=== PATIENT | female | born 1950 | race Caucasian/White ===

== ENCOUNTER 2017-04-28 05:20 | Inpatient (IN) | payer OTHER ==
[2017-04-20 08:39] VITALS: BMI 38.0
--- NOTE | 2017-04-20 09:05 | PAT Medication Instructions ---
Service Date Apr 20, 2017. Current Home Medication List Atenolol (Tenormin), 50 MG PO QAM Cholecalciferol (Vitamin D3), 1 TAB PO QAM Multivitamin (Multivitamin), 1 TAB PO QAM Ranitidine (Zantac), 150 MG PO BID Triamterene/Hctz (Dyazide 37.5MG/25MG), 1 TAB PO QAM Medication Instructions For Your Scheduled Surgery - Hold the following medications the morning of surgery: Triamterene/Hctz (Dyazide 37.5MG/25MG), 1 TAB PO QAM Cholecalciferol (Vitamin D3), 1 TAB PO QAM Multivitamin (Multivitamin), 1 TAB PO QAM - Take the following medications the morning of surgery with a sip of water: Atenolol (Tenormin), 50 MG PO QAM Ranitidine (Zantac), 150 MG PO BID - Take the following medications as scheduled the night before surgery: Ranitidine (Zantac), 150 MG PO BID If you have any questions please call us at [phone] or [phone] or [phone]
--- NOTE | 2017-04-20 10:01 | DIAGNOSTIC IMAGING REPORT ---
TWO VIEW CHEST CLINICAL HISTORY: Preoperative examination. FINDINGS: PA and lateral chest radiographs are compared to study dated 09/24/2010. The cardiomediastinal silhouette is unremarkable. The lungs and pleural spaces are clear. There is no pneumothorax. The skeletal structures are osteopenic. Mild degenerative change and scoliosis are noted in the thoracic spine. Call cystectomy clips are noted. IMPRESSION: No active disease in the chest. Electronically signed by: Junior Perez M.D. 04/20/2017 10:00 AM Dictated Date/Time: 04/20/2017 9:58 AM
[2017-04-20 10:42] LABS: BASO % 1.1 %; BASO ABS # 0.08 K/uL (0-0.2); COMPLETE YES; EOS % 6.2 %; HEMATOCRIT 48.6 % (37-47); IG% 0.3 %; LYMPH % 27.3 %; LYMPH ABS # 1.93 K/uL (1.2-3.4); MEAN CELL VOLUME 85.7 fL (80-100); MEAN CORPUSCULAR HEMOGLOBIN 29.3 pg (25-34); MEAN CORPUSCULAR HGB CONC 34.2 g/dl (32-36); MEAN PLATELET VOLUME 9.9 fL (7.4-10.4); MONO % 9.2 %; NEUT % 55.9 %; PLATELET COUNT 271 K/uL (130-400); RED BLOOD COUNT 5.67 M/uL (4.2-5.4); WHITE BLOOD COUNT 7.07 K/uL (4.8-10.8)
[2017-04-20 10:45] LABS: MANUAL MICROSCOPIC REQUIRED? NO; REVIEW REQ? NO; URINE APPEARANCE CLEAR (CLEAR); URINE BILIRUBIN NEG (NEG); URINE COLOR YELLOW; URINE EPITHELIAL CELL AUTO >30 /lpf (0-5); URINE NITRITE NEG (NEG); URINE SPECIFIC GRAVITY 1.014 (1.000-1.030); UROBILINOGEN NEG (NEG); ZZUR CULT IF INDIC CLEAN CATCH NO
[2017-04-20 10:51] LABS: PROTHROMBIN TIME (PATIENT) 10.4 SECONDS (9.0-12.0)
[2017-04-20 11:53] LABS: CALCIUM 9.1 mg/dl (8.5-10.1); CREATININE 0.87 mg/dl (0.60-1.20); POTASSIUM 3.4 mmol/L (3.5-5.1)
--- NOTE | 2017-04-27 10:00 | HISTORY & PHYSICAL EXAMINATION ---
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 She had previously undergone left total knee arthroplasty. She presents today for right total knee arthroplasty. She has failed attempts at conservative management. She has a varus alignment of her knee with subchondral sclerosis shift of the femur on tibia, osteophyte formation, subchondral sclerosis, and DJD with a tricompartmental pattern. She has failed attempts at injections, anti-inflammatories, relative rest, activity modification and presents for total knee arthroplasty. PAST MEDICAL HISTORY: Significant for hypertension. She denies history of diabetes or lung problems. FAMILY HISTORY: Otherwise unremarkable and noncontributory. SOCIAL HISTORY: The patient denies history of alcohol use, smoking or recreational drug use. MEDICATIONS: Include atenolol 50 mg p.o. daily, ranitidine 150 mg p.o. daily, triamterene/hydrochlorothiazide 37.5 mg/25 mg p.o. daily. ALLERGIES: INCLUDE SULFA. PMH Otherwise unremarkable. See history of present illness for pertinent positives. PHYSICAL EXAMINATION: GENERAL: Reveals a very pleasant 67-year-old white female with severe DJD about her right knee. She has failed attempts at conservative management and presents for a right total knee arthroplasty. HEENT: Otherwise unremarkable, atraumatic, normocephalic. HEART: Regular at 70 beats per minute. LUNGS: Clear without rales, rhonchi, or wheezes noted. ABDOMEN: Soft, nontender, nondistended. Bowel sounds are present in all 4 quadrants. RECTAL: No rectal examination was performed. MUSCULOSKELETAL: Consistent with that of severe end-stage tricompartmental degenerative joint disease, right knee. PLAN: Right total knee arthroplasty, postoperative pain management, DVT prophylaxis, antibiotics as necessary. MTDD
[~2017-04-28] VITALS: Ht 160 cm; Wt 99.4 kg
[2017-04-28] VITALS (9 sets, daily range): BP systolic 94–158; BP diastolic 56–87; PULSE 51–65; TEMP 36.3–36.7; O2SAT 92–98; Ht 160 cm; Wt 99.4 kg
[~2017-04-28 05:20] MED LIST: ATEN50TA8 PO; MULT-506 PO; TRIA37.5 PO; VTMD1000 PO; ZNTT/150 PO
[2017-04-28] MEDS ORDERED: CEFAZOLIN 2000 MG/60 ML D5W IV SCH (06:00)
[2017-04-28] MEDS ORDERED: FAMOTIDINE 20 MG TAB PO SCH (06:00)
[2017-04-28] MEDS ORDERED: LACTATED RINGER'S 1000ML 1,000 ML IV SCH ×2 (06:00)
[2017-04-28] MEDS ORDERED: LACTATED RINGER'S 1000ML 500 ML IV ONE (06:00)
[2017-04-28] MEDS ORDERED: GABAPENTIN 300 MG CAP PO SCH (06:00)
[2017-04-28] MEDS ORDERED: METOCLOPRAMIDE HCL 10 MG TAB PO SCH (06:00)
[2017-04-28] MEDS ORDERED: ACETAMINOPHEN 500 MG TAB PO SCH (06:00)
[2017-04-28] MEDS ORDERED: ROPIVACAINE 5MG/ML 30 ML 150 MG, BUPIVACAINE/EPINEPHR 0.5% MPF 30 ML, KETOROLAC TROMETH... INFIL SCH ×7 (06:00)
[2017-04-28] MEDS ORDERED: CeleBREX 200 MG CAP PO SCH (06:00)
[2017-04-28] MEDS ORDERED: DEXAMETHASONE 4 MG TAB PO SCH (06:00)
[2017-04-28] MEDS ORDERED: BUPIVACAINE 0.25% 30 ML VIAL ONE (06:14)
[2017-04-28] MEDS ORDERED: BUPIVACAINE 0.5 % 5 MG/1 ML PF 10ML VIAL ONE (06:14)
[2017-04-28] MEDS: TRANEXAMIC ACID INJ 1,000 MG in SODIUM CHLORIDE 0.9% 100ML 100 ML IV SCH ×2 (06:30→06:58)
[2017-04-28] MEDS ORDERED: LIDOCAINE HCL 2% 2 ML VIAL (20MG/ML) ONE (06:46)
[2017-04-28] MEDS ORDERED: PROPOFOL IV EMULSION 10 MG/ML 20 ML VIAL IV ONE (06:46)
[2017-04-28] MEDS ORDERED: MIDAZOLAM HCL 1 MG/ML 2ML VIAL ONE (06:46)
[2017-04-28] MEDS ORDERED: FENTANYL CITRATE INJ 50 MCG/1 ML 2 ML VIAL ONE (06:46)
--- NOTE | 2017-04-28 06:57 | History & Physical Bridge Note ---
H&P Re-Evaluation Bridge Note: I have examined the patient, reviewed the History & Physical and in the interval since the performance of the History & Physical I have noted the following changes of clinical significance: No changes noted
[2017-04-28] MEDS ORDERED: ORTHO JOINT ANESTHETIC ONE (06:59)
[2017-04-28] MEDS ORDERED: POVIDONE-IODINE OP SOLN 30 ML BTL ONE (06:59)
[2017-04-28] MEDS ORDERED: BACITRACIN 50000 UNIT VIAL ONE (06:59)
[2017-04-28] MEDS ORDERED: ATROPINE SULFATE 0.1 MG/ML 5ML SYR IV PRN (07:00)
[2017-04-28] MEDS ORDERED: EpHEDrine SULFATE INJ 50 MG/ML AMP IV PRN (07:00)
[2017-04-28] MEDS ORDERED: KETOROLAC TROMETHAMINE 15 MG/ML VIAL IV. PRN ×2 (07:00→09:00)
[2017-04-28] MEDS ORDERED: PHENYLEPHRINE 100MCG/ML 5ML SYR IV PRN (07:00)
[2017-04-28] MEDS ORDERED: ONDANSETRON INJ 2 MG/ML 2 ML VIAL IV PRN ×2 (07:00→09:00)
[2017-04-28] MEDS ORDERED: HYDROmorphone INJ 2 MG/ML SYR/VIAL IV PRN (07:00)
[2017-04-28] MEDS ORDERED: RANITIDINE HCL 25 MG/ML INJ ONE (07:10)
[2017-04-28] MEDS ORDERED: DiphenhydrAMINE HCL 50 MG/ML VIAL ONE (07:10)
[2017-04-28] MEDS ORDERED: GLYCOPYRROLATE INJ 0.2 MG/ML VIAL ONE (07:35)
[2017-04-28] MEDS ORDERED: EpHEDrine SULFATE INJ 50 MG/ML AMP ONE (07:41)
[2017-04-28] MEDS ORDERED: ONDANSETRON INJ 2 MG/ML 2 ML VIAL ONE (08:16)
--- NOTE | 2017-04-28 08:19 | [facility] Operative Report ---
Operative Report Operative Date Apr 28, 2017. Pre-Operative Diagnosis End-Stage Tricompartmental Degenerative Joint Disease Post-Operative Diagnosis End-Stage Tricompartmental Degenerative Joint Disease Procedure(s) Performed Right Total Knee Arthroplasty utilizing Mcpherson & Nephew journey 2 nonlocked total knee arthroplasty size 4 femur 3 tibia 10 poly-29 oval patella Surgeon Henok Rag Washer Surgeon(s) Alphonso Perez PA-C Estimated Blood Loss 5CC Findings Severe end-stage tricompartmental degenerative joint disease varus alignment medial osteophyte subchondral sclerosis Specimens A: Right Knee Bone and Tissue Complication(s) None Disposition Recovery Room / PACU Indications Patient still times a conservative management including physical therapy anti- inflammatories relative rest activity modification injections as well as injections presents for total knee arthroplasty after failed conservative management Description of Procedure After proper prepping and draping of the Right lower extremity anterior midline incision was made over the region of the extensor extensor mechanism after meticulous hemostasis was obtained and maintained in subcutaneous tissues a medial parapatellar incision was made The patella was subluxed lateralward the medial lateral gutter were cleaned from any hypertrophic synovitis and scar tissue of the distal femoral block was placed and the distal femoral osteotomy cut was made subsequently the chamfers anterior and posterior osteotomy cuts were made utilizing the 4-in-1 block the tibia was subsequently subluxed anteriorward medial and ateral meniscal remnants were excised in their entirety remnants of the anterior and posterior cruciate ligaments were excised in their entirety excellent exposure of the proximal tibia was obtained the tibial osteotomy guide was placed on the proximal tibial osteotomy cut was made once again the knee was irrigated with copious amounts of sterile saline solution the patella was subsequently everted lateralward thickened scar tissue around the patella was removed the patella was subsequently cut utilizing a freehand technique and was drilled prepared for final preparation and placement of patella socially flexion-extension gaps were checked and the equal and symmetric trials were placed to the appropriate femoral and tibial trials with poly-spacer being placed for equal flexion and extension gaps and full range of motion including extension to 0 and flexion to 140 the trial components after having been taken to recovery range of motion was subsequently removed meticulous hemostasis was obtained and maintained subsequently a knee block injection of joint cocktail including ropivacaine 0.5% 150 mg. Bupivacaine 0.5 % epinephrine 1-200,030 mL's toradol 30 mg dexamethasone 4 mg ketamine 10 mg clonidine 100 micrograms normal saline solution 30 mg was infiltrated into the soft tissues of the posterior knee medial lateral gutters and periosteal synovium special attention was paid to protect neurovascular structures at all times subsequently trial components having been removed the knee was irrigated with sterile saline solution. debris was removed the proximal tibia was subsequently prepared and was made ready for the placement of the tibial component tibial component was also cemented and tamped into position the femoral component was subsequently placed and cemented in the position the patellar component was subsequently cemented in position because hemostasis once again obtained and maintained wound having been thoroughly irrigated with debridement and debridement lavage was performed as well as a medial parapatellar incision closed with #1 Vicryl in interrupted fashion subcutaneous was closed with #2 Vicryl skin was closed with skin clips. PA-C was necessary for prepping and drapping as well as wound closure of deep fascia Sub cutaneous tissue and skin and was necessary for the case. A sterile compressive dressing was placed patient was taken to recovery in stable condition of report dictated by Henok I attest to the content of the Intraoperative Record and any orders documented therein. Any exceptions are noted below. I attest to the content of the Intraoperative Record and any orders documented therein. Any exceptions are noted below.
[2017-04-28] MEDS ORDERED: ZOLPIDEM TARTRATE 5 MG TAB PO PRN (09:00)
[2017-04-28] MEDS ORDERED: SOD PHOSPHATE/SOD BIPHOSPHATE ENEMA 132 ML BTL PR PRN (09:00)
[2017-04-28] MEDS ORDERED: MAGNESIUM HYDROXIDE SUSP 30 ML UDC PO PRN (09:00)
[2017-04-28] MEDS ORDERED: MoRPHine SULFATE 2 MG/ML CARP IV PRN ×2 (09:00→11:30)
[2017-04-28] MEDS: DOCUSATE SODIUM 100 MG CAP PO SCH ×4 (09:00→20:14)
[2017-04-28] MEDS: MULTIVITAMIN TAB PO SCH ×2 (09:00→13:35)
[2017-04-28] MEDS ORDERED: BISACODYL 10 MG SUPP PR PRN (09:00)
[2017-04-28] MEDS ORDERED: ALUMINUM/MAGNESIUM/SIMETH (MAALOX MAX) 30 ML UDC PO PRN (09:00)
[2017-04-28] MEDS ORDERED: TRAMADOL HCL 50 MG TAB PO PRN (09:00)
--- NOTE | 2017-04-28 09:34 | Anesthesiology Progress Note ---
Anesthesia Post Op Note Date & Time Apr 28, 2017 at 09:33 Vital Signs Pain Intensity: 0 Vital Signs Past 12 Hours Date Time Temp Pulse Resp B/P (MAP) Pulse Ox O2 Delivery O2 Flow Rate FiO2 04/28/17 09:20 62 16 104/66 98 Nasal Cannula 2 04/28/17 09:10 63 16 103/61 98 Oxymask 10 04/28/17 09:00 57 16 105/64 99 Oxymask 10 04/28/17 08:53 36.6 60 16 108/65 99 Oxymask 10 04/28/17 05:50 36.6 56 20 158/87 94 Room Air Notes Mental Status: alert / awake / arousable, participated in evaluation Pt Amnestic to Procedure: Yes Nausea / Vomiting: adequately controlled Pain: adequately controlled Airway Patency, RR, SpO2: stable & adequate BP & HR: stable & adequate Hydration State: stable & adequate Anesthetic Complications: no major complications apparent
--- NOTE | 2017-04-28 09:37 | DIAGNOSTIC IMAGING REPORT ---
TWO VIEWS RIGHT KNEE CLINICAL HISTORY: Postoperative examination. FINDINGS: AP and crosstable lateral portable views of the right knee are obtained. A right knee arthroplasty is in near anatomic alignment. There has been undersurface remodeling of the patella. There is a linear lucency seen in the distal femoral metaphysis on the lateral projection adjacent to the arthroplasty. A tiny nondistracted fracture is not excluded. No additional findings are concerning for acute fracture. There are expected postoperative changes around the knee including a surgical drain, soft tissue edema, and subcutaneous gas. IMPRESSION: 1. Expected postoperative changes status post right knee arthroplasty. 2. Question a tiny nondistracted fracture of the distal femur adjacent to the arthroplasty only seen on the lateral view. Electronically signed by: Junior Perez M.D. 04/28/2017 9:35 AM Dictated Date/Time: 04/28/2017 9:34 AM
[2017-04-28] MEDS ORDERED: MoRPHine SULFATE 4 MG/ML 1 ML CARP\\VIAL IV PRN (11:30)
[2017-04-28] MEDS ORDERED: MoRPHine SULFATE 10 MG/ML CARP/VIAL IV PRN (11:30)
[2017-04-28] MEDS: D5W AND 1/2NSS + 20MEQ KCL 1,000 ML IV SCH ×2 (11:57→21:08)
[2017-04-28] MEDS: CHOLECALCIFEROL 1000 INTER.UNIT TAB PO SCH (13:35)
[2017-04-28] MEDS: PANTOprazole SOD 40 MG TAB PO SCH (13:35)
[2017-04-28] MEDS: ACETAMINOPHEN 500 MG TAB PO SCH ×2 (13:36→21:08)
[2017-04-28] MEDS: OXYCODONE HCL IR 5 MG TAB (IMMEDIATE RELEASE) PO PRN ×2 (16:06→20:14)
[2017-04-28] MEDS: CEFAZOLIN IV 2,000 MG in DEXTROSE 5% 50ML 50 ML IV SCH ×2 (16:06→23:40)
[2017-04-28] MEDS: SENNA 8.6 MG TAB PO SCH (20:15)
[2017-04-28] MEDS: ASPIRIN 81 MG ECTAB PO SCH (20:15)
[2017-04-29 04:01] VITALS: BP 112/68; PULSE 51; TEMP 36.5; O2SAT 94
[2017-04-29] MEDS: ACETAMINOPHEN 500 MG TAB PO SCH ×3 (05:23→21:40)
[2017-04-29 05:46] LABS: HEMATOCRIT 37.8 % (37-47); MEAN CELL VOLUME 85.9 fL (80-100); MEAN CORPUSCULAR HEMOGLOBIN 29.3 pg (25-34); MEAN CORPUSCULAR HGB CONC 34.1 g/dl (32-36); MEAN PLATELET VOLUME 9.7 fL (7.4-10.4); PLATELET COUNT 231 K/uL (130-400); WHITE BLOOD COUNT 21.07 K/uL (4.8-10.8)
[2017-04-29 05:52] LABS: PROTHROMBIN TIME (PATIENT) 10.9 SECONDS (9.0-12.0)
[2017-04-29 06:10] LABS: BUN/CREATININE RATIO 13.8 (10-20); CALCIUM 8.2 mg/dl (8.5-10.1); CREATININE 0.94 mg/dl (0.60-1.20)
--- NOTE | 2017-04-29 07:13 | Orthopedic Progress Note ---
Orthopedic Progress Note Date of Service Apr 29, 2017. Subjective Post OP Day: 1 Reports: feeling well, pain controlled w PO medications, Denies: complaints, chest pain, SOB, nausea / vomiting, light headedness, calf pain Objective calves soft nontender, N/V intact, capillary refill less than 2 sec., dressing C /D/I, A&O x3, toes mobile, hemovac drainage (150cc/8 hours) Date Time Temp Pulse Resp B/P (MAP) Pulse Ox O2 Delivery O2 Flow Rate FiO2 04/29/17 04:01 36.5 51 16 112/68 (83) 94 Room Air 04/28/17 23:24 36.4 51 16 106/66 (79) 93 Room Air 04/28/17 19:43 36.7 56 17 94/56 (69) 92 Room Air 04/28/17 19:30 Room Air 04/28/17 15:04 36.6 61 17 103/64 (77) 94 Room Air 04/28/17 12:47 62 16 101/64 (76) 93 Room Air 04/28/17 11:58 59 18 106/68 (81) 96 Nasal Cannula 2.0 04/28/17 10:50 60 16 123/79 (94) 94 Room Air 04/28/17 10:22 36.3 57 18 121/78 (92) 93 Nasal Cannula 2.0 04/28/17 09:50 98 Nasal Cannula 2.0 04/28/17 09:50 98 Nasal Cannula 2.0 04/28/17 09:50 36.5 65 16 107/67 (80) 98 Nasal Cannula 2.0 04/28/17 09:30 36.2 55 16 100/65 98 Nasal Cannula 2 04/28/17 09:20 62 16 104/66 98 Nasal Cannula 2 04/28/17 09:10 63 16 103/61 98 Oxymask 10 04/28/17 09:00 57 16 105/64 99 Oxymask 10 04/28/17 08:53 36.6 60 16 108/65 99 Oxymask 10 Laboratory Results 24 Hours: Test 04/29/17 05:20 Hematocrit 37.8 % Hemoglobin 12.9 g/dL Prothromb Time International Ratio 1.0 Prothrombin Time 10.9 SECONDS Assessment & Plan Assessment: POD #1 s/p Right Total Knee Arthroplasty utilizing Mcpherson & Nephew journey 2 total knee arthroplasty size 4 femur 3 tibia 10 poly-29 oval patella -pt/ot -dvt proph with jose/scd/asa -plan for dc home with HHPT x 2 weeks Hypertension Discharge Planning Discharge Planning: home with home health DVT Prophylaxis: TEDs, SCDs, ASA Therapy: Physical Therapy
--- NOTE | 2017-04-29 07:15 | Discharge Instructions ---
Discharge Instructions Date of Service Apr 29, 2017. Admission Reason for Admission: Unilateral Primary Osteoarthritis, Right Knee Discharge Discharge Diagnosis / Problem: right total knee replacement Discharge Goals Goal(s): Decrease discomfort, Improve function, Increase independence Activity Recommendations Activity Limitations: as noted below Weightbearing Status: Right weightbearing (as tolerated) . Instructions / Follow-Up Instructions / Follow-Up ACTIVITY RECOMMENDATIONS: SELF CARE INSTRUCTIONS AFTER TOTAL KNEE REPLACEMENT A. You may need to continue a physical therapy program after discharge from the hospital. There are several options available to you. Your doctor will assist you in selecting the best one for you. 1. An out-patient facility 2 to 3 times a week for therapy or home therapy. 2. Continue working on all exercises taught to you in the hospital. Your goals should be to increase bending of your knee to 90 degrees and beyond and to fully straighten your knee. B. You may progress at your own pace from walking with a walker or crutches to a cane; then to no assistive devices. C. Make walking a part of your daily routine. Be up as much as comfortable with rest periods throughout the day. Rest with leg elevation is very important. Use the ice wrap frequently for the first 3-4 weeks. D. There are no restrictions on activities. You may ride in a car, shop, participate in cross country truck driver and all social activities. E. Wear the long elastic stockings (CHRIS hose) 20 hours a day for 2 weeks after surgery. They can be removed several times a day for laundering and for a bath. F. You may shower, no tub baths until cleared by your doctor. SPECIAL CARE INSTRUCTIONS: VERY IMPORTANT TO READ AND REVIEW A. There are a few signs you need to watch for after you are home. Call [facility] if you notice any of the followin. Increased severe knee pain. Some pain is expected especially when you exercise. 2. Increased swelling in your leg or knee; pain or swelling of the calf muscle in either lower leg. 3. Any fluid drainage from the incision. 4. Shortness of breath or chest pain. B. Please call [facility] at if you have any concerns or questions about your operation or recovery. The doctor or his nurse will return your call promptly. C. You must take antibiotics before dental work, bladder, bowel or other surgery. Your doctor will provide you with a permanent care to carry describing this precaution. IMPORTANT: * REMEMBER TO TAKE ASPIRIN, 81 MG, TWICE DAILY FOR 4 WEEKS UNLESS OTHERWISE DIRECTED. THIS IS YOUR BLOOD THINNER. * HIGH RISK PATIENTS MAY BE PRESCRIBED A STRONGER BLOOD THINNER. THIS WILL BE PROVIDED AT DISCHARGE. * CALL IF INCREASED PAIN, REDNESS, DRAINAGE OR FEVER GREATER THAT 101. * WEAR CHRIS HOSE 20 HOURS PER DAY FOR 2 WEEKS. * DERMABOND Prineo- This is a mesh tape dressing that is covered with glue. It should remain in place until the incision is properly healed, usually 10-14 days. This dressing is designed to naturally slough off. You may trim the excess mesh tape as it peels off. Incision may be briefly wet in a shower. Dry immediately by blotting with a clean, dry towel. Do not bath or swim until instructed by your doctor. Do not scratch, rub, or pick at the dressing. Do not apply any topical ointments or lotions until dressing is completely removed and/or instructed by your doctor. There may be a small piece of suture material at one end of your incision. Do not pull or trim this. If it is bothersome or catching on clothing, you may cover it with a band-aid. FOLLOW UP VISIT: If appointment is not already scheduled: Please call [facility] to make a follow-up appointment for 2 weeks after your surgery at . Current Hospital Diet Patient's current hospital diet: Regular Diet Discharge Diet Recommended Diet: Regular Diet Procedures Procedures Performed: Right Total Knee Arthroplasty utilizing Mcpherson & Nephew journey 2 nonlocked total knee arthroplasty size 4 femur 3 tibia 10 poly-29 oval patella Pending Studies Studies pending at discharge: no Laboratory Results Hemoglobin A1c Test 04/20/17 09:35 Range/Units Estimated Average Glucose 128 mg/dl Hemoglobin A1c 6.1 H 4.5-5.6 % Medical Emergencies . Who to Call and When: Medical Emergencies: If at any time you feel your situation is an emergency, please call 911 immediately. . Non-Emergent Contact Non-Emergency issues call your: Primary Care Provider, Surgeon . "Provider Documentation" section prepared by Alphonso Perez. . VTE Core Measure Inpt VTE Proph given/why not?: Other Anticoagulation (ASA 81mg po bid x 1 month ), T.E.DSaqib Stockings, SCD's [place] Drug Monitoring Program Search Results: patient reviewed within database, no issues identified
[2017-04-29 07:21] VITALS: BP 109/66; PULSE 57; TEMP 36.5; O2SAT 94
[2017-04-29] MEDS: D5W AND 1/2NSS + 20MEQ KCL 1,000 ML IV SCH (07:31)
[2017-04-29] MEDS: CHOLECALCIFEROL 1000 INTER.UNIT TAB PO SCH (08:47)
[2017-04-29] MEDS: OXYCODONE HCL IR 5 MG TAB (IMMEDIATE RELEASE) PO PRN ×3 (08:47→20:00)
[2017-04-29] MEDS: MULTIVITAMIN TAB PO SCH (08:47)
[2017-04-29] MEDS: DOCUSATE SODIUM 100 MG CAP PO SCH ×2 (08:48→20:46)
[2017-04-29] MEDS: PANTOprazole SOD 40 MG TAB PO SCH (08:48)
[2017-04-29] MEDS: ASPIRIN 81 MG ECTAB PO SCH ×2 (08:48→20:46)
[2017-04-29 12:14] VITALS: BP 102/64; PULSE 48; TEMP 36.4; O2SAT 95
--- NOTE | 2017-04-29 13:11 | Anesthesiology Progress Note ---
Anesthesia Post Op Note Date & Time Apr 29, 2017 at 13:08 Vital Signs Vital Signs Past 12 Hours Date Time Temp Pulse Resp B/P (MAP) Pulse Ox O2 Delivery O2 Flow Rate FiO2 04/29/17 12:14 36.4 48 16 102/64 (77) 95 Room Air 04/29/17 07:42 Room Air 04/29/17 07:21 36.5 57 16 109/66 (80) 94 Room Air 04/29/17 04:01 36.5 51 16 112/68 (83) 94 Room Air Notes Mental Status: alert / awake / arousable, participated in evaluation Pt Amnestic to Procedure: Yes Nausea / Vomiting: adequately controlled Pain: adequately controlled Airway Patency, RR, SpO2: stable & adequate BP & HR: stable & adequate Hydration State: stable & adequate Anesthetic Complications: no major complications apparent
[2017-04-29 15:14] VITALS: BP 104/66; PULSE 56; TEMP 36.5; O2SAT 94
[2017-04-29] MEDS: SENNA 8.6 MG TAB PO SCH (20:46)
[2017-04-29 23:02] VITALS: BP 91/57; PULSE 65; TEMP 36.7; O2SAT 96
[2017-04-30 04:46] VITALS: BP 110/65
[2017-04-30] MEDS: ACETAMINOPHEN 500 MG TAB PO SCH (05:29)
[2017-04-30 05:58] VITALS: BP 110/70; PULSE 58; TEMP 36.7; O2SAT 94
--- NOTE | 2017-04-30 06:45 | Orthopedic Progress Note ---
Orthopedic Progress Note Date of Service Apr 30, 2017. Subjective Post OP Day: 2 Reports: feeling well, pain controlled w PO medications, Denies: complaints, chest pain, SOB, nausea / vomiting, light headedness, calf pain Objective calves soft nontender, capillary refill less than 2 sec., incision C/D/I, A&O x3 , toes mobile Date Time Temp Pulse Resp B/P (MAP) Pulse Ox O2 Delivery O2 Flow Rate FiO2 04/30/17 05:58 36.7 58 16 110/70 (83) 94 Room Air 04/30/17 04:46 110/65 (80) 04/30/17 00:15 Room Air 04/29/17 23:02 36.7 65 16 91/57 (68) 96 Room Air 04/29/17 19:45 Room Air 04/29/17 15:14 36.5 56 18 104/66 (79) 94 Room Air 04/29/17 12:14 36.4 48 16 102/64 (77) 95 Room Air 04/29/17 07:42 Room Air 04/29/17 07:21 36.5 57 16 109/66 (80) 94 Room Air Assessment & Plan Assessment: POD #2 s/p Right Total Knee Arthroplasty utilizing Mcpherson & Nephew journey 2 total knee arthroplasty size 4 femur 3 tibia 10 poly-29 oval patella -pt/ot -dvt proph with jose/scd/asa -plan for dc home with HHPT x 2 weeks Hypertension Discharge Planning Discharge Planning: home with home health DVT Prophylaxis: TEDs, SCDs, ASA Therapy: Physical Therapy
[2017-04-30] MEDS ORDERED: ASPEC81 PO (06:47)
[2017-04-30] MEDS ORDERED: ACET-24 PO (06:47)
[2017-04-30] MEDS ORDERED: ONDA8TAB6 PO (06:47)
[2017-04-30] MEDS ORDERED: RXC5 PO (06:47)
[2017-04-30] MEDS ORDERED: ULT50X PO (06:47)
[2017-04-30] MEDS ORDERED: CLC100 PO (06:47)
[2017-04-30] MEDS: MULTIVITAMIN TAB PO SCH (07:43)
[2017-04-30] MEDS: OXYCODONE HCL IR 5 MG TAB (IMMEDIATE RELEASE) PO PRN (07:43)
[2017-04-30] MEDS: CHOLECALCIFEROL 1000 INTER.UNIT TAB PO SCH (07:43)
[2017-04-30] MEDS: DOCUSATE SODIUM 100 MG CAP PO SCH (07:43)
[2017-04-30] MEDS: ASPIRIN 81 MG ECTAB PO SCH (07:43)
[2017-04-30] MEDS: PANTOprazole SOD 40 MG TAB PO SCH (07:43)
--- NOTE | 2017-04-30 07:58 | Discharge Summary ---
Orthopedic Discharge Summary Admission Date/Reason Apr 28, 2017 at 06:45 Unilateral Primary Osteoarthritis, Right Knee. Discharge Date/Disposition Apr 30, 2017 Home Diagnosis Principal Diagnosis: right knee osteoarthritis Procedure(s) Performed Right Total Knee Arthroplasty utilizing [employer] journey 2 nonlocked total knee arthroplasty size 4 femur 3 tibia 10 poly-29 oval patella Consultations NONE Medication Reconciliation New Medications: Ondansetron Hcl (Zofran) 8 Mg Tab 8 MG PO Q8 PRN for Nausea, #20 TAB Acetaminophen (Sb Non-Aspirin Extra Stre) 500 Mg Tab 1000 MG PO Q8H, #126 TAB Aspirin (Aspirin EC Low Dose) 81 Mg Ectab 81 MG PO BID for 30 Days, #60 TAB Docusate Sodium (Docusate Sodium) 100 Mg Cap 100 MG PO BID for 10 Days, #20 CAP Oxycodone HCl (Oxycodone HCl) 5 Mg Tab 5-10 MG PO Q4H PRN for Pain, #60 TAB Tramadol HCl (Tramadol HCl) 50 Mg Tab 50-100 MG PO Q4H PRN for Pain, #60 TAB Continued Medications: Atenolol (Tenormin) 50 Mg Tab 50 MG PO QAM Cholecalciferol (Vitamin D3) 1,000 Inter.unit Tab 1 TAB PO QAM Multivitamin (Multivitamin) Tab 1 TAB PO QAM, TAB Ranitidine (Zantac) 150 Mg Tab 150 MG PO BID for STOMACH, 0 Refills Triamterene/Hctz (Dyazide 37.5MG/25MG) Cap 1 TAB PO QAM, CAP Admission Physical Exam As per Admitting History & Physical. Hospital Course Patient was a same day admission after undergoing a successful right TKA. she tolerated the procedure well. Post-operatively, her activity was progressed and well tolerated. Please refer to daily progress notes and PT notes for complete details. After exam on 04/30/17, patient felt to be stable for discharge home with OPPT. Patient will f/u in the office in 2 weeks for further evaluation including x-rays and incision check, sooner if having any issues or concerns. Below are pertinent labs/studies during their hospital stay: Last Vital Signs Documentation Date Time Temp Pulse Resp B/P (MAP) Pulse Ox O2 Delivery O2 Flow Rate FiO2 04/30/17 07:08 Room Air 04/30/17 05:58 36.7 58 16 110/70 (83) 94 10/10/17 11:58 2.0 Last Resulted CBC 04/29/17 05:20 Last Resulted BMP 04/29/17 05:20 Discharge Instructions ACTIVITY RECOMMENDATIONS: SELF CARE INSTRUCTIONS AFTER TOTAL KNEE REPLACEMENT A. You may need to continue a physical therapy program after discharge from the hospital. There are several options available to you. Your doctor will assist you in selecting the best one for you. 1. An out-patient facility 2 to 3 times a week for therapy or home therapy. 2. Continue working on all exercises taught to you in the hospital. Your goals should be to increase bending of your knee to 90 degrees and beyond and to fully straighten your knee. B. You may progress at your own pace from walking with a walker or crutches to a cane; then to no assistive devices. C. Make walking a part of your daily routine. Be up as much as comfortable with rest periods throughout the day. Rest with leg elevation is very important. Use the ice wrap frequently for the first 3-4 weeks. D. There are no restrictions on activities. You may ride in a car, shop, participate in correction lieutenant and all social activities. E. Wear the long elastic stockings (CHRIS hose) 20 hours a day for 2 weeks after surgery. They can be removed several times a day for laundering and for a bath. F. You may shower, no tub baths until cleared by your doctor. SPECIAL CARE INSTRUCTIONS: VERY IMPORTANT TO READ AND REVIEW A. There are a few signs you need to watch for after you are home. Call [facility] if you notice any of the followin. Increased severe knee pain. Some pain is expected especially when you exercise. 2. Increased swelling in your leg or knee; pain or swelling of the calf muscle in either lower leg. 3. Any fluid drainage from the incision. 4. Shortness of breath or chest pain. B. Please call [facility] at if you have any concerns or questions about your operation or recovery. The doctor or his nurse will return your call promptly. C. You must take antibiotics before dental work, bladder, bowel or other surgery. Your doctor will provide you with a permanent care to carry describing this precaution. IMPORTANT: * REMEMBER TO TAKE ASPIRIN, 81 MG, TWICE DAILY FOR 4 WEEKS UNLESS OTHERWISE DIRECTED. THIS IS YOUR BLOOD THINNER. * HIGH RISK PATIENTS MAY BE PRESCRIBED A STRONGER BLOOD THINNER. THIS WILL BE PROVIDED AT DISCHARGE. * CALL IF INCREASED PAIN, REDNESS, DRAINAGE OR FEVER GREATER THAT 101. * WEAR CHRIS HOSE 20 HOURS PER DAY FOR 2 WEEKS. * DERMABOND Prineo- This is a mesh tape dressing that is covered with glue. It should remain in place until the incision is properly healed, usually 10-14 days. This dressing is designed to naturally slough off. You may trim the excess mesh tape as it peels off. Incision may be briefly wet in a shower. Dry immediately by blotting with a clean, dry towel. Do not bath or swim until instructed by your doctor. Do not scratch, rub, or pick at the dressing. Do not apply any topical ointments or lotions until dressing is completely removed and/or instructed by your doctor. There may be a small piece of suture material at one end of your incision. Do not pull or trim this. If it is bothersome or catching on clothing, you may cover it with a band-aid. FOLLOW UP VISIT: If appointment is not already scheduled: Please call [facility] to make a follow-up appointment for 2 weeks after your surgery at .
[2017-04-30 11:03] VITALS: BP 110/70; PULSE 58; TEMP 36.7; O2SAT 94
== END 2017-04-30 11:50 | disposition home health service (06) | DRG 470 ==
LOC: C.ACU 05:20 → C.3E 06:45 → ENRESERV 09:16
PROVIDERS: ADMIT Orthopaedic Surgery; ATTEND Orthopaedic Surgery
PROC: 0SRC0J9 Replacement of Right Knee Joint with Synthetic Substitute, Cemented, Open Approach (ICD-10-PCS; principal; 2017-04-28 07:15)
DX: M17.11 Unilateral primary osteoarthritis, right knee (principal); I10 Essential (primary) hypertension; Z96.652 Presence of left artificial knee joint; Z79.899 Other long term (current) drug therapy

== ENCOUNTER → 2017-07-22 | Outpatient (CLI) | payer OTHER ==
[~2017-07-22] MED LIST changes: +ACET-24 PO; +ASPI-320 PO; +CLC100 PO; +ONDA-170 PO; +RANI150T85 PO; +RXC5 PO; +ULT50X PO; -ZNTT/150 PO
== END | disposition home or self-care (01) ==
LOC: C.LABSPEC 14:19
PROVIDERS: ATTEND Internal Medicine
DX: R35.0 Frequency of micturition (principal)

== ENCOUNTER → 2017-07-28 | Outpatient (CLI) | payer OTHER ==
[~2017-07-28] MED LIST changes: +ASPEC81 PO; -ASPI-320 PO; -ONDA-170 PO; +ONDA8TAB6 PO; -RANI150T85 PO; +ZNTT/150 PO
== END | disposition home or self-care (01) ==
LOC: C.LABBFT 13:28
PROVIDERS: ATTEND Internal Medicine
DX: N39.0 Urinary tract infection, site not specified (principal)

== ENCOUNTER → 2018-02-15 | Outpatient (CLI) | payer OTHER ==
[~2018-02-15] MED LIST changes: -ASPEC81 PO; +ASPI-320 PO; -ONDA8TAB6 PO; +RANI150T85 PO; -ZNTT/150 PO
[2018-02-15 13:04] LABS: BLOOD UREA NITROGEN 16 mg/dl (7-18); CALCIUM 8.9 mg/dl (8.5-10.1); CARBON DIOXIDE 29 mmol/L (21-32); GLUCOSE 114 mg/dl (70-99); POTASSIUM 3.2 mmol/L (3.5-5.1); SODIUM 140 mmol/L (136-145)
== END | disposition home or self-care (01) ==
LOC: C.LABBFT 10:03
PROVIDERS: ATTEND Nurse Practitioner
DX: R39.9 Unspecified symptoms and signs involving the genitourinary system (principal); E87.6 Hypokalemia

== ENCOUNTER 2021-06-26 17:38 | Inpatient (IN) ==
[2021-06-26] MEDS ORDERED: SODIUM CHLORIDE 0.9% 500 ML IV STA (18:12)
[2021-06-26] MEDS ORDERED: dexAMETHasone**PF** 10 MG/ML VIAL IV ONE (18:12)
[2021-06-26] MEDS ORDERED: SODIUM CHLORIDE 0.9% 1000ML 1,000 ML IV ONE (18:13)
--- NOTE | 2021-06-26 18:17 | Emergency Department Note ---
Impression & Plan Acute hypoxemic respiratory failure due to COVID-19, Elevated troponin I level, Elevated lactic acid level, Dehydration ED Provider Note NAME: CINDY COCHRAN AGE: 71 SEX: F : 1950 ARRIVES VIA: Walk-In INFORMANT: Patient, ED PROVIDER(S): Sánchez Stacy MD Chief Complaint: Shortness of breath, Covid positive HPI: Patient was seen due to concern for shortness of breath. The patient reportedly tested positive for Covid last Thursday patient tested positive on June 20. The patient reportedly has had some confusion and shortness of breath which really just occurred today. The patient is at cough. Some of the history is obtained from the daughter at bedside as the patient does appear to be slow to respond. No reported recent falls or trauma. Patient does have a history of hypertension no recent falls or trauma. The patient does not wear oxygen at home. Non-smoker. No recent surgeries or procedures. No prior history of DVT or PE. No reported prior history of heart or lung disease. ROS: See HPI for pertinent positives and negatives. A total of 10 systems were reviewed and otherwise negative. Past medical history: See below Surgical history: See below Social history: See below Physical Exam: GENERAL: Significant distress, nasal cannula in place, wearing glasses. Tachypnea noted. EYE EXAM: Normal conjunctiva. PERRL, no anisocoria and EOM's grossly intact w/o pain. NECK: Supple, no nuchal rigidity, no adenopathy, non-tender. No signs of meningismus. LUNGS: Coarse throughout. Tachypnea noted. HEART: NSR, no MRG. ABDOMEN: Abdomen soft, non-tender, normo-active bowel sounds, no masses, no rebound or guarding. BACK: No CVA TTP. SKIN: No rashes and no bruising. UPPER EXTREMITIES: Upper extremities are grossly normal. LOWER EXTREMITIES: Grossly normal, no edema. Negative Homans' sign bilaterally. NEURO EXAM: Awake and alert, slow to respond, no obvious facial droop, no dysarthria, moves all 4 extremities. Differential diagnoses: Reactive airway disease, pneumonia, pneumothorax, COPD, CHF, infections, cardiac ischemia, pulmonary embolism, musculoskeletal, gastrointestinal, as well as other pathologies. Course: Patient was seen and evaluated the bedside. Full history physical exam was performed. EKG interpreted by me Normal sinus rhythm, rate of 69, normal intervals, left axis deviation, no obvious ST elevations. Imaging Studies: See Below Cardiac monitoring: An order was placed for continuous cardiac monitoring. The monitor shows a rate of 75 with sinus rhythm. MDM: Patient presented as a walk-in in significant respiratory distress and hypoxemia. Patient was immediately placed in a 1 placed on a nonrebreather 15 L respiratory was called and the patient did have immediate blood work completed. Patient did have significant improvement in her respiratory status with sats into the mid to high 90s. Vital signs show a normal heart rate and blood pressure. Patient is a normal white count with a lower hemoglobin. The patient's platelet count is unremarkable. The patient's kidney function does show a creatinine of 1.3. The patient does likely have some prerenal azotemia. Patient's BNP and troponin are positive believe this is secondary to the patient's significant hypoxemia as the patient likely was hypoxic for significant period of time as she was confused in the 60s. With improvement of her oxygenation the patient is no longer confused. I did consider the possibility of PE but believe this to be less likely. The patient is on atenolol but the patient's heart rate is in the 60s and the patient denies any chest pains. The patient has no signs or stigmata DVT on exam. Patient was admitted to the medicine service Dr. Miguel. Patient did have an elevated lactate but believe this is due to the patient's likely prolonged and profound hypoxemia. Patient also believe is dehydrated. Critical Care: I have personally spent 67 minutes of critical care time in direct management of this patient. This includes bedside care, interpretation of diagnostic studies, and testing, discussion with consultants, patient, and family members, and other require inpatient management activities. This 67 minutes is in excess of all separately billable procedures. Past Med/Surg History Medical History Acute diverticulitis Hypertension Surgical History S/P TKR (total knee replacement) Family History Daughter Cancer Mother Cancer Father Colorectal cancer Brother Colorectal cancer Social History Smoking Status: Never smoker Hx Alcohol Use: Yes Hx Substance Use: No Preferred Language: Irish Communication Ability: Effective Hearing Ability: Normal marital status: / Current Living Situation: Alone Feels Safe at Home: Yes caffeine: No Physical Activity Frequency: 3-4 Times per Week Immunizations: Not vaccinxated for Covid 19 Allergies Allergies Allergy/AdvReac Type Severity Reaction Status Date / Time Bactrim Allergy Intermediate RASH, AND Verified 04/28/17 05:55 THROAT CLOSES sulfamethoxazole Allergy Intermediate RASH, AND Verified 06/26/21 19:22 THROAT CLOSES trimethoprim Allergy Intermediate RASH, AND Verified 06/26/21 19:22 THROAT CLOSES Penicillins Allergy Hives Verified 06/26/21 19:23 Home Meds Home Medications Medication Instructions Recorded Confirmed atenolol 50 mg tablet 50 mg PO HS 06/26/21 06/26/21 cholecalciferol (vitamin D3) 25 25 mcg PO DAILY 06/26/21 06/26/21 mcg (1,000 unit) tablet (Vitamin D3) multivitamin 1 tab PO DAILY 06/26/21 06/26/21 omeprazole 40 mg capsule,delayed 40 mg PO DAILY 06/26/21 06/26/21 release triamterene 37.5 1 tab PO HS 06/26/21 06/26/21 mg-hydrochlorothiazide 25 mg tablet Results & Data (ED) Vital Signs Vital Signs - 24 hr 06/26/21 17:56 06/26/21 18:13 06/26/21 18:15 Temperature 36.6 C 36.8 C Temperature Source Temporal Artery Scan Oral Pulse Rate 68 Pulse Rate [Apical] 68 Pulse Rate from SpO2 Sensor 68 Pulse Rhythm Regular Pulse Strength Normal Respiratory Rate 30 H 20 28 H Respiratory Effort / Characteristics Non-Labored Spontaneous Non-Labored Spontaneous Respiratory Depth Normal Normal Respiratory Pattern Regular Regular Blood Pressure 92/54 L Blood Pressure [Right Arm] 104/61 Blood Pressure Mean 66 Blood Pressure Mean [Right Arm] 75 Blood Pressure Position Sitting Pulse Oximetry 63 L 95 96 Oxygen Delivery Method Room Air Non-rebreather Non-rebreather Oxygen Flow Rate 15 15 Sepsis Recent Fever Within 48 Hours No Sepsis New/Unexplained Change in Mental Status No Sepsis Action Taken by Nursing No Action Required 06/26/21 18:16 06/26/21 18:18 06/26/21 18:30 Temperature Temperature Source Pulse Rate 68 67 Pulse Rate [Apical] Pulse Rate from SpO2 Sensor 66 Pulse Rhythm Pulse Strength Respiratory Rate 28 H 26 H Respiratory Effort / Characteristics Spontaneous Respiratory Depth Respiratory Pattern Blood Pressure Blood Pressure [Right Arm] Blood Pressure Mean Blood Pressure Mean [Right Arm] Blood Pressure Position Pulse Oximetry 96 93 Oxygen Delivery Method Non-rebreather Non-rebreather Oxygen Flow Rate 15 15 Sepsis Recent Fever Within 48 Hours Sepsis New/Unexplained Change in Mental Status Sepsis Action Taken by Nursing 06/26/21 18:45 Temperature Temperature Source Pulse Rate 68 Pulse Rate [Apical] Pulse Rate from SpO2 Sensor 68 Pulse Rhythm Pulse Strength Respiratory Rate 26 H Respiratory Effort / Characteristics Respiratory Depth Respiratory Pattern Blood Pressure 116/67 Blood Pressure [Right Arm] Blood Pressure Mean 83 Blood Pressure Mean [Right Arm] Blood Pressure Position Pulse Oximetry 98 Oxygen Delivery Method Non-rebreather Oxygen Flow Rate 15 Sepsis Recent Fever Within 48 Hours Sepsis New/Unexplained Change in Mental Status Sepsis Action Taken by Retirement Medications Current Medication List: was personally reviewed by me Laboratory Data Attestation: I reviewed the patient's lab results. Result diagrams: 06/26/21 18:16 06/26/21 18:16 Lab Results 06/26/21 06/26/21 06/26/21 Range/Units 18:16 18:16 18:16 WBC 10.32 (4.8-10.8) K/uL RBC 5.82 H (4.2-5.4) M/uL Hgb 16.8 H (12.0-16.0) g/dL Hct 49.0 H (37-47) % MCV 84.2 (80-100) fL MCH 28.9 (25-34) pg MCHC 34.3 (32-36) g/dL RDW Std Deviation 45.3 (36.4-46.3) fL RDW Coeff of Dayanna 14.7 H (11.5-14.5) % Plt Count 232 (130-400) K/uL MPV 10.2 (7.4-10.4) fL Immature Gran % (Auto) 0.9 % Neut % (Auto) 84.8 % Lymph % (Auto) 9.6 % Warrick % (Auto) 4.3 % Eos % (Auto) 0.0 % Baso % (Auto) 0.4 % Neut # (Auto) 8.76 H (1.4-6.5) K/uL Lymph # (Auto) 0.99 L (1.2-3.4) K/uL Warrick # (Auto) 0.44 (0.11-0.59) K/uL Eos # (Auto) 0.00 (0-0.5) K/uL Baso # (Auto) 0.04 (0-0.2) K/uL Immature Gran # (Auto) 0.09 H (0.00-0.02) K/uL ABG pH ABG pCO2 ABG pO2 ABG HCO3 ABG O2 Saturation ABG Base Excess Hema Test Barometric Pressure Oxygen Given Sodium 140 (136-145) mmol/L Potassium 3.6 (3.5-5.1) mmol/L Chloride 107 (98-107) mmol/L Carbon Dioxide 22 (21-32) mmol/L Anion Gap 11.0 (3-11) BUN 36 H (7-18) mg/dl Creatinine 1.32 H (0.6-1.2) mg/dl Est Cr Clr Drug Dosing Not Reportable Est GFR ( Amer) 46.9 ml/min Est GFR (Non-Af Amer) 40.5 ml/min BUN/Creatinine Ratio 27.0 H (10-20) Glucose 143 H (70-99) mg/dl Lactate 5.4 H* (0.4-2.0) mmol/L Calcium 8.6 (8.5-10.1) mg/dl Total Bilirubin 0.5 (0.2-1) mg/dl AST 197 H (15-37) U/L ALT 82 H (12-78) Alkaline Phosphatase 178 H (45-117) U/L Troponin I 0.438 H* (0-0.045) ng/ml C-Reactive Protein 11.30 H (0-0.29) mg/dl NT-Pro-B Natriuret Pep 2730 H (0-900) pg/ml Total Protein 7.8 (6.4-8.2) gm/dl Albumin 2.9 L (3.4-5.0) gm/dl Globulin 4.9 H (2.5-4.0) gm/dl Albumin/Globulin Ratio 0.6 L (0.9-2) SARS-CoV-2 (PCR) (Negative) Influenza Type A (PCR) (Neg) Influenza Type B (PCR) (Neg) RSV (RT-PCR) (Neg) 06/26/21 06/26/21 Range/Units 18:23 18:31 WBC (4.8-10.8) K/uL RBC (4.2-5.4) M/uL Hgb (12.0-16.0) g/dL Hct (37-47) % MCV (80-100) fL MCH (25-34) pg MCHC (32-36) g/dL RDW Std Deviation (36.4-46.3) fL RDW Coeff of Dayanna (11.5-14.5) % Plt Count (130-400) K/uL MPV (7.4-10.4) fL Immature Gran % (Auto) % Neut % (Auto) % Lymph % (Auto) % Warrick % (Auto) % Eos % (Auto) % Baso % (Auto) % Neut # (Auto) (1.4-6.5) K/uL Lymph # (Auto) (1.2-3.4) K/uL Warrick # (Auto) (0.11-0.59) K/uL Eos # (Auto) (0-0.5) K/uL Baso # (Auto) (0-0.2) K/uL Immature Gran # (Auto) (0.00-0.02) K/uL ABG pH Cancelled ABG pCO2 Cancelled ABG pO2 Cancelled ABG HCO3 Cancelled ABG O2 Saturation Cancelled ABG Base Excess Cancelled Hema Test Cancelled Barometric Pressure Cancelled Oxygen Given Cancelled Sodium (136-145) mmol/L Potassium (3.5-5.1) mmol/L Chloride (98-107) mmol/L Carbon Dioxide (21-32) mmol/L Anion Gap (3-11) BUN (7-18) mg/dl Creatinine (0.6-1.2) mg/dl Est Cr Clr Drug Dosing Est GFR ( Amer) ml/min Est GFR (Non-Af Amer) ml/min BUN/Creatinine Ratio (10-20) Glucose (70-99) mg/dl Lactate (0.4-2.0) mmol/L Calcium (8.5-10.1) mg/dl Total Bilirubin (0.2-1) mg/dl AST (15-37) U/L ALT (12-78) Alkaline Phosphatase (45-117) U/L Troponin I (0-0.045) ng/ml C-Reactive Protein (0-0.29) mg/dl NT-Pro-B Natriuret Pep (0-900) pg/ml Total Protein (6.4-8.2) gm/dl Albumin (3.4-5.0) gm/dl Globulin (2.5-4.0) gm/dl Albumin/Globulin Ratio (0.9-2) SARS-CoV-2 (PCR) POSITIVE A* (Negative) Influenza Type A (PCR) Negative (Neg) Influenza Type B (PCR) Negative (Neg) RSV (RT-PCR) Negative (Neg) Administered Medications Discontinued Medications Dexamethasone Sodium Phosphate (DexamethasonePf 10 Mg/Ml Vial) 6 mg IV NOW ONE Stop: 06/26/21 18:13 Last Admin: 06/26/21 18:40 Dose: 6 mg Documented by: [id number] Sodium Chloride (Nss) 500 mls @ 999 mls/hr IV .Q31M STA Stop: 06/26/21 18:42 Last Admin: 06/26/21 18:37 Dose: 999 mls/hr Documented by: [id number] Sodium Chloride (Nss 1000ml) 1,000 mls @ 999 mls/hr IV .Q1H1M ONE Stop: 06/26/21 19:13 Last Admin: 06/26/21 18:37 Dose: 999 mls/hr Documented by: [id number] Imaging Data Radiologist's Impression: Chest X-Ray 06/26/21 18:12 XR chest 1V portable CLINICAL HISTORY: Dyspnea TECHNIQUE: Single frontal radiograph of the chest was obtained. Comparison: None available at the time of this dictation. FINDINGS: No lines and tubes are seen. The cardiomediastinal silhouette is normal. The lungs are clear. No evidence of pleural effusion or pneumothorax. IMPRESSION: No acute chest disease. ACT 112: Negative or not required by law. Electronically signed by: Godwin Cope M.D. 06/26/2021 7:09 PM Discharge Plan Visit Data Chief Complaint: Shortness of Breath/Dyspnea Stated Complaint: COV+(06/20), SOB, CONFUSION, CANT WALK WELL ED Provider: Sánchez Stacy Discharge Problem: Acute hypoxemic respiratory failure due to COVID-19, Elevated troponin I level, Elevated lactic acid level, Dehydration Forms Stand Alone Forms: My [facility] Prescriptions Prescriptions: No Action multivitamin Tablet 1 tab PO DAILY RF: 0 omeprazole 40 mg capsule,delayed release(DR/EC) 40 mg PO DAILY RF: 0 triamterene-hydrochlorothiazid 37.5-25 mg tablet 1 tab PO HS RF: 0 atenolol 50 mg tablet 50 mg PO HS RF: 0 cholecalciferol (vitamin D3) [Vitamin D3] 25 mcg (1,000 unit) Tablet 25 mcg PO DAILY RF: 0 Referrals Referrals: Gildardo Bond III, MD [Primary Care Provider] -
[2021-06-26 18:35] LABS: Hemoglobin 16.8 g/dL (12.0-16.0); Mean Corpuscular Hemoglobin 28.9 pg (25-34); Mean Corpuscular Hgb Conc 34.3 g/dL (32-36); Mean Corpuscular Volume 84.2 fL (80-100); Mean Platelet Volume 10.2 fL (7.4-10.4); Platelet Count 232 K/uL (130-400); RDW Coefficient of Variation 14.7 % (11.5-14.5); RDW Standard Deviation 45.3 fL (36.4-46.3); Red Blood Count 5.82 M/uL (4.2-5.4); White Blood Count 10.32 K/uL (4.8-10.8)
[2021-06-26 18:56] LABS: Basophils # (auto) 0.04 K/uL (0-0.2); Basophils % (auto) 0.4 %; Immature Granulocytes # (auto) 0.09 K/uL (0.00-0.02); Immature Granulocytes % (auto) 0.9 %; Lymphocytes # (auto) 0.99 K/uL (1.2-3.4); Lymphocytes % (auto) 9.6 %; Monocytes # (auto) 0.44 K/uL (0.11-0.59); Monocytes % (auto) 4.3 %; Neutrophils # (auto) 8.76 K/uL (1.4-6.5); Neutrophils % (auto) 84.8 %
[2021-06-26 18:57] LABS: Alanine Aminotransferase 82 (12-78); Albumin Level 2.9 gm/dl (3.4-5.0); Aspartate Aminotransferase 197 U/L (15-37); Blood Urea Nitrogen 36 mg/dl (7-18); Calcium 8.6 mg/dl (8.5-10.1); Carbon Dioxide 22 mmol/L (21-32); Chloride 107 mmol/L (98-107); Est GFR (African American) 46.9 ml/min; Est GFR (Non-African American) 40.5 ml/min; Glucose 143 mg/dl (70-99); Potassium 3.6 mmol/L (3.5-5.1); Sodium 140 mmol/L (136-145)
[2021-06-26 19:04] LABS: Albumin Globulin Ratio 0.6 (0.9-2); Alkaline Phosphatase 178 U/L (45-117); Bilirubin,Total 0.5 mg/dl (0.2-1); Globulin 4.9 gm/dl (2.5-4.0); NT Pro B Type Natriuretic Pept 2730 pg/ml (0-900); Total Protein 7.8 gm/dl (6.4-8.2); Troponin I 0.438 ng/ml (0-0.045)
--- NOTE | 2021-06-26 19:11 | XRay Report ---
XR chest 1V portable CLINICAL HISTORY: Dyspnea TECHNIQUE: Single frontal radiograph of the chest was obtained. Comparison: None available at the time of this dictation. FINDINGS: No lines and tubes are seen. The cardiomediastinal silhouette is normal. The lungs are clear. No evid ence of pleural effusion or pneumothorax. IMPRESSION: No acute chest disease. ACT 112: Negative or not required by law. Electronically signed by: Godwin Cope M.D. 06/26/2021 7:09 PM
[2021-06-26 19:15] LABS: Influenza A virus by PCR Negative (Neg); Influenza B virus by PCR Negative (Neg); RSV by PCR Negative (Neg)
[2021-06-26 19:23] LABS: SARS CoV2 RNA(COVID-19) InHosp POSITIVE (Negative)
[2021-06-26 19:51] LABS: Base Excess ABG -0.8 mEq/L (-9-1.8); HCO3 ABG 22 mmol/L (19-24); Oxygen Saturation ABG 84.7 % (90-95); PCO2 ABG 31 mmHg (35-46); PO2 ABG 49 mmHg (80-95); pH ABG 7.47 (7.35-7.45)
[2021-06-26] MEDS ORDERED: dexAMETHasone 4 MG in SYRINGE 0 ML IV ONE (20:00)
[2021-06-26] MEDS ORDERED: REMDESIVIR 200 MG in SODIUM CHLORIDE 0.9% 210 ML IV STA (20:02)
[2021-06-26] MEDS ORDERED: DEXAMETHASONE SOD INJ 4 MG/ML VIAL IV ONE (20:15)
[2021-06-26 20:19] LABS: Allen Test Pos (Pos)
[2021-06-26] MEDS ORDERED: SODIUM CHLORIDE 0.9% 10ML FLUSH IV SCH (20:33)
[2021-06-26] MEDS ORDERED: ONDANSETRON INJ 2 MG/ML 2 ML VIAL IV PRN (20:33)
[2021-06-26] MEDS ORDERED: ACETAMINOPHEN 325 MG TAB PO PRN (20:33)
[2021-06-26] MEDS ORDERED: ALBUT/IPRATROP 3MG/0.5MG NEB 3 ML VIAL ONE (20:37)
[2021-06-26] MEDS ORDERED: DEXAMETHASONE SOD INJ 4 MG/ML VIAL ONE (20:37)
[2021-06-26] MEDS: ALBUT/IPRATROP 3MG/0.5MG NEB 3 ML VIAL NEB SCH (20:43)
[2021-06-26] MEDS ORDERED: ENOXAPARIN INJ 40 MG/0.4 ML SYR SQ SCH (21:00)
[2021-06-26] MEDS: ATENOLOL 25 MG TABLET PO SCH (22:12)
[2021-06-26] MEDS: guaiFENesin 600 MG TABCR PO SCH (22:18)
--- NOTE | 2021-06-26 22:56 | History & Physical Report ---
Date of Service June 26, 2021 Assessment & Plan (1) Acute hypoxemic respiratory failure due to COVID-19: Plan: Given a total dexamethasone 10 mg IV in the ED Dexamethasone 6 mg IV every morning Remdesivir IV per protocol Azithromycin 500 mg IV daily Duonebs every 4 hours while awake and every 2 hours when necessary. Continue BiPAP, taper downward as symptoms improve. (2) Elevated troponin I level: Plan: Elevated troponin I level/hypertension- The patient will be admitted to telemetry for serial cardiac enzymes, serial EKG's, cardiac rhythm monitoring and a 2-D echocardiogram with Dopplers. Troponin 0.438 upon admission Differential ACS versus type II CO versus COVID-19 myopericarditis Continue atenolol, but change from 50 mg at bedtime to 25 mg p.o. twice daily with hold parameters Hold triamterene/HCTZ (3) Acid reflux disease: Plan: Discontinue omeprazole Famotidine 20 mg IV every 12 hours (4) Hypertension: Plan: See above (5) Abnormal LFTs: Plan: AST 197, ALT 82 Follow serially, differential including secondary to COVID-19, other liver disease which will be investigated if persistent Admission and Anticipated Discharge Date Admission Date: June 26, 2021 History of Present Illness Chief Complaint: The patient presents to the emergency department with worsening shortness of breath, confusion, dyspnea on exertion since initially being tested positive for COVID-19 on 06/20. Primary Care Provider: Gildardo Bond MD The patient is a 71-year-old female with a past medical history including hypertension, GERD and left lower extremity muscle mass, who presents to the emergency department symptoms as noted above. Her daughter, who is in the ED with her, reports that the patient has become more confused as the day progressed. Significant laboratories: WBC 10.32, hemoglobin 16.8, hematocrit 49.0, creatinine 1.32, glucose 143, AST 197, ALT 82, albumin 2.9, troponin 0.438, lactate 5.4. Patient is COVID-19 positive in the ED tonight. Oxygenation is 63% on room air, which initially improved on 15 L nonrebreather, was done required heated high flow, and finally to BiPAP 14/7 and 100%. Allergies Allergy/AdvReac Type Severity Reaction Status Date / Time Bactrim Allergy Intermediate RASH, AND Verified 04/28/17 05:55 THROAT CLOSES sulfamethoxazole Allergy Intermediate RASH, AND Verified 06/26/21 19:22 THROAT CLOSES trimethoprim Allergy Intermediate RASH, AND Verified 06/26/21 19:22 THROAT CLOSES Penicillins Allergy Hives Verified 06/26/21 19:23 Home Medications Medication Instructions Recorded Confirmed Type atenolol 50 mg tablet 50 mg PO HS 06/26/21 06/26/21 History cholecalciferol (vitamin D3) 25 25 mcg PO DAILY 06/26/21 06/26/21 History mcg (1,000 unit) tablet (Vitamin D3) multivitamin 1 tab PO DAILY 06/26/21 06/26/21 History omeprazole 40 mg capsule,delayed 40 mg PO DAILY 06/26/21 06/26/21 History release triamterene 37.5 1 tab PO HS 06/26/21 06/26/21 History mg-hydrochlorothiazide 25 mg tablet Past Med/Surg History Medical History (Updated 06/27/21 @ 02:52 by Elvin Shetty MD) Acute diverticulitis Hypertension Surgical History S/P TKR (total knee replacement) Family History Daughter Cancer Mother Cancer Father Colorectal cancer Brother Colorectal cancer Social History Smoking Status: Never smoker Hx Alcohol Use: Yes Hx Substance Use: No Preferred Language: Persian Communication Ability: Effective Hearing Ability: Normal marital status: / Current Living Situation: Alone Feels Safe at Home: Yes caffeine: No Physical Activity Frequency: 3-4 Times per Week Review of Systems Review of Systems: The patient denies chest pain, palpitations, lower extremity swelling, sore throat, fevers, chills, sweats, nausea, vomiting, diarrhea , constipation, abdominal pain, pelvic pain, blood in urine or stool, dysuria, urinary frequency or urgency, lightheadedness, dizziness, headache, loss of consciousness, rash, abnormal bruising or bleeding, focal weakness, numbness or tingling in arms or legs, generalized arthralgias or myalgias, back or neck pain, or night sweats. The review of systems is otherwise negative other than for that already noted above, and at least 10 systems have been reviewed. Physical Exam Physical Exam: The patient is awake, alert and oriented 3, well developed and well nourished, normocephalic and atraumatic, lying in bed and in moderate respiratory distress. HEENT--PERRL, EOMI, mucous membranes and oropharynx dry. Neck--supple. No JVD. No bruits. Thyroid normal, trachea midline, no adenopathy. Heart--normal S1 and S2. No murmurs, rubs or gallops. Lungs--coarse breath sounds bilaterally. Moderate respiratory distress, no accessory muscle use. Abdomen--normal bowel sounds and soft. Nontender. Nondistended, no hernias or masses, no organomegaly. Extremities--no cyanosis or clubbing. No edema. Dermatologic--normal skin turgor, normal color, no abnormal lymph nodes, no rash. Neurologic--cranial nerves II through XII grossly intact. Rheumatologic--normal range of motion. Psychiatric--normal affect. Results & Data Results & Data ([facility]) Vital Signs (Past 12 Hours) Vital Signs Temp Pulse Pulse Resp BP BP Pulse Ox 06/26/21 22:30 60 32 H 106/68 90 06/26/21 22:15 60 33 H 94 06/26/21 22:00 59 L 32 H 96 06/26/21 21:54 58 L 30 H 95 06/26/21 21:45 61 36 H 87 L 06/26/21 21:30 67 38 H 80 L 06/26/21 21:15 64 43 H 129/63 84 L 06/26/21 21:00 64 39 H 114/75 89 L 06/26/21 20:47 65 24 92 06/26/21 20:45 65 23 98 06/26/21 20:30 63 34 H 88 L 06/26/21 20:15 62 34 H 91 06/26/21 20:04 64 35 H 93 06/26/21 19:57 63 31 H 114/62 93 06/26/21 19:30 61 30 H 95 06/26/21 19:27 92 06/26/21 19:15 62 30 H 95 06/26/21 19:00 64 29 H 97 06/26/21 18:45 68 26 H 116/67 98 06/26/21 18:30 67 26 H 93 06/26/21 18:16 68 28 H 96 06/26/21 18:15 68 28 H 96 06/26/21 18:13 36.8 C 68 20 104/61 95 06/26/21 17:56 36.6 C 30 H 92/54 L 63 L Laboratory Results Laboratory Results WBC 10.32 K/uL (4.8-10.8) 06/26/21 18:16 RBC 5.82 M/uL (4.2-5.4) H 06/26/21 18:16 Hgb 16.8 g/dL (12.0-16.0) H 06/26/21 18:16 POC Hgb 14.3 g/dl (12.0-16.0) 06/26/21 23:42 Hct 49.0 % (37-47) H 06/26/21 18:16 POC Hct 42 % (37-47) 06/26/21 23:42 MCV 84.2 fL (80-100) 06/26/21 18:16 MCH 28.9 pg (25-34) 06/26/21 18:16 MCHC 34.3 g/dL (32-36) 06/26/21 18:16 RDW Std Deviation 45.3 fL (36.4-46.3) 06/26/21 18:16 RDW Coeff of Dayanna 14.7 % (11.5-14.5) H 06/26/21 18:16 Plt Count 232 K/uL (130-400) 06/26/21 18:16 MPV 10.2 fL (7.4-10.4) 06/26/21 18:16 Immature Gran % (Auto) 0.9 % 06/26/21 18:16 Neut % (Auto) 84.8 % 06/26/21 18:16 Lymph % (Auto) 9.6 % 06/26/21 18:16 [place] % (Auto) 4.3 % 06/26/21 18:16 Eos % (Auto) 0.0 % 06/26/21 18:16 Baso % (Auto) 0.4 % 06/26/21 18:16 Neut # (Auto) 8.76 K/uL (1.4-6.5) H 06/26/21 18:16 Lymph # (Auto) 0.99 K/uL (1.2-3.4) L 06/26/21 18:16 [place] # (Auto) 0.44 K/uL (0.11-0.59) 06/26/21 18:16 Eos # (Auto) 0.00 K/uL (0-0.5) 06/26/21 18:16 Baso # (Auto) 0.04 K/uL (0-0.2) 06/26/21 18:16 Immature Gran # (Auto) 0.09 K/uL (0.00-0.02) H 06/26/21 18:16 POC pH 7.44 (7.35-7.45) 06/26/21 23:42 POC pCO2 30 mmHg (35-46) L 06/26/21 23:42 POC pO2 58 mmHg (80-95) L 06/26/21 23:42 POC HCO3 20 christiano/L (19-24) 06/26/21 23:42 POC Total CO2 21 mmol/L (24-31) L 06/26/21 23:42 POC Base Excess -4.0 christiano/L (-9-1.8) 06/26/21 23:42 ABG pH 7.47 (7.35-7.45) H 06/26/21 19:12 ABG pCO2 31 mmHg (35-46) L 06/26/21 19:12 ABG pO2 49 mmHg (80-95) L 06/26/21 19:12 ABG HCO3 22 mmol/L (19-24) 06/26/21 19:12 POC ABG O2 Sat 91.0 % (90-95) 06/26/21 23:42 ABG O2 Saturation 84.7 % (90-95) L 06/26/21 19:12 ABG Base Excess -0.8 mEq/L (-9-1.8) 06/26/21 19:12 Hema Test Pos (Pos) 06/26/21 19:12 Barometric Pressure 731.0 mm/Hg 06/26/21 19:12 Oxygen Given 15 06/26/21 19:12 POC Sodium 145 mmol/L (135-144) H 06/26/21 23:42 Sodium 140 mmol/L (136-145) 06/26/21 18:16 POC Potassium 3.5 mmol/L (3.3-5.0) 06/26/21 23:42 Potassium 3.6 mmol/L (3.5-5.1) 06/26/21 18:16 Chloride 107 mmol/L (98-107) 06/26/21 18:16 Carbon Dioxide 22 mmol/L (21-32) 06/26/21 18:16 Anion Gap 11.0 (3-11) 06/26/21 18:16 BUN 36 mg/dl (7-18) H 06/26/21 18:16 Creatinine 1.32 mg/dl (0.6-1.2) H 06/26/21 18:16 Est Cr Clr Drug Dosing Not Reportable 06/26/21 18:16 Est GFR ( Amer) 46.9 ml/min 06/26/21 18:16 Est GFR (Non-Af Amer) 40.5 ml/min 06/26/21 18:16 BUN/Creatinine Ratio 27.0 (10-20) H 06/26/21 18:16 Glucose 143 mg/dl (70-99) H 06/26/21 18:16 Lactate 2.2 mmol/L (0.4-2.0) H* 06/26/21 20:14 Calcium 8.6 mg/dl (8.5-10.1) 06/26/21 18:16 Total Bilirubin 0.5 mg/dl (0.2-1) 06/26/21 18:16 AST 197 U/L (15-37) H 06/26/21 18:16 ALT 82 (12-78) H 06/26/21 18:16 Alkaline Phosphatase 178 U/L (45-117) H 06/26/21 18:16 Troponin I 0.438 ng/ml (0-0.045) H* 06/26/21 18:16 C-Reactive Protein 11.30 mg/dl (0-0.29) H 06/26/21 18:16 NT-Pro-B Natriuret Pep 2730 pg/ml (0-900) H 06/26/21 18:16 Total Protein 7.8 gm/dl (6.4-8.2) 06/26/21 18:16 Albumin 2.9 gm/dl (3.4-5.0) L 06/26/21 18:16 Globulin 4.9 gm/dl (2.5-4.0) H 06/26/21 18:16 Albumin/Globulin Ratio 0.6 (0.9-2) L 06/26/21 18:16 SARS-CoV-2 (PCR) POSITIVE (Negative) A* 06/26/21 18:23 Influenza Type A (PCR) Negative (Neg) 06/26/21 18:23 Influenza Type B (PCR) Negative (Neg) 06/26/21 18:23 RSV (RT-PCR) Negative (Neg) 06/26/21 18:23 Impressions Chest X-Ray 06/26/21 18:12 XR chest 1V portable CLINICAL HISTORY: Dyspnea TECHNIQUE: Single frontal radiograph of the chest was obtained. Comparison: None available at the time of this dictation. FINDINGS: No lines and tubes are seen. The cardiomediastinal silhouette is normal. The lungs are clear. No evidence of pleural effusion or pneumothorax. IMPRESSION: No acute chest disease. ACT 112: Negative or not required by law. Electronically signed by: Godwin Cope M.D. 06/26/2021 7:09 PM Code Status & VTE Plan Code Status Full code VTE Prophylaxis Plan VTE Prophylaxis will be ordered: Yes PG Care Time/CCT Total # of Minutes Spent Total Time Spent with Patient: Total time spent is greater than 50% in coordination of care (as documented) at patient's floor/unit and/or counseling patient: Coding Level of Care Code 19172 Initial Inpt Care Lvl 3 Diagnoses Acute hypoxemic respiratory failure due to COVID-19 U07.1; J96.01 Elevated troponin I level R77.8 Acid reflux disease K21.9 Hypertension I10 Abnormal LFTs R79.89
[2021-06-26] MEDS: FAMOTIDINE 20 MG in SYRINGE 3 ML IV SCH (23:30)
[2021-06-26] MEDS: AZITHROMYCIN 500 MG in DEXTROSE 5% 250 ML IV SCH (23:30)
[2021-06-26 23:58] LABS: iSTAT Arterial Blood Gas HCO3 20 meg/L (19-24); iSTAT Arterial Blood Gas pCO2 30 mmHg (35-46); iSTAT Arterial Blood Gas pH 7.44 (7.35-7.45); iSTAT Arterial Blood Gas pO2 58 mmHg (80-95); iSTAT Carbon Dioxide 21 mmol/L (24-31); iSTAT Hematocrit 42 % (37-47); iSTAT Hemoglobin 14.3 g/dl (12.0-16.0); iSTAT Potassium 3.5 mmol/L (3.3-5.0); iSTAT Sodium 145 mmol/L (135-144)
[2021-06-27 05:45] LABS: Albumin Globulin Ratio 0.6 (0.9-2); Albumin Level 2.3 gm/dl (3.4-5.0); BUN Creatinine Ratio 29.8 (10-20); Bilirubin,Total 0.4 mg/dl (0.2-1); Calcium 7.9 mg/dl (8.5-10.1); Est GFR (African American) 77.7 ml/min; Globulin 4.1 gm/dl (2.5-4.0); Potassium 3.5 mmol/L (3.5-5.1); Total Protein 6.4 gm/dl (6.4-8.2); Troponin I 0.555 ng/ml (0-0.045)
[2021-06-27 06:18] LABS: Hematocrit (blood only) 44.4 % (37-47); Hemoglobin 14.7 g/dL (12.0-16.0); Mean Corpuscular Hemoglobin 28.4 pg (25-34); Mean Corpuscular Hgb Conc 33.1 g/dL (32-36); Mean Corpuscular Volume 85.9 fL (80-100); Platelet Count 170 K/uL (130-400); Red Blood Count 5.17 M/uL (4.2-5.4); White Blood Count 9.48 K/uL (4.8-10.8)
[2021-06-27 06:19] LABS: Basophils # (auto) 0.03 K/uL (0-0.2); Basophils % (auto) 0.3 %; Immature Granulocytes # (auto) 0.14 K/uL (0.00-0.02); Immature Granulocytes % (auto) 1.5 %; Lymphocytes # (auto) 0.95 K/uL (1.2-3.4); Monocytes # (auto) 0.38 K/uL (0.11-0.59); Neutrophils # (auto) 7.98 K/uL (1.4-6.5); Neutrophils % (auto) 84.2 %; RBC Morphology Unremarkable
[2021-06-27] MEDS: ATENOLOL 25 MG TABLET PO SCH ×2 (08:20→21:11)
[2021-06-27] MEDS ORDERED: FAMOTIDINE 20MG/5ML IV PUSH IV ONE (08:24)
[2021-06-27] MEDS ORDERED: DEXAMETHASONE SOD INJ 4 MG/ML VIAL ONE (08:24)
[2021-06-27] MEDS: FAMOTIDINE 20 MG in SYRINGE 3 ML IV SCH ×2 (08:25→21:12)
[2021-06-27] MEDS: dexAMETHasone 6 MG in SYRINGE 0 ML IV SCH (08:26)
[2021-06-27] MEDS: guaiFENesin 600 MG TABCR PO SCH ×2 (08:34→21:12)
[2021-06-27] MEDS ORDERED: BARICITINIB COMMUNICATION ONE (08:56)
[2021-06-27] MEDS ORDERED: POTASSIUM CHLORIDE / WTR 10 MEQ/100 ML PLCT IV STA (08:57)
[2021-06-27] MEDS ORDERED: FUROSEMIDE INJ 20 MG/2 ML VIAL IV ONE ×2 (08:57→14:25)
[2021-06-27] MEDS ORDERED: ZINC SULFATE 220 MG CAPSULE PO SCH (09:00)
[2021-06-27] MEDS ORDERED: CHOLECALCIFEROL 1,000 UNITS 25 MCG TAB PO SCH (09:00)
[2021-06-27] MEDS ORDERED: POTASSIUM CHLORIDE 10 MEQ / 100ML WTR IV ONE (09:11)
[2021-06-27] MEDS ORDERED: FUROSEMIDE 40 MG/4 ML VIAL IV ONE ×2 (09:11→18:30)
--- NOTE | 2021-06-27 09:22 | Hospitalist Progress Note ---
Date of Service June 27, 2021 Assessment & Plan (1) Acute hypoxemic respiratory failure due to COVID-19: Plan: placed on BIPAP in the ED due to saturations in the 80's on high flow and work of breathing currently 14/7 80% FiO2, tachypneic and belly breathing can try to get FiO2 down to 60% and see if she can tolerate high flow discussed with patient and her daughter that BIPAP is a bridge to either getting down to high flow or progressing to intubation/ventilation will consult ICU to see patient early in coarse so they are aware dexamethasone 6mg IV daily ordered baricitinib as she qualifies continue Zithromax for [address] ke[place]ney, Lasix 20mg IV now as BNP elevated stop Remdesivir as she is 10 days into illness (2) Pneumonia due to COVID-19 virus: Plan: see above treat with dexamethasone, baricitinib, Zithromax (3) ARDS (adult respiratory distress syndrome): Plan: bilateral infiltrates, AF ratio is 58 as PaO2 was 58 on 100% FiO2 anticipate she will need intubated and proned (4) Elevated troponin I level: Plan: Elevated troponin I level no current chest pain EKG had TW flattening, no ST depressions Troponin 0.438 upon admission, up to 0.55 on repeat echo being done do not feel that this is NSTEMI, hold on heparin drip continue Atenolol and repeat EKG if she has chest pain giving Lasix for BNP of 2700 Hold triamterene/HCTZ (5) Acid reflux disease: Plan: Famotidine 20 mg IV every 12 hours (6) Hypertension: Plan: See above (7) Abnormal LFTs: Plan: AST 197, ALT 82 follow daily Admission and Anticipated Discharge Date Admission Date: June 26, 2021 Subjective patient remains on BIPAP 14/7 80% FiO2, she was requiring BIPAP since her arrival in the ED as her saturations could not be maintained on high flow she is tachypneic and belly breathing on the BIPAP saturations were 100% on the 80% FiO2, turned her down to 60% and she did well so turned her down to 50%, after a few minutes her saturations dropped to 85% so I had ED RN turn her back up will placed kearney and give Lasix 20mg IV she qualifies for baricitinib, orders placed I reviewed her chart including labs and imaging, her CRP is elevated she has been sick for over 10 days I discussed the case with ICU staff, asked them to evaluate her as she is at risk of needing intubated I gave the patient's daughter a long update over the phone and discussed using baricitinib, she agreed Review of Systems Review of Systems: All systems reviewed & are unremarkable except as noted in Subjective Constitutional: + fatigue and + weakness; no fever Respiratory: + cough, + dyspnea and + dyspnea on exertion; no sputum production Cardiovascular: no chest pain Gastrointestinal: + diarrhea/loose stools (at home prior to admission); no abdominal pain, no nausea, no vomiting and no constipation Physical Exam Physical Exam: General: well developed, obese female, on BIPAP, in mild distress Neck: supple, trachea midline, normal thyroid Lungs: diminished sounds bilaterally, coarse, + tachypnea, + accessory muscle use, mild distress Heart: bradycardic, S1 and S2, no murmur, peripheral pulses normal, capillary refill normal, no edema Abdomen: soft, NT, ND, + BS, no hepatomegaly, normal to percussion Extremities: normal in appearance, no cyanosis, no petechiae, strength is 5/5 bilaterally Neuro: awake, cooperative, moves all extremities, no focal motor deficits, CN II-XII intact Skin: warm, dry, no rash, normal turgor Psych: Awake, alert oriented x 3, anxious affect, she is scared Results & Data Results & Data ([facility]) Vital Signs (Past 12 Hours) Vital Signs Pulse Pulse Resp BP BP Pulse Ox 06/27/21 08:35 58 L 30 H 123/71 100 06/27/21 07:00 61 27 H 119/92 100 06/27/21 06:16 58 L 36 H 95 06/27/21 06:03 58 L 20 102/65 93 06/27/21 03:30 60 37 H 92 06/27/21 03:00 57 L 22 111/67 91 06/27/21 02:30 63 29 H 124/76 98 06/27/21 02:15 63 26 H 97 06/27/21 02:00 62 31 H 95 06/27/21 01:45 63 30 H 94 06/27/21 01:30 64 31 H 93 06/27/21 01:15 60 35 H 110/74 93 06/27/21 01:00 64 31 H 113/69 96 06/27/21 00:45 59 L 31 H 113/65 93 06/27/21 00:30 62 29 H 116/67 96 06/27/21 00:15 63 31 H 112/72 96 06/27/21 00:00 61 31 H 120/68 94 06/26/21 23:45 60 31 H 120/71 92 06/26/21 23:42 62 32 H 95 06/26/21 23:30 58 L 33 H 116/68 92 06/26/21 23:15 64 30 H 121/86 93 06/26/21 23:00 65 29 H 93 06/26/21 22:45 62 34 H 112/75 92 06/26/21 22:30 60 32 H 106/68 90 06/26/21 22:15 60 33 H 94 06/26/21 22:00 59 L 32 H 96 06/26/21 21:54 58 L 30 H 95 06/26/21 21:45 61 36 H 87 L 06/26/21 21:30 67 38 H 80 L 06/26/21 21:15 64 43 H 129/63 84 L Laboratory Results Laboratory Results - last 24 hr 06/26/21 06/26/21 06/26/21 18:16 18:16 18:16 WBC 10.32 RBC 5.82 H Hgb 16.8 H POC Hgb Hct 49.0 H POC Hct MCV 84.2 MCH 28.9 MCHC 34.3 RDW Std Deviation 45.3 RDW Coeff of Dayanna 14.7 H Plt Count 232 MPV 10.2 Immature Gran % (Auto) 0.9 Neut % (Auto) 84.8 Lymph % (Auto) 9.6 [place] % (Auto) 4.3 Eos % (Auto) 0.0 Baso % (Auto) 0.4 Neut # (Auto) 8.76 H Lymph # (Auto) 0.99 L [place] # (Auto) 0.44 Eos # (Auto) 0.00 Baso # (Auto) 0.04 Immature Gran # (Auto) 0.09 H RBC Morphology POC pH POC pCO2 POC pO2 POC HCO3 POC Total CO2 POC Base Excess ABG pH ABG pCO2 ABG pO2 ABG HCO3 POC ABG O2 Sat ABG O2 Saturation ABG Base Excess Hema Test Barometric Pressure Oxygen Given POC Sodium Sodium 140 POC Potassium Potassium 3.6 Chloride 107 Carbon Dioxide 22 Anion Gap 11.0 BUN 36 H Creatinine 1.32 H Est Cr Clr Drug Dosing Not Reportable Est GFR ( Amer) 46.9 Est GFR (Non-Af Amer) 40.5 BUN/Creatinine Ratio 27.0 H Glucose 143 H Lactate 5.4 H* Calcium 8.6 Total Bilirubin 0.5 AST 197 H ALT 82 H Alkaline Phosphatase 178 H Troponin I 0.438 H* C-Reactive Protein 11.30 H NT-Pro-B Natriuret Pep 2730 H Total Protein 7.8 Albumin 2.9 L Globulin 4.9 H Albumin/Globulin Ratio 0.6 L SARS-CoV-2 (PCR) Influenza Type A (PCR) Influenza Type B (PCR) RSV (RT-PCR) 06/26/21 06/26/21 06/26/21 18:23 18:31 19:12 WBC RBC Hgb POC Hgb Hct POC Hct MCV MCH MCHC RDW Std Deviation RDW Coeff of Dayanna Plt Count MPV Immature Gran % (Auto) Neut % (Auto) Lymph % (Auto) [place] % (Auto) Eos % (Auto) Baso % (Auto) Neut # (Auto) Lymph # (Auto) [place] # (Auto) Eos # (Auto) Baso # (Auto) Immature Gran # (Auto) RBC Morphology POC pH POC pCO2 POC pO2 POC HCO3 POC Total CO2 POC Base Excess ABG pH Cancelled 7.47 H ABG pCO2 Cancelled 31 L ABG pO2 Cancelled 49 L ABG HCO3 Cancelled 22 POC ABG O2 Sat ABG O2 Saturation Cancelled 84.7 L ABG Base Excess Cancelled -0.8 Hema Test Cancelled Pos Barometric Pressure Cancelled 731.0 Oxygen Given Cancelled 15 POC Sodium Sodium POC Potassium Potassium Chloride Carbon Dioxide Anion Gap BUN Creatinine Est Cr Clr Drug Dosing Est GFR ( Amer) Est GFR (Non-Af Amer) BUN/Creatinine Ratio Glucose Lactate Calcium Total Bilirubin AST ALT Alkaline Phosphatase Troponin I C-Reactive Protein NT-Pro-B Natriuret Pep Total Protein Albumin Globulin Albumin/Globulin Ratio SARS-CoV-2 (PCR) POSITIVE A* Influenza Type A (PCR) Negative Influenza Type B (PCR) Negative RSV (RT-PCR) Negative 06/26/21 06/26/21 06/27/21 20:14 23:42 04:52 WBC 9.48 RBC 5.17 Hgb 14.7 POC Hgb 14.3 Hct 44.4 POC Hct 42 MCV 85.9 MCH 28.4 MCHC 33.1 RDW Std Deviation RDW Coeff of Dayanna Plt Count 170 MPV Immature Gran % (Auto) 1.5 Neut % (Auto) 84.2 Lymph % (Auto) 10.0 [place] % (Auto) 4.0 Eos % (Auto) 0.0 Baso % (Auto) 0.3 Neut # (Auto) 7.98 H Lymph # (Auto) 0.95 L [place] # (Auto) 0.38 Eos # (Auto) 0.00 Baso # (Auto) 0.03 Immature Gran # (Auto) 0.14 H RBC Morphology Unremarkable POC pH 7.44 POC pCO2 30 L POC pO2 58 L POC HCO3 20 POC Total CO2 21 L POC Base Excess -4.0 ABG pH ABG pCO2 ABG pO2 ABG HCO3 POC ABG O2 Sat 91.0 ABG O2 Saturation ABG Base Excess Hema Test Barometric Pressure Oxygen Given POC Sodium 145 H Sodium POC Potassium 3.5 Potassium Chloride Carbon Dioxide Anion Gap BUN Creatinine Est Cr Clr Drug Dosing Est GFR ( Amer) Est GFR (Non-Af Amer) BUN/Creatinine Ratio Glucose Lactate 2.2 H* Calcium Total Bilirubin AST ALT Alkaline Phosphatase Troponin I C-Reactive Protein NT-Pro-B Natriuret Pep Total Protein Albumin Globulin Albumin/Globulin Ratio SARS-CoV-2 (PCR) Influenza Type A (PCR) Influenza Type B (PCR) RSV (RT-PCR) 06/27/21 04:52 WBC RBC Hgb POC Hgb Hct POC Hct MCV MCH MCHC RDW Std Deviation RDW Coeff of Dayanna Plt Count MPV Immature Gran % (Auto) Neut % (Auto) Lymph % (Auto) [place] % (Auto) Eos % (Auto) Baso % (Auto) Neut # (Auto) Lymph # (Auto) [place] # (Auto) Eos # (Auto) Baso # (Auto) Immature Gran # (Auto) RBC Morphology POC pH POC pCO2 POC pO2 POC HCO3 POC Total CO2 POC Base Excess ABG pH ABG pCO2 ABG pO2 ABG HCO3 POC ABG O2 Sat ABG O2 Saturation ABG Base Excess Hema Test Barometric Pressure Oxygen Given POC Sodium Sodium 144 POC Potassium Potassium 3.5 Chloride 114 H Carbon Dioxide 25 Anion Gap 5.0 BUN 26 H Creatinine 0.87 D Est Cr Clr Drug Dosing 63.0 Est GFR ( Amer) 77.7 Est GFR (Non-Af Amer) 67.0 BUN/Creatinine Ratio 29.8 H Glucose 143 H Lactate Calcium 7.9 L Total Bilirubin 0.4 AST 155 H ALT 68 Alkaline Phosphatase 152 H Troponin I 0.555 H* C-Reactive Protein NT-Pro-B Natriuret Pep Total Protein 6.4 Albumin 2.3 L Globulin 4.1 H Albumin/Globulin Ratio 0.6 L SARS-CoV-2 (PCR) Influenza Type A (PCR) Influenza Type B (PCR) RSV (RT-PCR) Medications Administered Current Inpatient Medications Acetaminophen (Acetaminophen 325 Mg Tab) 650 mg PO Q4H PRN PRN Reason: Pain or Fever Stop: 07/26/21 20:32 Albuterol (Albut/Ipratrop 3mg/0.5mg Neb 3 Ml Vial) 3 ml NEB QIDR [place] Stop: 07/27/21 06:59 Last Admin: 06/26/21 20:43 Dose: 3 ml Documented by: Atenolol (Atenolol 25 Mg Tablet) 25 mg PO BID [place] Stop: 07/26/21 20:59 Last Admin: 06/27/21 08:20 Dose: 25 mg Documented by: Baricitinib (Baricitinib Communication) 1 ea N/A ONE ONE Stop: 06/27/21 08:57 Enoxaparin Sodium (Enoxaparin Inj 40 Mg/0.4 Ml Syr) 40 mg SQ Q24H [place] Stop: 07/26/21 20:59 Last Admin: 06/26/21 23:31 Dose: 40 mg Documented by: Furosemide (Furosemide Inj 20 Mg/2 Ml Vial) 20 mg IV ONE ONE Stop: 06/27/21 08:58 Last Admin: 06/27/21 09:14 Dose: 20 mg Documented by: Guaifenesin (Guaifenesin 600 Mg Tabcr) 1,200 mg PO Q12 [place] Stop: 07/26/21 20:59 Last Admin: 06/27/21 08:34 Dose: Not Given Documented by: Dexamethasone 6 mg/ Syringe 1.5 mls @ 1 mls/min IV Q24H [place] Stop: 07/27/21 08:59 Last Admin: 06/27/21 08:26 Dose: 1 mls/min Documented by: Remdesivir 100 mg/ Sodium (Chloride) 250 mls @ 250 mls/hr IV Q24H [facility]; Protocol Stop: 06/30/21 20:59 Azithromycin 500 mg/ Dextrose 255 mls @ 125 mls/hr IV Q24H [facility] Stop: 07/03/21 20:59 Last Infusion: 06/27/21 01:48 Dose: Infused Documented by: Famotidine 20 mg/ Syringe 5 mls @ 2.5 mls/min IV Q12H [place] Stop: 07/26/21 20:59 Last Admin: 06/27/21 08:25 Dose: 2.5 mls/min Documented by: Potassium Chloride (K [place] / Wtr) 10 meq in 100 mls @ 100 mls/hr IV Q1H [facility] Stop: 06/27/21 09:56 Last Admin: 06/27/21 09:15 Dose: 100 mls/hr Documented by: Ondansetron HCl (Ondansetron Inj 2 Mg/Ml 2 Ml Vial) 4 mg IV Q6H PRN PRN Reason: Nausea Stop: 07/26/21 20:32 Sodium Chloride (Sodium Chloride 0.9% 10ml Flush) 30 ml IV Q24H [facility] Stop: 06/30/21 20:34 Last Admin: 06/26/21 23:30 Dose: 30 ml Documented by: Vitamin D (Cholecalciferol 1,000 Units 25 Mcg Tab) 1,000 units PO DAILY [facility] Stop: 07/27/21 08:59 Last Admin: 06/27/21 08:21 Dose: 1,000 units Documented by: Zinc Sulfate (Zinc Sulfate 220 Mg Capsule) 220 mg PO QAM [facility] Stop: 07/27/21 08:59 Last Admin: 06/27/21 08:22 Dose: 220 mg Documented by: PG Care Time/CCT Total # of Minutes Spent Total Time Spent: 38 Total Time Spent with Patient: Total time spent is greater than 50% in coordination of care (as documented) at patient's floor/unit and/or counseling patient: Critical Care Time: Yes Total Critical Care Time: 38 This case had a high probability of a clinically significant, sudden, or life threatening deterioration of this patient's condition which required my full and direct attention, intervention and personal management. Coding Level of Care Code 92694 Subseq Hosp Care Lvl 3 (25 - SIGNIFICANT, SEPARATELY IDENTIFIABLE ) Diagnoses Acute hypoxemic respiratory failure due to COVID-19 U07.1; J96.01 Elevated troponin I level R77.8 Acid reflux disease K21.9 Hypertension I10 Abnormal LFTs R79.89 Pneumonia due to COVID-19 virus U07.1; J12.82 ARDS (adult respiratory distress syndrome) J80 Additional Codes Critical Care Time - Critical Care Time: Yes ([id number])
[2021-06-27] MEDS ORDERED: POTASSIUM CHLORIDE / WTR 10 MEQ/100 ML PLCT IV ONE (10:30)
[2021-06-27] MEDS: ALBUT/IPRATROP 3MG/0.5MG NEB 3 ML VIAL NEB SCH ×2 (11:08→14:26)
[2021-06-27] MEDS: ENOXAPARIN INJ 40 MG/0.4 ML SYR SQ SCH ×2 (11:30→22:07)
[2021-06-27] MEDS: 4mg Daily x 14 days (eGFR >60 mL/min/1.73m2) PO SCH (11:30)
[2021-06-27 14:37] LABS: Appearance Urine Clear (Clear); Bacteria Urine Automated Negative (Negative); Bilirubin Urine Negative (Negative); Blood Urine Negative (Negative); Color Urine Dark Yellow; Epithelial Cell Urine Auto >30 /lpf (0-5); Glucose Urine UA Negative (Negative); Ketones Urine Trace (Negative); Leukocyte Esterase Urine Negative (Negative); Nitrite Urine Negative (Negative); Protein Urine 1+ (Negative); RBC Urine Automated 0-4 /hpf (0-4); Specific Gravity Urine 1.023 (1.000-1.030); Urobilinogen Urine Negative (Negative)
--- NOTE | 2021-06-27 17:50 | XCELERA ---
[id number]
--- NOTE | 2021-06-27 18:43 | Critical Care Consultation ---
Date of Consultation June 27, 2021 Assessment & Plan (1) ARDS (adult respiratory distress syndrome): (2) Pneumonia due to COVID-19 virus: (3) Elevated troponin I level: (4) Elevated lactic acid level: Impression: 71-year-old nonvaccinated female admitted with Covid pneumonitis and hypoxemic respiratory failure/ARDS requiring noninvasive positive pressure ventilation. Recommendations: 1. ARDS/acute hypoxemic respiratory failure: This appears to be probably multifactorial. With her significant elevation of BNP, there is potential contribution pulmonary venous hypertension and pulmonary vascular congestion. Infection appears less likely. She appears to have improved significantly with decrease in her oxygen requirement over her ER stay with application of positive airway pressure. Would continue dexamethasone. Check procalcitonin. If negative, antibiotics can be discontinued. Patient is significantly improved with diuresis and likely can transition off of noninvasive positive pressure ventilation to heated high flow oxygen. She demonstrated no evidence of hyperca rbia therefore CPAP is likely equally efficacious as BiPAP. The only indication for using BiPAP over CPAP would be if the patient had difficulty tolerating the expiratory pressure. 2. Covid pneumonitis no role for zinc or vitamin D. She is outside the window for remdesivir. Her CRP was elevated and she meets criteria for baricitinib which has been initiated by the hospitalist. Continue dexamethasone 6 mg daily 3. Secondary pulmonary hypertension: Agree with diuresis and correction of hypoxemia. 4. DVT prophylaxis per [employer] guidelines. 5. Patient appears comfortable currently. She did appears to have significantly improved. Should her condition deteriorate and the patient require intubation. Please feel free to contact us otherwise critical care services will sign off at this point time. 45 min CC time evaluating and managing patient. History of Present Illness Attending Physician: Godwin Lopez DO History of Present Illness Asked by hospitalist to assist in evaluation management this patient with hypoxemic respiratory failure secondary to Covid pneumonitis. History is obtained from reviewed electronic medical record as well as discussion with the patient and the hospitalist. Patient is a 71-year-old obese female with a history of hypertension. She is not been vaccinated for Covid. She presented to the emergency room yesterday due to shortness of breath confusion. She was noted to test positive for Covid June 20. She was found to be hypoxemic but required nonrebreather and then transition to heated high flow and BiPAP. Chest x-ray demonstrated diffuse parenchymal infiltrates. Procalcitonin was not checked however BNP was markedly elevated. A Rios catheter was placed. She was initiated on dexamethasone as well as a azithromycin. She was admitted to the hospitalist service. ICU was consulted due to the potential for clinical deterioration and patient on BiPAP. I assessed the patient in the emergency room and she is still waiting for a bed in the hospital. She states she is breathing better. Her respiratory rate is currently down into the teens on noninvasive positive pressure ventilation. She is not coughing or expectorating phlegm. She appears to be breathing comfor tably. Allergies Allergy/AdvReac Type Severity Reaction Status Date / Time Bactrim Allergy Intermediate RASH, AND Verified 04/28/17 05:55 THROAT CLOSES sulfamethoxazole Allergy Intermediate RASH, AND Verified 06/26/21 19:22 THROAT CLOSES trimethoprim Allergy Intermediate RASH, AND Verified 06/26/21 19:22 THROAT CLOSES Penicillins Allergy Hives Verified 06/26/21 19:23 Home Medications Medication Instructions Recorded Confirmed Type atenolol 50 mg tablet 50 mg PO HS 06/26/21 06/26/21 History cholecalciferol (vitamin D3) 25 25 mcg PO DAILY 06/26/21 06/26/21 History mcg (1,000 unit) tablet (Vitamin D3) multivitamin 1 tab PO DAILY 06/26/21 06/26/21 History omeprazole 40 mg capsule,delayed 40 mg PO DAILY 06/26/21 06/26/21 History release triamterene 37.5 1 tab PO HS 06/26/21 06/26/21 History mg-hydrochlorothiazide 25 mg tablet Patient History Medical History (Updated 06/27/21 @ 09:26 by Godwin Lopez DO) Acute diverticulitis Hypertension Surgical History S/P TKR (total knee replacement) Family History Daughter Cancer Mother Cancer Father Colorectal cancer Brother Colorectal cancer Social History Smoking Status: Never smoker Second Hand Exposure: No; Hx Alcohol Use: Yes Hx Substance Use: No Preferred Language: Yoruba Communication Ability: Impaired Hearing Ability: Normal 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 No tachypnea or increased respiratory muscle use. Heart: bradycardic, S1 and S2, no murmur, peripheral pulses normal, capillary refill normal, no edema Abdomen: soft, NT, ND, + BS, no hepatomegaly, normal to percussion Extremities: normal in appearance, no cyanosis, no petechiae, strength is 5/5 bilaterally Neuro: awake, cooperative, moves all extremities, no focal motor deficits, CN II-XII intact Skin: warm, dry, no rash, normal turgor Psych: Awake, alert oriented x 3, Results & Data Results & Data ([facility]) Vital Signs (Past 12 Hours) Vital Signs Pulse Pulse Resp BP Pulse Ox 06/27/21 18:10 76 18 91 06/27/21 16:36 47 L 16 112/68 85 L 06/27/21 14:27 54 L 32 H 94 06/27/21 09:50 63 34 H 94 06/27/21 08:35 58 L 30 H 123/71 100 06/27/21 07:00 61 27 H 119/92 100 Diagnostic Findings Echocardiogram from today was reviewed. EF of 55 to 60% without wall motion abnormalities. No LVH. No significant valvular abnormalities identified. RVSP estimated at 36-40 technically difficult study. IVC was not well visualized. The right ventricle was not visualized well. Critical Care Results & Data Vital Signs (Past 12 Hours) Vital Signs Pulse Pulse Resp BP Pulse Ox 06/27/21 18:10 76 18 91 06/27/21 16:36 47 L 16 112/68 85 L 06/27/21 14:27 54 L 32 H 94 06/27/21 09:50 63 34 H 94 06/27/21 08:35 58 L 30 H 123/71 100 06/27/21 07:00 61 27 H 119/92 100 Lab & Micro Results (Past 24 Hours) RBC 5.17 M/uL (4.2-5.4) 06/27/21 WBC 9.48 K/uL (4.8-10.8) 06/27/21 Hgb 14.7 g/dL (12.0-16.0) 06/27/21 Hct 44.4 % (37-47) 06/27/21 MCV 85.9 fL (80-100) 06/27/21 MCH 28.4 pg (25-34) 06/27/21 MCHC 33.1 g/dL (32-36) 06/27/21 Plt Count 170 K/uL (130-400) 06/27/21 Neutrophils (%) (Auto) 84.2 % 06/27/21 Lymphocytes (%) (Auto) 10.0 % 06/27/21 Monocytes # (Auto) 0.38 K/uL (0.11-0.59) 06/27/21 Eosinophils # (Auto) 0.00 K/uL (0-0.5) 06/27/21 Immature Granulocyte % (Auto) 1.5 % 06/27/21 Neutrophils # (Auto) 7.98 K/uL (1.4-6.5) H 06/27/21 Lymphocytes # (Auto) 0.95 K/uL (1.2-3.4) L 06/27/21 Monocytes # (Auto) 0.38 K/uL (0.11-0.59) 06/27/21 Eosinophils # (Auto) 0.00 K/uL (0-0.5) 06/27/21 Basophils # (Auto) 0.03 K/uL (0-0.2) 06/27/21 Immature Granulocyte # (Auto) 0.14 K/uL (0.00-0.02) H 06/27/21 Red Blood Cell Morphology Unremarkable 06/27/21 Na 144 mmol/L (136-145) 06/27/21 K 3.5 mmol/L (3.5-5.1) 06/27/21 Cl 114 mmol/L (98-107) H 06/27/21 CO2 25 mmol/L (21-32) 06/27/21 Anion Gap 5.0 (3-11) 06/27/21 BUN 26 mg/dl (7-18) H 06/27/21 Creatinine 0.87 mg/dl (0.6-1.2) 06/27/21 Estimated GFR ( Amer) 77.7 ml/min 06/27/21 Estimated GFR (Non-Af Amer) 67.0 ml/min 06/27/21 BUN/Creatinine Ratio 29.8 (10-20) H 06/27/21 Glu 143 mg/dl (70-99) H 06/27/21 Ca 7.9 mg/dl (8.5-10.1) L 06/27/21 Total Bilirubin 0.4 mg/dl (0.2-1) 06/27/21 AST 155 U/L (15-37) H 06/27/21 ALT 68 (12-78) 06/27/21 Alkaline Phosphatase 152 U/L (45-117) H 06/27/21 TP 6.4 gm/dl (6.4-8.2) 06/27/21 Albumin 2.3 gm/dl (3.4-5.0) L 06/27/21 Globulin 4.1 gm/dl (2.5-4.0) H 06/27/21 Albumin/Globulin Ratio 0.6 (0.9-2) L 06/27/21 Calcium Level 7.9 mg/dl (8.5-10.1) L 06/27/21 04:52 06/27/21 Blood Gas Barometric Pressure 731.0 mm/Hg 06/26/21 19:12 06/26/21 Arterial Blood pH 7.47 (7.35-7.45) H 06/26/21 19:12 06/26/21 Arterial Blood Partial Pressure CO2 31 mmHg (35-46) L 06/26/21 19:12 06/26/21 Arterial Blood Partial Pressure O2 49 mmHg (80-95) L 06/26/21 19:12 06/26/21 Arterial Blood HCO3 22 mmol/L (19-24) 06/26/21 19:12 06/26/21 Arterial Blood Base Excess -0.8 mEq/L (-9-1.8) 06/26/21 19:12 06/26/21 Arterial Blood Oxygen Saturation 84.7 % (90-95) L 06/26/21 19:12 06/26/21 Blood Gas Oxygen Given 15 06/26/21 19:12 06/26/21 Hema Test Pos (Pos) 06/26/21 19:12 06/26/21 Blood Gas Barometric Pressure 731.0 mm/Hg 06/26/21 19:12 06/26/21 Diagnostic Findings (Past 24 Hours) Chest X-Ray 06/26/21 18:12 XR chest 1V portable CLINICAL HISTORY: Dyspnea TECHNIQUE: Single frontal radiograph of the chest was obtained. Comparison: None available at the time of this dictation. FINDINGS: No lines and tubes are seen. The cardiomediastinal silhouette is normal. The lungs are clear. No evidence of pleural effusion or pneumothorax. IMPRESSION: No acute chest disease. ACT 112: Negative or not required by law. Electronically signed by: Godwin Cope M.D. 06/26/2021 7:09 PM I & O Totals 24 Hours 06/26/21 06/27/21 06/28/21 06:59 06:59 06:59 Intake Total 2034 / 2034 200 / 200 Output Total 0 / 0 1700 / 1700 Balance 2034 / 2034 -1500 / -1500 Cumulative 06/26/21 17:38 thru 06/27/21 16:36 Intake Total 2235 Output Total 1700 Balance 535 RT Ventilator Mngmt (Last Documented) Ventilator Ordered Settings Respiratory Rate 18 06/27/21 18:10 Fraction of Inspired Oxygen 60 06/27/21 18:10 Ventilator - PT Measurements Respiratory Rate 18 Coding Level of Care Code Critical Care 1st 30-74 mins Diagnoses ARDS (adult respiratory distress syndrome) J80 Pneumonia due to COVID-19 virus U07.1; J12.82 Elevated troponin I level R77.8 Elevated lactic acid level R79.89
[2021-06-27] MEDS ORDERED: REMDESIVIR 100 MG in SODIUM CHLORIDE 0.9% 230 ML IV SCH (20:00)
[2021-06-27] MEDS: AZITHROMYCIN 500 MG in DEXTROSE 5% 250 ML IV SCH (21:12)
--- NOTE | 2021-06-27 21:45 | Electrocardiogram Report ---
Test Reason : Blood Pressure : / mmHG Vent. Rate : 069 BPM Atrial Rate : 069 BPM P-R Int : 152 ms QRS Dur : 082 ms QT Int : 378 ms P-R-T Axes : 029 -32 -83 degrees QTc Int : 405 ms Normal sinus rhythm Left axis deviation Low voltage QRS Nonspecific ST and T wave abnormality Abnormal ECG When compared with ECG of 20-APR-2017 09:37, Non-specific change in ST segment in Lateral leads Nonspecific T wave abnormality now evident in Anterolateral leads Confirmed by Rajan Michael ([id number]) on 06/27/2021 9:45:15 PM Referred By: REFERRED SELF Confirmed By:Rajan Michael
[2021-06-28 07:46] LABS: Hemoglobin 15.3 g/dL (12.0-16.0); Mean Corpuscular Hemoglobin 28.3 pg (25-34); Mean Corpuscular Hgb Conc 32.6 g/dL (32-36); Mean Corpuscular Volume 86.9 fL (80-100); Mean Platelet Volume 10.2 fL (7.4-10.4); Nucleated RBC # (auto) 0.05 K/uL (0-0); Nucleated RBC % (auto) 0.4 %; Platelet Count 150 K/uL (130-400); Red Blood Count 5.41 M/uL (4.2-5.4); White Blood Count 11.76 K/uL (4.8-10.8)
[2021-06-28 08:12] LABS: Albumin Level 2.7 gm/dl (3.4-5.0); BUN Creatinine Ratio 39.2 (10-20); C Reactive Protein 3.75 mg/dl (0-0.29); Calcium 7.8 mg/dl (8.5-10.1); Creatinine Clr Calc Pharmacy 68.8 ml/min; Est GFR (African American) 84.7 ml/min; Est GFR (Non-African American) 73.1 ml/min; Potassium 3.5 mmol/L (3.5-5.1)
[2021-06-28 08:13] LABS: Basophils # (auto) 0.07 K/uL (0-0.2); Basophils % (auto) 0.6 %; Immature Granulocytes # (auto) 0.25 K/uL (0.00-0.02); Immature Granulocytes % (auto) 2.1 %; Lymphocytes # (auto) 1.45 K/uL (1.2-3.4); Lymphocytes % (auto) 12.3 %; Monocytes # (auto) 0.88 K/uL (0.11-0.59); Monocytes % (auto) 7.5 %; Neutrophils # (auto) 9.11 K/uL (1.4-6.5); Neutrophils % (auto) 77.5 %
[2021-06-28 08:15] LABS: Albumin Globulin Ratio 0.7 (0.9-2); Bilirubin,Total 0.8 mg/dl (0.2-1); Globulin 3.9 gm/dl (2.5-4.0); Total Protein 6.6 gm/dl (6.4-8.2)
[2021-06-28] MEDS ORDERED: FUROSEMIDE 40 MG/4 ML VIAL IV ONE (08:31)
--- NOTE | 2021-06-28 08:45 | Hospitalist Progress Note ---
Date of Service June 28, 2021 Assessment & Plan (1) Acute hypoxemic respiratory failure due to COVID-19: Plan: placed on BIPAP in the ED due to saturations in the 80's on high flow and work of breathing remains on 30/01 but down to 60% FiO2, still tachypneic and belly breathing try high flow today, d/w RN and RT if she cannot tolerate high flow and needs to go back on BIPAP, I would give her another 12-24 hours on BIPAP if she cannot come off at that point we would need to consider intubation repeat CXR this morning CRP down to 5 from 11 Cr and K stable appreciate ICU consult from yesterday: continue BIPAP, contact ICU if she deteriorates dexamethasone 6mg IV daily, day 3 baricitinib 4mg daily, day 2 continue Zithromax for 5 days, day 3 Lasix 40mg IV daily, great response yesterday with 3500mL removed BNP was 2700 Echo showed preserved EF of 55-60% with mild elevation in pulmonary pressures (2) Pneumonia due to COVID-19 virus: Plan: see above treat with dexamethasone, baricitinib, Zithromax CRP down to 5 from 11 (3) ARDS (adult respiratory distress syndrome): Plan: bilateral infiltrates, AF ratio is < 100 at time of admission currently BIPAP dependent, try to wean to high flow (4) Elevated troponin I level: Plan: Elevated troponin I level no current chest pain EKG had TW flattening, no ST depressions Troponin 0.438 upon admission, up to 0.55 on repeat echo shows EF 55-60%, no wall motion changes do not feel that this is NSTEMI, hold on heparin drip hold Atenolol due to bradycardia, rates in 40-50's Lasix 40mg IV daily Hold triamterene/HCTZ (5) Acid reflux disease: Plan: Famotidine 20 mg IV every 12 hours (6) Hypertension: Plan: See above (7) Abnormal LFTs: Plan: follow periodically Admission and Anticipated Discharge Date Admission Date: June 26, 2021 Subjective patient still on BIPAP this morning, 30/01 and 60% she had a dramatic response to lasix yesterday, got a total of 80mg IV and she is negative 3500mL Cr is stable as is K will give 40mg IV again this morning with K riders discussed trying to get on High flow today, at least during the day so she can eat and drink discussed that she should still wear the BIPAP HS no cough, no chest pain, no nausea, no fever + dyspnea at rest CRP down to 5 from 11, will get a portable CXR this morning Review of Systems Review of Systems: All systems reviewed & are unremarkable except as noted in Subjective Respiratory: + dyspnea Cardiovascular: no chest pain Gastrointestinal: no abdominal pain, no nausea, no vomiting, no constipation and no diarrhea/loose stools Physical Exam Physical Exam: General: well developed, obese female, on BIPAP, no distress Neck: supple, trachea midline, normal thyroid Lungs: diminished sounds bilaterally, + tachypnea, + accessory muscle use (belly breathing), not in distress Heart: bradycardic, S1 and S2, no murmur, peripheral pulses normal, capillary refill normal, no edema Abdomen: soft, NT, ND, + BS, no hepatomegaly, normal to percussion Extremities: normal in appearance, no cyanosis, no petechiae, strength is 5/5 bilaterally Neuro: awake, cooperative, moves all extremities, no focal motor deficits, CN II-XII intact Skin: warm, dry, no rash, normal turgor Psych: Awake, alert oriented x 3, anxious affect, she is scared Results & Data Results & Data ([facility]) Vital Signs (Past 12 Hours) Vital Signs Temp Pulse Pulse Resp BP BP Pulse Ox 06/28/21 07:52 22 93 06/28/21 07:40 45 L 06/28/21 07:37 36.5 C 64 23 118/67 90 06/28/21 03:24 49 L 06/28/21 03:11 36.9 C 52 L 18 94/56 L 97 06/28/21 02:59 50 L 33 H 91 06/27/21 22:48 53 L 30 H 92 06/27/21 21:00 54 L 20 110/67 97 Laboratory Results Laboratory Results - last 24 hr 06/26/21 06/27/21 06/28/21 14:16 19:07 07:13 WBC 11.76 H RBC 5.41 H Hgb 15.3 Hct 47.0 MCV 86.9 MCH 28.3 MCHC 32.6 RDW Std Deviation 48.0 H RDW Coeff of Dayanna 15.0 H Plt Count 150 MPV 10.2 Immature Gran % (Auto) 2.1 Neut % (Auto) 77.5 Lymph % (Auto) 12.3 [place] % (Auto) 7.5 Eos % (Auto) 0.0 Baso % (Auto) 0.6 Neut # (Auto) 9.11 H Lymph # (Auto) 1.45 [place] # (Auto) 0.88 H Eos # (Auto) 0.00 Baso # (Auto) 0.07 Immature Gran # (Auto) 0.25 H Absolute Nucleated RBC 0.05 H Nucleated RBC % (auto) 0.4 Sodium Potassium Chloride Carbon Dioxide Anion Gap BUN Creatinine Est Cr Clr Drug Dosing Est GFR ( Amer) Est GFR (Non-Af Amer) BUN/Creatinine Ratio Glucose Calcium Total Bilirubin AST ALT Alkaline Phosphatase C-Reactive Protein Total Protein Albumin Globulin Albumin/Globulin Ratio Procalcitonin 0.14 Urine Color Dark Yellow Urine Appearance Clear Urine pH 6.0 Ur Specific [place] 1.023 Urine Protein 1+ H Urine Glucose (UA) Negative Urine Ketones Trace H Urine Blood Negative Urine Nitrite Negative Urine Bilirubin Negative Urine Urobilinogen Negative Ur Leukocyte Esterase Negative Urine WBC (Auto) 5-10 H Urine RBC (Auto) 0-4 U Hyaline Cast (Auto) 10-30 H U Epithel Cells (Auto) >30 H Urine Bacteria (Auto) Negative Ur Renal Epithelial Cell Not Reportable WBC Casts 5-10 H 06/28/21 07:36 WBC RBC Hgb Hct MCV MCH MCHC RDW Std Deviation RDW Coeff of Dayanna Plt Count MPV Immature Gran % (Auto) Neut % (Auto) Lymph % (Auto) [place] % (Auto) Eos % (Auto) Baso % (Auto) Neut # (Auto) Lymph # (Auto) [place] # (Auto) Eos # (Auto) Baso # (Auto) Immature Gran # (Auto) Absolute Nucleated RBC Nucleated RBC % (auto) Sodium 148 H Potassium 3.5 Chloride 114 H Carbon Dioxide 27 Anion Gap 8.0 BUN 32 H Creatinine 0.81 Est Cr Clr Drug Dosing 68.8 Est GFR ( Amer) 84.7 Est GFR (Non-Af Amer) 73.1 BUN/Creatinine Ratio 39.2 H Glucose 140 H Calcium 7.8 L Total Bilirubin 0.8 AST 144 H ALT 70 Alkaline Phosphatase 157 H C-Reactive Protein 3.75 H Total Protein 6.6 Albumin 2.7 L Globulin 3.9 Albumin/Globulin Ratio 0.7 L Procalcitonin Urine Color Urine Appearance Urine pH Ur Specific [place] Urine Protein Urine Glucose (UA) Urine Ketones Urine Blood Urine Nitrite Urine Bilirubin Urine Urobilinogen Ur Leukocyte Esterase Urine WBC (Auto) Urine RBC (Auto) U Hyaline Cast (Auto) U Epithel Cells (Auto) Urine Bacteria (Auto) Ur Renal Epithelial Cell WBC Casts Medications Administered Current Inpatient Medications Acetaminophen (Acetaminophen 325 Mg Tab) 650 mg PO Q4H PRN PRN Reason: Pain or Fever Stop: 07/26/21 20:32 Baricitinib (4mg Daily X 14 Days (Egfr >60 Ml/Min/1.73m2)) 4 mg PO DAILY [facility]; Protocol Stop: 07/11/21 10:59 Last Admin: 06/27/21 11:30 Dose: 4 mg Documented by: Enoxaparin Sodium (Enoxaparin Inj 40 Mg/0.4 Ml Syr) 40 mg SQ Q12H [facility] Stop: 07/27/21 09:59 Last Admin: 06/27/21 22:07 Dose: 40 mg Documented by: Furosemide (Furosemide 40 Mg/4 Ml Vial) 40 mg IV ONE ONE Stop: 06/28/21 08:32 Guaifenesin (Guaifenesin 600 Mg Tabcr) 1,200 mg PO Q12 [facility] Stop: 07/26/21 20:59 Last Admin: 06/27/21 21:12 Dose: 1,200 mg Documented by: Dexamethasone 6 mg/ Syringe 1.5 mls @ 1 mls/min IV Q24H [facility] Stop: 07/27/21 08:59 Last Admin: 06/27/21 08:26 Dose: 1 mls/min Documented by: Azithromycin 500 mg/ Dextrose 255 mls @ 125 mls/hr IV Q24H [facility] Stop: 07/03/21 20:59 Last Infusion: 06/27/21 23:20 Dose: Infused Documented by: Famotidine 20 mg/ Syringe 5 mls @ 2.5 mls/min IV Q12H [facility] Stop: 07/26/21 20:59 Last Admin: 06/27/21 21:12 Dose: 2.5 mls/min Documented by: Potassium Chloride (K [place] / Wtr) 10 meq in 100 mls @ 100 mls/hr IV Q1H [facility] Stop: 06/28/21 09:30 Ondansetron HCl (Ondansetron Inj 2 Mg/Ml 2 Ml Vial) 4 mg IV Q6H PRN PRN Reason: Nausea Stop: 07/26/21 20:32 PG Care Time/CCT Total # of Minutes Spent Total Time Spent: 34 Total Time Spent with Patient: Total time spent is greater than 50% in coordination of care (as documented) at patient's floor/unit and/or counseling patient: Coding Level of Care Code 42777 Subseq Hosp Care Lvl 3 (25 - SIGNIFICANT, SEPARATELY IDENTIFIABLE ) Diagnoses Acute hypoxemic respiratory failure due to COVID-19 U07.1; J96.01 Pneumonia due to COVID-19 virus U07.1; J12.82 ARDS (adult respiratory distress syndrome) J80 Elevated troponin I level R77.8 Acid reflux disease K21.9 Hypertension I10 Abnormal LFTs R79.89
--- NOTE | 2021-06-28 09:26 | XRay Report ---
XR chest 1V portable CLINICAL HISTORY: hypoxia, COVID, CHF. COMPARISON STUDY: 06/26/2021 TECHNIQUE: 1 view of the chest FINDINGS: Single frontal view of the chest demonstrates the cardiomediastinal silhouette to be within normal li mits. Compared to previous examination, no acute interstitial or alveolar opacities are identified. T here is no evidence for pleural effusion. There is no evidence for vascular congestion. There is no a cute osseous pathology. IMPRESSION: No acute cardiopulmonary disease. ACT 112: Negative or not required by law. Electronically signed by: Marlon Rae M.D. 06/28/2021 9:25 AM
[2021-06-28] MEDS: POTASSIUM CHLORIDE / WTR 10 MEQ/100 ML PLCT IV SCH ×3 (09:39→12:06)
[2021-06-28] MEDS: dexAMETHasone 6 MG in SYRINGE 0 ML IV SCH (09:41)
[2021-06-28] MEDS: guaiFENesin 600 MG TABCR PO SCH ×2 (09:41→20:15)
[2021-06-28] MEDS: ENOXAPARIN INJ 40 MG/0.4 ML SYR SQ SCH ×2 (09:42→21:49)
[2021-06-28] MEDS: FAMOTIDINE 20 MG in SYRINGE 3 ML IV SCH ×2 (09:49→20:26)
[2021-06-28] MEDS: 4mg Daily x 14 days (eGFR >60 mL/min/1.73m2) PO SCH (11:16)
[2021-06-28] MEDS: AZITHROMYCIN 500 MG in DEXTROSE 5% 250 ML IV SCH (20:26)
[2021-06-29 06:57] LABS: Hematocrit (blood only) 45.9 % (37-47); Hemoglobin 15.1 g/dL (12.0-16.0); Mean Corpuscular Hemoglobin 28.1 pg (25-34); Mean Corpuscular Hgb Conc 32.9 g/dL (32-36); Mean Corpuscular Volume 85.3 fL (80-100); Mean Platelet Volume 10.2 fL (7.4-10.4); Nucleated RBC # (auto) 0.03 K/uL (0-0); Nucleated RBC % (auto) 0.3 %; Platelet Count 133 K/uL (130-400); RDW Coefficient of Variation 14.6 % (11.5-14.5); RDW Standard Deviation 45.4 fL (36.4-46.3); Red Blood Count 5.38 M/uL (4.2-5.4); White Blood Count 13.06 K/uL (4.8-10.8)
[2021-06-29 07:31] LABS: Albumin Level 2.6 gm/dl (3.4-5.0); Calcium 8.4 mg/dl (8.5-10.1); Creatinine Clr Calc Pharmacy 73.3 ml/min; Est GFR (African American) 91.5 ml/min; Est GFR (Non-African American) 78.9 ml/min; Potassium 3.5 mmol/L (3.5-5.1)
[2021-06-29 07:34] LABS: Albumin Globulin Ratio 0.7 (0.9-2); Bilirubin,Total 1.1 mg/dl (0.2-1); Total Protein 6.6 gm/dl (6.4-8.2)
[2021-06-29 07:37] LABS: Basophils # (auto) 0.03 K/uL (0-0.2); Basophils % (auto) 0.2 %; Eosinophils # (auto) 0.01 K/uL (0-0.5); Eosinophils % (auto) 0.1 %; Immature Granulocytes % (auto) 2.3 %; Lymphocytes # (auto) 1.61 K/uL (1.2-3.4); Lymphocytes % (auto) 12.3 %; Monocytes # (auto) 1.06 K/uL (0.11-0.59); Monocytes % (auto) 8.1 %; Neutrophils # (auto) 10.05 K/uL (1.4-6.5)
[2021-06-29] MEDS: dexAMETHasone 6 MG in SYRINGE 0 ML IV SCH (09:56)
[2021-06-29] MEDS: 4mg Daily x 14 days (eGFR >60 mL/min/1.73m2) PO SCH (09:56)
[2021-06-29] MEDS: FUROSEMIDE INJ 20 MG/2 ML VIAL IV SCH (09:57)
[2021-06-29] MEDS: guaiFENesin 600 MG TABCR PO SCH ×2 (09:59→20:31)
[2021-06-29] MEDS: ENOXAPARIN INJ 40 MG/0.4 ML SYR SQ SCH ×2 (09:59→21:25)
[2021-06-29] MEDS: FAMOTIDINE 20 MG in SYRINGE 3 ML IV SCH ×2 (11:09→20:41)
[2021-06-29 18:12] LABS: Base Excess VBG 2.2 mEq/L; Oxygen Saturation VBG 82.1 %; pH VBG 7.49 (7.36-7.41)
--- NOTE | 2021-06-29 18:22 | XRay Report ---
XR chest 1V portable CLINICAL HISTORY: Covid positive. Difficulty breathing. Evaluate for interval change.. COMPARISON STUDY: 06/28/2021 TECHNIQUE: 1 view of the chest FINDINGS: Single frontal view of the chest demonstrates the cardiomediastinal silhouette to be within normal li mits. There is a decreased inspiratory effort with elevation of the hemidiaphragms and crowding of th e bronchovascular markings at the lung bases and centrally. The lungs are otherwise clear of alveolar opacities. There is no evidence for pleural effusion. There is no evidence for vascular congestion. There is no acute osseous pathology. IMPRESSION: Compared to the previous examination, there is a decreased inspiratory effort with again no definite interstitial or alveolar opacities identified. If indicated clinically, CT chest would be more sensitive for subtle groundglass opacities. ACT 112: Negative or not required by law. Electronically signed by: Marlon Rae M.D. 06/29/2021 6:21 PM
[2021-06-29 18:28] LABS: C Reactive Protein 0.96 mg/dl (0-0.29)
[2021-06-29 18:37] LABS: D Dimer 17400 ug/L FEU (0-500)
--- NOTE | 2021-06-29 19:29 | Hospitalist Progress Note ---
Date of Service June 29, 2021 Assessment & Plan (1) Acute hypoxemic respiratory failure due to COVID-19: Plan: Upon admission she required BIPAP from the onset due to severe hypoxia & increased work of breathing. Remained on BIPAP / until this am. Has tolerated HFNC but at near-max settings. I repeated her cxr today and oddly her lung parenchyma looks fairly good - certainly out of proportion to her hypoxia. I repeated a procal, crp, BNP, and VBG. All wnl or acceptable. D-dimer markedly elevated to 17,000. VTE may explain her severe hypoxia out of proportion to her cxr findings. Plan - * dopplers of LEs urgently to r/o DVT; start heparin drip if + for DVT; would assume she has PEs if DVTs are present; I do not believe she could tolerate a CTA chest today given her respiratory status * dexamethasone 6mg IV daily, day 4 * baricitinib 4mg daily, day 3 * continue Zithromax for 5 days, day 4; convert IV --> PO for last dose tomorrow * HOLD further lasix - she appears euvolemic or slightly volume contracted, and BNP is now <300 -- down from 2700 * place back on BIPAP at HS; then HFNC again tomorrow AM * cont pulmonary toilet - flutter, incentive, side positioning (she cannot prone), etc. Her status is quite tenuous. Plan of care signed out to night-providers given the severity of her illness & severe hypoxia. (2) Pneumonia due to COVID-19 virus: Plan: see above in #1 severe treat with dexamethasone, baricitinib, Zithromax BIPAP HS HFNC during the day (3) ARDS (adult respiratory distress syndrome): Plan: 2nd to COVID-19 pneumonia ongoing see above (4) Elevated troponin I level: Plan: Likely myocardial demand ischemia in setting of severe acute hypoxic resp failure / COVID-19 pneumonia Troponin 0.438 upon admission, up to 0.55 echo showed EF 55-60% with no wall motion abnormalities hold Atenolol due to bradycardia hold further diuretics repeat a troponin in am (5) Acid reflux disease: Plan: Famotidine 20 mg IV every 12 hours (6) Hypertension: Plan: See above in #4 (7) Abnormal LFTs: Plan: transaminitis likely 2nd to COVID illness repeat in am (8) DVT prophylaxis: Plan: currently lovenox BID however, if dopplers of legs + for DVT - change to heparin drip Plan: daughter extensively updated by phone this evening Admission and Anticipated Discharge Date Admission Date: June 26, 2021 Subjective patient was on BIPAP for most of the last 2-3 days wore such last pm, then transitioned to HFNC this am has been on HFNC all day to day but despite max settings (45 L, 100% FiO2) she was still hypoxic an oxymask was placed over the HFNC device during my assessment she was satting in the low 90s on the above patient looked very tired during the visit despite looking fatigued & weak she said she "felt better than when I came in" very little appetite still coughing - but no significant sputum no cp no abd pain tele overnight - NSR Review of Systems Review of Systems: gen - no fevers or chills; severe fatigue CV - no orthopnea pulm - MASSEY with minimal activity; staff report her HFNC prongs came out accidentally today; promptly desatted into the high 60s GI - no N/V/D Physical Exam Physical Exam: gen - looks very tired, weak and unwell skin - turgor poor mouth - MM dry neck - no JVD heart - RRR, s1 s2, no murmur lungs - fine rales b/l bases, no wheeze, mild tachypnea abd - soft NT ND BS+ ext - no edema, pulses 2+ b/l psych - a/o x 3 Results & Data Results & Data ([facility]) Vital Signs (Past 12 Hours) Vital Signs Temp Pulse Pulse Pulse Resp BP Pulse Ox 06/29/21 19:11 63 30 H 94 06/29/21 16:00 36.9 C 65 20 135/82 92 06/29/21 15:00 55 L 06/29/21 11:02 90 26 H 90 06/29/21 11:00 37.0 C 56 L 24 104/62 91 06/29/21 07:46 90 24 86 L Laboratory Results Laboratory Results - last 24 hr 06/29/21 06/29/21 06/29/21 06:14 06:14 17:56 WBC 13.06 H RBC 5.38 Hgb 15.1 Hct 45.9 MCV 85.3 MCH 28.1 MCHC 32.9 RDW Std Deviation 45.4 RDW Coeff of Dayanna 14.6 H Plt Count 133 MPV 10.2 Immature Gran % (Auto) 2.3 Neut % (Auto) 77.0 Lymph % (Auto) 12.3 [place] % (Auto) 8.1 Eos % (Auto) 0.1 Baso % (Auto) 0.2 Neut # (Auto) 10.05 H Lymph # (Auto) 1.61 [place] # (Auto) 1.06 H Eos # (Auto) 0.01 Baso # (Auto) 0.03 Immature Gran # (Auto) 0.30 H Absolute Nucleated RBC 0.03 H Nucleated RBC % (auto) 0.3 D-Dimer 49001 H* VBG pH VBG pCO2 VBG pO2 VBG HCO3 VBG O2 Saturation VBG Base Excess Barometric Pressure Sodium 146 H Potassium 3.5 Chloride 112 H Carbon Dioxide 26 Anion Gap 8.0 BUN 30 H Creatinine 0.76 Est Cr Clr Drug Dosing 73.3 Est GFR ( Amer) 91.5 Est GFR (Non-Af Amer) 78.9 BUN/Creatinine Ratio 39.0 H Glucose 127 H Calcium 8.4 L Total Bilirubin 1.1 H AST 252 H ALT 136 H Alkaline Phosphatase 146 H C-Reactive Protein NT-Pro-B Natriuret Pep Total Protein 6.6 Albumin 2.6 L Globulin 4.0 Albumin/Globulin Ratio 0.7 L Procalcitonin 06/29/21 06/29/21 06/29/21 17:56 17:56 17:56 WBC RBC Hgb Hct MCV MCH MCHC RDW Std Deviation RDW Coeff of Dayanna Plt Count MPV Immature Gran % (Auto) Neut % (Auto) Lymph % (Auto) [place] % (Auto) Eos % (Auto) Baso % (Auto) Neut # (Auto) Lymph # (Auto) [place] # (Auto) Eos # (Auto) Baso # (Auto) Immature Gran # (Auto) Absolute Nucleated RBC Nucleated RBC % (auto) D-Dimer VBG pH 7.49 H VBG pCO2 33 L VBG pO2 45 VBG HCO3 25 VBG O2 Saturation 82.1 VBG Base Excess 2.2 Barometric Pressure 721.3 Sodium Potassium Chloride Carbon Dioxide Anion Gap BUN Creatinine Est Cr Clr Drug Dosing Est GFR ( Amer) Est GFR (Non-Af Amer) BUN/Creatinine Ratio Glucose Calcium Total Bilirubin AST ALT Alkaline Phosphatase C-Reactive Protein 0.96 H NT-Pro-B Natriuret Pep 274 Total Protein Albumin Globulin Albumin/Globulin Ratio Procalcitonin 0.08 PG Care Time/CCT Total # of Minutes Spent Total Time Spent with Patient: Total time spent is greater than 50% in coordination of care (as documented) at patient's floor/unit and/or counseling patient: Coding Level of Care Code 13330 Subseq Hosp Care Lvl 3 Diagnoses Acute hypoxemic respiratory failure due to COVID-19 U07.1; J96.01 Pneumonia due to COVID-19 virus U07.1; J12.82 ARDS (adult respiratory distress syndrome) J80 Elevated troponin I level R77.8 Acid reflux disease K21.9 Hypertension I10 Abnormal LFTs R79.89 DVT prophylaxis Z29.9
--- NOTE | 2021-06-29 20:15 | Ultrasound Report ---
US venous doppler LE BI CLINICAL HISTORY: Bilateral leg swelling. marked elevation Ddimer; COVID; eval DVT COMPARISON: None available at the time of this dictation. TECHNIQUE: Bilateral lower extremity real-time compression venous ultrasound with Color Doppler imagi ng. Utilizing real-time ultrasonic imaging multiple real time high-resolution ultrasonic images with comp ression and noncompression maneuvers of the deep venous system in addition to color doppler imaging w ere performed from the common femoral vein through the proximal calf veins. FINDINGS: On the left side, there is nonocclusive thrombus present within the mid superficial femoral vein and popliteal vein with occlusive thrombus present within the peroneal, posterior tibial and anterior tib ial veins. The common femoral vein is patent. On the right side, the common femoral, superficial femoral and popliteal veins are patent. There is o cclusive thrombus in one of the posterior tibial veins and within the peroneal vein. Impression: Positive for deep venous thrombosis, left greater than right. ACT 112: Negative or not required by law. Electronically signed by: Marlon Rae M.D. 06/29/2021 8:13 PM
[2021-06-29] MEDS: AZITHROMYCIN 500 MG in DEXTROSE 5% 250 ML IV SCH (20:41)
[2021-06-29] MEDS ORDERED: Heparin IV Adult Wt-Based Standard WITH Bolus Protocol IV SCH (22:02)
[2021-06-29] MEDS ORDERED: HEPARIN SOD (PORCINE) 1000 UNIT/ML IV ONE (22:07)
[2021-06-29] MEDS ORDERED: HEPARIN IV BOLUS 5,000 UNITS in SYRINGE 0 ML IV ONE (22:45)
[2021-06-30] MEDS: HEPARIN SODIUM/DEXTROSE 25,000 UNITS/500 ML BAG IV SCH ×3 (00:10→21:14)
[2021-06-30] MEDS ORDERED: Heparin IV Adult Wt-Based Standard WITH Bolus Protocol IV STA (05:57)
[2021-06-30] MEDS ORDERED: HEPARIN SOD (PORCINE) 1000 UNIT/ML IV ONE (06:12)
[2021-06-30] MEDS ORDERED: HEPARIN SODIUM/DEXTROSE 25,000 UNITS/500 ML BAG IV SCH (06:15)
[2021-06-30 06:21] LABS: Basophils # (auto) 0.02 K/uL (0-0.2); Basophils % (auto) 0.1 %; Eosinophils # (auto) 0.01 K/uL (0-0.5); Eosinophils % (auto) 0.1 %; Hematocrit (blood only) 49.1 % (37-47); Hemoglobin 15.8 g/dL (12.0-16.0); Immature Granulocytes # (auto) 0.33 K/uL (0.00-0.02); Immature Granulocytes % (auto) 2.1 %; Lymphocytes # (auto) 1.47 K/uL (1.2-3.4); Lymphocytes % (auto) 9.1 %; Mean Corpuscular Hemoglobin 28.2 pg (25-34); Mean Corpuscular Hgb Conc 32.2 g/dL (32-36); Mean Corpuscular Volume 87.5 fL (80-100); Mean Platelet Volume 10.2 fL (7.4-10.4); Monocytes # (auto) 1.04 K/uL (0.11-0.59); Monocytes % (auto) 6.5 %; Neutrophils % (auto) 82.1 %; Platelet Count 120 K/uL (130-400); RDW Coefficient of Variation 14.5 % (11.5-14.5); RDW Standard Deviation 46.5 fL (36.4-46.3); Red Blood Count 5.61 M/uL (4.2-5.4); White Blood Count 16.07 K/uL (4.8-10.8)
[2021-06-30 06:49] LABS: Albumin Level 2.8 gm/dl (3.4-5.0); BUN Creatinine Ratio 33.2 (10-20); Calcium 8.3 mg/dl (8.5-10.1); Creatinine Clr Calc Pharmacy 72.4 ml/min; Est GFR (Non-African American) 77.7 ml/min; Potassium 3.3 mmol/L (3.5-5.1)
[2021-06-30 07:03] LABS: Albumin Globulin Ratio 0.7 (0.9-2); Bilirubin,Total 1.1 mg/dl (0.2-1); Globulin 4.1 gm/dl (2.5-4.0); Total Protein 6.9 gm/dl (6.4-8.2); Troponin I 0.055 ng/ml (0-0.045)
[2021-06-30 07:39] LABS: Partial Thromboplastin Ratio 3.1
[2021-06-30] MEDS: POTASSIUM CHLORIDE / WTR 10 MEQ/100 ML PLCT IV SCH ×2 (07:44→08:54)
[2021-06-30] MEDS: 4mg Daily x 14 days (eGFR >60 mL/min/1.73m2) PO SCH (07:47)
[2021-06-30] MEDS: dexAMETHasone 6 MG in SYRINGE 0 ML IV SCH (07:47)
[2021-06-30] MEDS: guaiFENesin 600 MG TABCR PO SCH ×2 (07:50→21:27)
[2021-06-30] MEDS: FAMOTIDINE 20 MG in SYRINGE 3 ML IV SCH ×2 (07:55→21:26)
[2021-06-30 08:01] LABS: Partial Thromboplastin Time 80.4 Seconds (21.0-31.0)
[2021-06-30] MEDS ORDERED: AZITHROMYCIN 250 MG TAB PO SCH (09:00)
[2021-06-30 17:54] LABS: Partial Thromboplastin Ratio 2.2
[2021-06-30 17:59] LABS: Partial Thromboplastin Time 58.8 Seconds (21.0-31.0)
--- NOTE | 2021-06-30 21:54 | Hospitalist Progress Note ---
Date of Service June 30, 2021 Assessment & Plan (1) Acute hypoxemic respiratory failure due to COVID-19: Plan: Upon admission she required BIPAP from the onset due to severe hypoxia & increased work of breathing. Remained on BIPAP 14/7 continuously until yesterday am. Has tolerated HFNC but at near-max settings. Dopplers of legs + for DVTs. I presume she has PEs. Thus, combination of COVID pneumonia/ARDS and presumed PEs contributing to her hypoxic resp failure. Plan - * cont heparin drip for DVTs/presumed PEs; consider CTA chest when able * dexamethasone 6mg IV daily, day 5 * baricitinib 4mg daily, day 4 * finish Zithromax 5-day course today * HOLD further lasix * cont BIPAP at HS; then HFNC during the day * cont pulmonary toilet - flutter, incentive, side positioning (she cannot prone), etc. Remains tenuous from pulmonary standpoint. of note -was not a Remdesivir candidate due to where she was in her illness course at time of admission (2) Pneumonia due to COVID-19 virus: Plan: see above in #1 severe treat with dexamethasone, baricitinib, Zithromax BIPAP HS HFNC during the day (3) ARDS (adult respiratory distress syndrome): Plan: 2nd to COVID-19 pneumonia ongoing see above (4) Elevated troponin I level: Plan: Likely myocardial demand ischemia in setting of severe acute hypoxic resp failure / COVID-19 pneumonia If she has PEs this, too, can lead to rise in troponin EF 55-60% with no wall motion abnormalities hold Atenolol due to bradycardia hold further diuretics (5) Acid reflux disease: Plan: Famotidine 20 mg IV every 12 hours (6) Hypertension: Plan: See above in #4 (7) Abnormal LFTs: Plan: transaminitis likely 2nd to COVID illness repeat ast/alt still high continue to trend (8) DVT prophylaxis: Plan: heparin drip for DVTs as below (9) Deep vein thrombosis of bilateral lower extremities: Plan: b/l dopplers + for DVTs I presume she has PEs Heparin drip consider xarelto or eliquis in 1-2 days Plan: daughter extensively updated by phone this evening and yesterday evening Admission and Anticipated Discharge Date Admission Date: June 26, 2021 Subjective tele overnight wnl pt did have improved appetite today - ate 100% of her meals no change in respiratory status - used BIPAP faithfully overnight, then transitioned back to HFNC this am continues to be fragile respiratory curry - during meals her O2 sats drop with such she endorses no new complaints again she states she is "feeling better" Review of Systems Review of Systems: gen - weak, fatigued cv - no orthopnea pulm - cough, dyspnea on exertion gi - no abd pain, nausea, emesis Physical Exam Physical Exam: gen - still looks very tired, weak and unwell but no distress mouth - MMM, dried blood on upper lip neck - no JVD heart - RRR, s1 s2, no murmur lungs - fine rales b/l bases, no wheeze, mild tachypnea abd - soft NT ND BS+ ext - no edema, pulses 2+ b/l psych - a/o x 3 Results & Data Results & Data ([facility]) Vital Signs (Past 12 Hours) Vital Signs Temp Pulse Pulse Pulse Resp BP Pulse Ox 06/30/21 19:41 36.5 C 65 20 120/69 95 06/30/21 19:01 90 26 H 89 L 06/30/21 16:47 36.7 C 62 19 121/72 94 06/30/21 15:29 87 22 91 06/30/21 15:00 67 06/30/21 11:35 36.8 C 75 20 133/79 90 Laboratory Results Laboratory Results - last 24 hr 06/29/21 06/30/21 06/30/21 23:37 05:57 05:57 WBC 16.07 H RBC 5.61 H Hgb 15.8 Hct 49.1 H MCV 87.5 MCH 28.2 MCHC 32.2 RDW Std Deviation 46.5 H RDW Coeff of Dayanna 14.5 Plt Count 120 L MPV 10.2 Immature Gran % (Auto) 2.1 Neut % (Auto) 82.1 Lymph % (Auto) 9.1 [place] % (Auto) 6.5 Eos % (Auto) 0.1 Baso % (Auto) 0.1 Neut # (Auto) 13.20 H Lymph # (Auto) 1.47 [place] # (Auto) 1.04 H Eos # (Auto) 0.01 Baso # (Auto) 0.02 Immature Gran # (Auto) 0.33 H APTT 26.0 PTT Ratio 1.0 Sodium 144 Potassium 3.3 L Chloride 109 H Carbon Dioxide 27 Anion Gap 7.0 BUN 26 H Creatinine 0.77 Est Cr Clr Drug Dosing 72.4 Est GFR ( Amer) 90.0 Est GFR (Non-Af Amer) 77.7 BUN/Creatinine Ratio 33.2 H Glucose 118 H Calcium 8.3 L Total Bilirubin 1.1 H AST 289 H ALT 269 H Alkaline Phosphatase 141 H Troponin I 0.055 H* Total Protein 6.9 Albumin 2.8 L Globulin 4.1 H Albumin/Globulin Ratio 0.7 L 06/30/21 06/30/21 06:01 17:28 WBC RBC Hgb Hct MCV MCH MCHC RDW Std Deviation RDW Coeff of Dayanna Plt Count MPV Immature Gran % (Auto) Neut % (Auto) Lymph % (Auto) [place] % (Auto) Eos % (Auto) Baso % (Auto) Neut # (Auto) Lymph # (Auto) [place] # (Auto) Eos # (Auto) Baso # (Auto) Immature Gran # (Auto) APTT 80.4 H* 58.8 H* PTT Ratio 3.1 2.2 Sodium Potassium Chloride Carbon Dioxide Anion Gap BUN Creatinine Est Cr Clr Drug Dosing Est GFR ( Amer) Est GFR (Non-Af Amer) BUN/Creatinine Ratio Glucose Calcium Total Bilirubin AST ALT Alkaline Phosphatase Troponin I Total Protein Albumin Globulin Albumin/Globulin Ratio PG Care Time/CCT Total # of Minutes Spent Total Time Spent with Patient: Total time spent is greater than 50% in coordination of care (as documented) at patient's floor/unit and/or counseling patient: Coding Level of Care Code 35730 Subseq Hosp Care Lvl 3 Diagnoses Acute hypoxemic respiratory failure due to COVID-19 U07.1; J96.01 Pneumonia due to COVID-19 virus U07.1; J12.82 ARDS (adult respiratory distress syndrome) J80 Elevated troponin I level R77.8 Acid reflux disease K21.9 Hypertension I10 Abnormal LFTs R79.89 DVT prophylaxis Z29.9 Deep vein thrombosis of bilateral lower extremities I82.403
[2021-07-01 06:08] LABS: Hematocrit (blood only) 45.8 % (37-47); Mean Corpuscular Hemoglobin 28.6 pg (25-34); Mean Corpuscular Hgb Conc 32.8 g/dL (32-36); Mean Corpuscular Volume 87.2 fL (80-100); Mean Platelet Volume 10.2 fL (7.4-10.4); Platelet Count 125 K/uL (130-400); RDW Coefficient of Variation 14.4 % (11.5-14.5); RDW Standard Deviation 45.6 fL (36.4-46.3); Red Blood Count 5.25 M/uL (4.2-5.4); White Blood Count 20.39 K/uL (4.8-10.8)
[2021-07-01 06:34] LABS: BUN Creatinine Ratio 26.9 (10-20); Calcium 8.5 mg/dl (8.5-10.1); Creatinine Clr Calc Pharmacy 77.4 ml/min; Est GFR (African American) 97.7 ml/min; Est GFR (Non-African American) 84.3 ml/min; Potassium 3.3 mmol/L (3.5-5.1)
[2021-07-01 06:39] LABS: Magnesium 2.4 mg/dl (1.8-2.4)
[2021-07-01 07:00] LABS: Partial Thromboplastin Time 52.4 Seconds (21.0-31.0)
[2021-07-01] MEDS: 4mg Daily x 14 days (eGFR >60 mL/min/1.73m2) PO SCH (08:07)
[2021-07-01] MEDS: guaiFENesin 600 MG TABCR PO SCH ×2 (08:07→20:16)
[2021-07-01] MEDS: FAMOTIDINE 20 MG in SYRINGE 3 ML IV SCH ×2 (08:07→20:22)
[2021-07-01] MEDS: dexAMETHasone 6 MG in SYRINGE 0 ML IV SCH (08:07)
[2021-07-01] MEDS: POTASSIUM CHLORIDE CRTAB 20 MEQ TABCR PO SCH ×3 (09:17→20:16)
--- NOTE | 2021-07-01 10:17 | XRay Report ---
SINGLE VIEW CHEST CLINICAL HISTORY: Covid pneumonia. Hypoxia. FINDINGS: An AP, portable, upright chest radiograph is compared to study dated 06/29/2021. The examin ation is degraded by portable technique and patient rotation. The heart is top normal for projectio n. There are bilateral interstitial opacities. No large pleural effusion or pneumothorax is seen. The skeletal structures are osteopenic. The bony thorax is grossly intact. IMPRESSION: There are bilateral interstitial opacities. This could represent a viral pneumonia and/or fluid overload. Clinical correlation will be required and radiographic follow-up to resolution is re commended. ACT 112: Negative or not required by law. Electronically signed by: Junior Perez M.D. 07/01/2021 10:15 AM
[2021-07-01] MEDS ORDERED: FUROSEMIDE INJ 20 MG/2 ML VIAL IV ONE (12:54)
[2021-07-01] MEDS: HEPARIN SODIUM/DEXTROSE 25,000 UNITS/500 ML BAG IV SCH (18:15)
--- NOTE | 2021-07-01 19:20 | Hospitalist Progress Note ---
Date of Service July 01, 2021 Assessment & Plan (1) Acute hypoxemic respiratory failure due to COVID-19: Plan: Upon admission she required BIPAP from the onset due to severe hypoxia & increased work of breathing. Remained on BIPAP 14/7 continuously until 2 days ago. Has tolerated HFNC but at near-max settings. Dopplers of legs + for DVTs. I presume she has PEs. Thus, combination of COVID pneumonia/ARDS and presumed PEs contributing to her hypoxic resp failure. Plan - * cont heparin drip for DVTs/presumed PEs; consider CTA chest when able * dexamethasone 6mg IV daily, day 6 * baricitinib 4mg daily, day 5 * finish Zithromax 5-day course today * CXR today - mild interstitial infiltrates -- will redose IV lasix today * cont BIPAP at HS; then HFNC during the day * cont pulmonary toilet - flutter, incentive, side positioning (she cannot prone), etc. Remains tenuous from pulmonary standpoint but seems to be trying to stabilizing. of note -was not a Remdesivir candidate due to where she was in her illness course at time of admission (2) Pneumonia due to COVID-19 virus: Plan: see above in #1 severe treat with dexamethasone, baricitinib BIPAP HS HFNC during the day wean as tolerated (3) ARDS (adult respiratory distress syndrome): Plan: 2nd to COVID-19 pneumonia ongoing see above (4) Elevated troponin I level: Plan: Likely myocardial demand ischemia in setting of severe acute hypoxic resp failure / COVID-19 pneumonia If she has PEs this, too, can lead to rise in troponin EF 55-60% with no wall motion abnormalities hold Atenolol due to bradycardia (5) Acid reflux disease: Plan: Famotidine 20 mg IV every 12 hours change to PO PPI tomorrow (6) Hypertension: Plan: See above in #4 (7) Abnormal LFTs: Plan: transaminitis likely 2nd to COVID illness repeat ast/alt still high continue to trend (8) DVT prophylaxis: Plan: heparin drip for DVTs as below (9) Deep vein thrombosis of bilateral lower extremities: Plan: b/l dopplers + for DVTs I presume she has PEs Heparin drip consider xarelto or eliquis in 1-2 days Plan: daughter extensively updated by phone once again this evening and yesterday evening we discussed getting PT/OT later this week as tolerated Admission and Anticipated Discharge Date Admission Date: June 26, 2021 Subjective pt again states "I'm doing better" no change in shortness of breath or cough again another good day of eating has NOT needed superimposed oxymask on top of her HFNC was compliant with BIPAP overnight tele normal overnight no new complaints Review of Systems Review of Systems: gen - weakness, fatigue; appetite much improved; no fevers cv - no orthopnea pulm - no sputum GI - no N/V Physical Exam Physical Exam: gen - spirits are brighter today, NAD, but still weak appearing mouth - MMM, dried blood on upper lip unchanged neck - no JVD heart - RRR, s1 s2, no murmur lungs - fine rales b/l bases, no wheeze, mild tachypnea abd - soft NT ND BS+ ext - no edema, pulses 2+ b/l psych - a/o x 3 Results & Data Results & Data ([facility]) Vital Signs (Past 12 Hours) Vital Signs Temp Pulse Pulse Resp BP Pulse Ox 07/01/21 18:49 36.7 C 78 22 95/63 L 84 L 07/01/21 15:52 36.9 C 66 19 100/62 93 07/01/21 15:34 75 26 H 90 07/01/21 15:00 77 07/01/21 12:00 36.6 C 66 20 119/66 92 07/01/21 10:49 88 22 91 07/01/21 08:46 81 22 91 07/01/21 07:22 71 Laboratory Results Laboratory Results - last 24 hr 07/01/21 07/01/21 07/01/21 05:38 05:38 05:38 WBC 20.39 H RBC 5.25 Hgb 15.0 Hct 45.8 MCV 87.2 MCH 28.6 MCHC 32.8 RDW Std Deviation 45.6 RDW Coeff of Dayanna 14.4 Plt Count 125 L MPV 10.2 APTT 52.4 H* PTT Ratio 2.0 Sodium 140 Potassium 3.3 L Chloride 106 Carbon Dioxide 26 Anion Gap 8.0 BUN 19 H Creatinine 0.72 Est Cr Clr Drug Dosing 77.4 Est GFR ( Amer) 97.7 Est GFR (Non-Af Amer) 84.3 BUN/Creatinine Ratio 26.9 H Glucose 107 H Calcium 8.5 Magnesium 2.4 AST 166 H ALT 217 H PG Care Time/CCT Total # of Minutes Spent Total Time Spent with Patient: Total time spent is greater than 50% in coordination of care (as documented) at patient's floor/unit and/or counseling patient: Coding Level of Care Code 27996 Subseq Hosp Care Lvl 2 Diagnoses Acute hypoxemic respiratory failure due to COVID-19 U07.1; J96.01 Pneumonia due to COVID-19 virus U07.1; J12.82 ARDS (adult respiratory distress syndrome) J80 Elevated troponin I level R77.8 Acid reflux disease K21.9 Hypertension I10 Abnormal LFTs R79.89 DVT prophylaxis Z29.9 Deep vein thrombosis of bilateral lower extremities I82.403
[2021-07-02 06:30] LABS: Hematocrit (blood only) 44.2 % (37-47); Hemoglobin 14.6 g/dL (12.0-16.0); Mean Corpuscular Hemoglobin 28.3 pg (25-34); Mean Corpuscular Volume 85.7 fL (80-100); Mean Platelet Volume 11.2 fL (7.4-10.4); Platelet Count 139 K/uL (130-400); RDW Coefficient of Variation 14.2 % (11.5-14.5); RDW Standard Deviation 43.9 fL (36.4-46.3); Red Blood Count 5.16 M/uL (4.2-5.4); White Blood Count 17.72 K/uL (4.8-10.8)
[2021-07-02 07:10] LABS: BUN Creatinine Ratio 23.1 (10-20); Calcium 8.7 mg/dl (8.5-10.1); Creatinine Clr Calc Pharmacy 88.4 ml/min; Est GFR (African American) 104.6 ml/min; Est GFR (Non-African American) 90.2 ml/min
[2021-07-02 07:20] LABS: Partial Thromboplastin Time 51.3 Seconds (21.0-31.0)
[2021-07-02] MEDS: dexAMETHasone 6 MG in SYRINGE 0 ML IV SCH (07:41)
[2021-07-02] MEDS: guaiFENesin 600 MG TABCR PO SCH ×2 (07:41→20:13)
[2021-07-02] MEDS: 4mg Daily x 14 days (eGFR >60 mL/min/1.73m2) PO SCH (07:42)
[2021-07-02] MEDS: FAMOTIDINE 20 MG in SYRINGE 3 ML IV SCH (07:49)
[2021-07-02] MEDS: PANTOprazole 40 MG TAB PO SCH (09:18)
[2021-07-02] MEDS: FUROSEMIDE INJ 20 MG/2 ML VIAL IV SCH (10:01)
--- NOTE | 2021-07-02 11:49 | Hospitalist Progress Note ---
Date of Service July 02, 2021 Assessment & Plan (1) Acute hypoxemic respiratory failure due to COVID-19: Plan: Upon admission she required BIPAP due to severe hypoxia & increased work of breathing. Remained on BIPAP / continuously until 3 days ago. Transitioned to HFNC at that time but remains on near-max settings. Dopplers of legs + for DVTs. PEs are presumed. Thus, combination of COVID pneumonia/ARDS and presumed PEs contributing to her hypoxic resp failure. Plan - * cont heparin drip for DVTs/presumed PEs; consider CTA chest when able * dexamethasone 6mg IV daily, day 7 * baricitinib 4mg daily, day 6 * s/p Zithromax 5-day course * cont lasix daily to keep I/O balance negative * cont BIPAP at HS; then HFNC during the day * cont pulmonary toilet - flutter, incentive, side positioning She is very sick but modestly better than a few days ago. of note -was not a Remdesivir candidate due to where she was in her illness course at time of admission (2) Pneumonia due to COVID-19 virus: Plan: see above in #1 severe treat with dexamethasone, baricitinib BIPAP HS HFNC during the day wean as tolerated (3) ARDS (adult respiratory distress syndrome): Plan: 2nd to COVID-19 pneumonia ongoing see above (4) Elevated troponin I level: Plan: Likely myocardial demand ischemia in setting of severe acute hypoxic resp failure / COVID-19 pneumonia If she has PEs this, too, can lead to rise in troponin EF 55-60% with no wall motion abnormalities hold Atenolol due to bradycardia (5) Acid reflux disease: Plan: cont PPI (6) Hypertension: Plan: See above in #4 (7) Abnormal LFTs: Plan: transaminitis likely 2nd to COVID illness repeat ast/alt still high continue to trend (8) DVT prophylaxis: Plan: heparin drip for DVTs as below (9) Deep vein thrombosis of bilateral lower extremities: Plan: b/l dopplers + for DVTs PEs presumed Heparin drip consider xarelto or eliquis in [place] consider CTA chest to confirm PEs Plan: daughter extensively updated by phone once again yesterday evening still too weak to obtain PT/OT will likely order PT/OT tomorrow Admission and Anticipated Discharge Date Admission Date: June 26, 2021 Subjective pt overall had decent night again tolerated BIPAP back to HFNC this am eating well at each meal good spirits still coughing but no dyspnea at rest ongoing MASSEY Review of Systems Review of Systems: gen - fatigue, weak; no fever CV - no chest pain pulm - no hemoptysis or sputum GI - no pain Physical Exam Physical Exam: gen - NAD mouth - MMM, dried blood on upper lip unchanged; no thrush neck - no JVD heart - RRR, s1 s2, no murmur lungs - fine rales b/l bases, no wheeze, mild tachypnea abd - soft NT ND BS+ ext - no edema, pulses 2+ b/l psych - a/o x 3 Results & Data Results & Data ([facility]) Vital Signs (Past 12 Hours) Vital Signs Temp Pulse Pulse Resp BP Pulse Ox 07/02/21 11:06 76 22 92 07/02/21 10:47 36.8 C 83 22 111/72 90 07/02/21 10:16 20 91 07/02/21 07:40 37.2 C 72 28 H 104/71 91 07/02/21 07:35 71 28 H 92 07/02/21 07:32 81 L 07/02/21 03:07 36.6 C 72 18 106/68 91 07/02/21 02:51 56 L 24 91 07/02/21 00:15 30 H 92 Laboratory Results Laboratory Results - last 24 hr 07/02/21 07/02/21 07/02/21 05:37 05:37 05:37 WBC 17.72 H RBC 5.16 Hgb 14.6 Hct 44.2 MCV 85.7 MCH 28.3 MCHC 33.0 RDW Std Deviation 43.9 RDW Coeff of Dayanna 14.2 Plt Count 139 MPV 11.2 H APTT 51.3 H* PTT Ratio 2.0 Sodium 138 Potassium 4.0 D Chloride 107 Carbon Dioxide 25 Anion Gap 6.0 BUN 15 Creatinine 0.63 Est Cr Clr Drug Dosing 88.4 Est GFR ( Amer) 104.6 Est GFR (Non-Af Amer) 90.2 BUN/Creatinine Ratio 23.1 H Glucose 98 Calcium 8.7 AST 92 H ALT 164 H PG Care Time/CCT Total # of Minutes Spent Total Time Spent with Patient: Total time spent is greater than 50% in coordination of care (as documented) at patient's floor/unit and/or counseling patient: Coding Level of Care Code 93580 Subseq Hosp Care Lvl 2 Diagnoses Acute hypoxemic respiratory failure due to COVID-19 U07.1; J96.01 Pneumonia due to COVID-19 virus U07.1; J12.82 ARDS (adult respiratory distress syndrome) J80 Elevated troponin I level R77.8 Acid reflux disease K21.9 Hypertension I10 Abnormal LFTs R79.89 DVT prophylaxis Z29.9 Deep vein thrombosis of bilateral lower extremities I82.403
[2021-07-02] MEDS: HEPARIN SODIUM/DEXTROSE 25,000 UNITS/500 ML BAG IV SCH (15:00)
[2021-07-03 07:28] LABS: Platelet Count 185 K/uL (130-400)
[2021-07-03] MEDS: FUROSEMIDE INJ 20 MG/2 ML VIAL IV SCH (07:43)
[2021-07-03] MEDS: dexAMETHasone 6 MG in SYRINGE 0 ML IV SCH (07:43)
[2021-07-03 07:47] LABS: Partial Thromboplastin Ratio 1.5; Partial Thromboplastin Time 39.2 Seconds (21.0-31.0)
[2021-07-03 08:00] LABS: BUN Creatinine Ratio 20.8 (10-20); Calcium 8.9 mg/dl (8.5-10.1); Creatinine Clr Calc Pharmacy 77.4 ml/min; Est GFR (African American) 97.7 ml/min; Est GFR (Non-African American) 84.3 ml/min; Potassium 3.4 mmol/L (3.5-5.1)
[2021-07-03] MEDS: POTASSIUM CHLORIDE CRTAB 20 MEQ TABCR PO SCH ×3 (12:01→19:56)
[2021-07-03] MEDS: 4mg Daily x 14 days (eGFR >60 mL/min/1.73m2) PO SCH (12:02)
[2021-07-03] MEDS: PANTOprazole 40 MG TAB PO SCH (12:02)
[2021-07-03] MEDS: guaiFENesin 600 MG TABCR PO SCH ×2 (12:02→19:56)
[2021-07-03] MEDS: CEROVITE ADV FORMULA TAB PO SCH (12:03)
[2021-07-03] MEDS: HEPARIN SODIUM/DEXTROSE 25,000 UNITS/500 ML BAG IV SCH ×4 (12:29→14:56)
--- NOTE | 2021-07-03 12:57 | Hospitalist Progress Note ---
Date of Service July 03, 2021 Assessment & Plan (1) Acute hypoxemic respiratory failure due to COVID-19: Plan: SEVERE. Upon admission she required BIPAP due to severe hypoxia & increased work of breathing. Remained on BIPAP 14/7 continuously until 3-4 days ago. Transitioned to HFNC at that time but remains on max settings. Dopplers of legs + for DVTs. Thus - PEs are presumed. Combination of COVID pneumonia/ARDS and presumed PEs contributing to her hypoxic resp failure. Plan - * cont heparin drip for DVTs/presumed PEs; consider CTA chest when medically able * dexamethasone 6mg IV daily, day 8 * baricitinib 4mg daily, day 7 * s/p Zithromax 5-day course * cont lasix daily to keep I/O balance negative; increase to BID dosing today * cont BIPAP at HS; then HFNC during the day * cont pulmonary toilet - flutter, incentive, side positioning/proning * cxr today obtained and "pulm edema" seen - this could be edema or simply ARDS/pneumonitis of note -was not a Remdesivir candidate due to where she was in her illness course at time of admission (2) Pneumonia due to COVID-19 virus: Plan: see above in #1 severe treat with dexamethasone, baricitinib BIPAP HS HFNC during the day wean as tolerated (3) ARDS (adult respiratory distress syndrome): Plan: 2nd to COVID-19 pneumonia ongoing see above (4) Elevated troponin I level: Plan: Likely myocardial demand ischemia in setting of severe acute hypoxic resp failure / COVID-19 pneumonia If she has PEs this, too, can lead to rise in troponin EF 55-60% with no wall motion abnormalities hold Atenolol due to bradycardia (5) Acid reflux disease: Plan: cont PPI (6) Hypertension: Plan: See above in #4 (7) Abnormal LFTs: Plan: transaminitis likely 2nd to COVID illness repeat ast/alt still high continue to trend (8) DVT prophylaxis: Plan: heparin drip for DVTs as below (9) Deep vein thrombosis of bilateral lower extremities: Plan: b/l dopplers + for DVTs PEs presumed Heparin drip consider xarelto or eliquis in phil consider CTA chest to confirm PEs Plan: daughter extensively updated by phone once again this evening still too weak and too sick from pulmonary standpoint to do any meaningful PT/OT lengthy discussion held with patient at bedside about code status, goals of care , etc she reports she has never really thought about code status and has never discussed her wishes with her family at one point she said "well, whatever my kids would want" (referring to code status) I explained that her code status, wishes for care, etc would be her choosing - her family can discuss these things with her, but ultimately it is her decision about what to do in the event of clinical worsening, cardiac arrest, etc at time of leaving her room nothing had been changed with respect to her code status I encouraged her to discuss these things more w/ her family when I spoke with her daughter I told her I had reviewed the above things w/ her mother and also encouraged her to discuss code status with her mother daughter voiced understanding I am concerned by her lack of any meaningful progress and high respiratory support requirements consider formal palliative care consultation Admission and Anticipated Discharge Date Admission Date: June 26, 2021 Subjective tele overnight wnl received a call from respiratory this am that after removing BIPAP and transition to HFNC her O2 sats were refractory in the 80s respiratory asked patient to prone following such her O2 sats came up to the low 90s on maxed out HFNC during rounds patient was continuing to prone she was comfortable doing this patient admits to feeling tired but states "I think I'm doing ok" continues with cough appetite remains good no pain in any location Review of Systems Review of Systems: gen - no fevers CV - no chest pain, no orthopnea pulm - no sputum, no hemoptysis, no wheeze GI - no N/V or pain Physical Exam Physical Exam: gen - NAD, proning, looks very tired today mouth - MMM, dried blood on upper lip unchanged; no thrush neck - unable to assess for JVD as patient is proned heart - RRR, s1 s2, no murmur lungs - fine rales b/l bases, no wheeze, mild tachypnea - no change in exam abd - soft NT ND BS+ ext - no edema, pulses 2+ b/l Results & Data Results & Data ([facility]) Vital Signs (Past 12 Hours) Vital Signs Temp Pulse Pulse Resp BP BP Pulse Ox 07/03/21 12:25 36.7 C 68 22 104/68 90 12/15/21 11:50 68 24 91 07/03/21 11:21 79 34 H 95 07/03/21 08:00 76 07/03/21 07:48 37.3 C 76 22 106/70 92 07/03/21 07:39 71 38 H 94 07/03/21 07:29 74 24 92 07/03/21 03:20 37.0 C 78 19 101/64 92 07/03/21 02:56 76 24 89 L Laboratory Results Laboratory Results - last 24 hr 07/03/21 07/03/21 07/03/21 06:50 06:50 06:50 Plt Count 185 APTT 39.2 H PTT Ratio 1.5 Sodium 141 Potassium 3.4 L Chloride 105 Carbon Dioxide 28 Anion Gap 8.0 BUN 15 Creatinine 0.72 Est Cr Clr Drug Dosing 77.4 Est GFR ( Amer) 97.7 Est GFR (Non-Af Amer) 84.3 BUN/Creatinine Ratio 20.8 H Glucose 101 H Calcium 8.9 AST 76 H ALT 130 H PG Care Time/CCT Total # of Minutes Spent Total Time Spent with Patient: Total time spent is greater than 50% in coordination of care (as documented) at patient's floor/unit and/or counseling patient: Coding Level of Care Code 50821 Subseq Hosp Care Lvl 3 Diagnoses Acute hypoxemic respiratory failure due to COVID-19 U07.1; J96.01 Pneumonia due to COVID-19 virus U07.1; J12.82 ARDS (adult respiratory distress syndrome) J80 Elevated troponin I level R77.8 Acid reflux disease K21.9 Hypertension I10 Abnormal LFTs R79.89 DVT prophylaxis Z29.9 Deep vein thrombosis of bilateral lower extremities I82.403
[2021-07-03 14:32] LABS: Partial Thromboplastin Ratio 1.5; Partial Thromboplastin Time 39.1 Seconds (21.0-31.0)
[2021-07-03] MEDS: NYSTATIN SUSP 500,000 U/5 ML UDC PO SCH ×3 (14:56→19:56)
[2021-07-03] MEDS ORDERED: FUROSEMIDE INJ 20 MG/2 ML VIAL IV ONE (17:00)
--- NOTE | 2021-07-03 19:36 | XRay Report ---
XR chest 1V portable CLINICAL HISTORY: COVID, refractory hypoxia TECHNIQUE: Single frontal radiograph of the chest was obtained. Comparison: Comparison is made to chest one view 07/01/2021 FINDINGS: No lines and tubes are seen. The cardiomediastinal silhouette is normal. Prominence and cephalization of the vasculature is seen. No evidence of pleural effusion or pneumothorax. IMPRESSION: Mild pulmonary edema. ACT 112: Negative or not required by law. Electronically signed by: Godwin Cope M.D. 07/03/2021 7:35 PM
[2021-07-03 21:29] LABS: Partial Thromboplastin Ratio 1.9
[2021-07-03 21:30] LABS: Partial Thromboplastin Time 50.2 Seconds (21.0-31.0)
[2021-07-04] MEDS: HEPARIN SODIUM/DEXTROSE 25,000 UNITS/500 ML BAG IV SCH ×2 (04:38→06:09)
[2021-07-04 06:50] LABS: Partial Thromboplastin Ratio 1.7
[2021-07-04 06:58] LABS: BUN Creatinine Ratio 23.2 (10-20); Calcium 9.3 mg/dl (8.5-10.1); Creatinine Clr Calc Pharmacy 76.3 ml/min; Est GFR (Non-African American) 82.9 ml/min; Magnesium 2.4 mg/dl (1.8-2.4); Potassium 4.1 mmol/L (3.5-5.1)
[2021-07-04] MEDS: dexAMETHasone 6 MG in SYRINGE 0 ML IV SCH (07:44)
[2021-07-04] MEDS: FUROSEMIDE INJ 20 MG/2 ML VIAL IV SCH ×2 (07:44→10:10)
[2021-07-04] MEDS: NYSTATIN SUSP 500,000 U/5 ML UDC PO SCH ×4 (07:45→21:24)
[2021-07-04] MEDS: POTASSIUM CHLORIDE CRTAB 20 MEQ TABCR PO SCH (10:13)
[2021-07-04] MEDS: PANTOprazole 40 MG TAB PO SCH (10:13)
[2021-07-04] MEDS: guaiFENesin 600 MG TABCR PO SCH (10:13)
[2021-07-04] MEDS: CEROVITE ADV FORMULA TAB PO SCH (10:13)
--- NOTE | 2021-07-04 11:05 | Hospitalist Progress Note ---
Date of Service July 04, 2021 Assessment & Plan (1) Acute hypoxemic respiratory failure due to COVID-19: Plan: SEVERE. Upon admission she required BIPAP due to severe hypoxia & increased work of breathing. Remained on BIPAP 14/7 continuously until several days ago. Transitioned to HFNC at that time but has remained on max settings including 100% FiO2. She has intermittently used BIPAP at HS the last few nights. Dopplers of legs + for DVTs. Thus - PEs are presumed. Combination of COVID pneumonia/ARDS and presumed PEs contributing to her hypoxic resp failure. Despite supportive care she is beginning to have significant respiratory fatigue from 8+ days of BIPAP + HFNC. Plan - * ICU reconsulted - Dr Ruvalcaba confirmed with the patient that she indeed remains full code * patient moved from [facility] to [facility] and was intubated; patient now on ICU status * cont heparin drip for DVTs/presumed PEs; consider CTA chest when medically able * dexamethasone 6mg IV daily, day 9 * baricitinib 4mg daily, day 8 today - but will stop now that she is intubated * s/p Zithromax 5-day course * has been diuresed over the last 5 days; BPs low this am - thus hold lasix of note -was not a Remdesivir candidate due to where she was in her illness course at time of admission (2) Pneumonia due to COVID-19 virus: Plan: see above in #1 severe pneumonia treated with dexamethasone, baricitinib, BIPAP/HFNC despite maximal medical efforts she has made little progress in her respiratory status patient requested intubation due to severe respiratory fatigue in the setting of prolonged BIPAP/HFNC (3) ARDS (adult respiratory distress syndrome): Plan: 2nd to COVID-19 pneumonia ongoing see above (4) Elevated troponin I level: Plan: Likely myocardial demand ischemia in setting of severe acute hypoxic resp failure / COVID-19 pneumonia If she has PEs this, too, can lead to rise in troponin EF 55-60% with no wall motion abnormalities hold Atenolol due to bradycardia (5) Acid reflux disease: Plan: change PPI to IV H2 jonny (6) Hypertension: (7) Abnormal LFTs: Plan: transaminitis likely 2nd to COVID illness trend (8) DVT prophylaxis: Plan: heparin drip for DVTs b/l legs (9) Deep vein thrombosis of bilateral lower extremities: Plan: b/l dopplers + for DVTs PEs presumed Heparin drip consider CTA chest to confirm PEs at some point in the future Plan: appreciate ICU/pulmonary assistance appreciate anesthesia assistance daughter extensively updated by phone this am I briefly met the pt's daughter in the hallway on [facility] just prior to the window visit with her mother total time today - highly complex care coordination -- 80 minutes Admission and Anticipated Discharge Date Admission Date: June 26, 2021 Subjective early this am I received a message from the pt's nurse that the patient had voiced that she was exhausted/tired, very weak, and requested to be placed on the vent she did not wear the BIPAP overnight; instead, she proned most of last night and used HFNC she also proned much of yesterday when she tried to sit up in bed this am she desatted into the 70s she was unable to eat any breakfast I came to the bedside she was maxed on the high-flow NC she was very tired appearing she confirmed she had thought about her situation much of the night and this am she stated "I can't do this anymore" (using BIPAP alternating with high-flow), proning, etc she reported severe exhaustion we discussed her wishes - DOES wish to be intubated, receive CPR, undergo trach placement if deemed necessary, etc she said "i want to live so I can see my grandkids" after leaving her room I called the patient's daughter to tell her the events of this am daughter to come to the hospital to have a window visit with her mother and also to discuss her mother's wishes daughter indeed arrived a short time later patient and her daughter talked by phone - it was confirmed that patient would want intubation/mech ventilation, CPR, trach placement if needed, etc following the daughter's visit the patient was moved to the COVID unit on 2[facility] and was intubated by anesthesia Review of Systems Review of Systems: gen - weak, fatigue, exhausted, unable to eat this am; no fever CV - no cp, no orthopnea pulm - minimal cough, ongoing dyspnea GI - no N/V/D Physical Exam Physical Exam: gen - looks exhausted but awake, alert, oriented mouth - MMM, dried blood spot on upper lip unchanged; thrush plaques present on tongue neck - no JVD heart - RRR, s1 s2, no murmur lungs - fine rales b/l bases, no wheeze, mild tachypnea abd - soft NT ND BS+ ext - no edema, pulses 2+ b/l psych - a/o x 3 Results & Data Results & Data ([facility]) Vital Signs (Past 12 Hours) Vital Signs Temp Pulse Pulse Resp BP BP Pulse Ox 07/04/21 11:00 74 24 95 07/04/21 10:11 89/52 L 07/04/21 09:01 18 95 07/04/21 08:00 58 L 07/04/21 07:48 98/62 L 07/04/21 07:34 37.0 C 67 24 95/58 L 89 L 07/04/21 07:15 86 20 90 07/04/21 03:21 36.8 C 81 19 96/59 L 93 07/04/21 02:06 63 16 99 Laboratory Results Laboratory Results - last 24 hr 07/03/21 07/03/21 07/04/21 14:03 20:57 05:36 APTT 39.1 H 50.2 H* 46.0 H* PTT Ratio 1.5 1.9 1.7 Sodium Potassium Chloride Carbon Dioxide Anion Gap BUN Creatinine Est Cr Clr Drug Dosing Est GFR ( Amer) Est GFR (Non-Af Amer) BUN/Creatinine Ratio Glucose Calcium Magnesium AST ALT 07/04/21 05:36 APTT PTT Ratio Sodium 137 Potassium 4.1 D Chloride 105 Carbon Dioxide 25 Anion Gap 8.0 BUN 17 Creatinine 0.73 Est Cr Clr Drug Dosing 76.3 Est GFR ( Amer) 96.0 Est GFR (Non-Af Amer) 82.9 BUN/Creatinine Ratio 23.2 H Glucose 105 H Calcium 9.3 Magnesium 2.4 AST 65 H ALT 123 H PG Care Time/CCT Total # of Minutes Spent Total Time Spent with Patient: Total time spent is greater than 50% in coordination of care (as documented) at patient's floor/unit and/or counseling patient: Prolonged Care Time Prolonged Care Time: Yes 80 Coding Level of Care Code 41544 Subseq Hosp Care Lvl 3 (25 - SIGNIFICANT, SEPARATELY IDENTIFIABLE ) Diagnoses Acute hypoxemic respiratory failure due to COVID-19 U07.1; J96.01 Pneumonia due to COVID-19 virus U07.1; J12.82 ARDS (adult respiratory distress syndrome) J80 Elevated troponin I level R77.8 Acid reflux disease K21.9 Hypertension I10 Abnormal LFTs R79.89 DVT prophylaxis Z29.9 Deep vein thrombosis of bilateral lower extremities I82.403 Additional Codes Prolonged Care Time - Prolonged Care Time: Yes ([id number]) Time Spent (min) 80
[2021-07-04] MEDS ORDERED: SUCCINYLCHOLINE 100MG/5ML SYR IV ONE (11:06)
[2021-07-04] MEDS ORDERED: ROCURONIUM BROMIDE 10 MG/ML 5 ML VIAL IV ONE (11:07)
[2021-07-04] MEDS ORDERED: PROPOFOL IV EMULSION 10 MG/ML 20 ML VIAL IV ONE (11:07)
[2021-07-04] MEDS ORDERED: LIDOCAINE 2% 2 ML VIAL/AMP(20MG/ML) INFIL ONE (11:09)
[2021-07-04] MEDS: 4mg Daily x 14 days (eGFR >60 mL/min/1.73m2) PO SCH (11:20)
[2021-07-04] MEDS ORDERED: RAPID SEQUENCE INDUCTION BAG ONE (12:53)
[2021-07-04] MEDS ORDERED: oxyCODONE HCL IR 5 MG TAB (IMMEDIATE RELEASE) PO PRN ×2 (13:32→15:05)
[2021-07-04] MEDS ORDERED: MIDAZOLAM HCL 1 MG/ML 2ML VIAL IV PRN (13:32)
[2021-07-04] MEDS ORDERED: STAT IV Infusion **Titration per Protocol STA ×2 (13:32→13:47)
[2021-07-04] MEDS ORDERED: PROPOFOL BOLUS FROM BAG IV PRN (13:32)
[2021-07-04] MEDS ORDERED: PROPOFOL IV EMULSION 10 MG/ML 100 ML VIAL IV ONE (13:36)
[2021-07-04] MEDS ORDERED: NOREPINEPHRINE/D5W 8 MG/508 ML IV ONE (13:47)
[2021-07-04] MEDS: propofoL 1,000 MG/100 ML VIAL IV SCH ×3 (14:00→22:42)
[2021-07-04] MEDS: fentaNYL citrate 2,500 MCG/250 ML BAG IV SCH (14:00)
--- NOTE | 2021-07-04 14:07 | Critical Care Progress Note ---
Date of Service July 04, 2021 Assessment & Plan (1) ARDS (adult respiratory distress syndrome): (2) Pneumonia due to COVID-19 virus: (3) Elevated troponin I level: (4) Elevated lactic acid level: Plan: Impression: 71-year-old nonvaccinated female admitted with Covid pneumonitis and hypoxemic respiratory failure/ARDS requiring noninvasive positive pressure ventilation. She was admitted 06/26/2021 and failed high flow, CPAP, BiPAP, and prone positioning. She is intubated 07/04/2021 Recommendations: 1. Neuro: Sedation with fentanyl Versed and propofol. May need neuromuscular blockade. Keep sedated pending improvement in ventilatory requirements. 2. Cardiovascular: We will see how she responds to sedation. May require norepinephrine. Check BNP 3. Pulmonary: Fairly severe ARDS. She has DVTs and is being treated empirically for PEs with heparin drip. Continue for now. May consider CT angiogram at some point. ARDS net ventilatory strategy with high FiO2 low PEEP. If unable to keep oxygenation at or above 60% may consider proning. Inhaled Flolan may also be an option. 4. ID: We will obtain respiratory cultures to evaluate for possible infection. Hold antibiotics for now. Covid pneumonitis: Continue dexamethasone 6 mg daily. Will discontinue baricitinib but she is now intubated. No role for Tocilizumab. 5. GI: Orogastric tube. Verify placement. Dietary consultation for tube feeding if she does not go prone. 6. Renal: Electrolyte replacement protocol. Recheck labs today. 7. Heme-onc: Await labs. Continue heparin infusion for DVT. 8. Endocrine: Glycemic control per protocol. Patient is critically ill at this point time with significant possibility of . I met with the patient prior to intubation. I advised her that her mortality with mechanical ventilation would not be insignificant. We briefly t ried to talk about other potential interventions such as tracheostomy or dialysis. She has not considered any of these and wishes to defer all of those discussions to her family. She understands that she will be intubated and unable to participate in the discussions. Unfortunately the patient is under the impression that if she goes on a ventilator, her lungs will heal. I did advise her that mechanical ventilation does not really improve her lung disease. It merely offers her the ability to be supported in the hopes that her lungs will heal over time. Total critical care time to this point: 85 minutes Admission and Anticipated Discharge Date Admission Date: June 26, 2021 Subjective Asked by hospitalist to evaluate this patient who is requesting intubation mechanical ventilation. I seen her previously during the course of her hospitalization. Unfortunately despite CPAP and high flow oxygen she is developing tachypnea and respiratory muscle fatigue. She states she does not want to and thinks that she would want to be intubated and put on a venti lator. Review of Systems Review of Systems: Please refer to hospitalist note. No additions Physical Exam Constitutional: + ill appearing and + in distress Neck: trachea midline, no thyromegaly Respiratory: + respiratory distress, + labored breathing and + tachypneic; + abnormal respiratory effort Auscultation: + crackles; no wheezes Cardiovascular: RRR, no murmur, no edema Gastrointestinal (Abdomen): normal bowel sounds, soft, nontender, no hepatosplenomegaly Musculoskeletal: Extremities: extremities normal to inspection Skin: no rashes, warm and dry Neurologic: Nonfocal exam Lymphatic: no cervical lymphadenopathy Results & Data Results & Data ([facility]) Vital Signs (Past 12 Hours) Vital Signs Temp Pulse Pulse Resp BP BP Pulse Ox 07/04/21 13:30 37 C 79 30 H 120/74 97 07/04/21 11:17 36.8 C 72 32 H 138/69 91 07/04/21 11:00 74 24 95 07/04/21 10:11 89/52 L 07/04/21 09:01 18 95 07/04/21 08:00 58 L 07/04/21 07:48 98/62 L 07/04/21 07:34 37.0 C 67 24 95/58 L 89 L 07/04/21 07:15 86 20 90 07/04/21 03:21 36.8 C 81 19 96/59 L 93 07/04/21 02:06 63 16 99 Critical Care Results & Data Vital Signs (Past 12 Hours) Vital Signs Temp Pulse Pulse Resp BP BP Pulse Ox 07/04/21 13:30 37 C 79 30 H 120/74 97 07/04/21 11:17 36.8 C 72 32 H 138/69 91 07/04/21 11:00 74 24 95 07/04/21 10:11 89/52 L 07/04/21 09:01 18 95 07/04/21 08:00 58 L 07/04/21 07:48 98/62 L 07/04/21 07:34 37.0 C 67 24 95/58 L 89 L 07/04/21 07:15 86 20 90 07/04/21 03:21 36.8 C 81 19 96/59 L 93 07/04/21 02:06 63 16 99 Lab & Micro Results (Past 24 Hours) No Data to Display Na 137 mmol/L (136-145) 07/04/21 K 4.1 mmol/L (3.5-5.1) 07/04/21 Cl 105 mmol/L (98-107) 07/04/21 CO2 25 mmol/L (21-32) 07/04/21 Anion Gap 8.0 (3-11) 07/04/21 BUN 17 mg/dl (7-18) 07/04/21 Creatinine 0.73 mg/dl (0.6-1.2) 07/04/21 Estimated GFR ( Amer) 96.0 ml/min 07/04/21 Estimated GFR (Non-Af Amer) 82.9 ml/min 07/04/21 BUN/Creatinine Ratio 23.2 (10-20) H 07/04/21 Glu 105 mg/dl (70-99) H 07/04/21 Ca 9.3 mg/dl (8.5-10.1) 07/04/21 AST 65 U/L (15-37) H 07/04/21 ALT 123 (12-78) H 07/04/21 Mg 2.4 mg/dl (1.8-2.4) 07/04/21 05:36 07/04/21 Calcium Level 9.3 mg/dl (8.5-10.1) 07/04/21 05:36 07/04/21 Diagnostic Findings (Past 24 Hours) Chest X-Ray 07/03/21 11:48 XR chest 1V portable CLINICAL HISTORY: COVID, refractory hypoxia TECHNIQUE: Single frontal radiograph of the chest was obtained. Comparison: Comparison is made to chest one view 07/01/2021 FINDINGS: No lines and tubes are seen. The cardiomediastinal silhouette is normal. Prominence and cephalization of the vasculature is seen. No evidence of pleural effusion or pneumothorax. IMPRESSION: Mild pulmonary edema. ACT 112: Negative or not required by law. Electronically signed by: Godwin Cope M.D. 07/03/2021 7:35 PM I & O Totals 24 Hours 07/03/21 07/04/21 07/05/21 06:59 06:59 06:59 Intake Total 1665.2 / 1665.2 1876.900 / 1876.900 130.4 / 130.4 Output Total 1950 / 1950 2401 / 2401 300 / 300 Balance -284.8 / -284.8 -524.100 / -524.100 -169.6 / -169.6 Cumulative 06/26/21 17:38 thru 07/04/21 10:31 Intake Total 23599.700 Output Total 89491 Balance -2652.300 RT Ventilator Mngmt (Last Documented) Ventilator Ordered Settings Respiratory Rate 30 07/04/21 13:30 Fraction of Inspired Oxygen 100 07/04/21 13:30 Ventilator - PT Measurements Respiratory Rate 30 Coding Level of Care Code Critical Care ea addt'l 30 min Diagnoses ARDS (adult respiratory distress syndrome) J80 Pneumonia due to COVID-19 virus U07.1; J12.82 Elevated troponin I level R77.8 Elevated lactic acid level R79.89 Time Spent (min) 85 Comment [id number] and [id number]
--- NOTE | 2021-07-04 14:32 | Communication Note ---
Date of Service: July 04, 2021 Intubation Note Date and time of procedure: 07/04/21 1330 Indication for Intubation: Respiratory distress Consent: Informed consent obtained from the patient. The inherent risks, expected benefits, treatment alternatives, as well as the technical aspects of the procedure were discussed with the patient and a full explanation was given. Patient was given the opportunity to ask questions, which were answered to their satisfaction. Time Out: A time-out was performed verifying correct patient with two identifiers, procedure, site, positioning, and special equipment. Monitors Attached: EKG BP Pulse Oximetry Induction Medications: 100 mg Propofol Paralytic Medication: 80 mg Succinylcholine Intubation Technique: Adequate preoxygenation, RSI Equipment: Glidescope 3 View: Grade 1 Endotracheal Tube: 8.0 Procedure Details: ET tube was placed atraumatically in the trachea on 1 attempt. Balloon was inflated and the tube was secured at 22 cm. Placement was confirmed by auscultation and positive CO2 detection. Post-procedure: Pt hemodynamically stable throughout. Patient tolerated the procedure well without apparent complications. Post placement CXR ordered. Arterial Line Note Date and time of procedure: 07/04/21 1345 Consent: Informed consent obtained from the patient. The inherent risks, expected benefits, treatment alternatives, as well as the technical aspects of the procedure were discussed with the patient and a full explanation was given. Patient was given the opportunity to ask questions, which were answered to their satisfaction. Time Out: A time-out was performed verifying correct patient with two identifiers, procedure, site, positioning, and special equipment. Monitors Attached: EKG BP Pulse Oximetry Pre-Medication: Propofol infusion Side: Left Location: Radial Prep: Chloraprep, sterile technique used Placement: U/S Attempts: 2 Procedure Summary: 20 gauge angiocath advanced until return of bright red blood. Catheter threaded over a guide wire using seldinger technique with return of pulsatile, bright red blood. Catheter secured with tape and covered with occlusive dressing. Waveform consistent with correct arterial placement. After placement, normal perfusion was observed distal to the site of catheter placement. Post-procedure: Patient tolerated the procedure well without apparent complications Central Line Note Date and time of procedure: 07/04/21 1400 Indication: Hemodynamic monitoring Intravenous Access Central Access Consent: Informed consent obtained from the patient. The inherent risks, expected benefits, treatment alternatives, as well as the technical aspects of the procedure were discussed with the patient and a full explanation was given. Patient was given the opportunity to ask questions, which were answered to their satisfaction. Time Out: A time-out was performed verifying correct patient with two identifiers, procedure, site, positioning, and special equipment. Monitors Attached: EKG BP Pulse Oximetry Pre Medication: Propofol infusion Side: Right Location: Internal Jugular Prep: Chloraprep, sterile drape, sterile technique used Central Line Lumen: Triple Procedural Details: Patient was positioned with cannulated vein in dependent position. Vein identified using ultrasound guidance. Vein identified using anatomical landmarks. Good return of dark, nonpulsatile blood after needle placement. Guidewire threaded easily and was verified in the vein by ultrasound. Accessed vessel was transduced prior to dilation. After dilation, the catheter advanced easily over the guide wire. Guide wire was removed and the catheter was sutured in place. Antibiotic disc placed and site covered with occlusive dressing. All ports aspirated and flushed. Post-procedure: Pt hemodynamically stable throughout. Patient tolerated the procedure well without apparent complications. Post placement CXR ordered.
--- NOTE | 2021-07-04 14:53 | XRay Report ---
XR chest 1V portable CLINICAL HISTORY: s/p intubation CVC placement TECHNIQUE: Single frontal radiograph of the chest was obtained. Comparison: Comparison is made to chest one view 07/03/2021 FINDINGS: Endotracheal tube is approximately 8 mm arie. Enteric tube side-port and tip are below the diaphrag m. Right IJ catheter terminates in the right atrium. The cardiomediastinal silhouette is stable. Ther e is prominence and cephalization of the vasculature with Mel B lines seen. No evidence of pleural effusion or pneumothorax. IMPRESSION: 1. Endotracheal tube is near the arie and can be withdrawn approximately 3 cm for improved positio denis. Right IJ catheter can be withdrawn approximately 3 cm for improved positioning. 2. Moderate pulmonary edema. ACT 112: Negative or not required by law. Electronically signed by: Godwin Cope M.D. 07/04/2021 2:52 PM
--- NOTE | 2021-07-04 14:58 | XRay Report ---
KUB HISTORY: s/p orogastric tube placement COMPARISON: None. FINDINGS: The bowel gas pattern is unremarkable. There are no dilated loops of small bowel to suggest an obstruction. No renal calculi. No ureteral calculi. No pneumoperitoneum or pneumatosis. The uppe r abdomen is not included on this examination. Therefore, the nasogastric tube is not visualized on t his study. Prior cholecystectomy. A rectal thermometer is noted. IMPRESSION: The upper abdomen is not included on this examination. Therefore, the nasogastric tube is not visuali zed on this study. ACT 112: Negative or not required by law. Electronically signed by: Francisco Baires M.D. 07/04/2021 2:57 PM
[2021-07-04] MEDS: NOREPINEPHRINE/D5W 8 MG/508 ML BAG IV SCH ×2 (15:03→16:00)
[2021-07-04] MEDS: FAMOTIDINE 20 MG in SYRINGE 3 ML IV SCH ×2 (15:03→21:24)
[2021-07-04 15:44] LABS: Hematocrit (blood only) 44.2 % (37-47); Hemoglobin 14.7 g/dL (12.0-16.0); Mean Corpuscular Hemoglobin 28.8 pg (25-34); Mean Corpuscular Hgb Conc 33.3 g/dL (32-36); Mean Corpuscular Volume 86.5 fL (80-100); Mean Platelet Volume 11.5 fL (7.4-10.4); Platelet Count 299 K/uL (130-400); RDW Coefficient of Variation 14.3 % (11.5-14.5); RDW Standard Deviation 44.4 fL (36.4-46.3); Red Blood Count 5.11 M/uL (4.2-5.4); White Blood Count 26.39 K/uL (4.8-10.8)
[2021-07-04 15:50] LABS: iSTAT Arterial Blood Gas HCO3 26 meg/L (19-24); iSTAT Arterial Blood Gas pCO2 52 mmHg (35-46); iSTAT Arterial Blood Gas pO2 278 mmHg (80-95); iSTAT Carbon Dioxide 27 mmol/L (24-31); iSTAT FiO2 100 %; iSTAT Site Art Line
[2021-07-04] MEDS: MIDAZOLAM HCL 1 MG/ML 2ML VIAL IV PRN (15:54)
[2021-07-04 16:10] LABS: Albumin Level 2.7 gm/dl (3.4-5.0); BUN Creatinine Ratio 20.2 (10-20); Calcium 8.9 mg/dl (8.5-10.1); Creatinine Clr Calc Pharmacy 73.3 ml/min; Est GFR (African American) 91.5 ml/min; Est GFR (Non-African American) 78.9 ml/min; Potassium 4.6 mmol/L (3.5-5.1)
[2021-07-04 16:15] LABS: Albumin Globulin Ratio 0.6 (0.9-2); Bilirubin,Total 0.9 mg/dl (0.2-1); Globulin 4.5 gm/dl (2.5-4.0); Total Protein 7.2 gm/dl (6.4-8.2)
--- NOTE | 2021-07-04 16:15 | Communication Note ---
Date of Service: July 04, 2021 Central line pulled back 5 cm and secured with sutures. BIOpatch and sterile dressing applied.
[2021-07-04 17:05] LABS: Basophils # (auto) 0.01 K/uL (0-0.2); Eosinophils # (auto) 0.06 K/uL (0-0.5); Eosinophils % (auto) 0.2 %; Immature Granulocytes # (auto) 0.13 K/uL (0.00-0.02); Immature Granulocytes % (auto) 0.5 %; Lymphocytes # (auto) 0.67 K/uL (1.2-3.4); Lymphocytes % (auto) 2.5 %; Monocytes % (auto) 1.1 %; Neutrophils # (auto) 25.22 K/uL (1.4-6.5); Neutrophils % (auto) 95.7 %
[2021-07-04] MEDS: VECURONIUM BROMIDE 10 MG VIAL IV PRN (23:38)
[2021-07-05 00:05] LABS: iSTAT Arterial Blood Gas HCO3 25 meg/L (19-24); iSTAT Arterial Blood Gas pCO2 47 mmHg (35-46); iSTAT Arterial Blood Gas pH 7.33 (7.35-7.45); iSTAT Arterial Blood Gas pO2 72 mmHg (80-95); iSTAT Carbon Dioxide 26 mmol/L (24-31); iSTAT FiO2 75 %; iSTAT Site Art Line
[2021-07-05] MEDS: HEPARIN SODIUM/DEXTROSE 25,000 UNITS/500 ML BAG IV SCH ×3 (01:53→16:18)
[2021-07-05] MEDS: propofoL 1,000 MG/100 ML VIAL IV SCH ×7 (02:43→23:10)
[2021-07-05] MEDS ORDERED: STAT IV Infusion **Titration per Protocol STA (02:50)
[2021-07-05] MEDS: VECURONIUM BROMIDE 10 MG VIAL IV PRN (02:57)
[2021-07-05] MEDS: CISATRACURIUM BESYLATE 40 MG in 0.9 % SODIUM CHLORIDE 80 ML IV SCH ×4 (03:14→23:10)
--- NOTE | 2021-07-05 03:37 | Communication Note ---
Date of Service: July 05, 2021 Patient experience worsening hypoxia throughout the night requiring increased FiO2 and PEEP requirements. She received a dose of vecuronium earlier with marginal improvement in oxygenation. Decision was made to proceed with proning and paralytics. I presented to the patient's bedside and assisted with proning which was without complications, at 0300. Following proning, patient's oxygenation began to improve. We will proceed with 16 to 20 hours of proning and continue with paralytics for now. Coding Level of Care Code None
[2021-07-05] MEDS: ARTIFICIAL TEARS OP OINT 3.5 GM TUBE OP SCH ×6 (04:42→23:57)
[2021-07-05 05:09] LABS: iSTAT Arterial Blood Gas HCO3 26 meg/L (19-24); iSTAT Arterial Blood Gas pCO2 56 mmHg (35-46); iSTAT Arterial Blood Gas pH 7.27 (7.35-7.45); iSTAT Arterial Blood Gas pO2 68 mmHg (80-95); iSTAT Carbon Dioxide 27 mmol/L (24-31); iSTAT FiO2 60 %; iSTAT Site Art Line
[2021-07-05] MEDS: MIDAZOLAM HCL 1 MG/ML 2ML VIAL IV PRN (06:32)
[2021-07-05 07:55] LABS: Basophils # (auto) 0.01 K/uL (0-0.2); Basophils % (auto) 0.1 %; Eosinophils # (auto) 0.35 K/uL (0-0.5); Eosinophils % (auto) 1.8 %; Hematocrit (blood only) 42.9 % (37-47); Hemoglobin 13.9 g/dL (12.0-16.0); Immature Granulocytes # (auto) 0.14 K/uL (0.00-0.02); Immature Granulocytes % (auto) 0.7 %; Lymphocytes # (auto) 0.26 K/uL (1.2-3.4); Lymphocytes % (auto) 1.3 %; Mean Corpuscular Hemoglobin 28.2 pg (25-34); Mean Corpuscular Hgb Conc 32.4 g/dL (32-36); Mean Platelet Volume 10.9 fL (7.4-10.4); Monocytes # (auto) 0.39 K/uL (0.11-0.59); Neutrophils # (auto) 18.66 K/uL (1.4-6.5); Neutrophils % (auto) 94.1 %; Platelet Count 267 K/uL (130-400); RDW Coefficient of Variation 14.3 % (11.5-14.5); RDW Standard Deviation 45.3 fL (36.4-46.3); Red Blood Count 4.93 M/uL (4.2-5.4); White Blood Count 19.81 K/uL (4.8-10.8)
[2021-07-05 08:09] LABS: Partial Thromboplastin Ratio 1.6; Partial Thromboplastin Time 41.8 Seconds (21.0-31.0)
[2021-07-05 08:29] LABS: Albumin Globulin Ratio 0.6 (0.9-2); Albumin Level 2.4 gm/dl (3.4-5.0); BUN Creatinine Ratio 21.2 (10-20); Bilirubin,Total 0.7 mg/dl (0.2-1); Calcium 8.7 mg/dl (8.5-10.1); Creatinine Clr Calc Pharmacy 92.9 ml/min; Est GFR (African American) 106.3 ml/min; Est GFR (Non-African American) 91.7 ml/min; Globulin 4.1 gm/dl (2.5-4.0); Magnesium 2.2 mg/dl (1.8-2.4); Phosphorus 3.6 mg/dl (2.5-4.9); Potassium 3.8 mmol/L (3.5-5.1); Total Protein 6.5 gm/dl (6.4-8.2)
--- NOTE | 2021-07-05 09:08 | Critical Care Progress Note ---
Date of Service July 05, 2021 Assessment & Plan (1) ARDS (adult respiratory distress syndrome): (2) Pneumonia due to COVID-19 virus: (3) Elevated troponin I level: (4) Elevated lactic acid level: Plan: Impression: 71-year-old nonvaccinated female admitted with Covid pneumonitis and hypoxemic respiratory failure/ARDS requiring noninvasive positive pressure ventilation. She was admitted 06/26/2021 and failed high flow, CPAP, BiPAP, and prone positioning. She is intubated 07/04/2021. 24 hour events: Increase in oxygen requirements and worsening of her PF ratio. Patient was prone positioned at 0300 and initiated on NMB. Broad spectrum Cefepime initiated today. Will obtain blood, sputum cultures, and PCT. Patient will continue with ARDSnet mechanical ventilation protocol. If no improvement following prone positioning could initiate DEXARDS steroid dosing for late stage ARDS. Recommendations: 1. Neuro: Sedation with fentanyl Versed and propofol, neuromuscular blockade. Keep sedated pending improvement in ventilatory requirements. 2. Cardiovascular: Low dose levophed intiiated overnight. 3. Pulmonary: Fairly severe ARDS. She has DVTs and is being treated empirically for PEs with heparin drip, she is subtherapuetic today- will discontinue and initiate weight based Lovenox therapy BID. Could consider CTA of the chest, but this is not going to change managment at this time. ARDS net ventilatory strategy with high FiO2 low PEEP. Prone for 20 hours today. Not a candidate for advanced therapies such as ECMO secondary to age. If remains with refractory hypoxemia can consider trial of nebulized epoprostenol. 4. ID: We will obtain respiratory cultures and blood clutres to evaluate for possible infection. Initiate Cefepime today. Covid pneumonitis: Continue dexamethasone 6 mg daily. Baricitinib discontinued as she is now intubated. 5. GI: Orogastric tube. Dietary consultation for tube feeding can intiate this evening following supination and CXR verification of tubes following movments. 6. Renal: Electrolyte replacement protocol. No acute issues 7. Heme-onc: Await labs. Continue heparin infusion for DVT. 8. Endocrine: Glycemic control per protocol. TLD: June, CVL, OG, ETT, Rios, PIV- continue use of these lines Patient is critically ill at this point time with significant possibility of . She is stable at this time with poor prognosis if she remains refractory hypoxemic. Total critical care time to this point: 45 minutes Admission and Anticipated Discharge Date Admission Date: June 26, 2021 Supervising Physician Co-Signing Physician Notes Patient seen and examined. EMR reviewed. Discussed on multidisciplinary rounds and with bedside critical care nurse as well as critical care [facility]. Agree with assessment plan as noted. Patient is clinically worse today. Her PF ratio worsened and she was placed in the prone position. Unfortunately we have not seen significant improvement in her oxygenation. We will see how she does with a target 20 hours of proning. Plan to return her back to supine position around 10 or 11 PM this evening. We will continue to reassess as to whether or not this is offered her any clinical benefit. If she fails, may consider a trial of inhaled epoprostenol although I do not suspect that will likely be beneficial. Given the patient's late-phase intubation, prognosis is very guarded. Will follow up on respiratory cultures. Empiric antibiotics including antipseudomonal coverage given her fevers and elevated white blood cell count. No indication for bronchoscopy currently. Patient's overall prognosis is very guarded at this point time. Readdressing CODE STATUS would be appropriate if the patient fails to make any significant progress Subjective Patient seen on multidsciplinary rounds and rounded on in the COVID ICU. Patient is HD #9, ICU day #2 with Ventilator day #2 for hypoxic respiratory failure in the setting of COVID 19 pneumonia. Patient required proning last night secondary to a decrease in her SPO2/PaO2 and increase in her PEEP and FIO2. Remains with a PF ratio this morning <100 and no clinically significant change in her oxygenation or delivery. She has required some increase sedation over night and and was initiated on NMB for desynchrony with the ventilator and hypoxia and prone positioning. She is on day #9 of Decadron 6mg dosing and received baricitinib which was discontinued upon intubation. She also completed 5 days of Azithromycin. She has DVTs and presumed PE and reamins on Heparin infusion and not therapeutic this morning. Her ABG is 7.27/56/68/26 with AC 28 /350/10/70 and Pplt 23. Patient will be prone for 20 hours- will need supinated tonight at 2330. Initiate broad spectrum antibiotics today with Cefepime secondary to low grade fever, blood and sputum cultures sent as well as PCT prior to starting antibiotics. Review of Systems Review of Systems: Please refer to hospitalist note. No additions Physical Exam Physical Exam: General: Intubated sedated and pharmacologically paralyzed Neck: supple, trachea midline, normal thyroid Lungs: diminished sounds bilaterally, coarse, Heart: bradycardic, S1 and S2, no murmur, peripheral pulses normal, capillary refill normal, no edema Abdomen: unable to assess secondary to prone positioning Extremities: normal in appearance, no cyanosis, no petechiae, strength is 5/5 bilaterally Neuro: Sedated with NMB, pupils reactive Skin: warm, dry, no rash, normal turgor, bony prominences padded Psych: Awake, alert oriented x 3, Results & Data Results & Data ([facility]) Vital Signs (Past 12 Hours) Vital Signs Pulse Resp BP Pulse Ox 07/05/21 07:51 64 28 H 90 07/05/21 06:30 66 28 H 91 07/05/21 06:15 67 28 H 89 L 07/05/21 06:00 73 28 H 110/58 L 90 07/05/21 05:45 68 28 H 90 07/05/21 05:30 67 28 H 91 07/05/21 05:15 68 28 H 91 07/05/21 05:00 67 28 H 91 07/05/21 04:45 68 28 H 92 07/05/21 04:30 73 24 91 07/05/21 04:15 66 24 91 07/05/21 04:00 67 24 91 07/05/21 03:45 65 24 91 07/05/21 03:31 74 24 91 07/05/21 03:30 75 26 H 91 07/05/21 03:15 71 24 98 07/05/21 03:00 85 24 90 07/05/21 02:45 89 25 H 89 L 07/05/21 02:30 71 24 89 L 07/05/21 02:15 70 22 90 07/05/21 02:00 66 24 89 L 07/05/21 01:45 70 22 91 07/05/21 01:30 63 22 92 07/05/21 01:15 62 22 93 07/05/21 01:00 61 21 93 07/05/21 00:45 60 22 93 07/05/21 00:30 58 L 24 92 07/05/21 00:22 109 H 07/05/21 00:15 61 24 92 07/05/21 00:00 68 24 92 07/04/21 23:45 100 H 22 93 07/04/21 23:30 83 20 91 07/04/21 23:15 87 21 91 07/04/21 23:00 103 H 21 93 07/04/21 22:45 85 23 94 07/04/21 22:30 102 H 23 94 07/04/21 22:15 99 H 23 94 07/04/21 22:00 106 H 19 95 07/04/21 21:45 108 H 20 95 07/04/21 21:30 117 H 19 94 07/04/21 21:15 107 H 21 95 Laboratory Results Abnormal lab results 07/04/21 07/04/21 07/04/21 Range/Units 14:57 14:57 15:18 WBC 26.39 H (4.8-10.8) K/uL MPV 11.5 H (7.4-10.4) fL Neut # (Auto) 25.22 H (1.4-6.5) K/uL Lymph # (Auto) 0.67 L (1.2-3.4) K/uL Immature Gran # (Auto) 0.13 H (0.00-0.02) K/uL APTT (21.0-31.0) Seconds POC pH 7.30 L (7.35-7.45) POC pCO2 52 H (35-46) mmHg POC pO2 278 H (80-95) mmHg POC HCO3 26 H (19-24) christiano/L POC ABG O2 Sat 100.0 H (90-95) % BUN/Creatinine Ratio 20.2 H (10-20) Glucose 171 H (70-99) mg/dl AST 74 H (15-37) U/L ALT 126 H (12-78) Albumin 2.7 L (3.4-5.0) gm/dl Globulin 4.5 H (2.5-4.0) gm/dl Albumin/Globulin Ratio 0.6 L (0.9-2) 07/04/21 07/05/21 07/05/21 Range/Units 23:52 04:28 07:36 WBC (4.8-10.8) K/uL MPV (7.4-10.4) fL Neut # (Auto) (1.4-6.5) K/uL Lymph # (Auto) (1.2-3.4) K/uL Immature Gran # (Auto) (0.00-0.02) K/uL APTT 41.8 H (21.0-31.0) Seconds POC pH 7.33 L 7.27 L (7.35-7.45) POC pCO2 47 H 56 H (35-46) mmHg POC pO2 72 L 68 L (80-95) mmHg POC HCO3 25 H 26 H (19-24) christiano/L POC ABG O2 Sat (90-95) % BUN/Creatinine Ratio (10-20) Glucose (70-99) mg/dl AST (15-37) U/L ALT (12-78) Albumin (3.4-5.0) gm/dl Globulin (2.5-4.0) gm/dl Albumin/Globulin Ratio (0.9-2) 07/05/21 07/05/21 Range/Units 07:36 07:36 WBC 19.81 H (4.8-10.8) K/uL MPV 10.9 H (7.4-10.4) fL Neut # (Auto) 18.66 H (1.4-6.5) K/uL Lymph # (Auto) 0.26 L (1.2-3.4) K/uL Immature Gran # (Auto) 0.14 H (0.00-0.02) K/uL APTT (21.0-31.0) Seconds POC pH (7.35-7.45) POC pCO2 (35-46) mmHg POC pO2 (80-95) mmHg POC HCO3 (19-24) christiano/L POC ABG O2 Sat (90-95) % BUN/Creatinine Ratio 21.2 H (10-20) Glucose 119 H (70-99) mg/dl AST 47 H (15-37) U/L ALT 97 H (12-78) Albumin 2.4 L (3.4-5.0) gm/dl Globulin 4.1 H (2.5-4.0) gm/dl Albumin/Globulin Ratio 0.6 L (0.9-2) Diagnostic Findings CXR will be obtained today once she is supinated Coding Level of Care Code Critical Care 1st 30-74 mins Diagnoses ARDS (adult respiratory distress syndrome) J80 Pneumonia due to COVID-19 virus U07.1; J12.82 Elevated troponin I level R77.8 Elevated lactic acid level R79.89
[2021-07-05] MEDS: dexAMETHasone 6 MG in SYRINGE 0 ML IV SCH (09:27)
[2021-07-05] MEDS: FAMOTIDINE 20 MG in SYRINGE 3 ML IV SCH ×2 (09:32→20:43)
[2021-07-05] MEDS: NYSTATIN SUSP 500,000 U/5 ML UDC PO SCH ×4 (09:32→20:37)
[2021-07-05] MEDS: ENOXAPARIN 100 MG/1ML SYR SQ SCH ×2 (12:08→20:36)
[2021-07-05] MEDS: CEFEPIME 2,000 MG in SYRINGE 0 ML IV SCH ×2 (12:11→20:43)
[2021-07-05 16:44] LABS: Partial Thromboplastin Time 27.6 Seconds (21.0-31.0)
--- NOTE | 2021-07-05 21:18 | Hospitalist Progress Note ---
Date of Service July 05, 2021 Assessment & Plan (1) Acute hypoxemic respiratory failure due to COVID-19: Plan: SEVERE. Upon admission she required BIPAP due to severe hypoxia & increased work of breathing. Remained on BIPAP 14/7 continuously for several days following admission, then transitioned to HFNC. Remained on max settings including 100% FiO2 thereafter. She had intermittently used BIPAP at HS as well. Dx with DVTs earlier this week; has presumed PEs; was too ill this week to safely obtain CTA chest. Heparin drip employed this week. Despite supportive care she developed significant respiratory fatigue from 8+ days of BIPAP + HFNC. Intubated AM of 07/04/21. Vent settings per ARDSnet protocol. S/p proning overnight due to worsening hypoxia & escalating FiO2 requirements. S/p initiation of broad-spectrum IV abx (cefepime) to cover for bacterial superinfection. Blood/sputum cx's sent. CRP noted to be rising; procal negative. Cont dexamethasone 6mg IV daily, day 10 today. Defer to ICU whether to continue and/or increase steroids due to late-stage ARDS. Had received baricitinib 4mg daily for 8 days -- discontinued upon intubation. s/p Zithromax 5-day course Had been diuresed for about 5 days prior to intubation. Was never a Remdesivir candidate. Appreciate critical care assistance. (2) Pneumonia due to COVID-19 virus: Plan: see above in #1 severe COVID pneumonia with resulting ARDS treated with dexamethasone, baricitinib, BIPAP/HFNC - and now intubation/mech ventilation (ventilator day #2 today) (3) ARDS (adult respiratory distress syndrome): Plan: 2nd to COVID-19 pneumonia ongoing see above (4) Elevated troponin I level: Plan: Likely myocardial demand ischemia in setting of severe acute hypoxic resp failure / COVID-19 pneumonia If she has PEs this, too, can lead to rise in troponin EF 55-60% with no wall motion abnormalities hold Atenolol due to bradycardia (5) Acid reflux disease: Plan: cont IV H2 jonny (6) Hypertension: Plan: now with hypotension 2nd to sedation and critical illness. levophed. (7) Abnormal LFTs: Plan: transaminitis likely 2nd to COVID illness ast/alt remain elevated albeit mild trend (8) DVT prophylaxis: Plan: heparin drip changed to therapeutic lovenox BID (9) Deep vein thrombosis of bilateral lower extremities: Plan: b/l dopplers + for DVTs PEs presumed Heparin drip initially -- now on therapeutic lovenox (10) Candidiasis of mouth and esophagus: Plan: had been on nystatin prior to intubation could consider diflucan defer to ICU team Plan: appreciate ICU/pulmonary assistance daughter extensively updated by phone and in person yesterday, 07/04 left message for daughter today on her voicemail prognosis poor/guarded Admission and Anticipated Discharge Date Admission Date: June 26, 2021 Subjective events of last 24 hours noted overnight she had increasing O2 requirements and worsening hypoxia proning initiated paralytics started this am around shift change she had fever initiated on cefepime due to worsening status Review of Systems Review of Systems: Unobtainable due to endotracheal tube Physical Exam Physical Exam: gen - patient proned, sedated, paralyzed HENT - ETT present heart - RRR, s1 s2 lungs - b/l basilar rales ext - cool feet, pulses 1+ b/l Results & Data Results & Data ([facility]) Vital Signs (Past 12 Hours) Vital Signs Temp Pulse Resp BP Pulse Ox 07/05/21 17:30 54 L 28 H 90 07/05/21 17:00 54 L 28 H 91 07/05/21 16:30 55 L 28 H 90 07/05/21 16:00 37.5 C 54 L 28 H 91 07/05/21 15:30 58 L 28 H 90 07/05/21 15:26 58 L 28 H 90 07/05/21 15:00 58 L 28 H 93 07/05/21 14:45 58 L 28 H 94 07/05/21 14:30 58 L 28 H 93 07/05/21 14:15 59 L 28 H 93 07/05/21 14:00 60 28 H 91 07/05/21 13:45 58 L 28 H 93 07/05/21 13:30 61 28 H 93 07/05/21 13:15 62 28 H 92 07/05/21 13:00 38.5 C H 62 28 H 90 07/05/21 12:45 64 28 H 89 L 07/05/21 12:30 64 28 H 90 07/05/21 12:15 61 28 H 90 07/05/21 12:00 63 28 H 102/59 L 89 L 07/05/21 11:53 64 28 H 89 L 07/05/21 11:30 38.5 C H 66 28 H 88 L 07/05/21 11:00 69 28 H 102/54 L 88 L 07/05/21 10:30 68 28 H 89 L 07/05/21 10:00 64 28 H 89 L 07/05/21 09:30 67 28 H 89 L Laboratory Results Laboratory Results - last 24 hr 07/04/21 07/05/21 07/05/21 23:52 04:28 07:36 WBC RBC Hgb Hct MCV MCH MCHC RDW Std Deviation RDW Coeff of Dayanna Plt Count MPV Immature Gran % (Auto) Neut % (Auto) Lymph % (Auto) [place] % (Auto) Eos % (Auto) Baso % (Auto) Neut # (Auto) Lymph # (Auto) [place] # (Auto) Eos # (Auto) Baso # (Auto) Immature Gran # (Auto) APTT 41.8 H PTT Ratio 1.6 Sample Site Art Line Art Line POC pH 7.33 L 7.27 L POC pCO2 47 H 56 H POC pO2 72 L 68 L POC HCO3 25 H 26 H POC Total CO2 26 27 POC Base Excess -1.0 -1.0 POC ABG O2 Sat 93.0 90.0 Hema Test NA NA O2 Delivery Device Ventilator Ventilator POC O2 Rate 24 24 POC FiO2 75 60 Tidal Volume 350 350 PEEP 12 10 Sodium Potassium Chloride Carbon Dioxide Anion Gap BUN Creatinine Est Cr Clr Drug Dosing Est GFR ( Amer) Est GFR (Non-Af Amer) BUN/Creatinine Ratio Glucose Calcium Phosphorus Magnesium Total Bilirubin AST ALT Alkaline Phosphatase C-Reactive Protein Total Protein Albumin Globulin Albumin/Globulin Ratio Procalcitonin Nasal Screen MRSA (PCR) 07/05/21 07/05/21 07/05/21 07:36 07:36 10:24 WBC 19.81 H RBC 4.93 Hgb 13.9 Hct 42.9 MCV 87.0 MCH 28.2 MCHC 32.4 RDW Std Deviation 45.3 RDW Coeff of Dayanna 14.3 Plt Count 267 MPV 10.9 H Immature Gran % (Auto) 0.7 Neut % (Auto) 94.1 Lymph % (Auto) 1.3 [place] % (Auto) 2.0 Eos % (Auto) 1.8 Baso % (Auto) 0.1 Neut # (Auto) 18.66 H Lymph # (Auto) 0.26 L [place] # (Auto) 0.39 Eos # (Auto) 0.35 Baso # (Auto) 0.01 Immature Gran # (Auto) 0.14 H APTT PTT Ratio Sample Site POC pH POC pCO2 POC pO2 POC HCO3 POC Total CO2 POC Base Excess POC ABG O2 Sat Hema Test O2 Delivery Device POC O2 Rate POC FiO2 Tidal Volume PEEP Sodium 137 Potassium 3.8 D Chloride 105 Carbon Dioxide 25 Anion Gap 7.0 BUN 13 Creatinine 0.60 Est Cr Clr Drug Dosing 92.9 Est GFR ( Amer) 106.3 Est GFR (Non-Af Amer) 91.7 BUN/Creatinine Ratio 21.2 H Glucose 119 H Calcium 8.7 Phosphorus 3.6 Magnesium 2.2 Total Bilirubin 0.7 AST 47 H ALT 97 H Alkaline Phosphatase 99 C-Reactive Protein 9.97 H Total Protein 6.5 Albumin 2.4 L Globulin 4.1 H Albumin/Globulin Ratio 0.6 L Procalcitonin Nasal Screen MRSA (PCR) 07/05/21 07/05/21 07/05/21 10:24 12:17 16:14 WBC RBC Hgb Hct MCV MCH MCHC RDW Std Deviation RDW Coeff of Dayanna Plt Count MPV Immature Gran % (Auto) Neut % (Auto) Lymph % (Auto) [place] % (Auto) Eos % (Auto) Baso % (Auto) Neut # (Auto) Lymph # (Auto) [place] # (Auto) Eos # (Auto) Baso # (Auto) Immature Gran # (Auto) APTT 27.6 PTT Ratio 1.0 Sample Site POC pH POC pCO2 POC pO2 POC HCO3 POC Total CO2 POC Base Excess POC ABG O2 Sat Hema Test O2 Delivery Device POC O2 Rate POC FiO2 Tidal Volume PEEP Sodium Potassium Chloride Carbon Dioxide Anion Gap BUN Creatinine Est Cr Clr Drug Dosing Est GFR ( Amer) Est GFR (Non-Af Amer) BUN/Creatinine Ratio Glucose Calcium Phosphorus Magnesium Total Bilirubin AST ALT Alkaline Phosphatase C-Reactive Protein Total Protein Albumin Globulin Albumin/Globulin Ratio Procalcitonin 0.17 Nasal Screen MRSA (PCR) Negative PG Care Time/CCT Total # of Minutes Spent Total Time Spent with Patient: Total time spent is greater than 50% in coordination of care (as documented) at patient's floor/unit and/or counseling patient: Coding Level of Care Code 18751 Subseq Hosp Care Lvl 2 Diagnoses Acute hypoxemic respiratory failure due to COVID-19 U07.1; J96.01 Pneumonia due to COVID-19 virus U07.1; J12.82 ARDS (adult respiratory distress syndrome) J80 Elevated troponin I level R77.8 Acid reflux disease K21.9 Hypertension I10 Abnormal LFTs R79.89 DVT prophylaxis Z29.9 Deep vein thrombosis of bilateral lower extremities I82.403 Candidiasis of mouth and esophagus B37.81; B37.0
[2021-07-06] MEDS: fentaNYL citrate 2,500 MCG/250 ML BAG IV SCH ×2 (03:02→20:19)
[2021-07-06] MEDS: propofoL 1,000 MG/100 ML VIAL IV SCH ×9 (03:02→20:19)
[2021-07-06] MEDS: CISATRACURIUM BESYLATE 40 MG in 0.9 % SODIUM CHLORIDE 80 ML IV SCH ×2 (03:40→08:20)
[2021-07-06 03:47] LABS: iSTAT Arterial Blood Gas HCO3 24 meg/L (19-24); iSTAT Arterial Blood Gas pCO2 44 mmHg (35-46); iSTAT Arterial Blood Gas pH 7.34 (7.35-7.45); iSTAT Arterial Blood Gas pO2 58 mmHg (80-95); iSTAT Carbon Dioxide 25 mmol/L (24-31); iSTAT FiO2 50 %; iSTAT Site Art Line
[2021-07-06] MEDS: ARTIFICIAL TEARS OP OINT 3.5 GM TUBE OP SCH ×6 (04:09→23:43)
[2021-07-06] MEDS: CEFEPIME 2,000 MG in SYRINGE 0 ML IV SCH ×3 (04:09→20:19)
[2021-07-06 06:38] LABS: Basophils # (auto) 0.01 K/uL (0-0.2); Basophils % (auto) 0.1 %; Eosinophils # (auto) 0.23 K/uL (0-0.5); Eosinophils % (auto) 1.9 %; Hematocrit (blood only) 41.9 % (37-47); Hemoglobin 13.3 g/dL (12.0-16.0); Immature Granulocytes # (auto) 0.05 K/uL (0.00-0.02); Immature Granulocytes % (auto) 0.4 %; Lymphocytes # (auto) 0.38 K/uL (1.2-3.4); Lymphocytes % (auto) 3.2 %; Mean Corpuscular Hemoglobin 27.9 pg (25-34); Mean Corpuscular Hgb Conc 31.7 g/dL (32-36); Mean Platelet Volume 11.2 fL (7.4-10.4); Monocytes # (auto) 0.29 K/uL (0.11-0.59); Monocytes % (auto) 2.4 %; Neutrophils # (auto) 11.01 K/uL (1.4-6.5); Platelet Count 271 K/uL (130-400); RDW Coefficient of Variation 14.5 % (11.5-14.5); RDW Standard Deviation 46.6 fL (36.4-46.3); Red Blood Count 4.76 M/uL (4.2-5.4); White Blood Count 11.97 K/uL (4.8-10.8)
[2021-07-06 07:06] LABS: Albumin Level 2.2 gm/dl (3.4-5.0); BUN Creatinine Ratio 19.3 (10-20); Creatinine Clr Calc Pharmacy 89.9 ml/min; Est GFR (African American) 105.1 ml/min; Est GFR (Non-African American) 90.7 ml/min; Magnesium 2.2 mg/dl (1.8-2.4); Potassium 3.8 mmol/L (3.5-5.1)
[2021-07-06 07:09] LABS: Albumin Globulin Ratio 0.5 (0.9-2); Bilirubin,Total 0.6 mg/dl (0.2-1); Globulin 4.2 gm/dl (2.5-4.0); Phosphorus 3.2 mg/dl (2.5-4.9); Total Protein 6.4 gm/dl (6.4-8.2)
--- NOTE | 2021-07-06 07:40 | XRay Report ---
SINGLE VIEW CHEST CLINICAL HISTORY: Covid pneumonia. Respiratory failure. FINDINGS: An AP, portable, upright chest radiograph is compared to study dated 07/04/2021. The examin ation is degraded by portable technique and patient rotation. An endotracheal tube, an enteric tube, and a right internal jugular central venous catheter are unchanged in position. The heart is top norm al for projection. Multifocal airspace consolidation is unchanged to modestly worsened as compared to 07/04/2021. No large pleural effusion or pneumothorax is seen. The skeletal structures are osteopeni c. The bony thorax is grossly intact. IMPRESSION: 1. Stable lines and tubes. 2. Multifocal airspace consolidation is unchanged to modestly worsened as compared to 07/04/2021. ACT 112: Negative or not required by law. Electronically signed by: Junior Perez M.D. 07/06/2021 7:39 AM
[2021-07-06] MEDS: ENOXAPARIN 100 MG/1ML SYR SQ SCH ×2 (08:18→20:20)
[2021-07-06] MEDS: FAMOTIDINE 20 MG in SYRINGE 3 ML IV SCH ×2 (08:20→20:19)
[2021-07-06] MEDS: dexAMETHasone 6 MG in SYRINGE 0 ML IV SCH (08:20)
[2021-07-06] MEDS: NYSTATIN SUSP 500,000 U/5 ML UDC PO SCH ×4 (08:20→20:20)
[2021-07-06] MEDS ORDERED: DEXAMETHASONE IV SCH (09:00)
[2021-07-06] MEDS ORDERED: DEXTROSE 5% IV SCH (09:00)
[2021-07-06] MEDS ORDERED: dexAMETHasone 14 MG in SYRINGE 0 ML IV ONE (10:03)
[2021-07-06] MEDS ORDERED: dexAMETHasone 14 MG in DEXTROSE 5% 25 ML IV ONE (10:30)
--- NOTE | 2021-07-06 11:02 | Hospitalist Progress Note ---
Date of Service July 06, 2021 Assessment & Plan (1) Acute hypoxemic respiratory failure due to COVID-19: Plan: SEVERE. Upon admission she required BIPAP due to severe hypoxia & increased work of breathing. Remained on BIPAP 14/7 continuously for several days following admission, then transitioned to HFNC. Remained on max settings including 100% FiO2 thereafter. She had intermittently used BIPAP at HS as well. Dx with DVTs earlier this week; has presumed PEs; was too ill this week to safely obtain CTA chest. Heparin drip employed this week. Despite supportive care she developed significant respiratory fatigue from 8+ days of BIPAP + HFNC. Intubated AM of 07/04/21. proned on 07/05, not much improvement in oxygenation today she is on PEEP 14, FiO2 60% on Nimbex, Propofol, Fentanyl ICU managing her S/p initiation of broad-spectrum IV abx (cefepime) to cover for bacterial superinfection. Blood/sputum cx's sent. CRP noted to be rising; procal negative. Cont dexamethasone 6mg IV daily, day 11 today. Defer to ICU whether to continue and/or increase steroids due to late-stage ARDS. Had received baricitinib 4mg daily for 8 days -- discontinued upon intubation. s/p Zithromax 5-day course Had been diuresed for about 5 days prior to intubation. Was never a Remdesivir candidate. Appreciate critical care assistance. (2) Pneumonia due to COVID-19 virus: Plan: see above in #1 severe COVID pneumonia with resulting ARDS treated with dexamethasone, baricitinib, BIPAP/HFNC - and now intubation/mech ventilation (ventilator day #3 today) (3) ARDS (adult respiratory distress syndrome): Plan: 2nd to COVID-19 pneumonia ongoing see above (4) Elevated troponin I level: Plan: Likely myocardial demand ischemia in setting of severe acute hypoxic resp failure / COVID-19 pneumonia If she has PEs this, too, can lead to rise in troponin EF 55-60% with no wall motion abnormalities hold Atenolol due to bradycardia (5) Acid reflux disease: Plan: cont IV H2 jonny (6) Hypertension: Plan: now with hypotension 2nd to sedation and critical illness. levophed PRN (7) Abnormal LFTs: Plan: transaminitis likely 2nd to COVID illness ast/alt remain elevated albeit mild trend (8) DVT prophylaxis: Plan: heparin drip changed to therapeutic lovenox BID (9) Deep vein thrombosis of bilateral lower extremities: Plan: b/l dopplers + for DVTs PEs presumed Heparin drip initially -- now on therapeutic lovenox (10) Candidiasis of mouth and esophagus: Plan: had been on nystatin prior to intubation could consider diflucan defer to ICU team Plan: appreciate ICU/pulmonary assistance daughter extensively updated by phone and in person yesterday, 07/04 left message for daughter today on her voicemail prognosis poor/guarded Admission and Anticipated Discharge Date Admission Date: June 26, 2021 Subjective patient is now intubated, reviewed chart since I had her last on 06/28 discovered to have DVTs, on heparin drip reviewed labs ICU managing ventilator she is on Nimbex, Propofol, Fentanyl PEEP 14 and FiO2 60% proned yesterday but did not improve oxygenation, so no plans to prone today UO is not great, 150cc this morning Review of Systems Review of Systems: Unobtainable due to endotracheal tube Physical Exam Physical Exam: General: well developed, obese female, intubated and mechanically ventilated Neck: supple, trachea midline, normal thyroid Lungs: diminished sounds bilaterally, mechanically ventilated Heart: bradycardic, S1 and S2, no murmur, peripheral pulses normal, capillary refill normal, no edema Abdomen: soft, NT, ND, + BS, no hepatomegaly, normal to percussion Extremities: normal in appearance, no cyanosis, no petechiae Neuro: sedated, no focal motor deficits, CN II-XII intact Skin: warm, dry, no rash, normal turgor Psych: sedated Results & Data Results & Data ([facility]) Vital Signs (Past 12 Hours) Vital Signs Pulse Resp Pulse Ox 07/06/21 10:53 53 L 28 H 91 07/06/21 07:57 55 L 28 H 89 L 07/06/21 03:00 49 L 07/06/21 02:55 48 L 28 H 91 Laboratory Results Laboratory Results - last 24 hr 07/05/21 07/05/21 07/05/21 10:24 10:24 12:17 WBC RBC Hgb Hct MCV MCH MCHC RDW Std Deviation RDW Coeff of Dayanna Plt Count MPV Immature Gran % (Auto) Neut % (Auto) Lymph % (Auto) Ellis % (Auto) Eos % (Auto) Baso % (Auto) Neut # (Auto) Lymph # (Auto) Ellis # (Auto) Eos # (Auto) Baso # (Auto) Immature Gran # (Auto) APTT PTT Ratio Sample Site POC pH POC pCO2 POC pO2 POC HCO3 POC Total CO2 POC Base Excess POC ABG O2 Sat Hema Test O2 Delivery Device POC O2 Rate POC FiO2 Tidal Volume PEEP Sodium Potassium Chloride Carbon Dioxide Anion Gap BUN Creatinine Est Cr Clr Drug Dosing Est GFR ( Amer) Est GFR (Non-Af Amer) BUN/Creatinine Ratio Glucose Calcium Phosphorus Magnesium Total Bilirubin AST ALT Alkaline Phosphatase C-Reactive Protein 9.97 H Total Protein Albumin Globulin Albumin/Globulin Ratio Procalcitonin 0.17 Nasal Screen MRSA (PCR) Negative 07/05/21 07/06/21 07/06/21 16:14 03:26 06:24 WBC RBC Hgb Hct MCV MCH MCHC RDW Std Deviation RDW Coeff of Dayanna Plt Count MPV Immature Gran % (Auto) Neut % (Auto) Lymph % (Auto) Ellis % (Auto) Eos % (Auto) Baso % (Auto) Neut # (Auto) Lymph # (Auto) Ellis # (Auto) Eos # (Auto) Baso # (Auto) Immature Gran # (Auto) APTT 27.6 PTT Ratio 1.0 Sample Site Art Line POC pH 7.34 L POC pCO2 44 POC pO2 58 L POC HCO3 24 POC Total CO2 25 POC Base Excess -2.0 POC ABG O2 Sat 88.0 L Hema Test NA O2 Delivery Device Ventilator POC O2 Rate 28 POC FiO2 50 Tidal Volume 350 PEEP 10 Sodium 141 Potassium 3.8 Chloride 110 H Carbon Dioxide 25 Anion Gap 7.0 BUN 12 Creatinine 0.62 Est Cr Clr Drug Dosing 89.9 Est GFR ( Amer) 105.1 Est GFR (Non-Af Amer) 90.7 BUN/Creatinine Ratio 19.3 Glucose 122 H Calcium 9.0 Phosphorus 3.2 Magnesium 2.2 Total Bilirubin 0.6 AST 49 H ALT 88 H Alkaline Phosphatase 85 C-Reactive Protein Total Protein 6.4 Albumin 2.2 L Globulin 4.2 H Albumin/Globulin Ratio 0.5 L Procalcitonin Nasal Screen MRSA (PCR) 07/06/21 06:24 WBC 11.97 H RBC 4.76 Hgb 13.3 Hct 41.9 MCV 88.0 MCH 27.9 MCHC 31.7 L RDW Std Deviation 46.6 H RDW Coeff of Dayanna 14.5 Plt Count 271 MPV 11.2 H Immature Gran % (Auto) 0.4 Neut % (Auto) 92.0 Lymph % (Auto) 3.2 Ellis % (Auto) 2.4 Eos % (Auto) 1.9 Baso % (Auto) 0.1 Neut # (Auto) 11.01 H Lymph # (Auto) 0.38 L Ellis # (Auto) 0.29 Eos # (Auto) 0.23 Baso # (Auto) 0.01 Immature Gran # (Auto) 0.05 H APTT PTT Ratio Sample Site POC pH POC pCO2 POC pO2 POC HCO3 POC Total CO2 POC Base Excess POC ABG O2 Sat Hema Test O2 Delivery Device POC O2 Rate POC FiO2 Tidal Volume PEEP Sodium Potassium Chloride Carbon Dioxide Anion Gap BUN Creatinine Est Cr Clr Drug Dosing Est GFR ( Amer) Est GFR (Non-Af Amer) BUN/Creatinine Ratio Glucose Calcium Phosphorus Magnesium Total Bilirubin AST ALT Alkaline Phosphatase C-Reactive Protein Total Protein Albumin Globulin Albumin/Globulin Ratio Procalcitonin Nasal Screen MRSA (PCR) Medications Administered Current Inpatient Medications Enoxaparin Sodium (Enoxaparin 100 Mg/1ml Syr) 90 mg SQ Q12 [facility] Stop: 08/04/21 10:59 Last Admin: 07/06/21 08:18 Dose: 90 mg Documented by: Fentanyl Citrate (Fentanyl Bolus From Bag) 50 mcg IV Q60M PRN PRN Reason: Pain or Agitation Stop: 07/18/21 13:31 Last Admin: 07/05/21 06:11 Dose: 50 mcg Documented by: Famotidine 20 mg/ Syringe 5 mls @ 2.5 mls/min IV BID [facility] Stop: 08/03/21 13:59 Last Admin: 07/06/21 08:20 Dose: 2.5 mls/min Documented by: Propofol (Diprivan) 1,000 mg in 100 mls @ 27.72 mls/hr IV .Q3H37M [facility]; Protocol Stop: 07/07/21 13:44 Last Admin: 07/06/21 10:12 Dose: 50 mcg/kg/min, 27.7 mls/hr Documented by: Fentanyl Citrate (Fentanyl Citrate) 2,500 mcg in 250 mls @ 2.5 mls/hr IV .Q96H [facility]; Protocol Stop: 07/18/21 13:44 Last Titration: 07/06/21 07:12 Dose: 150 mcg/hr, 15 mls/hr Documented by: Norepinephrine Bitartrate (Levophed/D5w) 8 mg in 508 mls @ 3.52 mls/hr IV .Q24H [facility]; Protocol Stop: 08/03/21 13:59 Last Titration: 07/06/21 07:12 Dose: 0.01 mcg/kg/min, 3.5 mls/hr Documented by: Cefepime HCl 2,000 mg/ Syringe 20 mls @ 5 mls/min IV Q8H [facility] Stop: 07/12/21 11:59 Last Admin: 07/06/21 04:09 Dose: 5 mls/min Documented by: Dexamethasone 10 mg/ Syringe 2.5 mls @ 1 mls/min IV Q24H [facility] Stop: 07/16/21 09:44 Dexamethasone 14 mg/ Dextrose 28.5 mls @ 0.833 mls/min IV ONE ONE Stop: 07/06/21 11:04 Midazolam HCl (Midazolam Hcl 1 Mg/Ml 2ml Vial) 2 mg IV Q2H PRN PRN Reason: RASS goal -3 Stop: 08/03/21 13:31 Last Admin: 07/05/21 06:32 Dose: 2 mg Documented by: Multi-Ingredient Cream (Artificial Tears Op Oint 3.5 Gm Tube) 1 appln OP Q4H [facility] Stop: 08/04/21 03:59 Last Admin: 07/06/21 08:00 Dose: 1 appln Documented by: Nystatin (Nystatin Susp 500,000 U/5 Ml Udc) 5 ml PO QID [facility] Stop: 07/13/21 13:29 Last Admin: 07/06/21 08:20 Dose: 5 ml Documented by: Ondansetron HCl (Ondansetron Inj 2 Mg/Ml 2 Ml Vial) 4 mg IV Q6H PRN PRN Reason: Nausea Stop: 07/26/21 20:32 Oxycodone HCl (Oxycodone Hcl Ir 5 Mg Tab (Immediate Release)) 5 mg PO Q6H PRN PRN Reason: Pain or Agitation Stop: 07/18/21 13:31 Propofol (Propofol Bolus From Bag) 20 mg IV Q5M PRN PRN Reason: Sedation Stop: 07/07/21 13:31 Vecuronium [place] (Vecuronium [place] 10 Mg Vial) 6 mg IV Q4 PRN PRN Reason: dysynchrony, hypoxia, Stop: 08/03/21 13:36 Last Admin: 07/05/21 02:57 Dose: 6 mg Documented by: PG Care Time/CCT Total # of Minutes Spent Total Time Spent with Patient: Total time spent is greater than 50% in coordination of care (as documented) at patient's floor/unit and/or counseling patient: Coding Level of Care Code 71509 Subseq Hosp Care Lvl 2 Diagnoses Acute hypoxemic respiratory failure due to COVID-19 U07.1; J96.01 Pneumonia due to COVID-19 virus U07.1; J12.82 ARDS (adult respiratory distress syndrome) J80 Elevated troponin I level R77.8 Acid reflux disease K21.9 Hypertension I10 Abnormal LFTs R79.89 DVT prophylaxis Z29.9 Deep vein thrombosis of bilateral lower extremities I82.403 Candidiasis of mouth and esophagus B37.81; B37.0
--- NOTE | 2021-07-06 12:12 | Critical Care Progress Note ---
Date of Service July 06, 2021 Assessment & Plan (1) ARDS (adult respiratory distress syndrome): (2) Pneumonia due to COVID-19 virus: (3) Elevated troponin I level: (4) Elevated lactic acid level: Plan: Impression: 71-year-old nonvaccinated female admitted with Covid pneumonitis and hypoxemic respiratory failure/ARDS requiring noninvasive positive pressure ventilation. She was admitted 06/26/2021 and failed high flow, CPAP, BiPAP, and prone positioning. She is intubated 07/04/2021. 24 hour events: Increase in oxygen requirements and worsening of her PF ratio. Patient was prone positioned at 0300 and initiated on NMB. Broad spectrum Cefepime initiated today. Will obtain blood, sputum cultures, and PCT. Patient will continue with ARDSnet mechanical ventilation protocol will try high PEEP low FIo2 protocol. No improvement following prone positioning could initiate DEXARDS steroid dosing for late stage ARDS. Recommendations: 1. Neuro: Sedation with fentanyl Versed and propofol, neuromuscular blockade. Keep sedated pending improvement in ventilatory requirements. 2. Cardiovascular: Low dose Levophed initiated overnight. 3. Pulmonary: Fairly severe ARDS. She has DVTs and is being treated empi rically for PEs treated with Lovenox weight based BID. Could consider CTA of the chest, but this is not going to exchange consultant at this time. ARDS net ventilatory strategy with changed to High PEEP, Low FIo2. Prone for 20 hours with no increase in her PaO2 or SPO2. Not a candidate for advanced therapies such as ECMO secondary to age. DEXARDS started on 07/06/21. Continue Cefepime. Will follow, poor prognosis remains as unable to wean down her ventilator support. 4. ID: We will obtain respiratory cultures and blood cultures to evaluate for possible infection. Cefepime day #2 empiric coverage. Covid pneumonitis: Continue dexamethasone 6 mg daily. Baricitinib discontinued as she is now intubated. Her WBC count is markedly down today from 19 to 11.9 with improvement in her NLR as well. Sputum and blood from [id number] with NGTD. 5. GI: Orogastric tube. Dietary consultation for tube feeding NMB discontinued can increase to goal 6. Renal: Electrolyte replacement protocol. No acute issues 7. Heme-onc: Await labs. Enoxaparin weight based for DVT 8. Endocrine: Glycemic control per protocol. TLD: [place], CVL, OG, ETT, [place], PIV- continue use of these lines Attempted to call family x2 with no response. Patient is critically ill at this point time with significant possibility of . She is stable at this time with poor prognosis if she remains refractory hypoxemic. Total critical care time to this point: 45 minutes. Admission and Anticipated Discharge Date Admission Date: June 26, 2021 Subjective Patient seen on multidisciplinary rounds and rounded on in the COVID ICU. Patient is HD #10, ICU day #3 with Ventilator day #3 for hypoxic respiratory failure in the setting of COVID 19 pneumonia. Patient completed 20 hours of prone therapy with no improvement in her systemic oxygenation. Remains with a PF ratio this morning <100 and no clinically significant change in her oxygenation or delivery. Will discontinue her NMB today. She is on day #9 of Decadron 6mg dosing and received baricitinib which was discontinued upon intubation. She also completed 5 days of Azithromycin. As she is refractory hypoxic from late stage ARDS and increase of her CRP back to [address] on DEXARDS steroid dosing of Decadron 20mg IV for 5 days then followed by Decadron 10mg IV daily x 5 days. We will increase her PEEP today to high PEEP low Fio2 strategy to attempt to get some alveolar recruitment. Her imaging appears slightly more opacified this morning. She has DVTs and presumed PEs she was transitioned to weight based Lovenox yesterday for therapeutic treatment of these. Her ABG is 7.34/44/58/24 with AC 28/350/14/60 and Pplt 30. Continue broad spectrum antibiotics today with Cefepime secondary to low grade fever. Blood and sputum samples with NGTD. Review of Systems Review of Systems: Please refer to hospitalist note. No additions Physical Exam Physical Exam: General: Intubated sedated and pharmacologically paralyzed Neck: supple, trachea midline, normal thyroid Lungs: diminished sounds bilaterally, coarse, Heart: bradycardic, S1 and S2, no murmur, peripheral pulses normal, capillary refill normal, no edema Abdomen: unable to assess secondary to prone positioning Extremities: normal in appearance, no cyanosis, no petechiae, strength is 5/5 bilaterally Neuro: Sedated with NMB, pupils reactive Skin: warm, dry, no rash, normal turgor, bony prominences padded Psych: Awake, alert oriented x 3, Results & Data Results & Data ([facility]) Vital Signs (Past 12 Hours) Vital Signs Pulse Resp BP Pulse Ox 07/06/21 11:45 52 L 28 H 99/54 L 93 07/06/21 11:30 52 L 28 H 93 07/06/21 11:15 53 L 28 H 97/54 L 93 07/06/21 11:00 53 L 28 H 91 07/06/21 10:53 53 L 28 H 91 07/06/21 10:45 56 L 28 H 90 07/06/21 10:30 58 L 28 H 93/53 L 87 L 07/06/21 10:15 57 L 28 H 87 L 07/06/21 10:00 59 L 28 H 86 L 07/06/21 09:45 57 L 28 H 87 L 07/06/21 09:30 57 L 28 H 87 L 07/06/21 09:15 59 L 28 H 87 L 07/06/21 09:00 58 L 28 H 92/59 L 87 L 07/06/21 08:45 58 L 28 H 87 L 07/06/21 08:30 55 L 28 H 88 L 07/06/21 08:15 58 L 28 H 88 L 07/06/21 08:00 55 L 28 H 88 L 07/06/21 07:57 55 L 28 H 89 L 07/06/21 07:45 56 L 28 H 88 L 07/06/21 07:30 56 L 28 H 88 L 07/06/21 07:15 54 L 28 H 88 L 07/06/21 07:00 55 L 28 H 88 L 07/06/21 03:00 49 L 07/06/21 02:55 48 L 28 H 91 Coding Level of Care Code Critical Care 1st 30-74 mins Diagnoses ARDS (adult respiratory distress syndrome) J80 Pneumonia due to COVID-19 virus U07.1; J12.82 Elevated troponin I level R77.8 Elevated lactic acid level R79.89
[2021-07-06] MEDS: NOREPINEPHRINE/D5W 8 MG/508 ML BAG IV SCH ×2 (19:24→19:25)
[2021-07-07] MEDS: propofoL 1,000 MG/100 ML VIAL IV SCH ×8 (00:02→23:08)
[2021-07-07] MEDS: ARTIFICIAL TEARS OP OINT 3.5 GM TUBE OP SCH ×5 (04:15→20:13)
[2021-07-07] MEDS: CEFEPIME 2,000 MG in SYRINGE 0 ML IV SCH ×3 (04:15→20:13)
[2021-07-07 05:02] LABS: iSTAT Arterial Blood Gas HCO3 23 meg/L (19-24); iSTAT Arterial Blood Gas pCO2 40 mmHg (35-46); iSTAT Arterial Blood Gas pH 7.37 (7.35-7.45); iSTAT Arterial Blood Gas pO2 61 mmHg (80-95); iSTAT Carbon Dioxide 24 mmol/L (24-31); iSTAT FiO2 50 %; iSTAT Site Art Line
[2021-07-07 07:01] LABS: Basophils # (auto) 0.01 K/uL (0-0.2); Basophils % (auto) 0.1 %; Eosinophils # (auto) 0.01 K/uL (0-0.5); Eosinophils % (auto) 0.1 %; Hemoglobin 12.6 g/dL (12.0-16.0); Immature Granulocytes # (auto) 0.11 K/uL (0.00-0.02); Immature Granulocytes % (auto) 1.3 %; Lymphocytes # (auto) 0.32 K/uL (1.2-3.4); Lymphocytes % (auto) 3.9 %; Mean Corpuscular Hemoglobin 28.2 pg (25-34); Mean Corpuscular Hgb Conc 32.3 g/dL (32-36); Mean Corpuscular Volume 87.2 fL (80-100); Mean Platelet Volume 11.5 fL (7.4-10.4); Monocytes # (auto) 0.51 K/uL (0.11-0.59); Monocytes % (auto) 6.2 %; Neutrophils % (auto) 88.4 %; Platelet Count 292 K/uL (130-400); RDW Coefficient of Variation 14.7 % (11.5-14.5); RDW Standard Deviation 46.5 fL (36.4-46.3); Red Blood Count 4.47 M/uL (4.2-5.4); White Blood Count 8.26 K/uL (4.8-10.8)
[2021-07-07 07:35] LABS: Albumin Level 2.1 gm/dl (3.4-5.0); Calcium 9.2 mg/dl (8.5-10.1); Creatinine Clr Calc Pharmacy 97.8 ml/min; Est GFR (African American) 108.1 ml/min; Est GFR (Non-African American) 93.3 ml/min; Magnesium 2.5 mg/dl (1.8-2.4); Potassium 4.1 mmol/L (3.5-5.1)
[2021-07-07 07:37] LABS: Albumin Globulin Ratio 0.5 (0.9-2); Bilirubin,Total 0.5 mg/dl (0.2-1); Globulin 4.1 gm/dl (2.5-4.0); Phosphorus 3.3 mg/dl (2.5-4.9); Total Protein 6.2 gm/dl (6.4-8.2)
[2021-07-07] MEDS ORDERED: dexAMETHasone 20 MG in SYRINGE 0 ML IV SCH (09:00)
--- NOTE | 2021-07-07 09:08 | XRay Report ---
XR chest 1V portable HISTORY: 71 years-old Female resp failure acute respiratory failure COMPARISON: Chest radiograph 07/06/2021 TECHNIQUE: Portable AP view of the chest FINDINGS: The cardiomediastinal and hilar silhouettes are within normal limits. Endotracheal tube overlies the midline, 4.2 cm superior to the arie. Right IJ central venous catheter distal tip overlies the righ t atrium. Enteric tube distal tip is projected superiorly within the gastric fundus. No pneumothorax. Trace pleural effusions suggested. [Vascular congestion with ill-defined bilateral airspace opacitie s redemonstrated, mildly improved from prior. Degenerative changes of the shoulders and spine. IMPRESSION: 1. Lines and tubes as above. 2. Multifocal bilateral airspace opacities are redemonstrated, mildly improved from prior. 3. No pneumothorax. ACT 112: Negative or not required by law. The above report was generated using voice recognition software. It may contain grammatical, syntax o r spelling errors. Electronically signed by: Renard Bull M.D. 07/07/2021 9:06 AM
[2021-07-07] MEDS: dexAMETHasone 20 MG in DEXTROSE 5% 25 ML IV SCH (09:09)
--- NOTE | 2021-07-07 10:45 | Hospitalist Progress Note ---
Date of Service July 07, 2021 Assessment & Plan (1) Acute hypoxemic respiratory failure due to COVID-19: Plan: SEVERE. Upon admission she required BIPAP due to severe hypoxia & increased work of breathing. Remained on BIPAP 14/7 continuously for several days following admission, then transitioned to HFNC. Remained on max settings including 100% FiO2 thereafter. She had intermittently used BIPAP at HS as well. Dx with DVTs earlier this week; has presumed PEs; was too ill this week to safely obtain CTA chest. Heparin drip employed this week. Despite supportive care she developed significant respiratory fatigue from 8+ days of BIPAP + HFNC. Intubated AM of 07/04/21. proned on 07/05, not much improvement in oxygenation today she is on PEEP 10, FiO2 50% on Propofol, Fentanyl off of neuromuscular blockade ICU managing her S/p initiation of broad-spectrum IV abx (cefepime) to cover for bacterial superinfection. Blood/sputum cx's sent. CRP noted to be rising; procal negative. Cont dexamethasone, increase to 20mg daily on 07/07, plan for 5 days of 20mg and 5 days of 10mg Had received baricitinib 4mg daily for 8 days -- discontinued upon intubation. s/p Zithromax 5-day course Had been diuresed for about 5 days prior to intubation. Was never a Remdesivir candidate. Appreciate critical care assistance. (2) Pneumonia due to COVID-19 virus: Plan: see above in #1 severe COVID pneumonia with resulting ARDS increase dexamethasone to 20mg based on late ARDS ventilator day 4 today (3) ARDS (adult respiratory distress syndrome): Plan: 2nd to COVID-19 pneumonia ongoing see above (4) Elevated troponin I level: Plan: Likely myocardial demand ischemia in setting of severe acute hypoxic resp failure / COVID-19 pneumonia If she has PEs this, too, can lead to rise in troponin EF 55-60% with no wall motion abnormalities hold Atenolol due to bradycardia (5) Acid reflux disease: Plan: cont IV H2 jonny (6) Hypertension: Plan: now with hypotension 2nd to sedation and critical illness. levophed PRN, not needing this today (7) Abnormal LFTs: Plan: transaminitis likely 2nd to COVID illness ast/alt remain elevated albeit mild trend (8) DVT prophylaxis: Plan: heparin drip changed to therapeutic lovenox BID (9) Deep vein thrombosis of bilateral lower extremities: Plan: b/l dopplers + for DVTs PEs presumed Heparin drip initially -- now on therapeutic lovenox (10) Candidiasis of mouth and esophagus: Plan: had been on nystatin prior to intubation could consider diflucan defer to ICU team Plan: appreciate ICU/pulmonary assistance prognosis poor/guarded Admission and Anticipated Discharge Date Admission Date: June 26, 2021 Subjective patient sedated on propofol and fentanyl on PEEP of 10 and FiO2 50%, was on PEEP of 12 and FiO2 40% but saturations dropped quickly with the drop in fiO2 CBC, BMP normal, ABG with normal pH and PaO2 of 60 I called her daughter Jordyn and gave her an updated discussed that we increased dexamethasone to 20mg and we are trying to lower PEEP and FiO2 discussed time frame of 7-10 days to extubate, consider tracheostomy if unable to extubate she understands, all questions answered Review of Systems Review of Systems: All systems reviewed & are unremarkable except as noted in Subjective Physical Exam Physical Exam: General: well developed, obese female, intubated and mechanically ventilated Neck: supple, trachea midline, normal thyroid Lungs: diminished sounds bilaterally, mechanically ventilated Heart: bradycardic, S1 and S2, no murmur, peripheral pulses normal, capillary refill normal, no edema Abdomen: soft, NT, ND, + BS, no hepatomegaly, normal to percussion Extremities: normal in appearance, no cyanosis, no petechiae Neuro: sedated, no focal motor deficits, CN II-XII intact Skin: warm, dry, no rash, normal turgor Psych: sedated Results & Data Results & Data ([facility]) Vital Signs (Past 12 Hours) Vital Signs Pulse Resp BP Pulse Ox 07/07/21 08:48 48 L 28 H 89 L 07/07/21 04:10 43 L 07/07/21 04:00 43 L 28 H 93 07/07/21 03:45 46 L 28 H 93 07/07/21 03:30 46 L 28 H 93 07/07/21 03:15 47 L 28 H 99/60 L 92 07/07/21 03:00 45 L 28 H 92 07/07/21 02:50 45 L 29 H 91 07/07/21 02:45 45 L 28 H 91 07/07/21 02:30 45 L 28 H 126/66 90 07/07/21 02:15 59 L 28 H 84 L 07/07/21 02:00 43 L 28 H 91 07/07/21 01:45 45 L 28 H 102/60 91 07/07/21 01:30 43 L 28 H 92 07/07/21 01:15 45 L 28 H 92 07/07/21 01:00 46 L 28 H 99/56 L 92 07/07/21 00:45 45 L 28 H 92 07/07/21 00:30 44 L 28 H 92 07/07/21 00:15 43 L 28 H 97/55 L 91 07/07/21 00:00 44 L 28 H 91 07/06/21 23:55 44 L 28 H 91 07/06/21 23:45 43 L 28 H 91 07/06/21 23:30 45 L 28 H 91 07/06/21 23:15 44 L 28 H 91 07/06/21 23:00 44 L 28 H 97/57 L 91 07/06/21 22:45 44 L 28 H 93 Laboratory Results Laboratory Results - last 24 hr 07/07/21 07/07/21 07/07/21 04:49 06:19 06:19 WBC 8.26 RBC 4.47 Hgb 12.6 Hct 39.0 MCV 87.2 MCH 28.2 MCHC 32.3 RDW Std Deviation 46.5 H RDW Coeff of [place] 14.7 H Plt Count 292 MPV 11.5 H Immature Gran % (Auto) 1.3 Neut % (Auto) 88.4 Lymph % (Auto) 3.9 [place] % (Auto) 6.2 Eos % (Auto) 0.1 Baso % (Auto) 0.1 Neut # (Auto) 7.30 H Lymph # (Auto) 0.32 L [place] # (Auto) 0.51 Eos # (Auto) 0.01 Baso # (Auto) 0.01 Immature Gran # (Auto) 0.11 H Sample Site Art Line POC pH 7.37 POC pCO2 40 POC pO2 61 L POC HCO3 23 POC Total CO2 24 POC Base Excess -2.0 POC ABG O2 Sat 90.0 Hema Test NA O2 Delivery Device Ventilator POC O2 Rate 28 POC FiO2 50 Tidal Volume 350 PEEP 12 Sodium 141 Potassium 4.1 Chloride 109 H Carbon Dioxide 25 Anion Gap 7.0 BUN 15 Creatinine 0.57 L Est Cr Clr Drug Dosing 97.8 Est GFR ( Amer) 108.1 Est GFR (Non-Af Amer) 93.3 BUN/Creatinine Ratio 27.0 H Glucose 119 H Calcium 9.2 Phosphorus 3.3 Magnesium 2.5 H Total Bilirubin 0.5 AST 34 ALT 80 H Alkaline Phosphatase 74 Total Protein 6.2 L Albumin 2.1 L Globulin 4.1 H Albumin/Globulin Ratio 0.5 L Medications Administered Current Inpatient Medications Enoxaparin Sodium (Enoxaparin 100 Mg/1ml Syr) 90 mg SQ Q12 [facility] Stop: 08/04/21 10:59 Last Admin: 07/06/21 20:20 Dose: 90 mg Documented by: Fentanyl Citrate (Fentanyl Bolus From Bag) 50 mcg IV Q60M PRN PRN Reason: Pain or Agitation Stop: 07/18/21 13:31 Last Admin: 07/05/21 06:11 Dose: 50 mcg Documented by: Famotidine 20 mg/ Syringe 5 mls @ 2.5 mls/min IV BID [facility] Stop: 08/03/21 13:59 Last Admin: 07/06/21 20:19 Dose: 2.5 mls/min Documented by: Propofol (Diprivan) 1,000 mg in 100 mls @ 22.176 mls/hr IV .Q4H31M [facility]; Protocol Stop: 07/07/21 13:44 Last Admin: 07/07/21 09:09 Dose: 45 mcg/kg/min, 24.9 mls/hr Documented by: Fentanyl Citrate (Fentanyl Citrate) 2,500 mcg in 250 mls @ 2.5 mls/hr IV .Q96H [facility]; Protocol Stop: 07/18/21 13:44 Last Titration: 07/07/21 06:41 Dose: 150 mcg/hr, 15 mls/hr Documented by: Norepinephrine Bitartrate (Levophed/D5w) 8 mg in 508 mls @ 0 mls/hr IV .Q0M [facility]; Protocol Stop: 08/03/21 13:59 Last Admin: 07/06/21 19:25 Dose: Not Given Documented by: Cefepime HCl 2,000 mg/ Syringe 20 mls @ 5 mls/min IV Q8H [facility] Stop: 07/12/21 11:59 Last Admin: 07/07/21 04:15 Dose: 5 mls/min Documented by: Dexamethasone 10 mg/ Syringe 2.5 mls @ 1 mls/min IV Q24H [facility] Stop: 07/16/21 09:44 Dexamethasone 20 mg/ Dextrose 30 mls @ 0.833 mls/min IV DAILY [facility] Stop: 07/10/21 09:35 Last Infusion: 07/07/21 10:02 Dose: Infused Documented by: Midazolam HCl (Midazolam Hcl 1 Mg/Ml 2ml Vial) 2 mg IV Q2H PRN PRN Reason: RASS goal -3 Stop: 08/03/21 13:31 Last Admin: 07/05/21 06:32 Dose: 2 mg Documented by: Multi-Ingredient Cream (Artificial Tears Op Oint 3.5 Gm Tube) 1 appln OP Q4H [facility] Stop: 08/04/21 03:59 Last Admin: 07/07/21 10:02 Dose: Not Given Documented by: Nystatin (Nystatin Susp 500,000 U/5 Ml Udc) 5 ml PO QID [facility] Stop: 07/13/21 13:29 Last Admin: 07/06/21 20:20 Dose: 5 ml Documented by: Ondansetron HCl (Ondansetron Inj 2 Mg/Ml 2 Ml Vial) 4 mg IV Q6H PRN PRN Reason: Nausea Stop: 07/26/21 20:32 Oxycodone HCl (Oxycodone Hcl Ir 5 Mg Tab (Immediate Release)) 5 mg PO Q6H PRN PRN Reason: Pain or Agitation Stop: 07/18/21 13:31 Propofol (Propofol Bolus From Bag) 20 mg IV Q5M PRN PRN Reason: Sedation Stop: 07/07/21 13:31 Vecuronium [place] (Vecuronium [place] 10 Mg Vial) 6 mg IV Q4 PRN PRN Reason: dysynchrony, hypoxia, Stop: 08/03/21 13:36 Last Admin: 07/05/21 02:57 Dose: 6 mg Documented by: PG Care Time/CCT Total # of Minutes Spent Total Time Spent: 32 Total Time Spent with Patient: Total time spent is greater than 50% in coordination of care (as documented) at patient's floor/unit and/or counseling patient: Coding Level of Care Code 70947 Subseq Hosp Care Lvl 3 Diagnoses Acute hypoxemic respiratory failure due to COVID-19 U07.1; J96.01 Pneumonia due to COVID-19 virus U07.1; J12.82 ARDS (adult respiratory distress syndrome) J80 Elevated troponin I level R77.8 Acid reflux disease K21.9 Hypertension I10 Abnormal LFTs R79.89 DVT prophylaxis Z29.9 Deep vein thrombosis of bilateral lower extremities I82.403 Candidiasis of mouth and esophagus B37.81; B37.0
[2021-07-07] MEDS: ENOXAPARIN 100 MG/1ML SYR SQ SCH ×2 (11:50→20:13)
[2021-07-07] MEDS: NYSTATIN SUSP 500,000 U/5 ML UDC PO SCH ×4 (11:50→20:14)
[2021-07-07] MEDS: FAMOTIDINE 20 MG in SYRINGE 3 ML IV SCH ×2 (11:51→20:13)
--- NOTE | 2021-07-07 12:11 | Critical Care Progress Note ---
Date of Service July 07, 2021 Assessment & Plan (1) ARDS (adult respiratory distress syndrome): (2) Pneumonia due to COVID-19 virus: (3) Elevated troponin I level: (4) Elevated lactic acid level: Plan: Impression: 71-year-old nonvaccinated female admitted with Covid pneumonitis and hypoxemic respiratory failure/ARDS requiring noninvasive positive pressure ventilation. She was admitted 06/26/2021 and failed high flow, CPAP, BiPAP, and prone positioning. She is intubated 07/04/2021. 24 hour events: Slight decrease in her oxygen requirements with increase of her PF ratio to 120 this morning. Patient was transitioned to high PEEP and low FIo2 strategy yesterday. Broad spectrum Cefepime initiated. Blood and sputum culture remain with NGTD. Day #3 of Cefepime. Patient will continue with ARDSnet mechanical ventilation. DEXARDS dosing initiated 07/06/21 for late stage ARDS. Recommendations: 1. Neuro: Sedation with fentanyl Versed and propofol, neuromuscular blockade remains off. Keep sedated pending improvement in ventilatory requirements. 2. Cardiovascular: Low dose Levophed initiated overnight- she remains bradycardic in the 40-50s without hemodynamic compromise- this is likely sedation related with her propofol and fentanyl. No acute intervention needed. 3. Pulmonary: Fairly severe ARDS. She has DVTs and is being treated empirically for PEs treated with Lovenox weight based BID. Could consider CTA of the chest, but this is not going to exchange mechanic at this time. ARDS net ventilatory strategy with changed to High PEEP, Low FIo2. Prone for 20 hours with no increase in her PaO2 or SPO2. Not a candidate for advanced therapies such as ECMO secondary to age. DEXARDS started on 07/06/21. Continue Cefepime. Will follow, poor prognosis remains as unable to wean down her v entilator support, hopeful that she will be able to continue to tolerate decrease in her settings today 4. ID: respiratory cultures and blood cultures with NGTD. Cefepime day #3 empiric coverage. Covid pneumonitis: Continue dexamethasone 6 mg daily. Baricitinib discontinued as she is now intubated. Her WBC count is markedly down today from 19 to 11.9 with improvement in her NLR as well. Sputum and blood from [id number] with NGTD. 5. GI: Orogastric tube. Dietary consultation for tube feeding NMB discontinued can increase to goal 6. Renal: Electrolyte replacement protocol. No acute issues 7. Heme-onc: Await labs. Enoxaparin weight based for DVT 8. Endocrine: Glycemic control per protocol. TLD: June, CVL, OG, ETT, Rios, PIV- continue use of these lines Family was able to be contacted today by hospitalist service: Appreciate thier assistance. Continue with supportive care. Tracheostomy discussion was started. Patient is critically ill at this point time with significant possibility of . She is stable at this time with poor prognosis if she remains refractory hypoxemic. Total critical care time to this point: 40 minutes. Admission and Anticipated Discharge Date Admission Date: June 26, 2021 Supervising Physician Co-Signing Physician Notes Patient seen and examined. EMR reviewed. Discussed with critical care [facility] and agree with assessment plan as noted. We will continue efforts to wean mech anical ventilation. Initiate tube feeding. Continue high Dex post ARDS protocol. Continue cefepime for now. Overall prognosis is guarded. Subjective Patient seen on multidisciplinary rounds and rounded on in the COVID ICU. Patient is HD #11, ICU day #4 with Ventilator day #4 for hypoxic respiratory failure in the setting of COVID 19 pneumonia. Patient completed 20 hours of prone therapy with no improvement in her systemic oxygenation. Remains with a PF ratio this morning <100 and no clinically significant change in her oxygenation or delivery. Will discontinue her NMB today. She is on day #9 of Decadron 6mg dosing and received baricitinib which was discontinued upon intubation. She also completed 5 days of Azithromycin. As she is refractory hypoxic from late stage ARDS and increase of her CRP back to [address] on DEXARDS steroid dosing of Decadron 20mg IV for 5 days then followed by Decadron 10mg IV daily x 5 days. We will increase her PEEP today to high PEEP low Fio2 strategy to attempt to get some alveolar recruitment- Her Pa02 is up to 60 with a slight decrease in her Fio2 resulting in PF ratio of 120 today. Her imaging appears unchanged from yesterday. She has DVTs and presumed PEs she was transitioned to weight based Lovenox yesterday for therapeutic treatment of these. Her ABG is 7.37/40/61/23 with AC 28/350/10/50 and Pplt 30. Continue broad spectrum antibiotics today with Cefepime secondary to low grade fever. Blood and sputum samples with NGTD. Review of Systems Review of Systems: Unable to perform secondary to mechanical ventilation and sedation. Physical Exam Physical Exam: General: Intubated sedated and pharmacologically paralyzed Neck: supple, trachea midline, normal thyroid Lungs: diminished sounds bilaterally, coarse, Heart: bradycardic, S1 and S2, no murmur, peripheral pulses normal, capillary refill normal, no edema Abdomen: unable to assess secondary to prone positioning Extremities: normal in appearance, no cyanosis, no petechiae, strength is 5/5 bilaterally Neuro: Sedated with NMB, pupils reactive Skin: warm, dry, no rash, normal turgor, bony prominences padded Psych: Awake, alert oriented x 3, Results & Data Results & Data ([facility]) Vital Signs (Past 12 Hours) Vital Signs Pulse Resp BP Pulse Ox 07/07/21 10:46 46 L 28 H 92 07/07/21 08:48 48 L 28 H 89 L 07/07/21 04:10 43 L 07/07/21 04:00 43 L 28 H 93 07/07/21 03:45 46 L 28 H 93 07/07/21 03:30 46 L 28 H 93 07/07/21 03:15 47 L 28 H 99/60 L 92 07/07/21 03:00 45 L 28 H 92 07/07/21 02:50 45 L 29 H 91 07/07/21 02:45 45 L 28 H 91 07/07/21 02:30 45 L 28 H 126/66 90 07/07/21 02:15 59 L 28 H 84 L 07/07/21 02:00 43 L 28 H 91 07/07/21 01:45 45 L 28 H 102/60 91 07/07/21 01:30 43 L 28 H 92 07/07/21 01:15 45 L 28 H 92 07/07/21 01:00 46 L 28 H 99/56 L 92 07/07/21 00:45 45 L 28 H 92 07/07/21 00:30 44 L 28 H 92 07/07/21 00:15 43 L 28 H 97/55 L 91 07/07/21 00:00 44 L 28 H 91 Laboratory Results Abnormal Labs 06/26/21 06/26/21 06/26/21 14:16 18:16 18:16 WBC RBC 5.82 H Hgb 16.8 H Hct 49.0 H MCHC RDW Std Deviation RDW Coeff of Dayanna 14.7 H Plt Count MPV Neut # (Auto) 8.76 H Lymph # (Auto) 0.99 L [place] # (Auto) Immature Gran # (Auto) 0.09 H Absolute Nucleated RBC APTT D-Dimer POC pH POC pCO2 POC pO2 POC HCO3 POC Total CO2 ABG pH ABG pCO2 ABG pO2 POC ABG O2 Sat ABG O2 Saturation VBG pH VBG pCO2 POC Sodium Sodium Potassium Chloride BUN 36 H Creatinine 1.32 H BUN/Creatinine Ratio 27.0 H Glucose 143 H Lactate Calcium Magnesium Total Bilirubin AST 197 H ALT 82 H Alkaline Phosphatase 178 H Troponin I 0.438 H* C-Reactive Protein 11.30 H NT-Pro-B Natriuret Pep 2730 H Total Protein Albumin 2.9 L Globulin 4.9 H Albumin/Globulin Ratio 0.6 L Urine Protein 1+ H Urine Ketones Trace H Urine WBC (Auto) 5-10 H U Hyaline Cast (Auto) 10-30 H U Epithel Cells (Auto) >30 H WBC Casts 5-10 H SARS-CoV-2 (PCR) 06/26/21 06/26/21 06/26/21 18:16 18:23 19:12 WBC RBC Hgb Hct MCHC RDW Std Deviation RDW Coeff of Dayanna Plt Count MPV Neut # (Auto) Lymph # (Auto) [place] # (Auto) Immature Gran # (Auto) Absolute Nucleated RBC APTT D-Dimer POC pH POC pCO2 POC pO2 POC HCO3 POC Total CO2 ABG pH 7.47 H ABG pCO2 31 L ABG pO2 49 L POC ABG O2 Sat ABG O2 Saturation 84.7 L VBG pH VBG pCO2 POC Sodium Sodium Potassium Chloride BUN Creatinine BUN/Creatinine Ratio Glucose Lactate 5.4 H* Calcium Magnesium Total Bilirubin AST ALT Alkaline Phosphatase Troponin I C-Reactive Protein NT-Pro-B Natriuret Pep Total Protein Albumin Globulin Albumin/Globulin Ratio Urine Protein Urine Ketones Urine WBC (Auto) U Hyaline Cast (Auto) U Epithel Cells (Auto) WBC Casts SARS-CoV-2 (PCR) POSITIVE A* 06/26/21 06/26/21 06/27/21 20:14 23:42 04:52 WBC RBC Hgb Hct MCHC RDW Std Deviation RDW Coeff of Dayanna Plt Count MPV Neut # (Auto) 7.98 H Lymph # (Auto) 0.95 L [place] # (Auto) Immature Gran # (Auto) 0.14 H Absolute Nucleated RBC APTT D-Dimer POC pH POC pCO2 30 L POC pO2 58 L POC HCO3 POC Total CO2 21 L ABG pH ABG pCO2 ABG pO2 POC ABG O2 Sat ABG O2 Saturation VBG pH VBG pCO2 POC Sodium 145 H Sodium Potassium Chloride BUN Creatinine BUN/Creatinine Ratio Glucose Lactate 2.2 H* Calcium Magnesium Total Bilirubin AST ALT Alkaline Phosphatase Troponin I C-Reactive Protein NT-Pro-B Natriuret Pep Total Protein Albumin Globulin Albumin/Globulin Ratio Urine Protein Urine Ketones Urine WBC (Auto) U Hyaline Cast (Auto) U Epithel Cells (Auto) WBC Casts SARS-CoV-2 (PCR) 06/27/21 06/28/21 06/28/21 04:52 07:13 07:36 WBC 11.76 H RBC 5.41 H Hgb Hct MCHC RDW Std Deviation 48.0 H RDW Coeff of Dayanna 15.0 H Plt Count MPV Neut # (Auto) 9.11 H Lymph # (Auto) [place] # (Auto) 0.88 H Immature Gran # (Auto) 0.25 H Absolute Nucleated RBC 0.05 H APTT D-Dimer POC pH POC pCO2 POC pO2 POC HCO3 POC Total CO2 ABG pH ABG pCO2 ABG pO2 POC ABG O2 Sat ABG O2 Saturation VBG pH VBG pCO2 POC Sodium Sodium 148 H Potassium Chloride 114 H 114 H BUN 26 H 32 H Creatinine BUN/Creatinine Ratio 29.8 H 39.2 H Glucose 143 H 140 H Lactate Calcium 7.9 L 7.8 L Magnesium Total Bilirubin AST 155 H 144 H ALT Alkaline Phosphatase 152 H 157 H Troponin I 0.555 H* C-Reactive Protein 3.75 H NT-Pro-B Natriuret Pep Total Protein Albumin 2.3 L 2.7 L Globulin 4.1 H Albumin/Globulin Ratio 0.6 L 0.7 L Urine Protein Urine Ketones Urine WBC (Auto) U Hyaline Cast (Auto) U Epithel Cells (Auto) WBC Casts SARS-CoV-2 (PCR) 06/29/21 06/29/21 06/29/21 06:14 06:14 17:56 WBC 13.06 H RBC Hgb Hct MCHC RDW Std Deviation RDW Coeff of Dayanna 14.6 H Plt Count MPV Neut # (Auto) 10.05 H Lymph # (Auto) [place] # (Auto) 1.06 H Immature Gran # (Auto) 0.30 H Absolute Nucleated RBC 0.03 H APTT D-Dimer 41410 H* POC pH POC pCO2 POC pO2 POC HCO3 POC Total CO2 ABG pH ABG pCO2 ABG pO2 POC ABG O2 Sat ABG O2 Saturation VBG pH VBG pCO2 POC Sodium Sodium 146 H Potassium Chloride 112 H BUN 30 H Creatinine BUN/Creatinine Ratio 39.0 H Glucose 127 H Lactate Calcium 8.4 L Magnesium Total Bilirubin 1.1 H AST 252 H ALT 136 H Alkaline Phosphatase 146 H Troponin I C-Reactive Protein NT-Pro-B Natriuret Pep Total Protein Albumin 2.6 L Globulin Albumin/Globulin Ratio 0.7 L Urine Protein Urine Ketones Urine WBC (Auto) U Hyaline Cast (Auto) U Epithel Cells (Auto) WBC Casts SARS-CoV-2 (PCR) 06/29/21 06/29/21 06/30/21 17:56 17:56 05:57 WBC 16.07 H RBC 5.61 H Hgb Hct 49.1 H MCHC RDW Std Deviation 46.5 H RDW Coeff of Dayanna Plt Count 120 L MPV Neut # (Auto) 13.20 H Lymph # (Auto) [place] # (Auto) 1.04 H Immature Gran # (Auto) 0.33 H Absolute Nucleated RBC APTT D-Dimer POC pH POC pCO2 POC pO2 POC HCO3 POC Total CO2 ABG pH ABG pCO2 ABG pO2 POC ABG O2 Sat ABG O2 Saturation VBG pH 7.49 H VBG pCO2 33 L POC Sodium Sodium Potassium Chloride BUN Creatinine BUN/Creatinine Ratio Glucose Lactate Calcium Magnesium Total Bilirubin AST ALT Alkaline Phosphatase Troponin I C-Reactive Protein 0.96 H NT-Pro-B Natriuret Pep Total Protein Albumin Globulin Albumin/Globulin Ratio Urine Protein Urine Ketones Urine WBC (Auto) U Hyaline Cast (Auto) U Epithel Cells (Auto) WBC Casts SARS-CoV-2 (PCR) 06/30/21 06/30/21 06/30/21 05:57 06:01 17:28 WBC RBC Hgb Hct MCHC RDW Std Deviation RDW Coeff of Dayanna Plt Count MPV Neut # (Auto) Lymph # (Auto) [place] # (Auto) Immature Gran # (Auto) Absolute Nucleated RBC APTT 80.4 H* 58.8 H* D-Dimer POC pH POC pCO2 POC pO2 POC HCO3 POC Total CO2 ABG pH ABG pCO2 ABG pO2 POC ABG O2 Sat ABG O2 Saturation VBG pH VBG pCO2 POC Sodium Sodium Potassium 3.3 L Chloride 109 H BUN 26 H Creatinine BUN/Creatinine Ratio 33.2 H Glucose 118 H Lactate Calcium 8.3 L Magnesium Total Bilirubin 1.1 H AST 289 H ALT 269 H Alkaline Phosphatase 141 H Troponin I 0.055 H* C-Reactive Protein NT-Pro-B Natriuret Pep Total Protein Albumin 2.8 L Globulin 4.1 H Albumin/Globulin Ratio 0.7 L Urine Protein Urine Ketones Urine WBC (Auto) U Hyaline Cast (Auto) U Epithel Cells (Auto) WBC Casts SARS-CoV-2 (PCR) 07/01/21 07/01/21 07/01/21 05:38 05:38 05:38 WBC 20.39 H RBC Hgb Hct MCHC RDW Std Deviation RDW Coeff of Dayanna Plt Count 125 L MPV Neut # (Auto) Lymph # (Auto) [place] # (Auto) Immature Gran # (Auto) Absolute Nucleated RBC APTT 52.4 H* D-Dimer POC pH POC pCO2 POC pO2 POC HCO3 POC Total CO2 ABG pH ABG pCO2 ABG pO2 POC ABG O2 Sat ABG O2 Saturation VBG pH VBG pCO2 POC Sodium Sodium Potassium 3.3 L Chloride BUN 19 H Creatinine BUN/Creatinine Ratio 26.9 H Glucose 107 H Lactate Calcium Magnesium Total Bilirubin AST 166 H ALT 217 H Alkaline Phosphatase Troponin I C-Reactive Protein NT-Pro-B Natriuret Pep Total Protein Albumin Globulin Albumin/Globulin Ratio Urine Protein Urine Ketones Urine WBC (Auto) U Hyaline Cast (Auto) U Epithel Cells (Auto) WBC Casts SARS-CoV-2 (PCR) 07/02/21 07/02/21 07/02/21 05:37 05:37 05:37 WBC 17.72 H RBC Hgb Hct MCHC RDW Std Deviation RDW Coeff of Dayanna Plt Count MPV 11.2 H Neut # (Auto) Lymph # (Auto) [place] # (Auto) Immature Gran # (Auto) Absolute Nucleated RBC APTT 51.3 H* D-Dimer POC pH POC pCO2 POC pO2 POC HCO3 POC Total CO2 ABG pH ABG pCO2 ABG pO2 POC ABG O2 Sat ABG O2 Saturation VBG pH VBG pCO2 POC Sodium Sodium Potassium Chloride BUN Creatinine BUN/Creatinine Ratio 23.1 H Glucose Lactate Calcium Magnesium Total Bilirubin AST 92 H ALT 164 H Alkaline Phosphatase Troponin I C-Reactive Protein NT-Pro-B Natriuret Pep Total Protein Albumin Globulin Albumin/Globulin Ratio Urine Protein Urine Ketones Urine WBC (Auto) U Hyaline Cast (Auto) U Epithel Cells (Auto) WBC Casts SARS-CoV-2 (PCR) 07/03/21 07/03/21 07/03/21 06:50 06:50 14:03 WBC RBC Hgb Hct MCHC RDW Std Deviation RDW Coeff of Dayanna Plt Count MPV Neut # (Auto) Lymph # (Auto) [place] # (Auto) Immature Gran # (Auto) Absolute Nucleated RBC APTT 39.2 H 39.1 H D-Dimer POC pH POC pCO2 POC pO2 POC HCO3 POC Total CO2 ABG pH ABG pCO2 ABG pO2 POC ABG O2 Sat ABG O2 Saturation VBG pH VBG pCO2 POC Sodium Sodium Potassium 3.4 L Chloride BUN Creatinine BUN/Creatinine Ratio 20.8 H Glucose 101 H Lactate Calcium Magnesium Total Bilirubin AST 76 H ALT 130 H Alkaline Phosphatase Troponin I C-Reactive Protein NT-Pro-B Natriuret Pep Total Protein Albumin Globulin Albumin/Globulin Ratio Urine Protein Urine Ketones Urine WBC (Auto) U Hyaline Cast (Auto) U Epithel Cells (Auto) WBC Casts SARS-CoV-2 (PCR) 07/03/21 07/04/21 07/04/21 20:57 05:36 05:36 WBC RBC Hgb Hct MCHC RDW Std Deviation RDW Coeff of Dayanna Plt Count MPV Neut # (Auto) Lymph # (Auto) [place] # (Auto) Immature Gran # (Auto) Absolute Nucleated RBC APTT 50.2 H* 46.0 H* D-Dimer POC pH POC pCO2 POC pO2 POC HCO3 POC Total CO2 ABG pH ABG pCO2 ABG pO2 POC ABG O2 Sat ABG O2 Saturation VBG pH VBG pCO2 POC Sodium Sodium Potassium Chloride BUN Creatinine BUN/Creatinine Ratio 23.2 H Glucose 105 H Lactate Calcium Magnesium Total Bilirubin AST 65 H ALT 123 H Alkaline Phosphatase Troponin I C-Reactive Protein NT-Pro-B Natriuret Pep Total Protein Albumin Globulin Albumin/Globulin Ratio Urine Protein Urine Ketones Urine WBC (Auto) U Hyaline Cast (Auto) U Epithel Cells (Auto) WBC Casts SARS-CoV-2 (PCR) 07/04/21 07/04/21 07/04/21 14:57 14:57 15:18 WBC 26.39 H RBC Hgb Hct MCHC RDW Std Deviation RDW Coeff of Dayanna Plt Count MPV 11.5 H Neut # (Auto) 25.22 H Lymph # (Auto) 0.67 L [place] # (Auto) Immature Gran # (Auto) 0.13 H Absolute Nucleated RBC APTT D-Dimer POC pH 7.30 L POC pCO2 52 H POC pO2 278 H POC HCO3 26 H POC Total CO2 ABG pH ABG pCO2 ABG pO2 POC ABG O2 Sat 100.0 H ABG O2 Saturation VBG pH VBG pCO2 POC Sodium Sodium Potassium Chloride BUN Creatinine BUN/Creatinine Ratio 20.2 H Glucose 171 H Lactate Calcium Magnesium Total Bilirubin AST 74 H ALT 126 H Alkaline Phosphatase Troponin I C-Reactive Protein NT-Pro-B Natriuret Pep Total Protein Albumin 2.7 L Globulin 4.5 H Albumin/Globulin Ratio 0.6 L Urine Protein Urine Ketones Urine WBC (Auto) U Hyaline Cast (Auto) U Epithel Cells (Auto) WBC Casts SARS-CoV-2 (PCR) 07/04/21 07/05/21 07/05/21 23:52 04:28 07:36 WBC RBC Hgb Hct MCHC RDW Std Deviation RDW Coeff of Dayanna Plt Count MPV Neut # (Auto) Lymph # (Auto) [place] # (Auto) Immature Gran # (Auto) Absolute Nucleated RBC APTT 41.8 H D-Dimer POC pH 7.33 L 7.27 L POC pCO2 47 H 56 H POC pO2 72 L 68 L POC HCO3 25 H 26 H POC Total CO2 ABG pH ABG pCO2 ABG pO2 POC ABG O2 Sat ABG O2 Saturation VBG pH VBG pCO2 POC Sodium Sodium Potassium Chloride BUN Creatinine BUN/Creatinine Ratio Glucose Lactate Calcium Magnesium Total Bilirubin AST ALT Alkaline Phosphatase Troponin I C-Reactive Protein NT-Pro-B Natriuret Pep Total Protein Albumin Globulin Albumin/Globulin Ratio Urine Protein Urine Ketones Urine WBC (Auto) U Hyaline Cast (Auto) U Epithel Cells (Auto) WBC Casts SARS-CoV-2 (PCR) 07/05/21 07/05/21 07/05/21 07:36 07:36 10:24 WBC 19.81 H RBC Hgb Hct MCHC RDW Std Deviation RDW Coeff of Dayanna Plt Count MPV 10.9 H Neut # (Auto) 18.66 H Lymph # (Auto) 0.26 L [place] # (Auto) Immature Gran # (Auto) 0.14 H Absolute Nucleated RBC APTT D-Dimer POC pH POC pCO2 POC pO2 POC HCO3 POC Total CO2 ABG pH ABG pCO2 ABG pO2 POC ABG O2 Sat ABG O2 Saturation VBG pH VBG pCO2 POC Sodium Sodium Potassium Chloride BUN Creatinine BUN/Creatinine Ratio 21.2 H Glucose 119 H Lactate Calcium Magnesium Total Bilirubin AST 47 H ALT 97 H Alkaline Phosphatase Troponin I C-Reactive Protein 9.97 H NT-Pro-B Natriuret Pep Total Protein Albumin 2.4 L Globulin 4.1 H Albumin/Globulin Ratio 0.6 L Urine Protein Urine Ketones Urine WBC (Auto) U Hyaline Cast (Auto) U Epithel Cells (Auto) WBC Casts SARS-CoV-2 (PCR) 07/06/21 07/06/21 07/06/21 03:26 06:24 06:24 WBC 11.97 H RBC Hgb Hct MCHC 31.7 L RDW Std Deviation 46.6 H RDW Coeff of Dayanna Plt Count MPV 11.2 H Neut # (Auto) 11.01 H Lymph # (Auto) 0.38 L [place] # (Auto) Immature Gran # (Auto) 0.05 H Absolute Nucleated RBC APTT D-Dimer POC pH 7.34 L POC pCO2 POC pO2 58 L POC HCO3 POC Total CO2 ABG pH ABG pCO2 ABG pO2 POC ABG O2 Sat 88.0 L ABG O2 Saturation VBG pH VBG pCO2 POC Sodium Sodium Potassium Chloride 110 H BUN Creatinine BUN/Creatinine Ratio Glucose 122 H Lactate Calcium Magnesium Total Bilirubin AST 49 H ALT 88 H Alkaline Phosphatase Troponin I C-Reactive Protein NT-Pro-B Natriuret Pep Total Protein Albumin 2.2 L Globulin 4.2 H Albumin/Globulin Ratio 0.5 L Urine Protein Urine Ketones Urine WBC (Auto) U Hyaline Cast (Auto) U Epithel Cells (Auto) WBC Casts SARS-CoV-2 (PCR) 07/07/21 07/07/21 07/07/21 04:49 06:19 06:19 WBC RBC Hgb Hct MCHC RDW Std Deviation 46.5 H RDW Coeff of Dayanna 14.7 H Plt Count MPV 11.5 H Neut # (Auto) 7.30 H Lymph # (Auto) 0.32 L [place] # (Auto) Immature Gran # (Auto) 0.11 H Absolute Nucleated RBC APTT D-Dimer POC pH POC pCO2 POC pO2 61 L POC HCO3 POC Total CO2 ABG pH ABG pCO2 ABG pO2 POC ABG O2 Sat ABG O2 Saturation VBG pH VBG pCO2 POC Sodium Sodium Potassium Chloride 109 H BUN Creatinine 0.57 L BUN/Creatinine Ratio 27.0 H Glucose 119 H Lactate Calcium Magnesium 2.5 H Total Bilirubin AST ALT 80 H Alkaline Phosphatase Troponin I C-Reactive Protein NT-Pro-B Natriuret Pep Total Protein 6.2 L Albumin 2.1 L Globulin 4.1 H Albumin/Globulin Ratio 0.5 L Urine Protein Urine Ketones Urine WBC (Auto) U Hyaline Cast (Auto) U Epithel Cells (Auto) WBC Casts SARS-CoV-2 (PCR) Diagnostic Findings XR chest 1V portable HISTORY: 71 years-old Female resp failure acute respiratory failure COMPARISON: Chest radiograph 07/06/2021 TECHNIQUE: Portable AP view of the chest FINDINGS: The cardiomediastinal and hilar silhouettes are within normal limits. Endotracheal tube overlies the midline, 4.2 cm superior to the arie. Right IJ central venous catheter distal tip overlies the right atrium. Enteric tube distal tip is projected superiorly within the gastric fundus. No pneumothorax. Trace pleural effusions suggested. [Vascular congestion with ill-defined bilateral airspace opacities redemonstrated, mildly improved from prior. Degenerative changes of the shoulders and spine. IMPRESSION: 1. Lines and tubes as above. 2. Multifocal bilateral airspace opacities are redemonstrated, mildly improved from prior. 3. No pneumothorax. ACT 112: Negative or not required by law. The above report was generated using voice recognition software. It may contain grammatical, syntax or spelling errors. Coding Level of Care Code Critical Care 1st 30-74 mins Diagnoses ARDS (adult respiratory distress syndrome) J80 Pneumonia due to COVID-19 virus U07.1; J12.82 Elevated troponin I level R77.8 Elevated lactic acid level R79.89
[2021-07-07] MEDS: fentaNYL citrate 2,500 MCG/250 ML BAG IV SCH (12:39)
[2021-07-07] MEDS ORDERED: STAT IV Infusion **Titration per Protocol STA (14:57)
[2021-07-07] MEDS: TUBE FEEDING WATER FLUSH GT SCH ×3 (16:26→23:08)
[2021-07-07] MEDS: PEPTAMEN INTENSE VHP 1.0 CAL 1,000 ML BAG OG SCH (16:26)
[2021-07-07] MEDS: PROPOFOL BOLUS FROM BAG IV PRN (20:31)
[2021-07-08] MEDS: ARTIFICIAL TEARS OP OINT 3.5 GM TUBE OP SCH ×7 (00:12→23:44)
[2021-07-08] MEDS: propofoL 1,000 MG/100 ML VIAL IV SCH ×8 (02:00→15:33)
[2021-07-08] MEDS: TUBE FEEDING WATER FLUSH GT SCH ×6 (03:49→22:36)
[2021-07-08] MEDS: CEFEPIME 2,000 MG in SYRINGE 0 ML IV SCH ×3 (03:49→20:57)
[2021-07-08] MEDS: PROPOFOL BOLUS FROM BAG IV PRN ×2 (03:50→11:44)
[2021-07-08 04:56] LABS: iSTAT Arterial Blood Gas HCO3 24 meg/L (19-24); iSTAT Arterial Blood Gas pCO2 41 mmHg (35-46); iSTAT Arterial Blood Gas pH 7.38 (7.35-7.45); iSTAT Arterial Blood Gas pO2 56 mmHg (80-95); iSTAT Carbon Dioxide 25 mmol/L (24-31); iSTAT FiO2 50 %; iSTAT Site Art Line
[2021-07-08] MEDS: fentaNYL citrate 2,500 MCG/250 ML BAG IV SCH ×2 (05:09→18:07)
[2021-07-08 06:36] LABS: Basophils # (auto) 0.01 K/uL (0-0.2); Basophils % (auto) 0.1 %; Eosinophils # (auto) 0.03 K/uL (0-0.5); Eosinophils % (auto) 0.4 %; Hematocrit (blood only) 38.8 % (37-47); Hemoglobin 12.5 g/dL (12.0-16.0); Immature Granulocytes # (auto) 0.12 K/uL (0.00-0.02); Immature Granulocytes % (auto) 1.5 %; Lymphocytes # (auto) 0.62 K/uL (1.2-3.4); Lymphocytes % (auto) 7.8 %; Mean Corpuscular Hemoglobin 28.2 pg (25-34); Mean Corpuscular Hgb Conc 32.2 g/dL (32-36); Mean Corpuscular Volume 87.6 fL (80-100); Mean Platelet Volume 11.3 fL (7.4-10.4); Monocytes # (auto) 0.65 K/uL (0.11-0.59); Monocytes % (auto) 8.2 %; Neutrophils # (auto) 6.48 K/uL (1.4-6.5); Platelet Count 304 K/uL (130-400); RDW Standard Deviation 48.1 fL (36.4-46.3); Red Blood Count 4.43 M/uL (4.2-5.4); White Blood Count 7.91 K/uL (4.8-10.8)
[2021-07-08 07:04] LABS: BUN Creatinine Ratio 38.4 (10-20); Calcium 8.8 mg/dl (8.5-10.1); Creatinine Clr Calc Pharmacy 105.1 ml/min; Est GFR (African American) 110.7 ml/min; Est GFR (Non-African American) 95.5 ml/min; Magnesium 2.1 mg/dl (1.8-2.4); Potassium 3.8 mmol/L (3.5-5.1)
[2021-07-08 07:07] LABS: Albumin Globulin Ratio 0.5 (0.9-2); Bilirubin,Total 0.4 mg/dl (0.2-1); Globulin 4.2 gm/dl (2.5-4.0); Phosphorus 2.9 mg/dl (2.5-4.9); Total Protein 6.2 gm/dl (6.4-8.2)
--- NOTE | 2021-07-08 08:01 | XRay Report ---
XR chest 1V portable HISTORY: 71 years-old Female resp failure acute respiratory failure COMPARISON: Chest radiograph 07/07/2021 TECHNIQUE: Portable AP view of the chest FINDINGS: Endotracheal tube overlies the midline, 4.8 cm superior to the arie. Enteric tube distal tip projec ts superiorly within the region of the gastric fundus. Right IJ central venous catheter distal tip ov erlies the right atrium. No pneumothorax or large pleural effusion. Interstitial coarsening with bila teral airspace opacities redemonstrated, slightly progressed within the right lung base. No acute fra cture. IMPRESSION: 1. Lines and tubes as above. 2. Extensive bilateral airspace opacities redemonstrated which appears stable to slightly progressed. ACT 112: Negative or not required by law. The above report was generated using voice recognition software. It may contain grammatical, syntax o r spelling errors. Electronically signed by: Renard Bull M.D. 07/08/2021 8:00 AM
[2021-07-08] MEDS: dexAMETHasone 20 MG in DEXTROSE 5% 25 ML IV SCH (08:29)
[2021-07-08] MEDS: NYSTATIN SUSP 500,000 U/5 ML UDC PO SCH ×4 (08:29→20:59)
[2021-07-08] MEDS: ENOXAPARIN 100 MG/1ML SYR SQ SCH ×2 (08:29→20:57)
[2021-07-08] MEDS: PANTOprazole 40 MG in SYRINGE 0 ML IV SCH ×2 (09:10→20:57)
[2021-07-08] MEDS ORDERED: FUROSEMIDE INJ 20 MG/2 ML VIAL IV STA (10:19)
[2021-07-08] MEDS: PEPTAMEN INTENSE VHP 1.0 CAL 1,000 ML BAG OG SCH ×2 (11:45→18:07)
[2021-07-08] MEDS ORDERED: MIDAZOLAM HCL 1 MG/ML 2ML VIAL IV PRN (13:27)
[2021-07-08] MEDS ORDERED: STAT IV Infusion **Titration per Protocol STA (13:27)
--- NOTE | 2021-07-08 13:36 | Critical Care Progress Note ---
Date of Service July 08, 2021 Assessment & Plan (1) ARDS (adult respiratory distress syndrome): (2) Pneumonia due to COVID-19 virus: (3) Elevated troponin I level: (4) Elevated lactic acid level: Plan: Impression: 71-year-old nonvaccinated female admitted with Covid pneumonitis and hypoxemic respiratory failure/ARDS requiring noninvasive positive pressure ventilation. She was admitted 06/26/2021 and failed high flow, CPAP, BiPAP, and prone positioning. She is intubated 07/04/2021. 24 hour events: No significant change from yesterday Recommendations: -Neuro: On propofol and 5 Midazolam will be added given the patient is on high propofol and triglycerides are trending up -Cardiovascular: --Bradycardia Likely from sedation Continue to monitor -Pulmonary: -- VDRF with acute hypoxic respiratory failure Likely secondary to multilobar COVID-19 pneumonia Continue with lung protective ventilation High PEEP, low tidal volume to keep Plateau < 30 with permissive hypercapnea if need be. Monitor ABGs Continue with ventilatory support Keep RASS -1 COVID-19 PCR positive Procalcitonin 0.17 CRP 18--> 12.9 Continue with DEXA ARDS protocol which is started on 07/06/2021 - ID: -- Covid pneumonitis Continue dexamethasone 6 mg daily. Baricitinib discontinued as she is now intubated. Her WBC count is markedly down today from 19 to 11.9 with improvement in her NLR as well. Sputum and blood from 07/05/2021 negative to date Continue with empiric antibiotic for total of 5 days --GI: Continue tube feeds -Renal: Electrolyte replacement protocol. No acute issues - Heme-onc: --Acute DVT bilateral lower extremity On therapeutic Lovenox monitor H&H - Endocrine: Continue with ICU hypoglycemia protocol --Prophylaxis VTE: Therapeutic Lovenox GI: Protonix Lines: A-line, right IJ, positive Rios Diet: Tube feeds Plan: In/out: +640, urine output 850 ABG 7.38/41/56 on 50%, PEEP of 10 Chest x-ray from today shows bilateral vascular markings which are increased 20 mg of Lasix given to the patient Consider getting another 20 mg of Lasix depending on in/out I have personally spent 40 minutes of critical care time in the direct management of this patient. This is a life/limb threatening event. This includes time spent evaluating patient, direct bedside care, chart review, placing orders, interpretation of diagnostic studies, discussion with consultants, patient, and family members, as well as other required patient management activities. This time is exclusive of all separately billable procedures, and teaching time and separate from and in addition to any other critical care service time. Please note the above document was generated using voice recognition software. It may contain grammatical, syntax or spelling errors. Admission and Anticipated Discharge Date Admission Date: June 26, 2021 Subjective Patient seen and examined at bedside. No acute distress Patient was on 60% FiO2 saturating 89% with PEEP of 10 at the time of examination Has been spiking low-grade fever Review of Systems Review of Systems: Unobtainable due to endotracheal tube Physical Exam Physical Exam: Constitutional: No acute distress HEENT: PERRLA Respiratory system: Decreased antibiotic, no wheeze, no cough, positive crackles bilaterally CVS: S1-S2 positive, no murmurs or gallops Abdomen: Soft, nontender, nondistended, positive bowel sounds x4 Extremities: +2 pulses bilaterally radialis/ dorsalis pedis, no cyanosis, no edema Neuro: Sedated, breathing over the vent Psych: Unable to assess G/U: Positive Rios Skin: no rashes, warm and dry Lymphatic: no cervical or axillary lymphadenopathy Results & Data Results & Data ([facility]) Vital Signs (Past 12 Hours) Vital Signs Temp Pulse Resp BP Pulse Ox 07/08/21 12:00 37.6 C H 56 L 24 103/67 88 L 07/08/21 11:35 26 H 07/08/21 11:00 37.3 C 83 25 H 83 L 07/08/21 10:00 37.3 C 51 L 22 89 L 07/08/21 09:00 37.3 C 58 L 28 H 91/53 L 85 L 07/08/21 08:00 37.2 C 51 L 28 H 101/58 L 90 07/08/21 07:44 28 H 07/08/21 07:00 37.1 C 51 L 28 H 93/56 L 91 07/08/21 06:30 37.0 C 49 L 28 H 95/55 L 91 07/08/21 06:15 37.0 C 49 L 28 H 100/57 L 91 07/08/21 06:00 36.9 C 49 L 28 H 100/62 90 07/08/21 05:45 36.9 C 48 L 28 H 98/55 L 91 07/08/21 05:30 36.8 C 48 L 28 H 104/59 L 90 07/08/21 05:15 36.7 C 48 L 28 H 103/55 L 90 07/08/21 05:00 36.7 C 48 L 28 H 95/55 L 90 07/08/21 04:45 36.6 C 47 L 28 H 117/61 93 07/08/21 04:30 36.6 C 50 L 28 H 102/56 L 92 07/08/21 04:15 36.6 C 58 L 28 H 92 07/08/21 04:12 54 L 07/08/21 04:00 36.6 C 54 L 28 H 127/70 89 L 07/08/21 03:45 36.6 C 55 L 28 H 98/60 L 91 07/08/21 03:30 36.6 C 54 L 28 H 102/62 91 07/08/21 03:15 36.7 C 51 L 28 H 116/67 91 07/08/21 03:00 36.6 C 56 L 28 H 97/60 L 90 07/08/21 02:45 36.6 C 55 L 28 H 101/59 L 90 07/08/21 02:30 36.6 C 51 L 28 H 116/66 90 07/08/21 02:15 36.6 C 54 L 28 H 106/61 91 07/08/21 02:00 36.6 C 54 L 28 H 100/60 91 07/08/21 01:45 36.7 C 53 L 28 H 108/64 91 07/08/21 01:30 36.7 C 55 L 28 H 100/62 91 07/08/21 06:01 07/08/21 06:01 Coding Level of Care Code Critical Care 1st 30-74 mins Diagnoses ARDS (adult respiratory distress syndrome) J80 Pneumonia due to COVID-19 virus U07.1; J12.82 Elevated troponin I level R77.8 Elevated lactic acid level R79.89 Time Spent (min) 40
[2021-07-08] MEDS: MIDAZOLAM HCL 125 MG/250 ML BAG IV SCH (15:04)
--- NOTE | 2021-07-08 16:37 | Hospitalist Progress Note ---
Date of Service July 08, 2021 Assessment & Plan (1) Acute hypoxemic respiratory failure due to COVID-19: Plan: SEVERE. Upon admission she required BIPAP due to severe hypoxia & increased work of breathing. Remained on BIPAP 14/7 continuously for several days following admission, then transitioned to HFNC. Remained on max settings including 100% FiO2 thereafter. She had intermittently used BIPAP at HS as well. Dx with DVTs earlier this week; has presumed PEs; was too ill this week to safely obtain CTA chest. Heparin drip employed this week. Despite supportive care she developed significant respiratory fatigue from 8+ days of BIPAP + HFNC. Intubated AM of 07/04/21. proned on 07/05, not much improvement in oxygenation today she is on PEEP 10, FiO2 70% on Versed, Fentanyl off of neuromuscular blockade ICU managing her S/p initiation of broad-spectrum IV abx (cefepime) to cover for bacterial superinfection. Blood/sputum cx's sent. CRP noted to be rising; procal negative. Cont dexamethasone, increase to 20mg daily on 07/07, plan for 5 days of 20mg and 5 days of 10mg Had received baricitinib 4mg daily for 8 days -- discontinued upon intubation. s/p Zithromax 5-day course Had been diuresed for about 5 days prior to intubation. Was never a Remdesivir candidate. Appreciate critical care assistance. (2) Pneumonia due to COVID-19 virus: Plan: see above in #1 severe COVID pneumonia with resulting ARDS increase dexamethasone to 20mg based on late ARDS ventilator day 5 today (3) ARDS (adult respiratory distress syndrome): Plan: 2nd to COVID-19 pneumonia ongoing see above (4) Elevated troponin I level: Plan: Likely myocardial demand ischemia in setting of severe acute hypoxic resp failure / COVID-19 pneumonia If she has PEs this, too, can lead to rise in troponin EF 55-60% with no wall motion abnormalities hold Atenolol due to bradycardia (5) Acid reflux disease: Plan: cont IV H2 jonny (6) Hypertension: Plan: now with hypotension 2nd to sedation and critical illness. levophed PRN, not needing this today (7) Abnormal LFTs: Plan: transaminitis likely 2nd to COVID illness ast/alt remain elevated albeit mild trend (8) DVT prophylaxis: Plan: heparin drip changed to therapeutic lovenox BID (9) Deep vein thrombosis of bilateral lower extremities: Plan: b/l dopplers + for DVTs PEs presumed Heparin drip initially -- now on therapeutic lovenox (10) Candidiasis of mouth and esophagus: Plan: had been on nystatin prior to intubation could consider diflucan defer to ICU team Plan: appreciate ICU/pulmonary assistance prognosis poor/guarded Admission and Anticipated Discharge Date Admission Date: June 26, 2021 Subjective changed Propofol to Versed had to increase FiO2 to 70%, remains on PEEP of 10 reviewed labs d/w ICU staff Review of Systems Review of Systems: Unobtainable due to cognitive status and Unobtainable due to endotracheal tube Physical Exam Physical Exam: General: well developed, obese female, intubated and mechanically ventilated Neck: supple, trachea midline, normal thyroid Lungs: diminished sounds bilaterally, mechanically ventilated Heart: bradycardic, S1 and S2, no murmur, peripheral pulses normal, capillary refill normal, no edema Abdomen: soft, NT, ND, + BS, no hepatomegaly, normal to percussion Extremities: normal in appearance, no cyanosis, no petechiae Neuro: sedated, no focal motor deficits, CN II-XII intact Skin: warm, dry, no rash, normal turgor Psych: sedated Results & Data Results & Data ([facility]) Vital Signs (Past 12 Hours) Vital Signs Temp Pulse Resp BP Pulse Ox 07/08/21 16:00 37.7 C H 61 24 98/59 L 93 07/08/21 15:39 56 L 07/08/21 15:00 37.7 C H 56 L 24 100/59 L 91 07/08/21 14:00 37.7 C H 57 L 24 92/56 L 91 07/08/21 13:00 37.6 C H 56 L 24 91/56 L 94 07/08/21 12:00 37.6 C H 56 L 24 103/67 88 L 07/08/21 11:35 26 H 07/08/21 11:00 37.3 C 83 25 H 83 L 07/08/21 10:00 37.3 C 51 L 22 89 L 07/08/21 09:00 37.3 C 58 L 28 H 91/53 L 85 L 07/08/21 08:00 37.2 C 51 L 28 H 101/58 L 90 07/08/21 07:44 28 H 07/08/21 07:00 37.1 C 51 L 28 H 93/56 L 91 07/08/21 06:30 37.0 C 49 L 28 H 95/55 L 91 07/08/21 06:15 37.0 C 49 L 28 H 100/57 L 91 07/08/21 06:00 36.9 C 49 L 28 H 100/62 90 07/08/21 05:45 36.9 C 48 L 28 H 98/55 L 91 07/08/21 05:30 36.8 C 48 L 28 H 104/59 L 90 07/08/21 05:15 36.7 C 48 L 28 H 103/55 L 90 07/08/21 05:00 36.7 C 48 L 28 H 95/55 L 90 07/08/21 04:45 36.6 C 47 L 28 H 117/61 93 Laboratory Results Laboratory Results - last 24 hr 07/07/21 07/07/21 07/08/21 19:53 23:56 04:10 WBC RBC Hgb Hct MCV MCH MCHC RDW Std Deviation RDW Coeff of Dayanna Plt Count MPV Immature Gran % (Auto) Neut % (Auto) Lymph % (Auto) Woodward % (Auto) Eos % (Auto) Baso % (Auto) Neut # (Auto) Lymph # (Auto) Woodward # (Auto) Eos # (Auto) Baso # (Auto) Immature Gran # (Auto) Sample Site POC pH POC pCO2 POC pO2 POC HCO3 POC Total CO2 POC Base Excess POC ABG O2 Sat Hema Test O2 Delivery Device POC O2 Rate POC FiO2 Tidal Volume PEEP Sodium Potassium Chloride Carbon Dioxide Anion Gap BUN Creatinine Est Cr Clr Drug Dosing Est GFR ( Amer) Est GFR (Non-Af Amer) BUN/Creatinine Ratio Glucose POC Glucose 134 H 110 H 109 H Calcium Phosphorus Magnesium Total Bilirubin AST ALT Alkaline Phosphatase Total Protein Albumin Globulin Albumin/Globulin Ratio Triglycerides 07/08/21 07/08/21 07/08/21 04:42 06:01 06:01 WBC 7.91 RBC 4.43 Hgb 12.5 Hct 38.8 MCV 87.6 MCH 28.2 MCHC 32.2 RDW Std Deviation 48.1 H RDW Coeff of Dayanna 15.0 H Plt Count 304 MPV 11.3 H Immature Gran % (Auto) 1.5 Neut % (Auto) 82.0 Lymph % (Auto) 7.8 Woodward % (Auto) 8.2 Eos % (Auto) 0.4 Baso % (Auto) 0.1 Neut # (Auto) 6.48 Lymph # (Auto) 0.62 L Woodward # (Auto) 0.65 H Eos # (Auto) 0.03 Baso # (Auto) 0.01 Immature Gran # (Auto) 0.12 H Sample Site Art Line POC pH 7.38 POC pCO2 41 POC pO2 56 L POC HCO3 24 POC Total CO2 25 POC Base Excess -1.0 POC ABG O2 Sat 88.0 L Hema Test NA O2 Delivery Device Ventilator POC O2 Rate 28 POC FiO2 50 Tidal Volume 350 PEEP 10 Sodium 141 Potassium 3.8 Chloride 110 H Carbon Dioxide 25 Anion Gap 6.0 BUN 21 H Creatinine 0.53 L Est Cr Clr Drug Dosing 105.1 Est GFR ( Amer) 110.7 Est GFR (Non-Af Amer) 95.5 BUN/Creatinine Ratio 38.4 H Glucose 122 H POC Glucose Calcium 8.8 Phosphorus 2.9 Magnesium 2.1 Total Bilirubin 0.4 AST 38 H ALT 70 Alkaline Phosphatase 69 Total Protein 6.2 L Albumin 2.0 L Globulin 4.2 H Albumin/Globulin Ratio 0.5 L Triglycerides 07/08/21 07/08/21 07/08/21 06:01 11:27 15:21 WBC RBC Hgb Hct MCV MCH MCHC RDW Std Deviation RDW Coeff of Dayanna Plt Count MPV Immature Gran % (Auto) Neut % (Auto) Lymph % (Auto) Woodward % (Auto) Eos % (Auto) Baso % (Auto) Neut # (Auto) Lymph # (Auto) Woodward # (Auto) Eos # (Auto) Baso # (Auto) Immature Gran # (Auto) Sample Site POC pH POC pCO2 POC pO2 POC HCO3 POC Total CO2 POC Base Excess POC ABG O2 Sat Hema Test O2 Delivery Device POC O2 Rate POC FiO2 Tidal Volume PEEP Sodium Potassium Chloride Carbon Dioxide Anion Gap BUN Creatinine Est Cr Clr Drug Dosing Est GFR ( Amer) Est GFR (Non-Af Amer) BUN/Creatinine Ratio Glucose POC Glucose 118 H 193 H Calcium Phosphorus Magnesium Total Bilirubin AST ALT Alkaline Phosphatase Total Protein Albumin Globulin Albumin/Globulin Ratio Triglycerides 257 H Medications Administered Current Inpatient Medications Enoxaparin Sodium (Enoxaparin 100 Mg/1ml Syr) 90 mg SQ Q12 [facility] Stop: 08/04/21 10:59 Last Admin: 07/08/21 08:29 Dose: 90 mg Documented by: Fentanyl Citrate (Fentanyl Bolus From Bag) 50 mcg IV Q60M PRN PRN Reason: Pain or Agitation Stop: 07/18/21 13:31 Last Admin: 07/08/21 04:02 Dose: 50 mcg Documented by: Norepinephrine Bitartrate (Levophed/D5w) 8 mg in 508 mls @ 0 mls/hr IV .Q0M [facility]; Protocol Stop: 08/03/21 13:59 Last Titration: 07/07/21 18:44 Dose: Infused Documented by: Cefepime HCl 2,000 mg/ Syringe 20 mls @ 5 mls/min IV Q8H [facility] Stop: 07/12/21 11:59 Last Admin: 07/08/21 11:42 Dose: 5 mls/min Documented by: Dexamethasone 10 mg/ Syringe 2.5 mls @ 1 mls/min IV Q24H [facility] Stop: 07/16/21 09:44 Dexamethasone 20 mg/ Dextrose 30 mls @ 0.833 mls/min IV DAILY [facility] Stop: 07/10/21 09:35 Last Infusion: 07/08/21 09:12 Dose: Infused Documented by: Propofol (Diprivan) 1,000 mg in 100 mls @ 11.088 mls/hr IV .Q9H2M [facility]; Protocol Stop: 07/10/21 14:59 Last Admin: 07/08/21 15:33 Dose: Not Given Documented by: Fentanyl Citrate (Fentanyl Citrate) 2,500 mcg in 250 mls @ 20 mls/hr IV .[id number] [facility]; Protocol Stop: 07/22/21 04:59 Last Titration: 07/08/21 15:14 Dose: 200 mcg/hr, 20 mls/hr Documented by: Pantoprazole Sodium 40 mg/ (Syringe) 10 mls @ 5 mls/min IV BID [facility] Stop: 08/07/21 08:59 Last Admin: 07/08/21 09:10 Dose: 5 mls/min Documented by: Midazolam HCl (Versed) 125 mg in 250 mls @ 10 mls/hr IV .Q25H [facility]; Protocol Stop: 08/07/21 13:29 Last Titration: 07/08/21 16:20 Dose: 5 mg/hr, 10 mls/hr Documented by: Midazolam HCl (Midazolam Hcl 1 Mg/Ml 2ml Vial) 2 mg IV Q2H PRN PRN Reason: RASS goal -1 Stop: 08/07/21 13:26 Midazolam HCl (Midazolam Bolus From Bag) 2 mg IV Q60M PRN PRN Reason: Sedation Stop: 08/07/21 13:26 Multi-Ingredient Cream (Artificial Tears Op Oint 3.5 Gm Tube) 1 appln OP Q4H [facility] Stop: 08/04/21 03:59 Last Admin: 07/08/21 15:13 Dose: 1 appln Documented by: Nutritional Formula (Peptamen Intense Vhp 1.0 Jhonny 1,000 Ml Bag) 1,000 ml OG CONT [facility]; Protocol Stop: 08/06/21 14:44 Last Admin: 07/08/21 11:45 Dose: Not Given Documented by: Nystatin (Nystatin Susp 500,000 U/5 Ml Udc) 5 ml PO QID [facility] Stop: 07/13/21 13:29 Last Admin: 07/08/21 15:13 Dose: 5 ml Documented by: Ondansetron HCl (Ondansetron Inj 2 Mg/Ml 2 Ml Vial) 4 mg IV Q6H PRN PRN Reason: Nausea Stop: 07/26/21 20:32 Oxycodone HCl (Oxycodone Hcl Ir 5 Mg Tab (Immediate Release)) 5 mg PO Q6H PRN PRN Reason: Pain or Agitation Stop: 07/18/21 13:31 Propofol (Propofol Bolus From Bag) 20 mg IV Q5M PRN PRN Reason: Sedation Stop: 07/10/21 14:56 Last Admin: 07/08/21 11:44 Dose: 20 mg Documented by: Sterile Water (Tube Feeding Water Flush) 30 ml GT Q4H [place] Stop: 08/06/21 14:44 Last Admin: 07/08/21 15:13 Dose: 30 ml Documented by: PG Care Time/CCT Total # of Minutes Spent Total Time Spent with Patient: Total time spent is greater than 50% in coordination of care (as documented) at patient's floor/unit and/or counseling patient: Coding Level of Care Code 52029 Subseq Hosp Care Lvl 2 Diagnoses Acute hypoxemic respiratory failure due to COVID-19 U07.1; J96.01 Pneumonia due to COVID-19 virus U07.1; J12.82 ARDS (adult respiratory distress syndrome) J80 Elevated troponin I level R77.8 Acid reflux disease K21.9 Hypertension I10 Abnormal LFTs R79.89 DVT prophylaxis Z29.9 Deep vein thrombosis of bilateral lower extremities I82.403 Candidiasis of mouth and esophagus B37.81; B37.0
[2021-07-08] MEDS ORDERED: DEXTROSE 50% 50 ML SYRINGE IV PRN (21:39)
[2021-07-08] MEDS ORDERED: GLUCOSE 10 TABS/TUBE PO PRN (21:39)
[2021-07-08] MEDS ORDERED: GLUCOSE 40% GEL 15 GM TUBE PO PRN (21:39)
[2021-07-08] MEDS ORDERED: CARBOHYDRATES FOR HYPOGLYCEMIA PO PRN (21:39)
[2021-07-08] MEDS ORDERED: GLUCAGON FOR INJ 1 MG VIAL SQ PRN (21:39)
[2021-07-09] MEDS: propofoL 1,000 MG/100 ML VIAL IV SCH (01:19)
[2021-07-09] MEDS: TUBE FEEDING WATER FLUSH GT SCH ×6 (03:07→22:42)
[2021-07-09] MEDS: CEFEPIME 2,000 MG in SYRINGE 0 ML IV SCH ×3 (04:18→20:05)
[2021-07-09] MEDS: ARTIFICIAL TEARS OP OINT 3.5 GM TUBE OP SCH ×5 (04:19→20:05)
[2021-07-09] MEDS: MIDAZOLAM BOLUS FROM BAG IV PRN (04:21)
[2021-07-09 05:02] LABS: iSTAT Arterial Blood Gas HCO3 29 meg/L (19-24); iSTAT Arterial Blood Gas pCO2 51 mmHg (35-46); iSTAT Arterial Blood Gas pH 7.36 (7.35-7.45); iSTAT Arterial Blood Gas pO2 63 mmHg (80-95); iSTAT Carbon Dioxide 31 mmol/L (24-31); iSTAT FiO2 60 %; iSTAT Site Art Line
[2021-07-09] MEDS: fentaNYL citrate 2,500 MCG/250 ML BAG IV SCH ×2 (05:55→16:14)
[2021-07-09 07:14] LABS: Basophils # (auto) 0.01 K/uL (0-0.2); Basophils % (auto) 0.1 %; Eosinophils # (auto) 0.01 K/uL (0-0.5); Eosinophils % (auto) 0.1 %; Hematocrit (blood only) 38.6 % (37-47); Hemoglobin 12.3 g/dL (12.0-16.0); Immature Granulocytes # (auto) 0.18 K/uL (0.00-0.02); Lymphocytes # (auto) 0.64 K/uL (1.2-3.4); Lymphocytes % (auto) 7.2 %; Mean Corpuscular Hemoglobin 28.4 pg (25-34); Mean Corpuscular Hgb Conc 31.9 g/dL (32-36); Mean Corpuscular Volume 89.1 fL (80-100); Mean Platelet Volume 11.2 fL (7.4-10.4); Monocytes # (auto) 1.08 K/uL (0.11-0.59); Monocytes % (auto) 12.2 %; Neutrophils # (auto) 6.95 K/uL (1.4-6.5); Neutrophils % (auto) 78.4 %; Platelet Count 316 K/uL (130-400); Red Blood Count 4.33 M/uL (4.2-5.4); White Blood Count 8.87 K/uL (4.8-10.8)
[2021-07-09] MEDS ORDERED: INSULIN ASPART PER UNIT SC SCH (07:30)
[2021-07-09 08:00] LABS: BUN Creatinine Ratio 48.3 (10-20); Calcium 8.7 mg/dl (8.5-10.1); Creatinine Clr Calc Pharmacy 111.4 ml/min; Est GFR (African American) 112.9 ml/min; Est GFR (Non-African American) 97.4 ml/min; Potassium 3.8 mmol/L (3.5-5.1)
[2021-07-09 08:03] LABS: Albumin Globulin Ratio 0.5 (0.9-2); Bilirubin,Total 0.5 mg/dl (0.2-1); Globulin 4.2 gm/dl (2.5-4.0); Phosphorus 2.6 mg/dl (2.5-4.9); Total Protein 6.2 gm/dl (6.4-8.2)
[2021-07-09] MEDS: INSULIN ASPART PER UNIT SC SCH ×4 (08:05→20:02)
--- NOTE | 2021-07-09 08:19 | XRay Report ---
XR chest 1V portable CLINICAL HISTORY: resp failure. Follow-up bilateral airspace opacities COMPARISON STUDY: 07/08/2021 TECHNIQUE: 1 view of the chest FINDINGS: Single frontal view of the chest demonstrates the cardiomediastinal silhouette to be within normal li mits. Tubes and catheters are unchanged. Compared to the previous examination, diffuse interstitial a nd alveolar opacities are again seen bilaterally and essentially unchanged. There is no evidence for pleural effusion. There is no evidence for vascular congestion. There is no acute osseous pathology. IMPRESSION: No significant interval change in bilateral interstitial and alveolar opacities. ACT 112: Negative or not required by law. Electronically signed by: Marlon Rae M.D. 07/09/2021 8:17 AM
[2021-07-09] MEDS: dexAMETHasone 20 MG in DEXTROSE 5% 25 ML IV SCH (08:22)
[2021-07-09] MEDS: NYSTATIN SUSP 500,000 U/5 ML UDC PO SCH (08:23)
[2021-07-09] MEDS: ENOXAPARIN 100 MG/1ML SYR SQ SCH ×2 (08:23→20:05)
[2021-07-09] MEDS: PANTOprazole 40 MG in SYRINGE 0 ML IV SCH ×2 (08:24→20:05)
[2021-07-09] MEDS ORDERED: FUROSEMIDE 40 MG/4 ML VIAL IV ONE (08:39)
[2021-07-09 09:30] LABS: Magnesium 2.6 mg/dl (1.8-2.4)
[2021-07-09] MEDS: DOCUSATE SODIUM/SENNA 50/8.6MG TAB PO SCH (11:04)
--- NOTE | 2021-07-09 12:17 | XRay Report ---
XR chest 1V portable at 11:43 AM CLINICAL HISTORY: Decreased oxygen saturation levels.. COMPARISON STUDY: 07/09/2021 at 7:52 AM TECHNIQUE: 1 view of the chest FINDINGS: Single frontal view of the chest demonstrates the cardiomediastinal silhouette to be within normal li mits. Tubes and catheters are again unchanged. Compared to the previous study, there is again no sign ificant interval change in diffuse interstitial and alveolar opacities bilaterally. There is no evide nce for pleural effusion. There is no evidence for vascular congestion. There is no acute osseous pat hology. IMPRESSION: No significant interval change from the earlier chest radiograph with diffuse interstitia l and alveolar opacities again seen bilaterally. ACT 112: Negative or not required by law. Electronically signed by: Marlon Rae M.D. 07/09/2021 12:15 PM
--- NOTE | 2021-07-09 12:36 | Critical Care Progress Note ---
Date of Service July 09, 2021 Assessment & Plan (1) ARDS (adult respiratory distress syndrome): (2) Pneumonia due to COVID-19 virus: (3) Elevated troponin I level: (4) Elevated lactic acid level: Plan: Impression: 71-year-old nonvaccinated female admitted with Covid pneumonitis and hypoxemic respiratory failure/ARDS requiring noninvasive positive pressure ventilation. She was admitted 06/26/2021 and failed high flow, CPAP, BiPAP, and prone positioning. She is intubated 07/04/2021. Recommendations: -Neuro: On midazolam and fentanyl. Propofol discontinued because of elevated triglycerides on 07/08/2021 -Cardiovascular: --Episodes of bradycardia Likely from sedation Continue to monitor -Pulmonary: -- VDRF with acute hypoxic respiratory failure Likely secondary to multilobar COVID-19 pneumonia Continue with lung protective ventilation High PEEP, low tidal volume to keep Plateau < 30 with permissive hypercapnea if need be. Monitor ABGs Continue with ventilatory support Keep RASS -1 COVID-19 PCR positive Procalcitonin 0.17 CRP 18--> 12.9 Continue with DEXA ARDS protocol which is started on 07/06/2021 - ID: -- Covid pneumonitis Continue dexamethasone 6 mg daily. Baricitinib discontinued as she is now intubated. Her WBC count is markedly down today from 19 to 11.9 with improvement in her NLR as well. Sputum and blood from 07/05/2021 negative to date Continue with empiric antibiotic for total of 5 days --GI: Continue tube feeds -Renal: Electrolyte replacement protocol. No acute issues - Heme-onc: --Acute DVT bilateral lower extremity On therapeutic Lovenox monitor H&H - Endocrine: Continue with ICU hypoglycemia protocol --Prophylaxis VTE: Therapeutic Lovenox GI: Protonix Lines: A-line, right IJ, positive Rios Diet: Tube feeds Plan: In/out: -398, urine output 2500 ABG 7.36/51/63 on PEEP of 10, 60% Chest x-ray from today did not show any significant change compared to yeste rday. Patient had an episode of hypoxia after I saw the patient. I discussed the case with RT PEEP was increased to 12. Repeat chest x-ray was ordered which did not show any significant change compar ed to the morning x-ray. Possibility of PE is there but patient is already on therapeutic Lovenox 40 mg of Lasix given today I have personally spent 38 minutes of critical care time in the direct management of this patient. This is a life/limb threatening event. This includes time spent evaluating patient, direct bedside care, chart review, placing orders, interpretation of diagnostic studies, discussion with consultants, patient, and family members, as well as other required patient management activities. This time is exclusive of all separately billable procedures, and teaching time and separate from and in addition to any other critical care service time. Please note the above document was generated using voice recognition software. It may contain grammatical, syntax or spelling errors. Admission and Anticipated Discharge Date Admission Date: June 26, 2021 Subjective Patient seen and examined at bedside. No acute distress, no adverse events overnight Patient has been off vasopressors as of yesterday afternoon. At the time of examination patient was on 4 of Versed and 225 fentanyl She has been afebrile. She is saturating 88-89% on 60% FiO2 She was double triggering significantly I changed her settings to PRVC Review of Systems Review of Systems: Unobtainable due to endotracheal tube Physical Exam Physical Exam: Constitutional: No acute distress HEENT: PERRLA Respiratory system: Decreased antibiotic, no wheeze, no cough, positive crackles bilaterally CVS: S1-S2 positive, no murmurs or gallops Abdomen: Soft, nontender, nondistended, positive bowel sounds x4 Extremities: +2 pulses bilaterally radialis/ dorsalis pedis, no cyanosis, +1 bilateral lower extremity Neuro: Sedated, breathing over the vent Psych: Unable to assess G/U: Positive Rios Skin: no rashes, warm and dry Lymphatic: no cervical or axillary lymphadenopathy Results & Data Results & Data ([facility]) Vital Signs (Past 12 Hours) Vital Signs Temp Pulse Resp BP Pulse Ox 07/09/21 11:46 71 23 88 L 07/09/21 10:00 37.5 C 63 20 125/69 88 L 07/09/21 09:00 37.2 C 57 L 20 91 07/09/21 08:00 37.1 C 56 L 24 92 07/09/21 07:54 52 L 24 90 07/09/21 07:15 37.1 C 51 L 24 91 07/09/21 07:00 37.1 C 51 L 24 90 07/09/21 06:00 36.9 C 50 L 24 92 07/09/21 05:00 36.9 C 51 L 24 97/58 L 92 07/09/21 04:34 54 L 24 92 07/09/21 04:00 37.0 C 51 L 24 109/60 92 07/09/21 03:00 37.1 C 48 L 24 117/66 93 07/09/21 02:00 37.2 C 55 L 24 93 07/09/21 01:13 24 07/09/21 01:00 37.2 C 52 L 24 118/66 91 07/09/21 06:27 07/09/21 06:27 Coding Level of Care Code Critical Care 1st 30-74 mins Diagnoses ARDS (adult respiratory distress syndrome) J80 Pneumonia due to COVID-19 virus U07.1; J12.82 Elevated troponin I level R77.8 Elevated lactic acid level R79.89 Time Spent (min) 38
[2021-07-09] MEDS: MIDAZOLAM HCL 125 MG/250 ML BAG IV SCH ×2 (12:41→19:57)
--- NOTE | 2021-07-09 16:05 | Hospitalist Progress Note ---
Date of Service July 09, 2021 Assessment & Plan (1) Acute hypoxemic respiratory failure due to COVID-19: Plan: SEVERE. Upon admission she required BIPAP due to severe hypoxia & increased work of breathing. Remained on BIPAP 14/7 continuously for several days following admission, then transitioned to HFNC. Remained on max settings including 100% FiO2 thereafter. She had intermittently used BIPAP at HS as well. Dx with DVTs earlier this week; has presumed PEs; was too ill this week to safely obtain CTA chest. Heparin drip employed this week. Despite supportive care she developed significant respiratory fatigue from 8+ days of BIPAP + HFNC. Intubated AM of 07/04/21. proned on 07/05, not much improvement in oxygenation today she is requiring higher PEEP and FiO2, unclear why she is more hypoxic, d/w Dr. Harris on Versed, Fentanyl off of neuromuscular blockade ICU managing her S/p initiation of broad-spectrum IV abx (cefepime) to cover for bacterial superinfection. Blood/sputum cx's sent. CRP noted to be rising; procal negative. Cont dexamethasone, increase to 20mg daily on 07/07, plan for 5 days of 20mg and 5 days of 10mg Had received baricitinib 4mg daily for 8 days -- discontinued upon intubation. s/p Zithromax 5-day course Had been diuresed for about 5 days prior to intubation. Was never a Remdesivir candidate. Appreciate critical care assistance. (2) Pneumonia due to COVID-19 virus: Plan: see above in #1 severe COVID pneumonia with resulting ARDS increase dexamethasone to 20mg based on late ARDS ventilator day 6 today (3) ARDS (adult respiratory distress syndrome): Plan: 2nd to COVID-19 pneumonia ongoing see above (4) Elevated troponin I level: Plan: Likely myocardial demand ischemia in setting of severe acute hypoxic resp failure / COVID-19 pneumonia If she has PEs this, too, can lead to rise in troponin EF 55-60% with no wall motion abnormalities hold Atenolol due to bradycardia (5) Acid reflux disease: Plan: cont IV H2 jonny (6) Hypertension: Plan: now with hypotension 2nd to sedation and critical illness. off of pressors for time being (7) Abnormal LFTs: Plan: transaminitis likely 2nd to COVID illness ast/alt remain elevated albeit mild trend (8) DVT prophylaxis: Plan: heparin drip changed to therapeutic lovenox BID (9) Deep vein thrombosis of bilateral lower extremities: Plan: b/l dopplers + for DVTs PEs presumed Heparin drip initially -- now on therapeutic lovenox (10) Candidiasis of mouth and esophagus: Plan: had been on nystatin prior to intubation could consider diflucan defer to ICU team Plan: appreciate ICU/pulmonary assistance updated her daughter over the phone prognosis poor/guarded Admission and Anticipated Discharge Date Admission Date: June 26, 2021 Subjective going up on PEEP to 12 and FiO2 CXR unchanged, unsure why she would require more oxygen on dexamethasone and full dose Lovenox for presumed PE given her DVT reviewed labs d/w Dr. Harris Review of Systems Review of Systems: Unobtainable due to cognitive status and Unobtainable due to endotracheal tube Physical Exam Physical Exam: General: well developed, obese female, intubated and mechanically ventilated Neck: supple, trachea midline, normal thyroid Lungs: diminished sounds bilaterally, mechanically ventilated Heart: bradycardic, S1 and S2, no murmur, peripheral pulses normal, capillary refill normal, no edema Abdomen: soft, NT, ND, + BS, no hepatomegaly, normal to percussion Extremities: normal in appearance, no cyanosis, no petechiae Neuro: sedated, no focal motor deficits, CN II-XII intact Skin: warm, dry, no rash, normal turgor Psych: sedated Results & Data Results & Data ([facility]) Vital Signs (Past 12 Hours) Vital Signs Temp Pulse Pulse Resp BP BP Pulse Ox 07/09/21 15:00 37.6 C H 64 19 85 L 07/09/21 14:00 37.5 C 63 17 87 L 07/09/21 13:00 37.5 C 66 70 19 111/62 91 07/09/21 12:30 37.6 C H 66 19 93 07/09/21 12:00 37.5 C 62 20 86 L 07/09/21 11:46 71 23 88 L 07/09/21 11:30 37.5 C 61 20 83 L 07/09/21 11:00 37.5 C 81 16 85 L 07/09/21 10:30 37.6 C H 94 H 27 H 88 L 07/09/21 10:00 37.5 C 63 20 125/69 88 L 07/09/21 09:00 37.2 C 57 L 20 91 07/09/21 08:00 37.1 C 56 L 24 92 07/09/21 07:54 52 L 24 90 07/09/21 07:15 37.1 C 51 L 24 91 07/09/21 07:00 37.1 C 51 L 24 90 07/09/21 06:00 36.9 C 50 L 24 92 07/09/21 05:00 36.9 C 51 L 24 97/58 L 92 07/09/21 04:34 54 L 24 92 Laboratory Results Laboratory Results - last 24 hr 07/08/21 07/08/21 07/09/21 20:09 23:27 04:14 WBC RBC Hgb Hct MCV MCH MCHC RDW Std Deviation RDW Coeff of Dayanna Plt Count MPV Immature Gran % (Auto) Neut % (Auto) Lymph % (Auto) Placer % (Auto) Eos % (Auto) Baso % (Auto) Neut # (Auto) Lymph # (Auto) Placer # (Auto) Eos # (Auto) Baso # (Auto) Immature Gran # (Auto) Sample Site POC pH POC pCO2 POC pO2 POC HCO3 POC Total CO2 POC Base Excess POC ABG O2 Sat Hema Test O2 Delivery Device POC O2 Rate POC FiO2 Tidal Volume PEEP Sodium Potassium Chloride Carbon Dioxide Anion Gap BUN Creatinine Est Cr Clr Drug Dosing Est GFR ( Amer) Est GFR (Non-Af Amer) BUN/Creatinine Ratio Glucose POC Glucose 199 H 146 H 133 H Calcium Phosphorus Magnesium Total Bilirubin AST ALT Alkaline Phosphatase Total Protein Albumin Globulin Albumin/Globulin Ratio 07/09/21 07/09/21 07/09/21 04:48 06:27 06:27 WBC 8.87 RBC 4.33 Hgb 12.3 Hct 38.6 MCV 89.1 MCH 28.4 MCHC 31.9 L RDW Std Deviation 49.0 H RDW Coeff of Dayanna 15.0 H Plt Count 316 MPV 11.2 H Immature Gran % (Auto) 2.0 Neut % (Auto) 78.4 Lymph % (Auto) 7.2 Placer % (Auto) 12.2 Eos % (Auto) 0.1 Baso % (Auto) 0.1 Neut # (Auto) 6.95 H Lymph # (Auto) 0.64 L Placer # (Auto) 1.08 H Eos # (Auto) 0.01 Baso # (Auto) 0.01 Immature Gran # (Auto) 0.18 H Sample Site Art Line POC pH 7.36 POC pCO2 51 H POC pO2 63 L POC HCO3 29 H POC Total CO2 31 POC Base Excess 4.0 H POC ABG O2 Sat 90.0 Hema Test NA O2 Delivery Device Ventilator POC O2 Rate 24 POC FiO2 60 Tidal Volume 360 PEEP 10 Sodium 142 Potassium 3.8 Chloride 109 H Carbon Dioxide 27 Anion Gap 6.0 BUN 24 H Creatinine 0.50 L Est Cr Clr Drug Dosing 111.4 Est GFR ( Amer) 112.9 Est GFR (Non-Af Amer) 97.4 BUN/Creatinine Ratio 48.3 H Glucose 135 H POC Glucose Calcium 8.7 Phosphorus 2.6 Magnesium 2.6 H Total Bilirubin 0.5 AST 50 H ALT 82 H Alkaline Phosphatase 66 Total Protein 6.2 L Albumin 2.0 L Globulin 4.2 H Albumin/Globulin Ratio 0.5 L 07/09/21 07/09/21 07:46 11:59 WBC RBC Hgb Hct MCV MCH MCHC RDW Std Deviation RDW Coeff of Dayanna Plt Count MPV Immature Gran % (Auto) Neut % (Auto) Lymph % (Auto) Placer % (Auto) Eos % (Auto) Baso % (Auto) Neut # (Auto) Lymph # (Auto) Placer # (Auto) Eos # (Auto) Baso # (Auto) Immature Gran # (Auto) Sample Site POC pH POC pCO2 POC pO2 POC HCO3 POC Total CO2 POC Base Excess POC ABG O2 Sat Hema Test O2 Delivery Device POC O2 Rate POC FiO2 Tidal Volume PEEP Sodium Potassium Chloride Carbon Dioxide Anion Gap BUN Creatinine Est Cr Clr Drug Dosing Est GFR ( Amer) Est GFR (Non-Af Amer) BUN/Creatinine Ratio Glucose POC Glucose 141 H 243 H Calcium Phosphorus Magnesium Total Bilirubin AST ALT Alkaline Phosphatase Total Protein Albumin Globulin Albumin/Globulin Ratio Medications Administered Current Inpatient Medications Dextrose (Dextrose 50% 50 Ml Syringe) 25 - 50 ml IV UD PRN; Protocol PRN Reason: Hypoglycemia Protocol Stop: 08/07/21 21:38 Enoxaparin Sodium (Enoxaparin 100 Mg/1ml Syr) 90 mg SQ Q12 [place] Stop: 08/04/21 10:59 Last Admin: 07/09/21 08:23 Dose: 90 mg Documented by: Fentanyl Citrate (Fentanyl Bolus From Bag) 50 mcg IV Q60M PRN PRN Reason: Pain or Agitation Stop: 07/18/21 13:31 Last Admin: 07/09/21 04:27 Dose: 50 mcg Documented by: Glucagon (Glucagon For Inj 1 Mg Vial) 1 mg SQ UD PRN; Protocol PRN Reason: Hypoglycemia Protocol Stop: 08/07/21 21:38 Glucose (Glucose 10 Tabs/Tube) 4 - 8 tabs PO UD PRN; Protocol PRN Reason: Hypoglycemia Protocol Stop: 08/07/21 21:38 Glucose (Glucose 40% Gel 15 Gm Tube) 15 - 30 gm PO UD PRN; Protocol PRN Reason: Hypoglycemia Protocol Stop: 08/07/21 21:38 Norepinephrine Bitartrate (Levophed/D5w) 8 mg in 508 mls @ 0 mls/hr IV .Q0M [place]; Protocol Stop: 08/03/21 13:59 Last Titration: 07/07/21 18:44 Dose: Infused Documented by: Cefepime HCl 2,000 mg/ Syringe 20 mls @ 5 mls/min IV Q8H [place] Stop: 07/12/21 11:59 Last Admin: 07/09/21 11:59 Dose: 5 mls/min Documented by: Dexamethasone 10 mg/ Syringe 2.5 mls @ 1 mls/min IV Q24H [facility] Stop: 07/16/21 09:44 Dexamethasone 20 mg/ Dextrose 30 mls @ 0.833 mls/min IV DAILY [facility] Stop: 07/10/21 09:35 Last Infusion: 07/09/21 08:55 Dose: Infused Documented by: Fentanyl Citrate (Fentanyl Citrate) 2,500 mcg in 250 mls @ 20 mls/hr IV .[id number] [facility]; Protocol Stop: 07/22/21 04:59 Last Titration: 07/09/21 11:17 Dose: 200 mcg/hr, 20 mls/hr Documented by: Pantoprazole Sodium 40 mg/ (Syringe) 10 mls @ 5 mls/min IV BID [facility] Stop: 08/07/21 08:59 Last Admin: 07/09/21 08:24 Dose: 5 mls/min Documented by: Midazolam HCl (Versed) 125 mg in 250 mls @ 10 mls/hr IV .Q25H [facility]; Protocol Stop: 08/07/21 13:29 Last Admin: 07/09/21 12:41 Dose: 5 mg/hr, 10 mls/hr Documented by: Insulin Aspart (Insulin Aspart Per Unit) 0 units SC Q4 [place] Stop: 08/08/21 07:59 Last Admin: 07/09/21 12:15 Dose: 3 units Documented by: Midazolam HCl (Midazolam Bolus From Bag) 2 mg IV Q60M PRN PRN Reason: Sedation Stop: 08/07/21 13:26 Last Admin: 07/09/21 04:21 Dose: 2 mg Documented by: Miscellaneous (Carbohydrates For Hypoglycemia ) 15 - 30 gm PO UD PRN PRN Reason: Hypoglycemia Protocol Stop: 08/07/21 21:38 Multi-Ingredient Cream (Artificial Tears Op Oint 3.5 Gm Tube) 1 appln OP Q4H [facility] Stop: 08/04/21 03:59 Last Admin: 07/09/21 11:46 Dose: 1 appln Documented by: Nutritional Formula (Peptamen Intense Vhp 1.0 Jhonny 1,000 Ml Bag) 1,000 ml OG CONT [facility]; Protocol Stop: 08/06/21 14:44 Last Admin: 07/08/21 18:07 Dose: 1,000 ml Documented by: Ondansetron HCl (Ondansetron Inj 2 Mg/Ml 2 Ml Vial) 4 mg IV Q6H PRN PRN Reason: Nausea Stop: 07/26/21 20:32 Propofol (Propofol Bolus From Bag) 20 mg IV Q5M PRN PRN Reason: Sedation Stop: 07/10/21 14:56 Last Admin: 07/08/21 11:44 Dose: 20 mg Documented by: Senna/Docusate Sodium (Docusate Sodium/Senna 50/8.6mg Tab) 1 tab PO QAM [facility] Stop: 08/08/21 10:14 Last Admin: 07/09/21 11:04 Dose: 1 tab Documented by: Sterile Water (Tube Feeding Water Flush) 30 ml GT Q4H [facility] Stop: 08/06/21 14:44 Last Admin: 07/09/21 15:12 Dose: 30 ml Documented by: PG Care Time/CCT Total # of Minutes Spent Total Time Spent with Patient: Total time spent is greater than 50% in coordination of care (as documented) at patient's floor/unit and/or counseling patient: Coding Level of Care Code 22728 Subseq Hosp Care Lvl 2 Diagnoses Acute hypoxemic respiratory failure due to COVID-19 U07.1; J96.01 Pneumonia due to COVID-19 virus U07.1; J12.82 ARDS (adult respiratory distress syndrome) J80 Elevated troponin I level R77.8 Acid reflux disease K21.9 Hypertension I10 Abnormal LFTs R79.89 DVT prophylaxis Z29.9 Deep vein thrombosis of bilateral lower extremities I82.403 Candidiasis of mouth and esophagus B37.81; B37.0
[2021-07-09] MEDS: PEPTAMEN INTENSE VHP 1.0 CAL 1,000 ML BAG OG SCH (16:43)
[2021-07-10] MEDS: ARTIFICIAL TEARS OP OINT 3.5 GM TUBE OP SCH ×3 (00:03→08:28)
[2021-07-10] MEDS: INSULIN ASPART PER UNIT SC SCH ×6 (00:05→20:10)
[2021-07-10] MEDS: ACETAMINOPHEN SUSP 500 MG/15.6 ML UDP PO PRN ×2 (01:10→11:58)
[2021-07-10] MEDS: TUBE FEEDING WATER FLUSH GT SCH ×6 (03:02→22:45)
[2021-07-10] MEDS: fentaNYL citrate 2,500 MCG/250 ML BAG IV SCH ×2 (03:55→14:57)
[2021-07-10] MEDS: CEFEPIME 2,000 MG in SYRINGE 0 ML IV SCH ×3 (04:23→20:05)
[2021-07-10 05:06] LABS: iSTAT Art Bld Gas pCO2 Correct 58 mmHg (35-46); iSTAT Art Bld Gas pH Corrected 7.348 (7.35-7.45); iSTAT Arterial Blood Gas HCO3 31 meg/L (19-24); iSTAT Arterial Blood Gas pCO2 55 mmHg (35-46); iSTAT Arterial Blood Gas pH 7.37 (7.35-7.45); iSTAT Arterial Blood Gas pO2 60 mmHg (80-95); iSTAT Arterial Blood Gas pO2 C 65; iSTAT Carbon Dioxide 33 mmol/L (24-31); iSTAT FiO2 55 %; iSTAT Hematocrit 40 % (37-47); iSTAT Hemoglobin 13.6 g/dl (12.0-16.0); iSTAT Potassium 3.6 mmol/L (3.3-5.0); iSTAT Site Art Line; iSTAT Sodium 142 mmol/L (135-144)
[2021-07-10 07:09] LABS: Basophils # (auto) 0.03 K/uL (0-0.2); Basophils % (auto) 0.3 %; Eosinophils # (auto) 0.18 K/uL (0-0.5); Eosinophils % (auto) 1.6 %; Hematocrit (blood only) 42.9 % (37-47); Hemoglobin 13.4 g/dL (12.0-16.0); Immature Granulocytes # (auto) 0.48 K/uL (0.00-0.02); Immature Granulocytes % (auto) 4.3 %; Lymphocytes # (auto) 1.17 K/uL (1.2-3.4); Lymphocytes % (auto) 10.5 %; Mean Corpuscular Hemoglobin 28.1 pg (25-34); Mean Corpuscular Hgb Conc 31.2 g/dL (32-36); Mean Corpuscular Volume 89.9 fL (80-100); Mean Platelet Volume 11.1 fL (7.4-10.4); Monocytes # (auto) 0.84 K/uL (0.11-0.59); Monocytes % (auto) 7.6 %; Neutrophils # (auto) 8.41 K/uL (1.4-6.5); Neutrophils % (auto) 75.7 %; Platelet Count 300 K/uL (130-400); RDW Coefficient of Variation 15.2 % (11.5-14.5); RDW Standard Deviation 48.5 fL (36.4-46.3); Red Blood Count 4.77 M/uL (4.2-5.4); White Blood Count 11.11 K/uL (4.8-10.8)
[2021-07-10 07:48] LABS: BUN Creatinine Ratio 50.8 (10-20); Calcium 9.1 mg/dl (8.5-10.1); Creatinine Clr Calc Pharmacy 88.4 ml/min; Est GFR (African American) 104.6 ml/min; Est GFR (Non-African American) 90.2 ml/min; Magnesium 2.6 mg/dl (1.8-2.4); Potassium 3.4 mmol/L (3.5-5.1)
[2021-07-10 07:49] LABS: Phosphorus 2.4 mg/dl (2.5-4.9)
[2021-07-10] MEDS: ENOXAPARIN 100 MG/1ML SYR SQ SCH ×2 (08:27→20:13)
[2021-07-10] MEDS: DOCUSATE SODIUM/SENNA 50/8.6MG TAB PO SCH ×2 (08:27→20:13)
[2021-07-10] MEDS: PANTOprazole 40 MG in SYRINGE 0 ML IV SCH ×2 (08:28→20:12)
[2021-07-10] MEDS: dexAMETHasone 20 MG in DEXTROSE 5% 25 ML IV SCH (08:29)
[2021-07-10] MEDS ORDERED: POTASSIUM PHOS 3 MMOL/1 ML INFUSION IV STA (08:37)
[2021-07-10] MEDS ORDERED: FUROSEMIDE INJ 20 MG/2 ML VIAL IV ONE (08:38)
[2021-07-10] MEDS ORDERED: POTASSIUM PHOSPHATE 21 MMOL in SODIUM CHLORIDE 0.9% 500 ML IV ONE (08:45)
[2021-07-10] MEDS: MIDAZOLAM HCL 125 MG/250 ML BAG IV SCH (09:26)
[2021-07-10] MEDS ORDERED: LACTULOSE SYRUP 20 GM/30 ML UDC PO ONE (11:00)
--- NOTE | 2021-07-10 12:28 | Critical Care Progress Note ---
Date of Service July 10, 2021 Assessment & Plan (1) ARDS (adult respiratory distress syndrome): (2) Pneumonia due to COVID-19 virus: (3) Elevated troponin I level: (4) Elevated lactic acid level: Plan: Impression: 71-year-old nonvaccinated female admitted with Covid pneumonitis and hypoxemic respiratory failure/ARDS requiring noninvasive positive pressure ventilation. She was admitted 06/26/2021 and failed high flow, CPAP, BiPAP, and prone positioning. She is intubated 07/04/2021. Recommendations: -Neuro: On midazolam and fentanyl. Propofol discontinued because of elevated triglycerides on 07/08/2021 -Cardiovascular: --Episodes of bradycardia Likely from sedation Continue to monitor -Pulmonary: -- VDRF with acute hypoxic respiratory failure Likely secondary to multilobar COVID-19 pneumonia Continue with lung protective ventilation High PEEP, low tidal volume to keep Plateau < 30 with permissive hypercapnea if need be. Monitor ABGs Continue with ventilatory support Keep RASS -1 COVID-19 PCR positive Procalcitonin 0.17 CRP 18--> 12.9 Continue with DEXA ARDS protocol which is started on 07/06/2021 - ID: -- Covid pneumonia Continue dexamethasone for total of 10 days Baricitinib discontinued as she is now intubated. Sputum and blood from 07/05/2021 negative to date Continue with empiric antibiotic for total of 5 days --GI: Continue tube feeds -Renal: Electrolyte replacement protocol. No acute issues - Heme-onc: --Acute DVT bilateral lower extremity On therapeutic Lovenox monitor H&H - Endocrine: Continue with ICU hypoglycemia protocol --Prophylaxis VTE: Therapeutic Lovenox GI: Protonix Lines: A-line, right IJ, positive Rios Diet: Tube feeds Plan: In/out: -681, urine output 2950 ABG 7.37/55/60 on 55%, PEEP of 10 I tried to change the vent to APRV settings but patient was too sedated to breathe over the vent. We will try again later today or tomorrow. Patient is still requiring significant FiO2. She is still spiking low-grade fever T-max of 38.3 20 mg of Lasix given today Hypokalemia and hypophosphatemia being replaced I have personally spent 36 minutes of critical care time in the direct management of this patient. This is a life/limb threatening event. This includes time spent evaluating patient, direct bedside care, chart review, placing orders, interpretation of diagnostic studies, discussion with consultants, patient, and family members, as well as other required patient management activities. This time is exclusive of all separately billable procedures, and teaching time and separate from and in addition to any other critical care service time. Please note the above document was generated using voice recognition software. It may contain grammatical, syntax or spelling errors. Admission and Anticipated Discharge Date Admission Date: June 26, 2021 Subjective Patient seen and examined at bedside. No acute distress. She was on 6 of midazolam and fentanyl 225 She was breathing with the vent. RASS -2 She was saturating 86-87% on 55%. I went up to 65% FiO2 Review of Systems Review of Systems: Unobtainable due to endotracheal tube Physical Exam Physical Exam: Constitutional: No acute distress HEENT: PERRLA Respiratory system: Decreased antibiotic, no wheeze, no cough, positive crackles bilaterally CVS: S1-S2 positive, no murmurs or gallops Abdomen: Soft, nontender, nondistended, positive bowel sounds x4 Extremities: +2 pulses bilaterally radialis/ dorsalis pedis, no cyanosis, +1 bilateral lower extremity Neuro: Sedated, breathing over the vent Psych: Unable to assess G/U: Positive Rios Skin: no rashes, warm and dry Lymphatic: no cervical or axillary lymphadenopathy Results & Data Results & Data ([facility]) Vital Signs (Past 12 Hours) Vital Signs Temp Pulse Resp BP Pulse Ox 07/10/21 12:00 37.7 C H 71 22 91 07/10/21 11:30 37.9 C H 73 22 91 07/10/21 11:00 38.1 C H 76 22 89 L 07/10/21 10:30 38.0 C H 84 22 88 L 07/10/21 10:12 79 20 90 07/10/21 10:00 37.9 C H 79 22 88 L 07/10/21 09:30 37.7 C H 70 20 85 L 07/10/21 09:00 37.7 C H 75 8 L 112/64 87 L 07/10/21 08:30 37.7 C H 80 22 88 L 07/10/21 08:27 80 22 92 07/10/21 08:15 75 07/10/21 08:00 37.6 C H 77 22 88 L 07/10/21 07:00 37.6 C H 74 22 97/64 L 87 L 07/10/21 05:00 37.7 C H 80 22 88 L 07/10/21 04:20 78 23 89 L 07/10/21 04:00 38.0 C H 75 19 88 L 07/10/21 03:00 38.3 C H 82 18 88 L 07/10/21 02:00 38.2 C H 83 18 90 07/10/21 01:00 38.1 C H 79 16 98/67 L 89 L 07/10/21 06:10 07/10/21 06:10 Coding Level of Care Code Critical Care 1st 30-74 mins Diagnoses ARDS (adult respiratory distress syndrome) J80 Pneumonia due to COVID-19 virus U07.1; J12.82 Elevated troponin I level R77.8 Elevated lactic acid level R79.89 Time Spent (min) 36
[2021-07-10] MEDS: PEPTAMEN INTENSE VHP 1.0 CAL 1,000 ML BAG OG SCH (15:29)
--- NOTE | 2021-07-10 15:43 | Hospitalist Progress Note ---
Date of Service July 10, 2021 Assessment & Plan (1) Acute hypoxemic respiratory failure due to COVID-19: Plan: SEVERE. Upon admission she required BIPAP due to severe hypoxia & increased work of breathing. Remained on BIPAP 14/7 continuously for several days following admission, then transitioned to HFNC. Remained on max settings including 100% FiO2 thereafter. She had intermittently used BIPAP at HS as well. Dx with DVTs earlier this week; has presumed PEs; was too ill this week to safely obtain CTA chest. Heparin drip employed this week. Despite supportive care she developed significant respiratory fatigue from 8+ days of BIPAP + HFNC. Intubated AM of 07/04/21. proned on 07/05, not much improvement in oxygenation today she is on PEEP 10 and FiO2 60%, a little less than yesterday now spiking fever on Versed, Fentanyl off of neuromuscular blockade ICU managing her S/p initiation of broad-spectrum IV abx (cefepime) to cover for bacterial superinfection. Blood/sputum cx's sent. CRP noted to be rising; procal negative. Cont dexamethasone, increase to 20mg daily on 07/07, plan for 5 days of 20mg and 5 days of 10mg Had received baricitinib 4mg daily for 8 days -- discontinued upon intubation. s/p Zithromax 5-day course Had been diuresed for about 5 days prior to intubation. Was never a Remdesivir candidate. Appreciate critical care assistance. (2) Pneumonia due to COVID-19 virus: Plan: see above in #1 severe COVID pneumonia with resulting ARDS increase dexamethasone to 20mg based on late ARDS ventilator day 7 today (3) ARDS (adult respiratory distress syndrome): Plan: 2nd to COVID-19 pneumonia ongoing see above (4) Elevated troponin I level: Plan: Likely myocardial demand ischemia in setting of severe acute hypoxic resp failure / COVID-19 pneumonia If she has PEs this, too, can lead to rise in troponin EF 55-60% with no wall motion abnormalities hold Atenolol due to bradycardia (5) Acid reflux disease: Plan: cont IV H2 jonny (6) Hypertension: Plan: now with hypotension 2nd to sedation and critical illness. off of pressors for time being (7) Abnormal LFTs: Plan: transaminitis likely 2nd to COVID illness ast/alt remain elevated albeit mild trend (8) DVT prophylaxis: Plan: heparin drip changed to therapeutic lovenox BID (9) Deep vein thrombosis of bilateral lower extremities: Plan: b/l dopplers + for DVTs PEs presumed Heparin drip initially -- now on therapeutic lovenox (10) Candidiasis of mouth and esophagus: Plan: had been on nystatin prior to intubation could consider diflucan defer to ICU team Plan: appreciate ICU/pulmonary assistance updated her daughter over the phone prognosis poor/guarded Admission and Anticipated Discharge Date Admission Date: June 26, 2021 Subjective patient on PEEP 10 and FiO2 60% spiking fever this morning discussion about removing precautions, needs to stay in isolation due to fever called and updated her daughter reviewed labs Review of Systems Review of Systems: Unobtainable due to cognitive status and Unobtainable due to endotracheal tube Physical Exam Physical Exam: General: well developed, obese female, intubated and mechanically ventilated Neck: supple, trachea midline, normal thyroid Lungs: diminished sounds bilaterally, mechanically ventilated Heart: bradycardic, S1 and S2, no murmur, peripheral pulses normal, capillary refill normal, no edema Abdomen: soft, NT, ND, + BS, no hepatomegaly, normal to percussion Extremities: normal in appearance, no cyanosis, no petechiae Neuro: sedated, no focal motor deficits, CN II-XII intact Skin: warm, dry, no rash, normal turgor Psych: sedated Results & Data Results & Data ([facility]) Vital Signs (Past 12 Hours) Vital Signs Temp Pulse Pulse Resp BP Pulse Ox 07/10/21 14:29 65 20 92 07/10/21 14:21 61 07/10/21 14:00 37.3 C 64 22 92 07/10/21 13:01 37.4 C 72 22 114/59 L 91 07/10/21 13:00 37.3 C 70 68 22 91 07/10/21 12:00 37.7 C H 71 22 91 07/10/21 11:30 37.9 C H 73 22 91 07/10/21 11:00 38.1 C H 76 22 89 L 07/10/21 10:30 38.0 C H 84 22 88 L 07/10/21 10:12 79 20 90 07/10/21 10:00 37.9 C H 79 22 88 L 07/10/21 09:30 37.7 C H 70 20 85 L 07/10/21 09:00 37.7 C H 75 8 L 112/64 87 L 07/10/21 08:30 37.7 C H 80 22 88 L 07/10/21 08:27 80 22 92 07/10/21 08:15 75 07/10/21 08:00 37.6 C H 77 22 88 L 07/10/21 07:00 37.6 C H 74 22 97/64 L 87 L 07/10/21 05:00 37.7 C H 80 22 88 L 07/10/21 04:20 78 23 89 L 07/10/21 04:00 38.0 C H 75 19 88 L Laboratory Results Laboratory Results - last 24 hr 07/09/21 07/09/21 07/10/21 16:02 20:00 00:04 WBC RBC Hgb POC Hgb Hct POC Hct MCV MCH MCHC RDW Std Deviation RDW Coeff of Dayanna Plt Count MPV Immature Gran % (Auto) Neut % (Auto) Lymph % (Auto) [place] % (Auto) Eos % (Auto) Baso % (Auto) Neut # (Auto) Lymph # (Auto) [place] # (Auto) Eos # (Auto) Baso # (Auto) Immature Gran # (Auto) Sample Site POC pH POC pCO2 POC pO2 POC HCO3 POC Total CO2 POC Base Excess ABG pH (Temp Correct) ABG pCO2 (Temp Corrct POC ABG pO2 at Pt Temp POC ABG O2 Sat Hema Test O2 Delivery Device POC O2 Rate POC FiO2 Tidal Volume PEEP POC Sodium Sodium POC Potassium Potassium Chloride Carbon Dioxide Anion Gap BUN Creatinine Est Cr Clr Drug Dosing Est GFR ( Amer) Est GFR (Non-Af Amer) BUN/Creatinine Ratio Glucose POC Glucose 150 H 128 H 111 H Calcium Phosphorus Magnesium 07/10/21 07/10/21 07/10/21 04:15 04:22 06:10 WBC 11.11 H RBC 4.77 Hgb 13.4 POC Hgb 13.6 Hct 42.9 POC Hct 40 MCV 89.9 MCH 28.1 MCHC 31.2 L RDW Std Deviation 48.5 H RDW Coeff of Dayanna 15.2 H Plt Count 300 MPV 11.1 H Immature Gran % (Auto) 4.3 Neut % (Auto) 75.7 Lymph % (Auto) 10.5 [place] % (Auto) 7.6 Eos % (Auto) 1.6 Baso % (Auto) 0.3 Neut # (Auto) 8.41 H Lymph # (Auto) 1.[address] [place] # (Auto) 0.84 H Eos # (Auto) 0.18 Baso # (Auto) 0.03 Immature Gran # (Auto) 0.48 H Sample Site Art Line POC pH 7.37 POC pCO2 55 H POC pO2 60 L POC HCO3 31 H POC Total CO2 33 H POC Base Excess 6.0 H ABG pH (Temp Correct) 7.348 L ABG pCO2 (Temp Corrct 58 H POC ABG pO2 at Pt Temp 65 POC ABG O2 Sat 89.0 L Hema Test NA O2 Delivery Device Ventilator POC O2 Rate 20 POC FiO2 55 Tidal Volume 380 PEEP 10 POC Sodium 142 Sodium POC Potassium 3.6 Potassium Chloride Carbon Dioxide Anion Gap BUN Creatinine Est Cr Clr Drug Dosing Est GFR ( Amer) Est GFR (Non-Af Amer) BUN/Creatinine Ratio Glucose POC Glucose 109 H Calcium Phosphorus Magnesium 07/10/21 07/10/21 07/10/21 06:10 08:22 12:20 WBC RBC Hgb POC Hgb Hct POC Hct MCV MCH MCHC RDW Std Deviation RDW Coeff of Dayanna Plt Count MPV Immature Gran % (Auto) Neut % (Auto) Lymph % (Auto) [place] % (Auto) Eos % (Auto) Baso % (Auto) Neut # (Auto) Lymph # (Auto) [place] # (Auto) Eos # (Auto) Baso # (Auto) Immature Gran # (Auto) Sample Site POC pH POC pCO2 POC pO2 POC HCO3 POC Total CO2 POC Base Excess ABG pH (Temp Correct) ABG pCO2 (Temp Corrct POC ABG pO2 at Pt Temp POC ABG O2 Sat Hema Test O2 Delivery Device POC O2 Rate POC FiO2 Tidal Volume PEEP POC Sodium Sodium 139 POC Potassium Potassium 3.4 L Chloride 104 Carbon Dioxide 28 Anion Gap 7.0 BUN 32 H Creatinine 0.63 Est Cr Clr Drug Dosing 88.4 Est GFR ( Amer) 104.6 Est GFR (Non-Af Amer) 90.2 BUN/Creatinine Ratio 50.8 H Glucose 105 H POC Glucose 104 H 207 H Calcium 9.1 Phosphorus 2.4 L Magnesium 2.6 H Medications Administered Current Inpatient Medications Acetaminophen (Acetaminophen Susp 500 Mg/15.6 Ml Udp) 500 mg PO Q6H PRN PRN Reason: Fever Stop: 08/09/21 00:02 Last Admin: 07/10/21 11:58 Dose: 500 mg Documented by: Dextrose (Dextrose 50% 50 Ml Syringe) 25 - 50 ml IV UD PRN; Protocol PRN Reason: Hypoglycemia Protocol Stop: 08/07/21 21:38 Enoxaparin Sodium (Enoxaparin 100 Mg/1ml Syr) 90 mg SQ Q12 [place] Stop: 08/04/21 10:59 Last Admin: 07/10/21 08:27 Dose: 90 mg Documented by: Fentanyl Citrate (Fentanyl Bolus From Bag) 50 mcg IV Q60M PRN PRN Reason: Pain or Agitation Stop: 07/18/21 13:31 Last Admin: 07/10/21 02:09 Dose: 50 mcg Documented by: Glucagon (Glucagon For Inj 1 Mg Vial) 1 mg SQ UD PRN; Protocol PRN Reason: Hypoglycemia Protocol Stop: 08/07/21 21:38 Glucose (Glucose 10 Tabs/Tube) 4 - 8 tabs PO UD PRN; Protocol PRN Reason: Hypoglycemia Protocol Stop: 08/07/21 21:38 Glucose (Glucose 40% Gel 15 Gm Tube) 15 - 30 gm PO UD PRN; Protocol PRN Reason: Hypoglycemia Protocol Stop: 08/07/21 21:38 Norepinephrine Bitartrate (Levophed/D5w) 8 mg in 508 mls @ 0 mls/hr IV .Q0M [place]; Protocol Stop: 08/03/21 13:59 Last Titration: 07/07/21 18:44 Dose: Infused Documented by: Cefepime HCl 2,000 mg/ Syringe 20 mls @ 5 mls/min IV Q8H [place] Stop: 07/12/21 11:59 Last Admin: 07/10/21 11:57 Dose: 5 mls/min Documented by: Dexamethasone 10 mg/ Syringe 2.5 mls @ 1 mls/min IV Q24H [facility] Stop: 07/16/21 09:44 Fentanyl Citrate (Fentanyl Citrate) 2,500 mcg in 250 mls @ 22.5 mls/hr IV .[id number] [place]; Protocol Stop: 07/22/21 04:59 Last Admin: 07/10/21 14:57 Dose: 225 mcg/hr, 22.5 mls/hr Documented by: Pantoprazole Sodium 40 mg/ (Syringe) 10 mls @ 5 mls/min IV BID [facility] Stop: 08/07/21 08:59 Last Admin: 07/10/21 08:28 Dose: 5 mls/min Documented by: Midazolam HCl (Versed) 125 mg in 250 mls @ 12 mls/hr IV .[id number] [facility]; Protocol Stop: 08/07/21 13:29 Last Admin: 07/10/21 09:26 Dose: 6 mg/hr, 12 mls/hr Documented by: Insulin Aspart (Insulin Aspart Per Unit) [address] [facility] Stop: 08/08/21 07:59 Last Admin: 07/10/21 12:25 Dose: 2 units Documented by: Midazolam HCl (Midazolam Bolus From Bag) 2 mg IV Q60M PRN PRN Reason: Sedation Stop: 08/07/21 13:26 Last Admin: 07/09/21 04:21 Dose: 2 mg Documented by: Miscellaneous (Carbohydrates For Hypoglycemia ) 15 - 30 gm PO UD PRN PRN Reason: Hypoglycemia Protocol Stop: 08/07/21 21:38 Multivitamins/Minerals (Multivitamins W/Minerals Liquid) [address] [facility] Stop: 08/10/21 08:59 Nutritional Formula (Peptamen Intense Vhp 1.0 Jhonny 1,000 Ml Bag) 1,[address] [facility]; Protocol Stop: 08/06/21 14:44 Last Admin: 07/10/21 15:29 Dose: 1,000 ml Documented by: Ondansetron HCl (Ondansetron Inj 2 Mg/Ml 2 Ml Vial) 4 mg IV Q6H PRN PRN Reason: Nausea Stop: 07/26/21 20:32 Senna/Docusate Sodium (Docusate Sodium/Senna 50/8.6mg Tab) [address] [facility] Stop: 08/09/21 20:59 Sterile Water (Tube Feeding Water Flush) [address] [facility] Stop: 08/06/21 14:44 Last Admin: 07/10/21 14:59 Dose: 30 ml Documented by: PG Care Time/CCT Total # of Minutes Spent Total Time Spent with Patient: Total time spent is greater than 50% in coordination of care (as documented) at patient's floor/unit and/or counseling patient: Coding Level of Care Code 02586 Subseq Hosp Care Lvl 2 Diagnoses Acute hypoxemic respiratory failure due to COVID-19 U07.1; J96.01 Pneumonia due to COVID-19 virus U07.1; J12.82 ARDS (adult respiratory distress syndrome) J80 Elevated troponin I level R77.8 Acid reflux disease K21.9 Hypertension I10 Abnormal LFTs R79.89 DVT prophylaxis Z29.9 Deep vein thrombosis of bilateral lower extremities I82.403 Candidiasis of mouth and esophagus B37.81; B37.0
[2021-07-11] MEDS: INSULIN ASPART PER UNIT SC SCH ×5 (00:04→17:57)
[2021-07-11] MEDS: fentaNYL citrate 2,500 MCG/250 ML BAG IV SCH ×4 (01:26→13:22)
[2021-07-11] MEDS: TUBE FEEDING WATER FLUSH GT SCH ×6 (02:47→21:58)
[2021-07-11 04:18] LABS: iSTAT Art Bld Gas pCO2 Correct 50 mmHg (35-46); iSTAT Art Bld Gas pH Corrected 7.417 (7.35-7.45); iSTAT Arterial Blood Gas HCO3 32 meg/L (19-24); iSTAT Arterial Blood Gas pCO2 50 mmHg (35-46); iSTAT Arterial Blood Gas pH 7.42 (7.35-7.45); iSTAT Arterial Blood Gas pO2 58 mmHg (80-95); iSTAT Arterial Blood Gas pO2 C 58; iSTAT Carbon Dioxide 34 mmol/L (24-31); iSTAT FiO2 60 %; iSTAT Hematocrit 35 % (37-47); iSTAT Hemoglobin 11.9 g/dl (12.0-16.0); iSTAT Site Art Line; iSTAT Sodium 141 mmol/L (135-144)
[2021-07-11] MEDS: CEFEPIME 2,000 MG in SYRINGE 0 ML IV SCH ×3 (04:41→19:32)
[2021-07-11] MEDS: MIDAZOLAM HCL 125 MG/250 ML BAG IV SCH ×2 (05:36→16:57)
[2021-07-11] MEDS ORDERED: FUROSEMIDE INJ 20 MG/2 ML VIAL IV ONE (07:54)
[2021-07-11 08:29] LABS: Hematocrit (blood only) 39.5 % (37-47); Hemoglobin 12.6 g/dL (12.0-16.0); Mean Corpuscular Hemoglobin 28.6 pg (25-34); Mean Corpuscular Hgb Conc 31.9 g/dL (32-36); Mean Corpuscular Volume 89.6 fL (80-100); Platelet Count 257 K/uL (130-400); RDW Coefficient of Variation 15.2 % (11.5-14.5); RDW Standard Deviation 48.3 fL (36.4-46.3); Red Blood Count 4.41 M/uL (4.2-5.4)
[2021-07-11] MEDS: dexAMETHasone 10 MG in SYRINGE 0 ML IV SCH (08:31)
[2021-07-11] MEDS: ENOXAPARIN 100 MG/1ML SYR SQ SCH ×2 (08:32→19:35)
[2021-07-11] MEDS: DOCUSATE SODIUM/SENNA 50/8.6MG TAB PO SCH ×2 (08:32→19:33)
[2021-07-11] MEDS: PANTOprazole 40 MG in SYRINGE 0 ML IV SCH ×2 (08:33→19:34)
[2021-07-11] MEDS: MULTIVITAMINS W/MINERALS LIQUID PO SCH (08:35)
--- NOTE | 2021-07-11 09:07 | XRay Report ---
XR chest 1V portable CLINICAL HISTORY: Resp failure. Follow-up interstitial and alveolar opacities COMPARISON STUDY: 07/09/2021 TECHNIQUE: 1 view of the chest FINDINGS: Single frontal view of the chest demonstrates the cardiomediastinal silhouette to be within normal li mits. Tubes and catheters are unchanged. Compared to previous examination, diffuse interstitial and a lveolar opacities are again seen and unchanged. There is evidence for left pleural effusion on the cu rrent study. There is no evidence for vascular congestion. There is no acute osseous pathology. IMPRESSION: Compared to previous examination, there is again no significant interval change in mild d iffuse interstitial and alveolar opacities bilaterally. There is evidence for small left pleural effu gold on the current study. ACT 112: Negative or not required by law. Electronically signed by: Marlon Rae M.D. 07/11/2021 9:05 AM
[2021-07-11 09:08] LABS: BUN Creatinine Ratio 54.5 (10-20); Basophils # (auto) 0.04 K/uL (0-0.2); Basophils % (auto) 0.4 %; Calcium 8.8 mg/dl (8.5-10.1); Creatinine Clr Calc Pharmacy 107.1 ml/min; Eosinophils # (auto) 0.02 K/uL (0-0.5); Eosinophils % (auto) 0.2 %; Est GFR (African American) 111.4 ml/min; Est GFR (Non-African American) 96.1 ml/min; Immature Granulocytes % (auto) 5.9 %; Lymphocytes # (auto) 0.87 K/uL (1.2-3.4); Lymphocytes % (auto) 8.6 %; Magnesium 2.3 mg/dl (1.8-2.4); Monocytes % (auto) 6.9 %; Neutrophils # (auto) 7.87 K/uL (1.4-6.5); Phosphorus 2.3 mg/dl (2.5-4.9)
[2021-07-11] MEDS ORDERED: bisacodyL 10 MG SUPP PR ONE (10:15)
[2021-07-11] MEDS ORDERED: LACTULOSE SYRUP 20 GM/30 ML UDC PO ONE (10:15)
[2021-07-11] MEDS ORDERED: SODIUM PHOSPHATE 15 MMOL in SODIUM CHLORIDE 0.9% 250 ML IV ONE (10:30)
--- NOTE | 2021-07-11 12:59 | Hospitalist Progress Note ---
Date of Service July 11, 2021 Assessment & Plan (1) Acute hypoxemic respiratory failure due to COVID-19: Plan: SEVERE. Upon admission she required BIPAP due to severe hypoxia & increased work of breathing. Remained on BIPAP 14/7 continuously for several days following admission, then transitioned to HFNC. Remained on max settings including 100% FiO2 thereafter. She had intermittently used BIPAP at HS as well. Dx with DVTs earlier this week; has presumed PEs; was too ill this week to safely obtain CTA chest. Heparin drip employed this week. Despite supportive care she developed significant respiratory fatigue from 8+ days of BIPAP + HFNC. Intubated AM of 07/04/21. proned on 07/05, not much improvement in oxygenation today she is on PEEP 10 and FiO2 60% placed on pressure support mode, pulling volumes of 600 with FiO2 80% intermittent fevers on Versed, Fentanyl off of neuromuscular blockade ICU managing her S/p initiation of broad-spectrum IV abx (cefepime) to cover for bacterial superinfection. Blood/sputum cx's sent. CRP noted to be rising; procal negative. Cont dexamethasone, increase to 20mg daily on 07/07, plan for 5 days of 20mg (07/12) and 5 days of 10mg Had received baricitinib 4mg daily for 8 days -- discontinued upon intubation. s/p Zithromax 5-day course Had been diuresed for about 5 days prior to intubation. Was never a Remdesivir candidate. Appreciate critical care assistance spoke with daughters on 07/11, explained poor prognosis, not ready for tracheostomy if they would decide to go that route allowed them to visit at the bedside so they can see her current condition (2) Pneumonia due to COVID-19 virus: Plan: see above in #1 severe COVID pneumonia with resulting ARDS increase dexamethasone to 20mg based on late ARDS ventilator day 8 today (3) ARDS (adult respiratory distress syndrome): Plan: 2nd to COVID-19 pneumonia ongoing see above (4) Elevated troponin I level: Plan: Likely myocardial demand ischemia in setting of severe acute hypoxic resp failure / COVID-19 pneumonia If she has PEs this, too, can lead to rise in troponin EF 55-60% with no wall motion abnormalities hold Atenolol due to bradycardia (5) Acid reflux disease: Plan: cont IV H2 jonny (6) Hypertension: Plan: now with hypotension 2nd to sedation and critical illness. off of pressors for time being (7) Abnormal LFTs: Plan: transaminitis likely 2nd to COVID illness ast/alt remain elevated albeit mild trend (8) DVT prophylaxis: Plan: heparin drip changed to therapeutic lovenox BID (9) Deep vein thrombosis of bilateral lower extremities: Plan: b/l dopplers + for DVTs PEs presumed Heparin drip initially -- now on therapeutic lovenox (10) Candidiasis of mouth and esophagus: Plan: had been on nystatin prior to intubation could consider diflucan defer to ICU team Plan: appreciate ICU/pulmonary assistance updated her daughters today prognosis poor/guarded Admission and Anticipated Discharge Date Admission Date: June 26, 2021 Subjective patient remains ventilated, on Fentanyl and Versed she was dysynchronous with ventilator, placed on pressure support mode with PEEP 10 and pressure of 4 pulling volumes of 600 on FiO2 80% met with all three daughters in the ICU waiting room today, explained that she is very sick explained that she is not showing any signs that she can come off the ventilator soon, maybe not at all discussed that we are approaching time when she may need tracheostomy but not sure she will be stable enough explained that even is she improves enough for tracheostomy there is no guarantee she will improve with tracheostomy brought all three daughters to see the patient, they held her hand at the bedside and spoke to her updated Dr. Harris on our discussion he said that she is not appropriate for tracheostomy at this time Review of Systems Review of Systems: Unobtainable due to cognitive status and Unobtainable due to endotracheal tube Physical Exam Physical Exam: General: well developed, obese female, intubated and mechanically ventilated Neck: supple, trachea midline, normal thyroid Lungs: diminished sounds bilaterally, mechanically ventilated Heart: bradycardic, S1 and S2, no murmur, peripheral pulses normal, capillary refill normal, no edema Abdomen: soft, NT, ND, + BS, no hepatomegaly, normal to percussion Extremities: normal in appearance, no cyanosis, no petechiae Neuro: sedated, no focal motor deficits, CN II-XII intact Skin: warm, dry, no rash, normal turgor Psych: sedated Results & Data Results & Data ([facility]) Vital Signs (Past 12 Hours) Vital Signs Temp Pulse Resp BP Pulse Ox 07/11/21 11:02 77 22 114/63 07/11/21 10:59 81 26 H 89 L 07/11/21 08:00 37.5 C 61 22 07/11/21 07:50 75 27 H 91 07/11/21 06:00 37.1 C 71 22 111/60 86 L 07/11/21 05:00 37.1 C 54 L 22 97/58 L 91 07/11/21 04:00 37.2 C 59 L 22 106/58 L 92 07/11/21 03:00 37.2 C 52 L 22 101/58 L 92 07/11/21 02:15 52 L 23 92 07/11/21 02:00 37.2 C 55 L 22 109/59 L 92 07/11/21 01:00 37.1 C 55 L 22 99/59 L 92 Laboratory Results Laboratory Results - last 24 hr 07/10/21 07/10/21 07/10/21 16:23 20:03 23:58 WBC RBC Hgb POC Hgb Hct POC Hct MCV MCH MCHC RDW Std Deviation RDW Coeff of Dayanna Plt Count MPV Immature Gran % (Auto) Neut % (Auto) Lymph % (Auto) [place] % (Auto) Eos % (Auto) Baso % (Auto) Neut # (Auto) Lymph # (Auto) [place] # (Auto) Eos # (Auto) Baso # (Auto) Immature Gran # (Auto) Sample Site POC pH POC pCO2 POC pO2 POC HCO3 POC Total CO2 POC Base Excess ABG pH (Temp Correct) ABG pCO2 (Temp Corrct POC ABG pO2 at Pt Temp POC ABG O2 Sat Hema Test O2 Delivery Device POC O2 Rate POC FiO2 Tidal Volume PEEP POC Sodium Sodium POC Potassium Potassium Chloride Carbon Dioxide Anion Gap BUN Creatinine Est Cr Clr Drug Dosing Est GFR ( Amer) Est GFR (Non-Af Amer) BUN/Creatinine Ratio Glucose POC Glucose 197 H 180 H 145 H Calcium Phosphorus Magnesium 07/11/21 07/11/21 07/11/21 04:05 04:29 07:50 WBC 10.10 RBC 4.41 Hgb 12.6 POC Hgb 11.9 L Hct 39.5 POC Hct 35 L MCV 89.6 MCH 28.6 MCHC 31.9 L RDW Std Deviation 48.3 H RDW Coeff of Dayanna 15.2 H Plt Count 257 MPV 11.0 H Immature Gran % (Auto) 5.9 Neut % (Auto) 78.0 Lymph % (Auto) 8.6 [place] % (Auto) 6.9 Eos % (Auto) 0.2 Baso % (Auto) 0.4 Neut # (Auto) 7.87 H Lymph # (Auto) 0.87 L [place] # (Auto) 0.70 H Eos # (Auto) 0.02 Baso # (Auto) 0.04 Immature Gran # (Auto) 0.60 H Sample Site Art Line POC pH 7.42 POC pCO2 50 H POC pO2 58 L POC HCO3 32 H POC Total CO2 34 H POC Base Excess 8.0 H ABG pH (Temp Correct) 7.417 ABG pCO2 (Temp Corrct 50 H POC ABG pO2 at Pt Temp 58 POC ABG O2 Sat 90.0 Hema Test NA O2 Delivery Device Ventilator POC O2 Rate 22 POC FiO2 60 Tidal Volume 380 PEEP 10 POC Sodium 141 Sodium POC Potassium 4.0 Potassium Chloride Carbon Dioxide Anion Gap BUN Creatinine Est Cr Clr Drug Dosing Est GFR ( Amer) Est GFR (Non-Af Amer) BUN/Creatinine Ratio Glucose POC Glucose 128 H Calcium Phosphorus Magnesium 07/11/21 07/11/21 07/11/21 07:50 08:28 12:16 WBC RBC Hgb POC Hgb Hct POC Hct MCV MCH MCHC RDW Std Deviation RDW Coeff of Dayanna Plt Count MPV Immature Gran % (Auto) Neut % (Auto) Lymph % (Auto) [place] % (Auto) Eos % (Auto) Baso % (Auto) Neut # (Auto) Lymph # (Auto) [place] # (Auto) Eos # (Auto) Baso # (Auto) Immature Gran # (Auto) Sample Site POC pH POC pCO2 POC pO2 POC HCO3 POC Total CO2 POC Base Excess ABG pH (Temp Correct) ABG pCO2 (Temp Corrct POC ABG pO2 at Pt Temp POC ABG O2 Sat Hema Test O2 Delivery Device POC O2 Rate POC FiO2 Tidal Volume PEEP POC Sodium Sodium 142 POC Potassium Potassium 4.0 D Chloride 108 H Carbon Dioxide 30 Anion Gap 5.0 BUN 28 H Creatinine 0.52 L Est Cr Clr Drug Dosing 107.1 Est GFR ( Amer) 111.4 Est GFR (Non-Af Amer) 96.1 BUN/Creatinine Ratio 54.5 H Glucose 132 H POC Glucose 124 H 175 H Calcium 8.8 Phosphorus 2.3 L Magnesium 2.3 Medications Administered Current Inpatient Medications Acetaminophen (Acetaminophen Susp 500 Mg/15.6 Ml Udp) 500 mg PO Q6H PRN PRN Reason: Fever Stop: 08/09/21 00:02 Last Admin: 07/10/21 11:58 Dose: 500 mg Documented by: Dextrose (Dextrose 50% 50 Ml Syringe) 25 - 50 ml IV UD PRN; Protocol PRN Reason: Hypoglycemia Protocol Stop: 08/07/21 21:38 Enoxaparin Sodium (Enoxaparin 100 Mg/1ml Syr) 90 mg SQ Q12 [place] Stop: 08/04/21 10:59 Last Admin: 07/11/21 08:32 Dose: 90 mg Documented by: Fentanyl Citrate (Fentanyl Bolus From Bag) 50 mcg IV Q60M PRN PRN Reason: Pain or Agitation Stop: 07/18/21 13:31 Last Admin: 07/10/21 02:09 Dose: 50 mcg Documented by: Glucagon (Glucagon For Inj 1 Mg Vial) 1 mg SQ UD PRN; Protocol PRN Reason: Hypoglycemia Protocol Stop: 08/07/21 21:38 Glucose (Glucose 10 Tabs/Tube) 4 - 8 tabs PO UD PRN; Protocol PRN Reason: Hypoglycemia Protocol Stop: 08/07/21 21:38 Glucose (Glucose 40% Gel 15 Gm Tube) 15 - 30 gm PO UD PRN; Protocol PRN Reason: Hypoglycemia Protocol Stop: 08/07/21 21:38 Cefepime HCl 2,000 mg/ Syringe 20 mls @ 5 mls/min IV Q8H [place] Stop: 07/12/21 11:59 Last Admin: 07/11/21 04:41 Dose: 5 mls/min Documented by: Dexamethasone 10 mg/ Syringe 2.5 mls @ 1 mls/min IV Q24H [place] Stop: 07/16/21 09:44 Last Admin: 07/11/21 08:31 Dose: 1 mls/min Documented by: Fentanyl Citrate (Fentanyl Citrate) 2,500 mcg in 250 mls @ 17.5 mls/hr IV .[id number] [place]; Protocol Stop: 07/22/21 04:59 Last Admin: 07/11/21 12:31 Dose: 175 mcg/hr, 17.5 mls/hr Documented by: Pantoprazole Sodium 40 mg/ (Syringe) 10 mls @ 5 mls/min IV BID [facility] Stop: 08/07/21 08:59 Last Admin: 07/11/21 08:33 Dose: 5 mls/min Documented by: Midazolam HCl (Versed) 125 mg in 250 mls @ 10 mls/hr IV .Q25H [facility]; Protocol Stop: 08/07/21 13:29 Last Titration: 07/11/21 12:31 Dose: 5 mg/hr, 10 mls/hr Documented by: Sodium Phosphate 15 mmol/ (Sodium Chloride) 255 mls @ 88 mls/hr IV ONE ONE Stop: 07/11/21 13:23 Last Admin: 07/11/21 11:24 Dose: 88 mls/hr Documented by: Insulin Aspart (Insulin Aspart Per Unit) 0 units SC Q6 [facility] Stop: 08/10/21 11:59 Last Admin: 07/11/21 12:28 Dose: 1 units Documented by: Midazolam HCl (Midazolam Bolus From Bag) 2 mg IV Q60M PRN PRN Reason: Sedation Stop: 08/07/21 13:26 Last Admin: 07/09/21 04:21 Dose: 2 mg Documented by: Miscellaneous (Carbohydrates For Hypoglycemia ) 15 - 30 gm PO UD PRN PRN Reason: Hypoglycemia Protocol Stop: 08/07/21 21:38 Multivitamins/Minerals (Multivitamins W/Minerals Liquid) 15 ml PO QAM [facility] Stop: 08/10/21 08:59 Last Admin: 07/11/21 08:35 Dose: 15 ml Documented by: Nutritional Formula (Peptamen Intense Vhp 1.0 Jhonny 1,000 Ml Bag) 1,000 ml OG CONT [facility]; Protocol Stop: 08/06/21 14:44 Last Admin: 07/10/21 15:29 Dose: 1,000 ml Documented by: Ondansetron HCl (Ondansetron Inj 2 Mg/Ml 2 Ml Vial) 4 mg IV Q6H PRN PRN Reason: Nausea Stop: 07/26/21 20:32 Senna/Docusate Sodium (Docusate Sodium/Senna 50/8.6mg Tab) 1 tab PO BID [facility] Stop: 08/09/21 20:59 Last Admin: 07/11/21 08:32 Dose: 1 tab Documented by: Sterile Water (Tube Feeding Water Flush) 30 ml GT Q4H [facility] Stop: 08/06/21 14:44 Last Admin: 07/11/21 10:12 Dose: 30 ml Documented by: PG Care Time/CCT Total # of Minutes Spent Total Time Spent: 40 Total Time Spent with Patient: Total time spent is greater than 50% in coordination of care (as documented) at patient's floor/unit and/or counseling patient: 25 minutes spent with daughters discussing prognosis and bringing them into the room to see her Coding Level of Care Code 66489 Subseq Hosp Care Lvl 3 (25 - SIGNIFICANT, SEPARATELY IDENTIFIABLE ) Diagnoses Acute hypoxemic respiratory failure due to COVID-19 U07.1; J96.01 Pneumonia due to COVID-19 virus U07.1; J12.82 ARDS (adult respiratory distress syndrome) J80 Elevated troponin I level R77.8 Acid reflux disease K21.9 Hypertension I10 Abnormal LFTs R79.89 DVT prophylaxis Z29.9 Deep vein thrombosis of bilateral lower extremities I82.403 Candidiasis of mouth and esophagus B37.81; B37.0
[2021-07-11] MEDS: PEPTAMEN INTENSE VHP 1.0 CAL 1,000 ML BAG OG SCH (17:48)
--- NOTE | 2021-07-11 18:34 | Critical Care Progress Note ---
Date of Service July 11, 2021 Assessment & Plan (1) ARDS (adult respiratory distress syndrome): (2) Pneumonia due to COVID-19 virus: (3) Elevated troponin I level: (4) Elevated lactic acid level: Plan: Impression: 71-year-old nonvaccinated female admitted with Covid pneumonitis and hypoxemic respiratory failure/ARDS requiring noninvasive positive pressure ventilation. She was admitted 06/26/2021 and failed high flow, CPAP, BiPAP, and prone positioning. She is intubated 07/04/2021. Recommendations: -Neuro: On midazolam and fentanyl. Propofol discontinued because of elevated triglycerides on 07/08/2021 -Cardiovascular: --Episodes of bradycardia --> resolved Likely from sedation -Pulmonary: -- VDRF with acute hypoxic respiratory failure Likely secondary to multilobar COVID-19 pneumonia Continue with lung protective ventilation High PEEP, low tidal volume to keep Plateau < 30 with permissive hypercapnea if need be. Monitor ABGs Continue with ventilatory support Keep RASS -1 COVID-19 PCR positive Procalcitonin 0.17 CRP 18--> 12.9 Continue with DEXA ARDS protocol which is started on 07/06/2021 - ID: -- Covid pneumonia Continue dexamethasone for total of 10 days Baricitinib discontinued as she is now intubated. Sputum and blood from 07/05/2021 negative to date Continue with empiric antibiotic for total of 5 days --GI: Continue tube feeds -Renal: Electrolyte replacement protocol. No acute issues - Heme-onc: --Acute DVT bilateral lower extremity On therapeutic Lovenox monitor H&H - Endocrine: Continue with ICU hypoglycemia protocol --Prophylaxis VTE: Therapeutic Lovenox GI: Protonix Lines: A-line, right IJ, positive Rios Diet: Tube feeds Plan: In/out: +288 20 mg of Lasix given today. Patient is still spiking low-grade fever Continue with antibiotics Patient is double triggering the vent. This was leading to significant asynchrony and increasing FiO2 requirement I did try to put the patient on APRV but she was not able to tolerate it well Patient is doing well on pressure support we will continue with pressure support while trying to decrease the sedation Hypophosphatemia is being replaced. Patient will be given a dose of lactulose as she had no bowel movements for a while. Overall prognosis of the patient is guarded Dr. Lopez in touch with patient's family. I have personally spent 35 minutes of critical care time in the direct management of this patient. This is a life/limb threatening event. This includes time spent evaluating patient, direct bedside care, chart review, placing orders, interpretation of diagnostic studies, discussion with consultants, patient, and family members, as well as other required patient management activities. This time is exclusive of all separately billable procedures, and teaching time and separate from and in addition to any other critical care service time. Please note the above document was generated using voice recognition software. It may contain grammatical, syntax or spelling errors. Admission and Anticipated Discharge Date Admission Date: June 26, 2021 Subjective Patient seen and examined at bedside. No acute distress, no adverse events overnight Patient has been having gradual increase in the need of FiO2. At time of examination she was on 70% FiO2 She was on 6 of Versed and 225 fentanyl She is still double triggering the vent. Review of Systems Review of Systems: Unobtainable due to endotracheal tube Physical Exam Physical Exam: Constitutional: No acute distress HEENT: PERRLA Respiratory system: Decreased antibiotic, no wheeze, no cough, positive crackles bilaterally CVS: S1-S2 positive, no murmurs or gallops Abdomen: Soft, nontender, nondistended, positive bowel sounds x4 Extremities: +2 pulses bilaterally radialis/ dorsalis pedis, no cyanosis, +1 bilateral lower extremity Neuro: Sedated, breathing over the vent Psych: Unable to assess G/U: Positive Rios Skin: no rashes, warm and dry Lymphatic: no cervical or axillary lymphadenopathy Results & Data Results & Data ([facility]) Vital Signs (Past 12 Hours) Vital Signs Temp Pulse Pulse Resp BP Pulse Ox 07/11/21 17:56 83 07/11/21 17:00 37.3 C 87 11 L 91 07/11/21 16:32 97 H 12 93 07/11/21 16:00 37.4 C 94 H 12 103/72 94 07/11/21 15:00 37.5 C 88 12 112/73 93 07/11/21 14:00 37.5 C 90 12 93/63 L 92 07/11/21 13:30 37.6 C H 119 H 34 H 91 07/11/21 13:15 37.6 C H 90 13 92 07/11/21 13:00 37.6 C H 93 H 14 123/77 92 07/11/21 12:45 37.6 C H 90 14 92 07/11/21 12:35 37.7 C H 92 H 12 92 07/11/21 12:06 101 H 13 91 07/11/21 11:02 77 22 114/63 07/11/21 10:59 81 26 H 89 L 07/11/21 08:00 37.5 C 61 22 07/11/21 07:50 75 27 H 91 07/11/21 07:50 07/11/21 07:50 Coding Level of Care Code Critical Care 1st 30-74 mins Diagnoses ARDS (adult respiratory distress syndrome) J80 Pneumonia due to COVID-19 virus U07.1; J12.82 Elevated troponin I level R77.8 Elevated lactic acid level R79.89 Time Spent (min) 35
[2021-07-12] MEDS: INSULIN ASPART PER UNIT SC SCH ×5 (00:06→23:07)
[2021-07-12] MEDS: TUBE FEEDING WATER FLUSH GT SCH ×6 (02:57→22:14)
[2021-07-12] MEDS: CEFEPIME 2,000 MG in SYRINGE 0 ML IV SCH (03:36)
[2021-07-12] MEDS: fentaNYL citrate 2,500 MCG/250 ML BAG IV SCH ×3 (05:09→22:19)
[2021-07-12 05:19] LABS: BUN Creatinine Ratio 57.9 (10-20); Calcium 9.1 mg/dl (8.5-10.1); Creatinine Clr Calc Pharmacy 94.4 ml/min; Est GFR (African American) 106.9 ml/min; Est GFR (Non-African American) 92.2 ml/min; Magnesium 2.5 mg/dl (1.8-2.4); Potassium 3.6 mmol/L (3.5-5.1)
--- NOTE | 2021-07-12 08:13 | Critical Care Progress Note ---
Date of Service July 12, 2021 Assessment & Plan (1) ARDS (adult respiratory distress syndrome): (2) Pneumonia due to COVID-19 virus: (3) Elevated troponin I level: (4) Elevated lactic acid level: Plan: Impression: 71-year-old nonvaccinated female admitted with Covid pneumonitis and hypoxemic respiratory failure/ARDS requiring noninvasive positive pressure ventilation. She was admitted 06/26/2021 and failed high flow, CPAP, BiPAP, and prone positioning. She is intubated 07/04/2021. Recommendations: -Neuro: On midazolam and fentanyl. Propofol discontinued because of elevated triglycerides on 07/08/2021 -Cardiovascular: --Episodes of bradycardia --> resolved Likely from sedation -Pulmonary: -- VDRF with acute hypoxic respiratory failure Likely secondary to multilobar COVID-19 pneumonia Continue with lung protective ventilation High PEEP, low tidal volume to keep Plateau < 30 with permissive hypercapnea if need be. Monitor ABGs Continue with ventilatory support Keep RASS -1 COVID-19 PCR positive Procalcitonin 0.17 CRP 18--> 12.9 Continue with DEXA ARDS protocol which is started on 07/06/2021 - ID: -- Covid pneumonia Continue dexamethasone for total of 10 days Baricitinib discontinued as she is now intubated. Sputum and blood from 07/05/2021 negative to date Completed the course of cefepime --GI: Continue tube feeds -Renal: Electrolyte replacement protocol. No acute issues - Heme-onc: --Acute DVT bilateral lower extremity On therapeutic Lovenox monitor H&H - Endocrine: Continue with ICU hypoglycemia protocol --Prophylaxis VTE: Therapeutic Lovenox GI: Protonix Lines: A-line, right IJ, positive Rios Diet: Tube feeds Plan: In/out: + 116, urine output 1776 20 mg of Lasix given to the patient today Patient has completed the course of cefepime Patient does pretty well when put on pressure support during the day. We will try to go down on the PEEP gradually. Patient is starting to follow some commands. Is gradually able to go down on the PEEP Would be to have trach. Potassium being replaced. I have personally spent 36 minutes of critical care time in the direct management of this patient. This is a life/limb threatening event. This includes time spent evaluating patient, direct bedside care, chart review, placing orders, interpretation of diagnostic studies, discussion with consultants, patient, and family members, as well as other required patient management activities. This time is exclusive of all separately billable procedures, and teaching time and separate from and in addition to any other critical care service time. Please note the above document was generated using voice recognition software. It may contain grammatical, syntax or spelling errors. Admission and Anticipated Discharge Date Admission Date: June 26, 2021 Subjective Patient seen and examined at bedside. No acute distress, no dressings overnight Patient is RASS -1, she is following commands. Denied any headache, denied any chest pain. She is still spiking low-grade fever She was on propofol and fentanyl at the time of examination Review of Systems Review of Systems: Unobtainable due to endotracheal tube Physical Exam Physical Exam: Constitutional: No acute distress HEENT: PERRLA Respiratory system: Decreased antibiotic, no wheeze, no cough, positive crackles bilaterally CVS: S1-S2 positive, no murmurs or gallops Abdomen: Soft, nontender, nondistended, positive bowel sounds x4 Extremities: +2 pulses bilaterally radialis/ dorsalis pedis, no cyanosis, +1 bilateral lower extremity Neuro: Sedated, breathing over the vent, in simple commands Psych: Unable to assess G/U: Positive Rios Skin: no rashes, warm and dry Lymphatic: no cervical or axillary lymphadenopathy Results & Data Results & Data ([facility]) Vital Signs (Past 12 Hours) Vital Signs Temp Pulse Resp BP Pulse Ox 07/12/21 06:00 37.4 C 94 H 24 102/68 91 07/12/21 05:00 37.3 C 95 H 25 H 90/61 L 91 07/12/21 04:20 80 23 92 07/12/21 04:00 37.2 C 85 23 104/66 92 07/12/21 03:00 37.3 C 91 H 22 109/68 92 07/12/21 02:00 37.3 C 93 H 22 115/74 92 07/12/21 01:00 37.3 C 91 H 24 112/78 92 07/12/21 00:00 37.3 C 93 H 23 117/78 92 07/11/21 23:40 94 H 23 92 07/11/21 23:00 37.3 C 89 22 118/69 92 07/11/21 22:00 37.1 C 80 22 111/71 93 07/11/21 21:00 37.0 C 78 22 98/63 L 92 Laboratory Results 07/11/21 07:50 07/12/21 03:51 Coding Level of Care Code Critical Care 1st 30-74 mins Diagnoses ARDS (adult respiratory distress syndrome) J80 Pneumonia due to COVID-19 virus U07.1; J12.82 Elevated troponin I level R77.8 Elevated lactic acid level R79.89 Time Spent (min) 36
[2021-07-12] MEDS: dexAMETHasone 10 MG in SYRINGE 0 ML IV SCH (08:46)
[2021-07-12] MEDS: PANTOprazole 40 MG in SYRINGE 0 ML IV SCH ×2 (08:46→20:22)
[2021-07-12] MEDS: MIDAZOLAM HCL 125 MG/250 ML BAG IV SCH (08:47)
[2021-07-12 08:48] LABS: Basophils # (auto) 0.04 K/uL (0-0.2); Basophils % (auto) 0.3 %; Eosinophils # (auto) 0.15 K/uL (0-0.5); Eosinophils % (auto) 0.9 %; Hematocrit (blood only) 40.7 % (37-47); Hemoglobin 13.1 g/dL (12.0-16.0); Immature Granulocytes # (auto) 0.54 K/uL (0.00-0.02); Immature Granulocytes % (auto) 3.4 %; Lymphocytes # (auto) 1.25 K/uL (1.2-3.4); Lymphocytes % (auto) 7.8 %; Mean Corpuscular Hemoglobin 29.1 pg (25-34); Mean Corpuscular Hgb Conc 32.2 g/dL (32-36); Mean Corpuscular Volume 90.4 fL (80-100); Mean Platelet Volume 10.4 fL (7.4-10.4); Monocytes # (auto) 0.85 K/uL (0.11-0.59); Monocytes % (auto) 5.3 %; Neutrophils # (auto) 13.13 K/uL (1.4-6.5); Neutrophils % (auto) 82.3 %; Nucleated RBC # (auto) 0.06 K/uL (0-0); Nucleated RBC % (auto) 0.4 %; Platelet Count 240 K/uL (130-400); RDW Coefficient of Variation 15.7 % (11.5-14.5); RDW Standard Deviation 50.4 fL (36.4-46.3); White Blood Count 15.96 K/uL (4.8-10.8)
[2021-07-12] MEDS: MULTIVITAMINS W/MINERALS LIQUID PO SCH (08:49)
[2021-07-12] MEDS: ENOXAPARIN 100 MG/1ML SYR SQ SCH ×2 (08:49→20:22)
[2021-07-12] MEDS: ACETAMINOPHEN SUSP 500 MG/15.6 ML UDP PO PRN (08:50)
[2021-07-12] MEDS ORDERED: Nursing to Pharmacy Communication SCH (10:00)
[2021-07-12] MEDS ORDERED: FUROSEMIDE INJ 20 MG/2 ML VIAL IV ONE (10:30)
[2021-07-12] MEDS: DOCUSATE SODIUM/SENNA 50/8.6MG TAB PO SCH (10:39)
[2021-07-12] MEDS: POTASSIUM CHLORIDE 20 MEQ/15 ML UDC NG SCH ×2 (11:32→14:23)
--- NOTE | 2021-07-12 19:48 | Hospitalist Progress Note ---
Date of Service July 12, 2021 Assessment & Plan (1) Acute hypoxemic respiratory failure due to COVID-19: Plan: SEVERE. Upon admission she required BIPAP due to severe hypoxia & increased work of breathing. Remained on BIPAP 14/7 continuously for several days following admission, then transitioned to HFNC. Remained on max settings including 100% FiO2 thereafter. She had intermittently used BIPAP at HS as well. Dx with DVTs earlier this week; has presumed PEs; was too ill this week to safely obtain CTA chest. Heparin drip employed this week. Despite supportive care she developed significant respiratory fatigue from 8+ days of BIPAP + HFNC. Intubated AM of 07/04/21. proned on 07/05, not much improvement in oxygenation today she is on PEEP 8 and FiO2 60% placed on pressure support mode again x 7 hours today, continue daily SBT intermittent fevers are lower grade now on Versed, Fentanyl off of neuromuscular blockade ICU managing her Was on broad-spectrum IV abx (cefepime) to cover for bacterial superinfection, but now discontinued. Blood/sputum cx's sent-NGTD CRP noted to be high but then improced; procal negative. Cont dexamethasone, increase to 20mg daily on 07/07, plan for 5 days of 20mg (07/12) and 5 days of 10mg starting 07/12 Had received baricitinib 4mg daily for 8 days -- discontinued upon intubation. s/p Zithromax 5-day course Had been diuresed for about 5 days prior to intubation and received more lasix today Was never a Remdesivir candidate. Appreciate critical care assistance Possible trach early next week if remains intubated (2) Pneumonia due to COVID-19 virus: Plan: see above in #1 severe COVID pneumonia with resulting ARDS continue dexamethasone based on late ARDS protocol ventilator day 9 today (3) ARDS (adult respiratory distress syndrome): Plan: 2nd to COVID-19 pneumonia ongoing see above (4) Elevated troponin I level: Plan: Likely myocardial demand ischemia in setting of severe acute hypoxic resp failure / COVID-19 pneumonia If she has PEs this, too, can lead to rise in troponin EF 55-60% with no wall motion abnormalities hold Atenolol due to bradycardia (5) Acid reflux disease: Plan: cont IV PPI (6) Hypertension: Plan: had some hypotension 2nd to sedation and critical illness. now off pressors, now off propofol (7) Abnormal LFTs: Plan: transaminitis likely 2nd to COVID illness ast/alt remain elevated albeit mild trend (8) DVT prophylaxis: Plan: heparin drip changed to therapeutic lovenox BID (9) Deep vein thrombosis of bilateral lower extremities: Plan: b/l dopplers + for DVTs PEs presumed Heparin drip initially -- now on therapeutic lovenox (10) Candidiasis of mouth and esophagus: Plan: had been on nystatin prior to intubation could consider diflucan defer to ICU team Plan: appreciate ICU/pulmonary assistance Dispo-continued stay in ICU Admission and Anticipated Discharge Date Admission Date: June 26, 2021 Subjective Pt remains intubated and sedated. SHe was on pressure support x 7 hours today. Review of Systems Review of Systems: Unobtainable due to endotracheal tube and Unobtainable due to reduced consciousness Physical Exam 2 Constitutional: + lethargic and + mechanically ventilated Results & Data Results & Data ([facility]) Vital Signs (Past 12 Hours) Vital Signs Temp Pulse Resp BP Pulse Ox 07/12/21 19:00 37.6 C H 90 19 91 07/12/21 18:00 37.5 C 104 H 42 H 124/79 91 07/12/21 17:00 37.5 C 97 H 20 124/79 91 07/12/21 16:00 37.6 C H 88 18 91 07/12/21 15:00 37.7 C H 102 H 20 91 07/12/21 14:00 37.8 C H 110 H 37 H 92 07/12/21 13:30 112 H 25 H 92 07/12/21 13:00 37.9 C H 108 H 24 106/69 91 07/12/21 12:00 38.0 C H 126 H 30 H 150/89 H 88 L 07/12/21 11:00 38.0 C H 114 H 21 106/67 91 07/12/21 10:00 38.0 C H 109 H 21 91 07/12/21 09:25 110 H 24 91 07/12/21 09:00 37.8 C H 108 H 22 90 07/12/21 08:38 26 H 07/12/21 08:00 37.7 C H 98 H 21 92 Laboratory Results 07/12/21 07/12/21 07/12/21 Range/Units 18:47 11:13 08:32 WBC (4.8-10.8) K/uL RBC (4.2-5.4) M/uL Hgb (12.0-16.0) g/dL Hct (37-47) % MCV (80-100) fL MCH (25-34) pg MCHC (32-36) g/dL RDW Std Deviation (36.4-46.3) fL RDW Coeff of Dayanna (11.5-14.5) % Plt Count (130-400) K/uL MPV (7.4-10.4) fL Immature Gran % (Auto) % Neut % (Auto) % Lymph % (Auto) % Lyon % (Auto) % Eos % (Auto) % Baso % (Auto) % Neut # (Auto) (1.4-6.5) K/uL Lymph # (Auto) (1.2-3.4) K/uL Lyon # (Auto) (0.11-0.59) K/uL Eos # (Auto) (0-0.5) K/uL Baso # (Auto) (0-0.2) K/uL Immature Gran # (Auto) (0.00-0.02) K/uL Absolute Nucleated RBC (0-0) K/uL Nucleated RBC % (auto) % Sodium (136-145) mmol/L Potassium (3.5-5.1) mmol/L Chloride (98-107) mmol/L Carbon Dioxide (21-32) mmol/L Anion Gap (3-11) BUN (7-18) mg/dl Creatinine (0.6-1.2) mg/dl Est Cr Clr Drug Dosing ml/min Est GFR ( Amer) ml/min Est GFR (Non-Af Amer) ml/min BUN/Creatinine Ratio (10-20) Glucose (70-99) mg/dl POC Glucose 151 H 202 H 130 H (70-99) mg/dl Calcium (8.5-10.1) mg/dl Phosphorus (2.5-4.9) mg/dl Magnesium (1.8-2.4) mg/dl 07/12/21 07/12/21 07/12/21 Range/Units 08:25 05:15 03:51 WBC 15.96 H (4.8-10.8) K/uL RBC 4.50 (4.2-5.4) M/uL Hgb 13.1 (12.0-16.0) g/dL Hct 40.7 (37-47) % MCV 90.4 (80-100) fL MCH 29.1 (25-34) pg MCHC 32.2 (32-36) g/dL RDW Std Deviation 50.4 H (36.4-46.3) fL RDW Coeff of Dayanna 15.7 H (11.5-14.5) % Plt Count 240 (130-400) K/uL MPV 10.4 (7.4-10.4) fL Immature Gran % (Auto) 3.4 % Neut % (Auto) 82.3 % Lymph % (Auto) 7.8 % Lyon % (Auto) 5.3 % Eos % (Auto) 0.9 % Baso % (Auto) 0.3 % Neut # (Auto) 13.13 H (1.4-6.5) K/uL Lymph # (Auto) 1.25 (1.2-3.4) K/uL Lyon # (Auto) 0.85 H (0.11-0.59) K/uL Eos # (Auto) 0.15 (0-0.5) K/uL Baso # (Auto) 0.04 (0-0.2) K/uL Immature Gran # (Auto) 0.54 H (0.00-0.02) K/uL Absolute Nucleated RBC 0.06 H (0-0) K/uL Nucleated RBC % (auto) 0.4 % Sodium 140 (136-145) mmol/L Potassium 3.6 (3.5-5.1) mmol/L Chloride 105 (98-107) mmol/L Carbon Dioxide 30 (21-32) mmol/L Anion Gap 5.0 (3-11) BUN 34 H (7-18) mg/dl Creatinine 0.59 L (0.6-1.2) mg/dl Est Cr Clr Drug Dosing 94.4 ml/min Est GFR ( Amer) 106.9 ml/min Est GFR (Non-Af Amer) 92.2 ml/min BUN/Creatinine Ratio 57.9 H (10-20) Glucose 135 H (70-99) mg/dl POC Glucose 125 H (70-99) mg/dl Calcium 9.1 (8.5-10.1) mg/dl Phosphorus 3.0 (2.5-4.9) mg/dl Magnesium 2.5 H (1.8-2.4) mg/dl 07/11/21 Range/Units 23:07 WBC (4.8-10.8) K/uL RBC (4.2-5.4) M/uL Hgb (12.0-16.0) g/dL Hct (37-47) % MCV (80-100) fL MCH (25-34) pg MCHC (32-36) g/dL RDW Std Deviation (36.4-46.3) fL RDW Coeff of Dayanna (11.5-14.5) % Plt Count (130-400) K/uL MPV (7.4-10.4) fL Immature Gran % (Auto) % Neut % (Auto) % Lymph % (Auto) % Lyon % (Auto) % Eos % (Auto) % Baso % (Auto) % Neut # (Auto) (1.4-6.5) K/uL Lymph # (Auto) (1.2-3.4) K/uL Lyon # (Auto) (0.11-0.59) K/uL Eos # (Auto) (0-0.5) K/uL Baso # (Auto) (0-0.2) K/uL Immature Gran # (Auto) (0.00-0.02) K/uL Absolute Nucleated RBC (0-0) K/uL Nucleated RBC % (auto) % Sodium (136-145) mmol/L Potassium (3.5-5.1) mmol/L Chloride (98-107) mmol/L Carbon Dioxide (21-32) mmol/L Anion Gap (3-11) BUN (7-18) mg/dl Creatinine (0.6-1.2) mg/dl Est Cr Clr Drug Dosing ml/min Est GFR ( Amer) ml/min Est GFR (Non-Af Amer) ml/min BUN/Creatinine Ratio (10-20) Glucose (70-99) mg/dl POC Glucose 118 H (70-99) mg/dl Calcium (8.5-10.1) mg/dl Phosphorus (2.5-4.9) mg/dl Magnesium (1.8-2.4) mg/dl PG Care Time/CCT Total # of Minutes Spent Total Time Spent with Patient: Total time spent is greater than 50% in coordination of care (as documented) at patient's floor/unit and/or counseling patient: Coding Level of Care Code 23343 Subseq Hosp Care Lvl 1 Diagnoses Acute hypoxemic respiratory failure due to COVID-19 U07.1; J96.01 Pneumonia due to COVID-19 virus U07.1; J12.82 ARDS (adult respiratory distress syndrome) J80 Elevated troponin I level R77.8 Acid reflux disease K21.9 Hypertension I10 Abnormal LFTs R79.89 DVT prophylaxis Z29.9 Deep vein thrombosis of bilateral lower extremities I82.403 Candidiasis of mouth and esophagus B37.81; B37.0
[2021-07-12] MEDS: SENNOSIDES 8.8 MG/5 ML UDC PO SCH (20:22)
[2021-07-12] MEDS: DOCUSATE SODIUM SYRUP 100 MG/10 ML UDC PO SCH (20:23)
[2021-07-12] MEDS: PEPTAMEN INTENSE VHP 1.0 CAL 1,000 ML BAG OG SCH (20:23)
[2021-07-13] MEDS: TUBE FEEDING WATER FLUSH GT SCH ×6 (03:58→23:22)
[2021-07-13 04:47] LABS: iSTAT Art Bld Gas pCO2 Correct 45 mmHg (35-46); iSTAT Art Bld Gas pH Corrected 7.472 (7.35-7.45); iSTAT Arterial Blood Gas HCO3 32 meg/L (19-24); iSTAT Arterial Blood Gas pCO2 43 mmHg (35-46); iSTAT Arterial Blood Gas pH 7.49 (7.35-7.45); iSTAT Arterial Blood Gas pO2 55 mmHg (80-95); iSTAT Arterial Blood Gas pO2 C 59; iSTAT Carbon Dioxide 34 mmol/L (24-31); iSTAT FiO2 80 %; iSTAT Hematocrit 38 % (37-47); iSTAT Hemoglobin 12.9 g/dl (12.0-16.0); iSTAT Potassium 4.1 mmol/L (3.3-5.0); iSTAT Site Art Line; iSTAT Sodium 143 mmol/L (135-144)
[2021-07-13 05:09] LABS: Magnesium 2.5 mg/dl (1.8-2.4); Phosphorus 2.3 mg/dl (2.5-4.9)
[2021-07-13] MEDS: INSULIN ASPART PER UNIT SC SCH ×3 (05:58→11:46)
--- NOTE | 2021-07-13 08:51 | XRay Report ---
XR chest 1V portable CLINICAL HISTORY: pt intubated. Follow-up diffuse interstitial and alveolar opacities. COMPARISON STUDY: 07/11/2021 TECHNIQUE: 1 view of the chest FINDINGS: Single frontal view of the chest demonstrates the cardiomediastinal silhouette to be within normal li mits. Tubes and catheters appear essentially unchanged. Compared to previous study, there is slight w orsening of diffuse interstitial and alveolar opacities bilaterally. No new confluent alveolar opacit ies are seen. There is again suspicion of small left pleural effusion with minimal left basilar atele ctasis. There is no evidence for vascular congestion. There is no acute osseous pathology. IMPRESSION: Compared to the previous examination, there is slight worsening of diffuse interstitial a nd alveolar opacities bilaterally. There is again suspicion of small left pleural effusion with left basilar atelectasis. ACT 112: Negative or not required by law. Electronically signed by: Marlon Rae M.D. 07/13/2021 8:50 AM
[2021-07-13] MEDS: FUROSEMIDE 40 MG/4 ML VIAL IV SCH (09:05)
[2021-07-13] MEDS: PANTOprazole 40 MG in SYRINGE 0 ML IV SCH ×2 (09:05→19:42)
[2021-07-13] MEDS: dexAMETHasone 10 MG in SYRINGE 0 ML IV SCH (09:05)
[2021-07-13] MEDS: MIDAZOLAM HCL 125 MG/250 ML BAG IV SCH ×2 (09:05→15:45)
[2021-07-13] MEDS: DOCUSATE SODIUM SYRUP 100 MG/10 ML UDC PO SCH ×2 (09:06→19:42)
[2021-07-13] MEDS: SENNOSIDES 8.8 MG/5 ML UDC PO SCH ×2 (09:06→19:43)
[2021-07-13] MEDS: MULTI VIT W/MINERALS LIQUID 15 ML UDP NG SCH (09:07)
[2021-07-13] MEDS: ENOXAPARIN 100 MG/1ML SYR SQ SCH ×2 (09:07→19:42)
[2021-07-13 09:29] LABS: Basophils # (auto) 0.03 K/uL (0-0.2); Basophils % (auto) 0.2 %; Eosinophils # (auto) 0.19 K/uL (0-0.5); Eosinophils % (auto) 1.4 %; Hematocrit (blood only) 40.8 % (37-47); Hemoglobin 12.6 g/dL (12.0-16.0); Immature Granulocytes # (auto) 0.36 K/uL (0.00-0.02); Immature Granulocytes % (auto) 2.7 %; Lymphocytes # (auto) 0.98 K/uL (1.2-3.4); Lymphocytes % (auto) 7.4 %; Mean Corpuscular Hemoglobin 28.2 pg (25-34); Mean Corpuscular Hgb Conc 30.9 g/dL (32-36); Mean Corpuscular Volume 91.3 fL (80-100); Mean Platelet Volume 10.8 fL (7.4-10.4); Monocytes # (auto) 0.62 K/uL (0.11-0.59); Monocytes % (auto) 4.7 %; Neutrophils # (auto) 10.99 K/uL (1.4-6.5); Neutrophils % (auto) 83.6 %; Nucleated RBC # (auto) 0.06 K/uL (0-0); Nucleated RBC % (auto) 0.4 %; Platelet Count 208 K/uL (130-400); RDW Coefficient of Variation 16.2 % (11.5-14.5); RDW Standard Deviation 52.8 fL (36.4-46.3); Red Blood Count 4.47 M/uL (4.2-5.4); White Blood Count 13.17 K/uL (4.8-10.8)
[2021-07-13 09:56] LABS: BUN Creatinine Ratio 57.8 (10-20); Creatinine Clr Calc Pharmacy 87.1 ml/min; Est GFR (African American) 104.1 ml/min; Est GFR (Non-African American) 89.8 ml/min; Potassium 3.9 mmol/L (3.5-5.1)
[2021-07-13] MEDS: ACETAMINOPHEN SUSP 500 MG/15.6 ML UDP PO PRN (11:21)
[2021-07-13 13:12] LABS: Appearance Urine Clear (Clear); Bilirubin Urine Negative (Negative); Blood Urine 2+ (Negative); Color Urine Yellow; Glucose Urine UA Negative (Negative); Ketones Urine Negative (Negative); Leukocyte Esterase Urine Negative (Negative); Nitrite Urine Negative (Negative); Protein Urine 1+ (Negative); Specific Gravity Urine 1.015 (1.000-1.030); Urobilinogen Urine Negative (Negative)
[2021-07-13 13:25] LABS: Epithelial Cell Urine 0-5 /lpf (0-5); Mucus Urine Present (None Prsent)
[2021-07-13 13:26] LABS: Bacteria Urine 1+ (Negative); WBC Urine 0-5 /hpf (0-5)
--- NOTE | 2021-07-13 14:47 | Critical Care Progress Note ---
Date of Service July 13, 2021 Assessment & Plan (1) ARDS (adult respiratory distress syndrome): (2) Pneumonia due to COVID-19 virus: (3) Elevated troponin I level: (4) Elevated lactic acid level: Plan: Impression: 71-year-old nonvaccinated female admitted with Covid pneumonitis and hypoxemic respiratory failure/ARDS requiring noninvasive positive pressure ventilation. She was admitted 06/26/2021 and failed high flow, CPAP, BiPAP, and prone positioning. She is intubated 07/04/2021. Recommendations: -Neuro: On midazolam and fentanyl. Propofol discontinued because of elevated triglycerides on 07/08/2021 -Cardiovascular: --Episodes of bradycardia --> resolved Likely from sedation -Pulmonary: -- VDRF with acute hypoxic respiratory failure Likely secondary to multilobar COVID-19 pneumonia Continue with lung protective ventilation High PEEP, low tidal volume to keep Plateau < 30 with permissive hypercapnea if need be. Monitor ABGs Continue with ventilatory support Keep RASS -1 COVID-19 PCR positive Procalcitonin 0.17 CRP 18--> 12.9 Continue with DEXA ARDS protocol which is started on 07/06/2021 - ID: -- Covid pneumonia Continue dexamethasone for total of 10 days Baricitinib discontinued as she is now intubated. Sputum and blood from 07/05/2021 negative to date Completed the course of cefepime 07/12/2021 --GI: Continue tube feeds -Renal: Electrolyte replacement protocol. No acute issues - Heme-onc: --Acute DVT bilateral lower extremity On therapeutic Lovenox monitor H&H - Endocrine: Continue with ICU hypoglycemia protocol --Prophylaxis VTE: Therapeutic Lovenox GI: Protonix Lines: A-line, right IJ, positive Rios Diet: Tube feeds Plan: In/out: +364, urine output 2000 AB.49/43/55 on 8 of PEEP 80% T-max 38.3 All the blood cultures 07/05/2021. Repeat septic work-up today including sputum culture. We will try to get PICC line and remove the central line as she has had it for very long time 40 mg of Lasix given today Hypophosphatemia being replaced Patient's Daughter Jordyn Gallagher [phone] was called and updated regarding patient's condition I did tell them that she is very critical given the high oxygen requirement. I do think it will take couple of more calls to make them understand the severity and the critical condition that the patient is in. I have personally spent 38 minutes of critical care time in the direct management of this patient. This is a life/limb threatening event. This includes time spent evaluating patient, direct bedside care, chart review, placing orders, interpretation of diagnostic studies, discussion with consultants, patient, and family members, as well as other required patient management activities. This time is exclusive of all separately billable procedures, and teaching time and separate from and in addition to any other critical care service time. Please note the above document was generated using voice recognition software. It may contain grammatical, syntax or spelling errors. Admission and Anticipated Discharge Date Admission Date: June 26, 2021 Subjective Patient seen and examined at bedside. No acute distress, no adverse events overnight Patient oxygen requirement has gradually increased in the last 24 hours She was on 80% FiO2 PEEP of 8 at the time of examination She is opening her eyes and following simple commands. Denied any headache, no chest pain Review of Systems Review of Systems: All systems reviewed & are unremarkable except as noted in Subjective Physical Exam Physical Exam: Constitutional: No acute distress HEENT: PERRLA Respiratory system: Decreased antibiotic, no wheeze, no cough, positive crackles bilaterally CVS: S1-S2 positive, no murmurs or gallops Abdomen: Soft, nontender, nondistended, positive bowel sounds x4 Extremities: +2 pulses bilaterally radialis/ dorsalis pedis, no cyanosis, +1 bilateral lower extremity Neuro: Sedated, breathing over the vent, following simple commands Psych: Unable to assess G/U: Positive Rios Skin: no rashes, warm and dry Lymphatic: no cervical or axillary lymphadenopathy Results & Data Results & Data ([facility]) Vital Signs (Past 12 Hours) Vital Signs Temp Pulse Resp BP Pulse Ox 07/13/21 13:00 38.3 C H 108 H 16 93 07/13/21 12:00 38.5 C H 118 H 29 H 125/84 92 07/13/21 11:00 38.6 C H 125 H 59 H 88 L 07/13/21 10:00 38.4 C H 119 H 54 H 90 07/13/21 09:02 121 H 26 H 91 07/13/21 09:00 38.3 C H 117 H 54 H 91 12/25/21 08:00 38.3 C H 116 H 34 H 91 07/13/21 07:00 38.3 C H 120 H 38 H 91 07/13/21 06:00 38.2 C H 107 H 21 90 07/13/21 05:00 38.0 C H 97 H 19 97/72 L 92 07/13/21 04:00 37.9 C H 95 H 18 93/69 L 91 07/13/21 03:39 94 H 24 91 07/13/21 03:00 37.7 C H 116 H 24 121/80 85 L Laboratory Results 07/13/21 09:17 07/13/21 09:17 Coding Level of Care Code Critical Care 1st 30-74 mins Diagnoses ARDS (adult respiratory distress syndrome) J80 Pneumonia due to COVID-19 virus U07.1; J12.82 Elevated troponin I level R77.8 Elevated lactic acid level R79.89 Time Spent (min) 38
[2021-07-13] MEDS: fentaNYL citrate 2,500 MCG/250 ML BAG IV SCH (15:44)
--- NOTE | 2021-07-13 18:15 | Hospitalist Progress Note ---
Date of Service July 13, 2021 Assessment & Plan (1) Acute hypoxemic respiratory failure due to COVID-19: Plan: SEVERE. Upon admission she required BIPAP due to severe hypoxia & increased work of breathing. Remained on BIPAP 14/7 continuously for several days following admission, then transitioned to HFNC. Remained on max settings including 100% FiO2 thereafter. She had intermittently used BIPAP at HS as well. Dx with DVTs earlier this week; has presumed PEs; was too ill this week to safely obtain CTA chest. Heparin drip employed this week. Despite supportive care she developed significant respiratory fatigue from 8+ days of BIPAP + HFNC. Intubated AM of 07/04/21. proned on 07/05, not much improvement in oxygenation today she is on PEEP 8 and FiO2 60% placed on pressure support mode x 2 days, but not today due to increased FiO2 requirement intermittent fevers are lower grade now-removed central line on Versed, Fentanyl boluses only prn but is awake and following commands off of neuromuscular blockade ICU managing her Was on broad-spectrum IV abx (cefepime) to cover for bacterial superinfection, but now discontinued. Blood/sputum cx's sent-NGTD CRP noted to be high but then improved; procal negative. Cont dexamethasone, increase to 20mg daily on 07/07 for 5 days of 20mg (07/12) and 5 days of 10mg starting 07/12 Had received baricitinib 4mg daily for 8 days -- discontinued upon intubation. s/p Zithromax 5-day course Had been diuresed for about 5 days prior to intubation and now on daily IV lasix Was never a Remdesivir candidate. Appreciate critical care assistance Possible trach on Thursday-Thursday (2) Pneumonia due to COVID-19 virus: Plan: see above in #1 severe COVID pneumonia with resulting ARDS continue dexamethasone based on late ARDS protocol ventilator day 10 today (3) ARDS (adult respiratory distress syndrome): Plan: 2nd to COVID-19 pneumonia ongoing see above (4) Elevated troponin I level: Plan: Likely myocardial demand ischemia in setting of severe acute hypoxic resp failure / COVID-19 pneumonia If she has PEs this, too, can lead to rise in troponin EF 55-60% with no wall motion abnormalities hold Atenolol due to bradycardia (5) Acid reflux disease: Plan: cont IV PPI (6) Hypertension: Plan: had some hypotension 2nd to sedation and critical illness. now off pressors, now off propofol (7) Abnormal LFTs: Plan: transaminitis likely 2nd to COVID illness ast/alt remain elevated albeit mild trend (8) DVT prophylaxis: Plan: therapeutic lovenox BID for DVT (9) Deep vein thrombosis of bilateral lower extremities: Plan: b/l dopplers + for DVTs PEs presumed Heparin drip initially -- now on therapeutic lovenox (10) Candidiasis of mouth and esophagus: Plan: had been on nystatin prior to intubation could consider diflucan defer to ICU team Plan: appreciate ICU/pulmonary assistance Dispo-continued stay in ICU Admission and Anticipated Discharge Date Admission Date: June 26, 2021 Subjective remains intubated but is awake and alert, following commands.No PS trial today as her FiO2 requirement increased to 80% this AM Had a fever and central line removed, PICC line placed Review of Systems Review of Systems: Unobtainable due to endotracheal tube Physical Exam Constitutional: + mechanically ventilated; no acute distress Results & Data Results & Data ([facility]) Vital Signs (Past 12 Hours) Vital Signs Temp Pulse Resp BP Pulse Ox 07/13/21 18:00 37.6 C H 108 H 27 H 91 07/13/21 17:00 37.7 C H 90 23 107/71 90 07/13/21 16:22 95 H 30 H 92 07/13/21 16:00 37.9 C H 82 25 H 105/70 93 07/13/21 15:00 37.9 C H 95 H 27 H 93 07/13/21 14:00 38.1 C H 106 H 28 H 92 07/13/21 13:00 38.3 C H 108 H 16 93 07/13/21 12:00 38.5 C H 115 H 30 H 125/84 93 07/13/21 11:00 38.6 C H 125 H 59 H 88 L 07/13/21 10:00 38.4 C H 119 H 54 H 90 07/13/21 09:02 121 H 26 H 91 07/13/21 09:00 38.3 C H 117 H 54 H 91 07/13/21 08:00 38.3 C H 116 H 34 H 91 07/13/21 07:00 38.3 C H 120 H 38 H 91 Laboratory Results 07/13/21 07/13/21 07/13/21 Range/Units 12:44 11:26 09:17 WBC (4.8-10.8) K/uL RBC (4.2-5.4) M/uL Hgb (12.0-16.0) g/dL POC Hgb (12.0-16.0) g/dl Hct (37-47) % POC Hct (37-47) % MCV (80-100) fL MCH (25-34) pg MCHC (32-36) g/dL RDW Std Deviation (36.4-46.3) fL RDW Coeff of Dayanna (11.5-14.5) % Plt Count (130-400) K/uL MPV (7.4-10.4) fL Immature Gran % (Auto) % Neut % (Auto) % Lymph % (Auto) % [place] % (Auto) % Eos % (Auto) % Baso % (Auto) % Neut # (Auto) (1.4-6.5) K/uL Lymph # (Auto) (1.2-3.4) K/uL [place] # (Auto) (0.11-0.59) K/uL Eos # (Auto) (0-0.5) K/uL Baso # (Auto) (0-0.2) K/uL Immature Gran # (Auto) (0.00-0.02) K/uL Absolute Nucleated RBC (0-0) K/uL Nucleated RBC % (auto) % Sample Site POC pH (7.35-7.45) POC pCO2 (35-46) mmHg POC pO2 (80-95) mmHg POC HCO3 (19-24) christiano/L POC Total CO2 (24-31) mmol/L POC Base Excess (-9-1.8) christiano/L ABG pH (Temp Correct) (7.35-7.45) ABG pCO2 (Temp Corrct (35-46) mmHg POC ABG pO2 at Pt Temp POC ABG O2 Sat (90-95) % Hema Test O2 Delivery Device POC O2 Rate POC FiO2 % Tidal Volume PEEP POC Sodium (135-144) mmol/L Sodium 141 (136-145) mmol/L POC Potassium (3.3-5.0) mmol/L Potassium 3.9 (3.5-5.1) mmol/L Chloride 108 H (98-107) mmol/L Carbon Dioxide 29 (21-32) mmol/L Anion Gap 4.0 (3-11) BUN 37 H (7-18) mg/dl Creatinine 0.64 (0.6-1.2) mg/dl Est Cr Clr Drug Dosing 87.1 ml/min Est GFR ( Amer) 104.1 ml/min Est GFR (Non-Af Amer) 89.8 ml/min BUN/Creatinine Ratio 57.8 H (10-20) Glucose 150 H (70-99) mg/dl POC Glucose 190 H (70-99) mg/dl Calcium 9.0 (8.5-10.1) mg/dl Phosphorus (2.5-4.9) mg/dl Magnesium (1.8-2.4) mg/dl Urine Color Yellow Urine Appearance Clear (Clear) Urine pH 6.0 (4.5-7.5) Ur Specific Hayes 1.015 (1.000-1.030) Urine Protein 1+ H (Negative) Urine Glucose (UA) Negative (Negative) Urine Ketones Negative (Negative) Urine Blood 2+ H (Negative) Urine Nitrite Negative (Negative) Urine Bilirubin Negative (Negative) Urine Urobilinogen Negative (Negative) Ur Leukocyte Esterase Negative (Negative) Urine RBC 5-10 H (0-4) /hpf Urine WBC 0-5 (0-5) /hpf Ur Epithelial Cells 0-5 (0-5) /lpf Urine Bacteria 1+ H (Negative) Hyaline Casts 5-10 H (0-5) /lpf Urine Mucus Present A (None Prsent) 07/13/21 07/13/21 07/13/21 Range/Units 09:17 05:52 04:34 WBC 13.17 H (4.8-10.8) K/uL RBC 4.47 (4.2-5.4) M/uL Hgb 12.6 (12.0-16.0) g/dL POC Hgb 12.9 (12.0-16.0) g/dl Hct 40.8 (37-47) % POC Hct 38 (37-47) % MCV 91.3 (80-100) fL MCH 28.2 (25-34) pg MCHC 30.9 L (32-36) g/dL RDW Std Deviation 52.8 H (36.4-46.3) fL RDW Coeff of Dayanna 16.2 H (11.5-14.5) % Plt Count 208 (130-400) K/uL MPV 10.8 H (7.4-10.4) fL Immature Gran % (Auto) 2.7 % Neut % (Auto) 83.6 % Lymph % (Auto) 7.4 % [place] % (Auto) 4.7 % Eos % (Auto) 1.4 % Baso % (Auto) 0.2 % Neut # (Auto) 10.99 H (1.4-6.5) K/uL Lymph # (Auto) 0.98 L (1.2-3.4) K/uL [place] # (Auto) 0.62 H (0.11-0.59) K/uL Eos # (Auto) 0.19 (0-0.5) K/uL Baso # (Auto) 0.03 (0-0.2) K/uL Immature Gran # (Auto) 0.36 H (0.00-0.02) K/uL Absolute Nucleated RBC 0.06 H (0-0) K/uL Nucleated RBC % (auto) 0.4 % Sample Site Art Line POC pH 7.49 H (7.35-7.45) POC pCO2 43 (35-46) mmHg POC pO2 55 L (80-95) mmHg POC HCO3 32 H (19-24) christiano/L POC Total CO2 34 H (24-31) mmol/L POC Base Excess 9.0 H (-9-1.8) christiano/L ABG pH (Temp Correct) 7.472 H (7.35-7.45) ABG pCO2 (Temp Corrct 45 (35-46) mmHg POC ABG pO2 at Pt Temp 59 POC ABG O2 Sat 90.0 (90-95) % Hema Test NA O2 Delivery Device Ventilator POC O2 Rate 22 POC FiO2 80 % Tidal Volume 380 PEEP 8 POC Sodium 143 (135-144) mmol/L Sodium (136-145) mmol/L POC Potassium 4.1 (3.3-5.0) mmol/L Potassium (3.5-5.1) mmol/L Chloride (98-107) mmol/L Carbon Dioxide (21-32) mmol/L Anion Gap (3-11) BUN (7-18) mg/dl Creatinine (0.6-1.2) mg/dl Est Cr Clr Drug Dosing ml/min Est GFR ( Amer) ml/min Est GFR (Non-Af Amer) ml/min BUN/Creatinine Ratio (10-20) Glucose (70-99) mg/dl POC Glucose 130 H (70-99) mg/dl Calcium (8.5-10.1) mg/dl Phosphorus (2.5-4.9) mg/dl Magnesium (1.8-2.4) mg/dl Urine Color Urine Appearance (Clear) Urine pH (4.5-7.5) Ur Specific Hayes (1.000-1.030) Urine Protein (Negative) Urine Glucose (UA) (Negative) Urine Ketones (Negative) Urine Blood (Negative) Urine Nitrite (Negative) Urine Bilirubin (Negative) Urine Urobilinogen (Negative) Ur Leukocyte Esterase (Negative) Urine RBC (0-4) /hpf Urine WBC (0-5) /hpf Ur Epithelial Cells (0-5) /lpf Urine Bacteria (Negative) Hyaline Casts (0-5) /lpf Urine Mucus (None Prsent) 07/13/21 07/12/21 07/12/21 Range/Units 04:29 22:57 18:47 WBC (4.8-10.8) K/uL RBC (4.2-5.4) M/uL Hgb (12.0-16.0) g/dL POC Hgb (12.0-16.0) g/dl Hct (37-47) % POC Hct (37-47) % MCV (80-100) fL MCH (25-34) pg MCHC (32-36) g/dL RDW Std Deviation (36.4-46.3) fL RDW Coeff of Dayanna (11.5-14.5) % Plt Count (130-400) K/uL MPV (7.4-10.4) fL Immature Gran % (Auto) % Neut % (Auto) % Lymph % (Auto) % [place] % (Auto) % Eos % (Auto) % Baso % (Auto) % Neut # (Auto) (1.4-6.5) K/uL Lymph # (Auto) (1.2-3.4) K/uL [place] # (Auto) (0.11-0.59) K/uL Eos # (Auto) (0-0.5) K/uL Baso # (Auto) (0-0.2) K/uL Immature Gran # (Auto) (0.00-0.02) K/uL Absolute Nucleated RBC (0-0) K/uL Nucleated RBC % (auto) % Sample Site POC pH (7.35-7.45) POC pCO2 (35-46) mmHg POC pO2 (80-95) mmHg POC HCO3 (19-24) christiano/L POC Total CO2 (24-31) mmol/L POC Base Excess (-9-1.8) christiano/L ABG pH (Temp Correct) (7.35-7.45) ABG pCO2 (Temp Corrct (35-46) mmHg POC ABG pO2 at Pt Temp POC ABG O2 Sat (90-95) % Hema Test O2 Delivery Device POC O2 Rate POC FiO2 % Tidal Volume PEEP POC Sodium (135-144) mmol/L Sodium (136-145) mmol/L POC Potassium (3.3-5.0) mmol/L Potassium (3.5-5.1) mmol/L Chloride (98-107) mmol/L Carbon Dioxide (21-32) mmol/L Anion Gap (3-11) BUN (7-18) mg/dl Creatinine (0.6-1.2) mg/dl Est Cr Clr Drug Dosing ml/min Est GFR ( Amer) ml/min Est GFR (Non-Af Amer) ml/min BUN/Creatinine Ratio (10-20) Glucose (70-99) mg/dl POC Glucose 136 H 151 H (70-99) mg/dl Calcium (8.5-10.1) mg/dl Phosphorus 2.3 L (2.5-4.9) mg/dl Magnesium 2.5 H (1.8-2.4) mg/dl Urine Color Urine Appearance (Clear) Urine pH (4.5-7.5) Ur Specific Hayes (1.000-1.030) Urine Protein (Negative) Urine Glucose (UA) (Negative) Urine Ketones (Negative) Urine Blood (Negative) Urine Nitrite (Negative) Urine Bilirubin (Negative) Urine Urobilinogen (Negative) Ur Leukocyte Esterase (Negative) Urine RBC (0-4) /hpf Urine WBC (0-5) /hpf Ur Epithelial Cells (0-5) /lpf Urine Bacteria (Negative) Hyaline Casts (0-5) /lpf Urine Mucus (None Prsent) PG Care Time/CCT Total # of Minutes Spent Total Time Spent with Patient: Total time spent is greater than 50% in coordination of care (as documented) at patient's floor/unit and/or counseling patient: Coding Level of Care Code 04557 Subseq Hosp Care Lvl 1 Diagnoses Acute hypoxemic respiratory failure due to COVID-19 U07.1; J96.01 Pneumonia due to COVID-19 virus U07.1; J12.82 ARDS (adult respiratory distress syndrome) J80 Elevated troponin I level R77.8 Acid reflux disease K21.9 Hypertension I10 Abnormal LFTs R79.89 DVT prophylaxis Z29.9 Deep vein thrombosis of bilateral lower extremities I82.403 Candidiasis of mouth and esophagus B37.81; B37.0
[2021-07-13] MEDS ORDERED: FUROSEMIDE INJ 20 MG/2 ML VIAL IV ONE (18:19)
[2021-07-13] MEDS: PEPTAMEN INTENSE VHP 1.0 CAL 1,000 ML BAG OG SCH (19:43)
[2021-07-14] MEDS: INSULIN ASPART PER UNIT SC SCH ×4 (01:06→18:03)
[2021-07-14] MEDS: fentaNYL citrate 2,500 MCG/250 ML BAG IV SCH ×2 (02:53→17:48)
[2021-07-14] MEDS: TUBE FEEDING WATER FLUSH GT SCH ×5 (02:54→19:32)
[2021-07-14 04:15] LABS: iSTAT Art Bld Gas pCO2 Correct 50 mmHg (35-46); iSTAT Art Bld Gas pH Corrected 7.458 (7.35-7.45); iSTAT Arterial Blood Gas HCO3 35 meg/L (19-24); iSTAT Arterial Blood Gas pCO2 48 mmHg (35-46); iSTAT Arterial Blood Gas pH 7.47 (7.35-7.45); iSTAT Arterial Blood Gas pO2 51 mmHg (80-95); iSTAT Arterial Blood Gas pO2 C 54; iSTAT Carbon Dioxide 36 mmol/L (24-31); iSTAT FiO2 75 %; iSTAT Hematocrit 35 % (37-47); iSTAT Hemoglobin 11.9 g/dl (12.0-16.0); iSTAT Potassium 3.8 mmol/L (3.3-5.0); iSTAT Site Art Line; iSTAT Sodium 142 mmol/L (135-144)
[2021-07-14 04:40] LABS: Basophils # (auto) 0.03 K/uL (0-0.2); Basophils % (auto) 0.2 %; Eosinophils # (auto) 0.14 K/uL (0-0.5); Hematocrit (blood only) 39.7 % (37-47); Hemoglobin 12.4 g/dL (12.0-16.0); Immature Granulocytes % (auto) 4.2 %; Lymphocytes # (auto) 1.34 K/uL (1.2-3.4); Lymphocytes % (auto) 9.3 %; Mean Corpuscular Hemoglobin 28.5 pg (25-34); Mean Corpuscular Hgb Conc 31.2 g/dL (32-36); Mean Corpuscular Volume 91.3 fL (80-100); Mean Platelet Volume 10.7 fL (7.4-10.4); Monocytes # (auto) 0.81 K/uL (0.11-0.59); Monocytes % (auto) 5.6 %; Neutrophils # (auto) 11.47 K/uL (1.4-6.5); Neutrophils % (auto) 79.7 %; Nucleated RBC # (auto) 0.04 K/uL (0-0); Nucleated RBC % (auto) 0.3 %; Platelet Count 192 K/uL (130-400); RDW Coefficient of Variation 15.9 % (11.5-14.5); RDW Standard Deviation 52.2 fL (36.4-46.3); Red Blood Count 4.35 M/uL (4.2-5.4); White Blood Count 14.39 K/uL (4.8-10.8)
[2021-07-14 04:56] LABS: BUN Creatinine Ratio 62.7 (10-20); Creatinine Clr Calc Pharmacy 101.3 ml/min; Est GFR (African American) 109.4 ml/min; Est GFR (Non-African American) 94.4 ml/min; Magnesium 2.4 mg/dl (1.8-2.4); Phosphorus 2.6 mg/dl (2.5-4.9); Potassium 3.8 mmol/L (3.5-5.1)
--- NOTE | 2021-07-14 08:28 | XRay Report ---
XR chest 1V portable CLINICAL HISTORY: Follow-up interstitial and alveolar opacities. COMPARISON STUDY: No previous studies for comparison. TECHNIQUE: 1 view of the chest FINDINGS: Single frontal view of the chest demonstrates the cardiomediastinal silhouette to be within normal li mits. Tubes and catheters are unchanged. There is decreased expansion of lungs and the current study with continued worsening of interstitial and alveolar opacities. There is again evidence for left low er lobe atelectasis/collapse and small to moderate-sized left pleural effusion. There is no evidence for vascular congestion. There is no acute osseous pathology. IMPRESSION: Decreased expansion of lungs with worsening of interstitial and alveolar opacities, left basilar atelectasis and left pleural effusion. ACT 112: Negative or not required by law. Electronically signed by: Marlon Rae M.D. 07/14/2021 8:27 AM
[2021-07-14] MEDS: PANTOprazole 40 MG in SYRINGE 0 ML IV SCH ×2 (08:39→20:42)
[2021-07-14] MEDS: dexAMETHasone 10 MG in SYRINGE 0 ML IV SCH (08:39)
[2021-07-14] MEDS: SENNOSIDES 8.8 MG/5 ML UDC PO SCH ×2 (08:40→20:44)
[2021-07-14] MEDS: DOCUSATE SODIUM SYRUP 100 MG/10 ML UDC PO SCH ×2 (08:40→20:43)
[2021-07-14] MEDS: ENOXAPARIN 100 MG/1ML SYR SQ SCH ×2 (08:40→20:43)
[2021-07-14] MEDS: FUROSEMIDE 40 MG/4 ML VIAL IV SCH (08:41)
[2021-07-14] MEDS: MULTI VIT W/MINERALS LIQUID 15 ML UDP NG SCH (08:41)
[2021-07-14] MEDS: cefTRIAXone SODIUM 2,000 MG in DEXTROSE 5% 50 ML IV SCH (08:48)
[2021-07-14] MEDS: ACETAMINOPHEN SUSP 500 MG/15.6 ML UDP PO PRN (12:23)
--- NOTE | 2021-07-14 15:19 | Critical Care Progress Note ---
Date of Service July 14, 2021 Assessment & Plan (1) ARDS (adult respiratory distress syndrome): (2) Pneumonia due to COVID-19 virus: (3) Elevated troponin I level: (4) Elevated lactic acid level: Plan: Impression: 71-year-old nonvaccinated female admitted with Covid pneumonitis and hypoxemic respiratory failure/ARDS requiring noninvasive positive pressure ventilation. She was admitted 06/26/2021 and failed high flow, CPAP, BiPAP, and prone positioning. She is intubated 07/04/2021. Recommendations: -Neuro: On midazolam and fentanyl. Propofol discontinued because of elevated triglycerides on 07/08/2021 -Cardiovascular: --Episodes of bradycardia --> resolved Likely from sedation -Pulmonary: -- VDRF with acute hypoxic respiratory failure Likely secondary to multilobar COVID-19 pneumonia Continue with lung protective ventilation High PEEP, low tidal volume to keep Plateau < 30 with permissive hypercapnea if need be. Monitor ABGs Continue with ventilatory support Keep RASS -1 COVID-19 PCR positive Procalcitonin 0.17 CRP 18--> 12.9 Continue with DEXA ARDS protocol which is started on 07/06/2021 - ID: -- Covid pneumonia Continue dexamethasone for total of 10 days Baricitinib discontinued as she is now intubated. Sputum and blood from 07/05/2021 negative to date Completed the course of cefepime 07/12/2021 --Gram-positive cocci in chains On blood culture 07/13/2021 Central line as well as A-line removed 07/13/2021 Rocephin started 07/14/2021 --GI: Continue tube feeds -Renal: Electrolyte replacement protocol. No acute issues - Heme-onc: --Acute DVT bilateral lower extremity On therapeutic Lovenox monitor H&H - Endocrine: Continue with ICU hypoglycemia protocol --Prophylaxis VTE: Therapeutic Lovenox GI: Protonix Lines: Right arm PICC 07/13/2021, positive Rios, left radial A-line discontinued 07/14/2021, right IJ DC 07/13/2021 Diet: Tube feeds Plan: In/out: -1.3 L, urine output 2276 T-max 38.2 Chest x-ray from today still shows diffuse alveolar opacities. I will start the patient on Rocephin given the blood culture from 07/13/2021 is with gram-positive cocci in chains.. Repeat blood cultures 07/16/2021. Patient has recently completed cefepime course. A-line has been removed today. Patient's Daughter Jordyn Gallagher [phone] I have personally spent 36 minutes of critical care time in the direct management of this patient. This is a life/limb threatening event. This includes time spent evaluating patient, direct bedside care, chart review, placing orders, interpretation of d iagnostic studies, discussion with consultants, patient, and family members, as well as other required patient management activities. This time is exclusive of all separately billable procedures, and teaching time and separate from and in addition to any other critical care service time. Please note the above document was generated using voice recognition software. It may contain grammatical, syntax or spelling errors. Admission and Anticipated Discharge Date Admission Date: June 26, 2021 Subjective Patient seen and examined at bedside. No acute distress, no adverse events overnight Patient oxygen requirement again went up over the night She was on midazolam and fentanyl at time of examination She denied any headache, no chest pain She is following simple commands. She was on 75% FiO2 the time of examination saturating 91-92% Review of Systems Review of Systems: All systems reviewed & are unremarkable except as noted in Subjective and Unobtainable due to endotracheal tube Physical Exam Physical Exam: Constitutional: No acute distress HEENT: PERRLA Respiratory system:Decreased antibiotic, no wheeze, no cough, positive crackles bilaterally CVS: S1-S2 positive, no murmurs or gallops Abdomen: Soft, nontender, nondistended, positive bowel sounds x4 Extremities: +2 pulses bilaterally radialis/ dorsalis pedis, no cyanosis,+1 bilateral lower extremity Neuro:Sedated, breathing over the vent, following simple commands Psych: Unable to assess G/U: Positive Rios Skin: no rashes, warm and dry Lymphatic: no cervical or axillary lymphadenopathy Results & Data Results & Data ([facility]) Vital Signs (Past 12 Hours) Vital Signs Temp Pulse Resp BP Pulse Ox 07/14/21 13:00 38.1 C H 107 H 21 104/70 94 07/14/21 12:00 38.2 C H 116 H 29 H 121/70 95 07/14/21 11:00 38.1 C H 115 H 25 H 119/77 86 L 07/14/21 10:58 117 H 24 90 07/14/21 10:00 37.9 C H 111 H 24 124/83 88 L 07/14/21 09:00 37.8 C H 116 H 34 H 89 L 07/14/21 08:30 107 H 29 H 90 07/14/21 08:00 37.7 C H 107 H 21 117/76 88 L 07/14/21 07:00 37.7 C H 93 H 21 114/71 91 07/14/21 06:00 37.7 C H 86 20 129/69 94 07/14/21 05:00 37.7 C H 85 23 98/61 L 93 07/14/21 04:00 37.7 C H 117 H 23 89 L 07/14/21 03:20 112 H 27 H 90 Laboratory Results 07/14/21 04:26 07/14/21 04:26 Coding Level of Care Code Critical Care 1st 30-74 mins Diagnoses ARDS (adult respiratory distress syndrome) J80 Pneumonia due to COVID-19 virus U07.1; J12.82 Elevated troponin I level R77.8 Elevated lactic acid level R79.89 Time Spent (min) 36
[2021-07-14] MEDS: PEPTAMEN INTENSE VHP 1.0 CAL 1,000 ML BAG OG SCH (17:48)
--- NOTE | 2021-07-14 18:30 | Hospitalist Progress Note ---
Date of Service July 14, 2021 Assessment & Plan (1) Acute hypoxemic respiratory failure due to COVID-19: Plan: SEVERE. Upon admission she required BIPAP due to severe hypoxia & increased work of breathing. Remained on BIPAP 14/7 continuously for several days following admission, then transitioned to HFNC. Remained on max settings including 100% FiO2 thereafter. She had intermittently used BIPAP at HS as well. Dx with DVTs earlier this week; has presumed PEs; was too ill this week to safely obtain CTA chest. Heparin drip employed this week. Despite supportive care she developed significant respiratory fatigue from 8+ days of BIPAP + HFNC. Intubated AM of 07/04/21. proned on 07/05, not much improvement in oxygenation, but has improved somewhat. FiO2 requirement still 75% on 07/14 PEEP down to 8 placed on pressure support mode x 2 days on 07/11 and 07/12, but not since then due to increased FiO2 requirement Chest x-ray still with diffuse opacities on 07/14 Continues with fevers-central line and A-line removed on 07/13, now growing gram-positive cocci in chains on blood cultures from 07/13 on Versed, Fentanyl boluses only prn but is awake and following commands off of neuromuscular blockade ICU managing her Cont dexamethasone, increase to 20mg daily on 07/07 for 5 days of 20mg (07/12) and 5 days of 10mg starting 07/12 Had received baricitinib 4mg daily for 8 days -- discontinued upon intubation. s/p Zithromax 5-day course Had been diuresed for about 5 days prior to intubation and now on daily IV lasix Was never a Remdesivir candidate. Appreciate critical care assistance Possible trach in the next couple of days (2) Pneumonia due to COVID-19 virus: Plan: severe COVID pneumonia with resulting ARDS continue dexamethasone based on late ARDS protocol Chest x-ray on 07/14 continues with diffuse opacities Now growing gram-positive cocci in chains in blood cultures from 07/13 With persistent fevers Completed a 7-day course of cefepime on 07/12 -Started ceftriaxone on 07/14 -Follow blood cultures ventilator day 11 today (3) ARDS (adult respiratory distress syndrome): Plan: 2nd to COVID-19 pneumonia ongoing see above (4) Septicemia: Plan: With persistent fevers for many days despite being on cefepime Now blood cultures positive from 07/13 for gram-positive cocci in chains This could be strep versus Enterococcus? Right IJ central venous catheter and arterial line removed on 07/13 Completed course of cefepime x1 week on 07/12 -[employer] started ceftriaxone on 07/14 -Follow blood cultures Recommend repeating blood cultures on 07/15 -Of note, does have a total knee replacement in place, had PICC line placed on 07/13 -May need repeat limited echocardiogram to assess for valvular vegetation (5) Elevated troponin I level: Plan: Likely myocardial demand ischemia in setting of severe acute hypoxic resp failure / COVID-19 pneumonia If she has PEs this, too, can lead to rise in troponin EF 55-60% with no wall motion abnormalities Continue to hold Atenolol due to previous hypotension (6) Acid reflux disease: Plan: cont IV PPI (7) Hypertension: Plan: had some hypotension 2nd to sedation and critical illness. now off pressors, now off propofol Continue to hold home atenolol and Dyazide (8) Abnormal LFTs: Plan: transaminitis likely 2nd to COVID illness ast/alt remain elevated albeit mild trend (9) Deep vein thrombosis of bilateral lower extremities: Plan: b/l dopplers + for DVTs PEs presumed Heparin drip initially -- now on therapeutic lovenox (10) Candidiasis of mouth and esophagus: Plan: had been on nystatin prior to intubation could consider diflucan defer to ICU team (11) DVT prophylaxis: Plan: therapeutic lovenox BID for DVT Plan: appreciate ICU/pulmonary assistance Dispo-continued stay in ICU, prognosis guarded Admission and Anticipated Discharge Date Admission Date: June 26, 2021 Subjective Patient remains intubated, and was seen through the window. I discussed her care with nursing staff and the brand director who saw her today. She wakes up easily and follows commands as per nursing. Her FiO2 requirement went up again overnight and she did not have a spontaneous breathing trial today. She remains febrile and is now growing gram-positive cocci in chains and her blood cultures Review of Systems Review of Systems: Unobtainable due to cognitive status and Unobtainable due to endotracheal tube Physical Exam Constitutional: + mechanically ventilated; no acute distress Results & Data Results & Data ([facility]) Vital Signs (Past 12 Hours) Vital Signs Temp Pulse Resp BP Pulse Ox 07/14/21 17:05 111 H 30 H 92 07/14/21 13:00 38.1 C H 107 H 21 104/70 94 07/14/21 12:00 38.2 C H 116 H 29 H 121/70 95 07/14/21 11:00 38.1 C H 115 H 25 H 119/77 86 L 07/14/21 10:58 117 H 24 90 07/14/21 10:00 37.9 C H 111 H 24 124/83 88 L 07/14/21 09:00 37.8 C H 116 H 34 H 89 L 07/14/21 08:30 107 H 29 H 90 07/14/21 08:00 37.7 C H 107 H 21 117/76 88 L 07/14/21 07:00 37.7 C H 93 H 21 114/71 91 Laboratory Results 07/14/21 04:26 07/14/21 04:26 PG Care Time/CCT Total # of Minutes Spent Total Time Spent with Patient: Total time spent is greater than 50% in coordination of care (as documented) at patient's floor/unit and/or counseling patient: Coding Level of Care Code 50830 Subseq Hosp Care Lvl 2 Diagnoses Acute hypoxemic respiratory failure due to COVID-19 U07.1; J96.01 Pneumonia due to COVID-19 virus U07.1; J12.82 ARDS (adult respiratory distress syndrome) J80 Elevated troponin I level R77.8 Acid reflux disease K21.9 Hypertension I10 Abnormal LFTs R79.89 DVT prophylaxis Z29.9 Deep vein thrombosis of bilateral lower extremities I82.403 Candidiasis of mouth and esophagus B37.81; B37.0 Septicemia A41.9
[2021-07-14] MEDS: MIDAZOLAM HCL 125 MG/250 ML BAG IV SCH (21:11)
[2021-07-15] MEDS: TUBE FEEDING WATER FLUSH GT SCH ×7 (00:20→22:19)
[2021-07-15] MEDS: INSULIN ASPART PER UNIT SC SCH ×4 (00:23→18:10)
[2021-07-15 04:08] LABS: iSTAT Allen Test Pass; iSTAT Art Bld Gas pCO2 Correct 50 mmHg (35-46); iSTAT Art Bld Gas pH Corrected 7.464 (7.35-7.45); iSTAT Arterial Blood Gas HCO3 36 meg/L (19-24); iSTAT Arterial Blood Gas pCO2 49 mmHg (35-46); iSTAT Arterial Blood Gas pH 7.48 (7.35-7.45); iSTAT Arterial Blood Gas pO2 44 mmHg (80-95); iSTAT Arterial Blood Gas pO2 C 46; iSTAT Carbon Dioxide 37 mmol/L (24-31); iSTAT FiO2 80 %; iSTAT Hematocrit 37 % (37-47); iSTAT Hemoglobin 12.6 g/dl (12.0-16.0); iSTAT Potassium 3.7 mmol/L (3.3-5.0); iSTAT Site R Radial; iSTAT Sodium 141 mmol/L (135-144)
[2021-07-15 05:31] LABS: Basophils # (auto) 0.04 K/uL (0-0.2); Basophils % (auto) 0.3 %; Eosinophils # (auto) 0.22 K/uL (0-0.5); Eosinophils % (auto) 1.6 %; Hematocrit (blood only) 38.5 % (37-47); Immature Granulocytes # (auto) 0.55 K/uL (0.00-0.02); Immature Granulocytes % (auto) 3.9 %; Lymphocytes # (auto) 1.34 K/uL (1.2-3.4); Lymphocytes % (auto) 9.6 %; Mean Corpuscular Hemoglobin 28.4 pg (25-34); Mean Corpuscular Hgb Conc 31.2 g/dL (32-36); Mean Platelet Volume 11.8 fL (7.4-10.4); Monocytes # (auto) 0.59 K/uL (0.11-0.59); Monocytes % (auto) 4.2 %; Neutrophils # (auto) 11.24 K/uL (1.4-6.5); Neutrophils % (auto) 80.4 %; Platelet Count 152 K/uL (130-400); Red Blood Count 4.23 M/uL (4.2-5.4); White Blood Count 13.98 K/uL (4.8-10.8)
[2021-07-15] MEDS: fentaNYL citrate 2,500 MCG/250 ML BAG IV SCH ×2 (05:48→18:03)
[2021-07-15 05:57] LABS: Albumin Level 2.3 gm/dl (3.4-5.0); BUN Creatinine Ratio 75.5 (10-20); Bilirubin Direct 0.2 mg/dl (0-0.2); Creatinine Clr Calc Pharmacy 116.1 ml/min; Est GFR (African American) 114.4 ml/min; Est GFR (Non-African American) 98.7 ml/min; Magnesium 2.5 mg/dl (1.8-2.4); Potassium 3.5 mmol/L (3.5-5.1)
[2021-07-15 06:00] LABS: Bilirubin,Total 0.4 mg/dl (0.2-1); Phosphorus 2.9 mg/dl (2.5-4.9); Total Protein 6.8 gm/dl (6.4-8.2)
--- NOTE | 2021-07-15 07:30 | XRay Report ---
XR chest 1V portable HISTORY: Respiratory failure. Follow-up. COMPARISON: Chest 07/14/2021. FINDINGS: Endotracheal tube terminates approximately 13 mm from the arie. A right PICC terminates a t the right atrium. This is unchanged. Nasogastric tube is curled within the proximal stomach. There are low lung volumes. No pneumothorax. No pleural effusions. The heart is top normal in size. Interst itial/hazy airspace opacities persist. IMPRESSION: Endotracheal tube terminates approximately 13 mm from the arie. This could be pulled back by approx imately 1 cm. Otherwise, no change in the bilateral airspace opacities. This report was called/faxed to the referring physician following dictation. ACT 112: Negative or not required by law. Electronically signed by: Francisco Baires M.D. 07/15/2021 7:28 AM
[2021-07-15] MEDS: cefTRIAXone SODIUM 2,000 MG in DEXTROSE 5% 50 ML IV SCH (08:30)
[2021-07-15] MEDS: dexAMETHasone 10 MG in SYRINGE 0 ML IV SCH (08:30)
[2021-07-15] MEDS: SENNOSIDES 8.8 MG/5 ML UDC PO SCH ×2 (08:31→19:25)
[2021-07-15] MEDS: PANTOprazole 40 MG in SYRINGE 0 ML IV SCH ×2 (08:31→19:26)
[2021-07-15] MEDS: DOCUSATE SODIUM SYRUP 100 MG/10 ML UDC PO SCH ×2 (08:31→19:25)
[2021-07-15] MEDS: FUROSEMIDE 40 MG/4 ML VIAL IV SCH (08:32)
[2021-07-15] MEDS: MULTI VIT W/MINERALS LIQUID 15 ML UDP NG SCH (08:32)
[2021-07-15] MEDS: ENOXAPARIN 100 MG/1ML SYR SQ SCH ×2 (08:32→19:26)
--- NOTE | 2021-07-15 08:36 | Critical Care Progress Note ---
Date of Service July 15, 2021 Assessment & Plan (1) ARDS (adult respiratory distress syndrome): (2) Pneumonia due to COVID-19 virus: (3) Elevated troponin I level: (4) Elevated lactic acid level: Plan: Impression: 71-year-old nonvaccinated female admitted with Covid pneumonitis and hypoxemic respiratory failure/ARDS requiring noninvasive positive pressure ventilation. She was admitted 06/26/2021 and failed high flow, CPAP, BiPAP, and prone positioning. She is intubated 07/04/2021. Recommendations: -Neuro: On midazolam and fentanyl. Propofol discontinued because of elevated triglycerides on 07/08/2021 -Cardiovascular: --Episodes of bradycardia --> resolved Likely from sedation -Pulmonary: -- VDRF with acute hypoxic respiratory failure Likely secondary to multilobar COVID-19 pneumonia Continue with lung protective ventilation High PEEP, low tidal volume to keep Plateau < 30 with permissive hypercapnea if need be. Monitor ABGs Continue with ventilatory support Keep RASS -1 COVID-19 PCR positive Procalcitonin 0.17 CRP 18--> 12.9 Continue with DEXA ARDS protocol which is started on 07/06/2021 Recommend percutaneous tracheostomy versus terminal weaning and extubation - ID: -- Covid pneumonia Continue dexamethasone for total of 10 days Baricitinib discontinued as she is now intubated. Sputum and blood from 07/05/2021 negative to date Completed the course of cefepime 07/12/2021 --Gram-positive cocci in chains On blood culture 07/13/2021 Central line as well as A-line removed 07/13/2021 Rocephin started 07/14/2021 Repeat blood cultures 07/16/2021 --GI: Continue tube feeds -Renal: Electrolyte replacement protocol. No acute issues - Heme-onc: --Acute DVT bilateral lower extremity On therapeutic Lovenox monitor H&H - Endocrine: Continue with ICU hypoglycemia protocol --Prophylaxis VTE: Therapeutic Lovenox GI: Protonix Lines: Right arm PICC 07/13/2021, positive Rios, left radial A-line discontinued 07/14/2021, right IJ DC 07/13/2021 Diet: Tube feeds Patient's Daughter Jordyn Gallagher [phone] Admission and Anticipated Discharge Date Admission Date: June 26, 2021 Supervising Physician Co-Signing Physician Notes I have personally spent 45 minutes of critical care time in the direct management of this patient. This is a life/limb threatening event. This includes time spent evaluating patient, direct bedside care, chart review, placing orders, interpretation of diagnostic studies, discussion with consultants, patient, and/or family members regarding treatment decisions, as well as other required patient management activities. This time is exclusive of all separately billable procedures, and teaching time and separate from and in addition to any other critical care service time. Subjective Requiring high FiO2 Review of Systems Review of Systems: Unable to obtain secondary to endotracheal tube Physical Exam Physical Exam: General: Sedated, supine position nontoxic. Skin: Warm, dry, Head: Atraumatic Ears, nose, mouth and throat: airway obscured by endotracheal tube Cardiovascular: Normal peripheral perfusion Respiratory: Ventilator settings reviewed Gastrointestinal: Non distended Musculoskeletal: No deformity Results & Data Results & Data ([facility]) Vital Signs (Past 12 Hours) Vital Signs Temp Pulse Resp BP Pulse Ox 07/15/21 08:10 104 H 27 H 92 07/15/21 06:00 37.5 C 90 21 115/82 92 07/15/21 05:00 37.6 C H 94 H 24 93/71 L 92 07/15/21 04:00 37.6 C H 109 H 21 124/75 91 07/15/21 03:25 115 H 25 H 88 L 07/15/21 03:00 37.6 C H 83 23 96/62 L 89 L 07/15/21 02:00 37.6 C H 117 H 27 H 121/86 86 L 07/15/21 01:00 37.7 C H 83 23 105/57 L 89 L 07/15/21 00:00 37.6 C H 82 19 113/63 89 L 07/14/21 23:03 88 23 90 07/14/21 23:00 37.6 C H 75 21 98/67 L 92 07/14/21 22:00 37.6 C H 82 19 105/67 92 07/14/21 21:00 37.7 C H 96 H 20 123/78 90 Laboratory Results 07/15/21 07/15/21 07/15/21 Range/Units 04:34 04:29 04:29 WBC 13.98 H (4.8-10.8) K/uL RBC 4.23 (4.2-5.4) M/uL Hgb 12.0 (12.0-16.0) g/dL POC Hgb (12.0-16.0) g/dl Hct 38.5 (37-47) % POC Hct (37-47) % MCV 91.0 (80-100) fL MCH 28.4 (25-34) pg MCHC 31.2 L (32-36) g/dL RDW Std Deviation 52.0 H (36.4-46.3) fL RDW Coeff of Dayanna 16.0 H (11.5-14.5) % Plt Count 152 (130-400) K/uL MPV 11.8 H (7.4-10.4) fL Immature Gran % (Auto) 3.9 % Neut % (Auto) 80.4 % Lymph % (Auto) 9.6 % [place] % (Auto) 4.2 % Eos % (Auto) 1.6 % Baso % (Auto) 0.3 % Neut # (Auto) 11.24 H (1.4-6.5) K/uL Lymph # (Auto) 1.34 (1.2-3.4) K/uL [place] # (Auto) 0.59 (0.11-0.59) K/uL Eos # (Auto) 0.22 (0-0.5) K/uL Baso # (Auto) 0.04 (0-0.2) K/uL Immature Gran # (Auto) 0.55 H (0.00-0.02) K/uL Sample Site POC pH (7.35-7.45) POC pCO2 (35-46) mmHg POC pO2 (80-95) mmHg POC HCO3 (19-24) christiano/L POC Total CO2 (24-31) mmol/L POC Base Excess (-9-1.8) christiano/L ABG pH (Temp Correct) (7.35-7.45) ABG pCO2 (Temp Corrct (35-46) mmHg POC ABG pO2 at Pt Temp POC ABG O2 Sat (90-95) % Hema Test O2 Delivery Device POC O2 Rate Minute Ventilation POC FiO2 % Tidal Volume PEEP POC Sodium (135-144) mmol/L Sodium 139 (136-145) mmol/L POC Potassium (3.3-5.0) mmol/L Potassium 3.5 (3.5-5.1) mmol/L Chloride 101 (98-107) mmol/L Carbon Dioxide 35 H (21-32) mmol/L Anion Gap 3.0 (3-11) BUN 36 H (7-18) mg/dl Creatinine 0.48 L (0.6-1.2) mg/dl Est Cr Clr Drug Dosing 116.1 ml/min Est GFR ( Amer) 114.4 ml/min Est GFR (Non-Af Amer) 98.7 ml/min BUN/Creatinine Ratio 75.5 H (10-20) Glucose 125 H (70-99) mg/dl POC Glucose 100 H (70-99) mg/dl Calcium 9.0 (8.5-10.1) mg/dl Phosphorus 2.9 (2.5-4.9) mg/dl Magnesium 2.5 H (1.8-2.4) mg/dl Total Bilirubin 0.4 (0.2-1) mg/dl Direct Bilirubin 0.2 (0-0.2) mg/dl AST 66 H (15-37) U/L ALT 190 H (12-78) Alkaline Phosphatase 87 (45-117) U/L Total Protein 6.8 (6.4-8.2) gm/dl Albumin 2.3 L (3.4-5.0) gm/dl 07/15/21 07/15/21 07/14/21 Range/Units 03:49 00:06 17:58 WBC (4.8-10.8) K/uL RBC (4.2-5.4) M/uL Hgb (12.0-16.0) g/dL POC Hgb 12.6 (12.0-16.0) g/dl Hct (37-47) % POC Hct 37 (37-47) % MCV (80-100) fL MCH (25-34) pg MCHC (32-36) g/dL RDW Std Deviation (36.4-46.3) fL RDW Coeff of Dayanna (11.5-14.5) % Plt Count (130-400) K/uL MPV (7.4-10.4) fL Immature Gran % (Auto) % Neut % (Auto) % Lymph % (Auto) % [place] % (Auto) % Eos % (Auto) % Baso % (Auto) % Neut # (Auto) (1.4-6.5) K/uL Lymph # (Auto) (1.2-3.4) K/uL [place] # (Auto) (0.11-0.59) K/uL Eos # (Auto) (0-0.5) K/uL Baso # (Auto) (0-0.2) K/uL Immature Gran # (Auto) (0.00-0.02) K/uL Sample Site R Radial POC pH 7.48 H (7.35-7.45) POC pCO2 49 H (35-46) mmHg POC pO2 44 L (80-95) mmHg POC HCO3 36 H (19-24) christiano/L POC Total CO2 37 H (24-31) mmol/L POC Base Excess 12.0 H (-9-1.8) christiano/L ABG pH (Temp Correct) 7.464 H (7.35-7.45) ABG pCO2 (Temp Corrct 50 H (35-46) mmHg POC ABG pO2 at Pt Temp 46 POC ABG O2 Sat 82.0 L (90-95) % Hema Test Pass O2 Delivery Device Ventilator POC O2 Rate 22 Minute Ventilation 13.6 POC FiO2 80 % Tidal Volume 380 PEEP 10 POC Sodium 141 (135-144) mmol/L Sodium (136-145) mmol/L POC Potassium 3.7 (3.3-5.0) mmol/L Potassium (3.5-5.1) mmol/L Chloride (98-107) mmol/L Carbon Dioxide (21-32) mmol/L Anion Gap (3-11) BUN (7-18) mg/dl Creatinine (0.6-1.2) mg/dl Est Cr Clr Drug Dosing ml/min Est GFR ( Amer) ml/min Est GFR (Non-Af Amer) ml/min BUN/Creatinine Ratio (10-20) Glucose (70-99) mg/dl POC Glucose 147 H 164 H (70-99) mg/dl Calcium (8.5-10.1) mg/dl Phosphorus (2.5-4.9) mg/dl Magnesium (1.8-2.4) mg/dl Total Bilirubin (0.2-1) mg/dl Direct Bilirubin (0-0.2) mg/dl AST (15-37) U/L ALT (12-78) Alkaline Phosphatase (45-117) U/L Total Protein (6.4-8.2) gm/dl Albumin (3.4-5.0) gm/dl 07/14/21 Range/Units 11:59 WBC (4.8-10.8) K/uL RBC (4.2-5.4) M/uL Hgb (12.0-16.0) g/dL POC Hgb (12.0-16.0) g/dl Hct (37-47) % POC Hct (37-47) % MCV (80-100) fL MCH (25-34) pg MCHC (32-36) g/dL RDW Std Deviation (36.4-46.3) fL RDW Coeff of Dayanna (11.5-14.5) % Plt Count (130-400) K/uL MPV (7.4-10.4) fL Immature Gran % (Auto) % Neut % (Auto) % Lymph % (Auto) % [place] % (Auto) % Eos % (Auto) % Baso % (Auto) % Neut # (Auto) (1.4-6.5) K/uL Lymph # (Auto) (1.2-3.4) K/uL [place] # (Auto) (0.11-0.59) K/uL Eos # (Auto) (0-0.5) K/uL Baso # (Auto) (0-0.2) K/uL Immature Gran # (Auto) (0.00-0.02) K/uL Sample Site POC pH (7.35-7.45) POC pCO2 (35-46) mmHg POC pO2 (80-95) mmHg POC HCO3 (19-24) christiano/L POC Total CO2 (24-31) mmol/L POC Base Excess (-9-1.8) christiano/L ABG pH (Temp Correct) (7.35-7.45) ABG pCO2 (Temp Corrct (35-46) mmHg POC ABG pO2 at Pt Temp POC ABG O2 Sat (90-95) % Hema Test O2 Delivery Device POC O2 Rate Minute Ventilation POC FiO2 % Tidal Volume PEEP POC Sodium (135-144) mmol/L Sodium (136-145) mmol/L POC Potassium (3.3-5.0) mmol/L Potassium (3.5-5.1) mmol/L Chloride (98-107) mmol/L Carbon Dioxide (21-32) mmol/L Anion Gap (3-11) BUN (7-18) mg/dl Creatinine (0.6-1.2) mg/dl Est Cr Clr Drug Dosing ml/min Est GFR ( Amer) ml/min Est GFR (Non-Af Amer) ml/min BUN/Creatinine Ratio (10-20) Glucose (70-99) mg/dl POC Glucose 184 H (70-99) mg/dl Calcium (8.5-10.1) mg/dl Phosphorus (2.5-4.9) mg/dl Magnesium (1.8-2.4) mg/dl Total Bilirubin (0.2-1) mg/dl Direct Bilirubin (0-0.2) mg/dl AST (15-37) U/L ALT (12-78) Alkaline Phosphatase (45-117) U/L Total Protein (6.4-8.2) gm/dl Albumin (3.4-5.0) gm/dl Coding Level of Care Code Critical Care 1st 30-74 mins Diagnoses ARDS (adult respiratory distress syndrome) J80 Pneumonia due to COVID-19 virus U07.1; J12.82 Elevated troponin I level R77.8 Elevated lactic acid level R79.89
[2021-07-15] MEDS ORDERED: ACETAMINOPHEN SUSP 500 MG/15.6 ML UDP PO PRN (16:45)
[2021-07-15] MEDS ORDERED: VANCOMYCIN CONSULT ACTIVE PRN (18:23)
[2021-07-15] MEDS ORDERED: VANCOMYCIN HCL 2,250 MG in SODIUM CHLORIDE 0.9% 500 ML IV ONE (18:30)
--- NOTE | 2021-07-15 19:54 | Hospitalist Progress Note ---
Date of Service July 15, 2021 Assessment & Plan (1) Acute hypoxemic respiratory failure due to COVID-19: Plan: SEVERE. Upon admission she required BIPAP due to severe hypoxia & increased work of breathing. Remained on BIPAP 14/7 continuously for several days following admission, then transitioned to HFNC. Remained on max settings including 100% FiO2 thereafter. She had intermittently used BIPAP at HS as well. Dx with DVTs in the week prior to admission, has presumed PEs; was too ill here to safely obtain CTA chest. Heparin drip started and now on therapeutic Lovenox Despite supportive care she developed significant respiratory fatigue from 8+ days of BIPAP + HFNC. Intubated AM of 07/04/21. proned on 07/05, not much improvement in oxygenation, but has improved somewhat. placed on pressure support mode x 2 days on 07/11 and 07/12, but not since then due to increased FiO2 requirement-FiO2 requirement now back up to 100% on 07/15 Chest x-ray still with diffuse opacities on 07/14 and 07/15 Continues with fevers-central line and A-line removed on 07/13, now growing probable Enterococcus on blood cultures from 07/13-change ceftriaxone to vancomycin on 07/15 on Versed, Fentanyl boluses only prn but is awake and following commands off of neuromuscular blockade ICU managing her Cont dexamethasone, increased to 20mg daily on 07/07 for 5 days of 20mg (07/12) and 5 days of 10mg starting 07/12 Received baricitinib 4mg daily for 8 days -- discontinued upon intubation. s/p Zithromax 5-day course Continue daily IV Lasix to keep lungs dry Was never a Remdesivir candidate. Appreciate critical care assistance Now plan for tracheostomy on 07/16 (2) Pneumonia due to COVID-19 virus: Plan: severe COVID pneumonia with resulting ARDS With persistent fevers as above Completed a 7-day course of cefepime on 07/12 -Started ceftriaxone on 07/14 but now switched to vancomycin for probable Enterococcus on blood cultures Follow chest x-ray -Follow blood cultures ventilator day 12 today Follow chest x-ray (3) ARDS (adult respiratory distress syndrome): Plan: 2nd to COVID-19 pneumonia ongoing see above (4) Septicemia: Plan: With persistent fevers for many days despite being on cefepime Now blood cultures positive from 07/13 for probable Enterococcus Right IJ central venous catheter and arterial line removed on 07/13 Completed course of cefepime x1 week on 07/12 -[employer] started ceftriaxone on 07/14-we will now discontinue for final ID -Follow blood cultures for final ID -Start vancomycin on 07/15 Recommend repeating blood cultures on 07/16 -Of note, does have a total knee replacement in place, had PICC line placed on 07/13 -May need repeat limited echocardiogram to assess for valvular vegetation (5) Elevated troponin I level: Plan: Likely myocardial demand ischemia in setting of severe acute hypoxic resp failure / COVID-19 pneumonia If she has PEs this, too, can lead to rise in troponin EF 55-60% with no wall motion abnormalities Continue to hold Atenolol due to previous hypotension (6) Acid reflux disease: Plan: cont IV PPI (7) Hypertension: Plan: had some hypotension 2nd to sedation and critical illness. now off pressors, now off propofol Continue to hold home atenolol and Dyazide (8) Abnormal LFTs: Plan: transaminitis likely 2nd to COVID illness ast/alt remain elevated albeit mild trend (9) Deep vein thrombosis of bilateral lower extremities: Plan: b/l dopplers + for DVTs PEs presumed Heparin drip initially -- now on therapeutic lovenox (10) Candidiasis of mouth and esophagus: Plan: had been on nystatin prior to intubation could consider diflucan defer to ICU team (11) DVT prophylaxis: Plan: therapeutic lovenox BID for DVT Plan: appreciate ICU/pulmonary assistance Dispo-continued stay in ICU, prognosis guarded, family wants everything done at this point including tracheostomy Admission and Anticipated Discharge Date Admission Date: June 26, 2021 Subjective Remains intubated but is awake at times and following commands as per RN. Still requiring high FiO2 overnight. Still spiking fevers Review of Systems Review of Systems: Unobtainable due to cognitive status and Unobtainable due to endotracheal tube Physical Exam Constitutional: + mechanically ventilated; no acute distress Results & Data Results & Data ([facility]) Vital Signs (Past 12 Hours) Vital Signs Temp Pulse Resp BP Pulse Ox 07/15/21 16:00 37.9 C H 116 H 27 H 126/82 93 07/15/21 15:15 111 H 29 H 93 07/15/21 15:00 38.0 C H 112 H 27 H 121/76 94 07/15/21 14:00 38.0 C H 101 H 25 H 100/67 95 07/15/21 13:00 38.0 C H 122 H 22 104/77 94 07/15/21 12:00 38.1 C H 106 H 26 H 94/69 L 94 07/15/21 11:28 111 H 29 H 92 07/15/21 11:00 38.1 C H 113 H 23 104/70 90 07/15/21 10:00 38.0 C H 106 H 22 101/76 92 07/15/21 09:00 37.8 C H 97 H 21 123/80 93 07/15/21 08:10 104 H 27 H 92 07/15/21 08:00 37.7 C H 108 H 38 H 107/70 90 Laboratory Results 07/15/21 07/15/21 07/15/21 Range/Units 18:07 11:34 04:34 WBC (4.8-10.8) K/uL RBC (4.2-5.4) M/uL Hgb (12.0-16.0) g/dL POC Hgb (12.0-16.0) g/dl Hct (37-47) % POC Hct (37-47) % MCV (80-100) fL MCH (25-34) pg MCHC (32-36) g/dL RDW Std Deviation (36.4-46.3) fL RDW Coeff of Dayanna (11.5-14.5) % Plt Count (130-400) K/uL MPV (7.4-10.4) fL Immature Gran % (Auto) % Neut % (Auto) % Lymph % (Auto) % [place] % (Auto) % Eos % (Auto) % Baso % (Auto) % Neut # (Auto) (1.4-6.5) K/uL Lymph # (Auto) (1.2-3.4) K/uL [place] # (Auto) (0.11-0.59) K/uL Eos # (Auto) (0-0.5) K/uL Baso # (Auto) (0-0.2) K/uL Immature Gran # (Auto) (0.00-0.02) K/uL Sample Site POC pH (7.35-7.45) POC pCO2 (35-46) mmHg POC pO2 (80-95) mmHg POC HCO3 (19-24) christiano/L POC Total CO2 (24-31) mmol/L POC Base Excess (-9-1.8) christiano/L ABG pH (Temp Correct) (7.35-7.45) ABG pCO2 (Temp Corrct (35-46) mmHg POC ABG pO2 at Pt Temp POC ABG O2 Sat (90-95) % Hema Test O2 Delivery Device POC O2 Rate Minute Ventilation POC FiO2 % Tidal Volume PEEP POC Sodium (135-144) mmol/L Sodium (136-145) mmol/L POC Potassium (3.3-5.0) mmol/L Potassium (3.5-5.1) mmol/L Chloride (98-107) mmol/L Carbon Dioxide (21-32) mmol/L Anion Gap (3-11) BUN (7-18) mg/dl Creatinine (0.6-1.2) mg/dl Est Cr Clr Drug Dosing ml/min Est GFR ( Amer) ml/min Est GFR (Non-Af Amer) ml/min BUN/Creatinine Ratio (10-20) Glucose (70-99) mg/dl POC Glucose 180 H 204 H 100 H (70-99) mg/dl Calcium (8.5-10.1) mg/dl Phosphorus (2.5-4.9) mg/dl Magnesium (1.8-2.4) mg/dl Total Bilirubin (0.2-1) mg/dl Direct Bilirubin (0-0.2) mg/dl AST (15-37) U/L ALT (12-78) Alkaline Phosphatase (45-117) U/L Total Protein (6.4-8.2) gm/dl Albumin (3.4-5.0) gm/dl 07/15/21 07/15/21 07/15/21 Range/Units 04:29 04:29 03:49 WBC 13.98 H (4.8-10.8) K/uL RBC 4.23 (4.2-5.4) M/uL Hgb 12.0 (12.0-16.0) g/dL POC Hgb 12.6 (12.0-16.0) g/dl Hct 38.5 (37-47) % POC Hct 37 (37-47) % MCV 91.0 (80-100) fL MCH 28.4 (25-34) pg MCHC 31.2 L (32-36) g/dL RDW Std Deviation 52.0 H (36.4-46.3) fL RDW Coeff of Dayanna 16.0 H (11.5-14.5) % Plt Count 152 (130-400) K/uL MPV 11.8 H (7.4-10.4) fL Immature Gran % (Auto) 3.9 % Neut % (Auto) 80.4 % Lymph % (Auto) 9.6 % [place] % (Auto) 4.2 % Eos % (Auto) 1.6 % Baso % (Auto) 0.3 % Neut # (Auto) 11.24 H (1.4-6.5) K/uL Lymph # (Auto) 1.34 (1.2-3.4) K/uL [place] # (Auto) 0.59 (0.11-0.59) K/uL Eos # (Auto) 0.22 (0-0.5) K/uL Baso # (Auto) 0.04 (0-0.2) K/uL Immature Gran # (Auto) 0.55 H (0.00-0.02) K/uL Sample Site R Radial POC pH 7.48 H (7.35-7.45) POC pCO2 49 H (35-46) mmHg POC pO2 44 L (80-95) mmHg POC HCO3 36 H (19-24) christiano/L POC Total CO2 37 H (24-31) mmol/L POC Base Excess 12.0 H (-9-1.8) christiano/L ABG pH (Temp Correct) 7.464 H (7.35-7.45) ABG pCO2 (Temp Corrct 50 H (35-46) mmHg POC ABG pO2 at Pt Temp 46 POC ABG O2 Sat 82.0 L (90-95) % Hema Test Pass O2 Delivery Device Ventilator POC O2 Rate 22 Minute Ventilation 13.6 POC FiO2 80 % Tidal Volume 380 PEEP 10 POC Sodium 141 (135-144) mmol/L Sodium 139 (136-145) mmol/L POC Potassium 3.7 (3.3-5.0) mmol/L Potassium 3.5 (3.5-5.1) mmol/L Chloride 101 (98-107) mmol/L Carbon Dioxide 35 H (21-32) mmol/L Anion Gap 3.0 (3-11) BUN 36 H (7-18) mg/dl Creatinine 0.48 L (0.6-1.2) mg/dl Est Cr Clr Drug Dosing 116.1 ml/min Est GFR ( Amer) 114.4 ml/min Est GFR (Non-Af Amer) 98.7 ml/min BUN/Creatinine Ratio 75.5 H (10-20) Glucose 125 H (70-99) mg/dl POC Glucose (70-99) mg/dl Calcium 9.0 (8.5-10.1) mg/dl Phosphorus 2.9 (2.5-4.9) mg/dl Magnesium 2.5 H (1.8-2.4) mg/dl Total Bilirubin 0.4 (0.2-1) mg/dl Direct Bilirubin 0.2 (0-0.2) mg/dl AST 66 H (15-37) U/L ALT 190 H (12-78) Alkaline Phosphatase 87 (45-117) U/L Total Protein 6.8 (6.4-8.2) gm/dl Albumin 2.3 L (3.4-5.0) gm/dl 07/15/21 Range/Units 00:06 WBC (4.8-10.8) K/uL RBC (4.2-5.4) M/uL Hgb (12.0-16.0) g/dL POC Hgb (12.0-16.0) g/dl Hct (37-47) % POC Hct (37-47) % MCV (80-100) fL MCH (25-34) pg MCHC (32-36) g/dL RDW Std Deviation (36.4-46.3) fL RDW Coeff of Dayanna (11.5-14.5) % Plt Count (130-400) K/uL MPV (7.4-10.4) fL Immature Gran % (Auto) % Neut % (Auto) % Lymph % (Auto) % [place] % (Auto) % Eos % (Auto) % Baso % (Auto) % Neut # (Auto) (1.4-6.5) K/uL Lymph # (Auto) (1.2-3.4) K/uL [place] # (Auto) (0.11-0.59) K/uL Eos # (Auto) (0-0.5) K/uL Baso # (Auto) (0-0.2) K/uL Immature Gran # (Auto) (0.00-0.02) K/uL Sample Site POC pH (7.35-7.45) POC pCO2 (35-46) mmHg POC pO2 (80-95) mmHg POC HCO3 (19-24) christiano/L POC Total CO2 (24-31) mmol/L POC Base Excess (-9-1.8) christiano/L ABG pH (Temp Correct) (7.35-7.45) ABG pCO2 (Temp Corrct (35-46) mmHg POC ABG pO2 at Pt Temp POC ABG O2 Sat (90-95) % Hema Test O2 Delivery Device POC O2 Rate Minute Ventilation POC FiO2 % Tidal Volume PEEP POC Sodium (135-144) mmol/L Sodium (136-145) mmol/L POC Potassium (3.3-5.0) mmol/L Potassium (3.5-5.1) mmol/L Chloride (98-107) mmol/L Carbon Dioxide (21-32) mmol/L Anion Gap (3-11) BUN (7-18) mg/dl Creatinine (0.6-1.2) mg/dl Est Cr Clr Drug Dosing ml/min Est GFR ( Amer) ml/min Est GFR (Non-Af Amer) ml/min BUN/Creatinine Ratio (10-20) Glucose (70-99) mg/dl POC Glucose 147 H (70-99) mg/dl Calcium (8.5-10.1) mg/dl Phosphorus (2.5-4.9) mg/dl Magnesium (1.8-2.4) mg/dl Total Bilirubin (0.2-1) mg/dl Direct Bilirubin (0-0.2) mg/dl AST (15-37) U/L ALT (12-78) Alkaline Phosphatase (45-117) U/L Total Protein (6.4-8.2) gm/dl Albumin (3.4-5.0) gm/dl PG Care Time/CCT Total # of Minutes Spent Total Time Spent with Patient: Total time spent is greater than 50% in coordination of care (as documented) at patient's floor/unit and/or counseling patient: Coding Level of Care Code 39348 Subseq Hosp Care Lvl 1 Diagnoses Acute hypoxemic respiratory failure due to COVID-19 U07.1; J96.01 Pneumonia due to COVID-19 virus U07.1; J12.82 ARDS (adult respiratory distress syndrome) J80 Septicemia A41.9 Elevated troponin I level R77.8 Acid reflux disease K21.9 Hypertension I10 Abnormal LFTs R79.89 Deep vein thrombosis of bilateral lower extremities I82.403 Candidiasis of mouth and esophagus B37.81; B37.0 DVT prophylaxis Z29.9
--- NOTE | 2021-07-15 21:27 | Pharmacy Report ---
Pharmacy Vanc AUC Short Note - Date of Service July 15, 2021 - Assessment & Plan Assessment 71 year old F admitted 06/26 for ARDS and COVID19 pneumonia, receiving IV Cefepime 07/05-07/12, and IV Ceftriaxone 07/14-07/15 for treatment of fevers. Central line and A line removed on 07/13, now with probable enterococcus growing in 1/2 blood cultures. Change ceftriaxone to Vancomycin, as source still unknown. Plan Vancomycin * AUC/JC is the preferred PK/PD target for vancomycin * AUC guided dosing is effective and associated with decreased risk of nephrotoxicity compared to traditional trough targets * Vancomycin 2250mg IV x1 dose then * Vancomycin 1250mg IV Q12H * Trough level of 13.8 mcg/mL is predicted to achieve target AUC/JC of 400-600 mg/L.hr and may be associated with a 9 % risk of nephrotoxicity * Trough level ordered for: 07/17/21 Pharmacy will continue to follow and will adjust dose/frequency as necessary. Thank you.
[2021-07-15] MEDS: MIDAZOLAM HCL 125 MG/250 ML BAG IV SCH (22:09)
[2021-07-16] MEDS: INSULIN ASPART PER UNIT SC SCH ×4 (00:17→18:14)
[2021-07-16] MEDS: TUBE FEEDING WATER FLUSH GT SCH ×5 (00:19→21:36)
[2021-07-16 04:53] LABS: iSTAT Allen Test Pass; iSTAT Arterial Blood Gas HCO3 37 meg/L (19-24); iSTAT Arterial Blood Gas pCO2 54 mmHg (35-46); iSTAT Arterial Blood Gas pH 7.44 (7.35-7.45); iSTAT Arterial Blood Gas pO2 73 mmHg (80-95); iSTAT Carbon Dioxide 38 mmol/L (24-31); iSTAT Site R Radial
[2021-07-16 05:15] LABS: Mean Corpuscular Hgb Conc 31.9 g/dL (32-36); Mean Platelet Volume 11.5 fL (7.4-10.4); Platelet Count 147 K/uL (130-400)
[2021-07-16] MEDS: fentaNYL citrate 2,500 MCG/250 ML BAG IV SCH ×2 (05:17→19:12)
[2021-07-16 05:46] LABS: BUN Creatinine Ratio 73.1 (10-20); Calcium 8.7 mg/dl (8.5-10.1); Creatinine Clr Calc Pharmacy 116.1 ml/min; Est GFR (African American) 114.4 ml/min; Est GFR (Non-African American) 98.7 ml/min; Magnesium 2.5 mg/dl (1.8-2.4); Phosphorus 3.2 mg/dl (2.5-4.9); Potassium 3.3 mmol/L (3.5-5.1)
[2021-07-16 05:51] LABS: Hematocrit (blood only) 34.8 % (37-47); Hemoglobin 11.1 g/dL (12.0-16.0); Mean Corpuscular Volume 90.9 fL (80-100); RDW Coefficient of Variation 15.8 % (11.5-14.5); RDW Standard Deviation 51.2 fL (36.4-46.3); Red Blood Count 3.83 M/uL (4.2-5.4); White Blood Count 13.95 K/uL (4.8-10.8)
[2021-07-16 05:52] LABS: Basophils # (auto) 0.05 K/uL (0-0.2); Basophils % (auto) 0.4 %; Eosinophils # (auto) 0.28 K/uL (0-0.5); Immature Granulocytes # (auto) 0.49 K/uL (0.00-0.02); Immature Granulocytes % (auto) 3.5 %; Lymphocytes # (auto) 1.12 K/uL (1.2-3.4); Monocytes # (auto) 0.72 K/uL (0.11-0.59); Monocytes % (auto) 5.2 %; Neutrophils # (auto) 11.29 K/uL (1.4-6.5); Neutrophils % (auto) 80.9 %; Polychromasia 1+
[2021-07-16] MEDS ORDERED: METOPROLOL TARTRATE 1 MG/ML VIAL IV ONE (07:15)
[2021-07-16] MEDS ORDERED: METOPROLOL TARTRATE 1 MG/ML VIAL IV STA ×2 (07:16→08:38)
[2021-07-16] MEDS ORDERED: POTASSIUM CHLORIDE 20 MEQ/15 ML UDC PO STA (07:56)
[2021-07-16] MEDS: VANCOMYCIN HCL 1,250 MG in SODIUM CHLORIDE 0.9% 250 ML IV SCH ×2 (08:01→19:30)
[2021-07-16] MEDS: DOCUSATE SODIUM SYRUP 100 MG/10 ML UDC PO SCH ×2 (08:02→19:30)
[2021-07-16] MEDS: FUROSEMIDE 40 MG/4 ML VIAL IV SCH (08:03)
[2021-07-16] MEDS: ENOXAPARIN 100 MG/1ML SYR SQ SCH ×2 (08:03→19:31)
[2021-07-16] MEDS: MULTI VIT W/MINERALS LIQUID 15 ML UDP NG SCH (08:04)
[2021-07-16] MEDS: SENNOSIDES 8.8 MG/5 ML UDC PO SCH ×2 (08:04→19:30)
[2021-07-16] MEDS: dexAMETHasone 10 MG in SYRINGE 0 ML IV SCH (08:07)
[2021-07-16] MEDS: PANTOprazole 40 MG in SYRINGE 0 ML IV SCH ×2 (08:07→12:38)
--- NOTE | 2021-07-16 08:35 | XRay Report ---
XR chest 1V portable CLINICAL HISTORY: Follow-up bilateral airspace opacities. COMPARISON STUDY: 07/15/2021 TECHNIQUE: 1 view of the chest FINDINGS: Single frontal view of the chest demonstrates the cardiomediastinal silhouette to be within normal li mits. Tubes and catheters are unchanged. Compared to previous examination, there has been interval im provement in previously identified interstitial and alveolar opacities on the right. There is no sign ificant interval change in the interstitial and alveolar opacities on the left. There is no evidence for pleural effusion. There is no evidence for vascular congestion. There is no acute osseous patholo gy. IMPRESSION: Interval improvement of interstitial and alveolar opacities on the right with no change i n the appearance of the lung on the left. ACT 112: Negative or not required by law. Electronically signed by: Marlon Rae M.D. 07/16/2021 8:34 AM
[2021-07-16] MEDS: ACETAMINOPHEN SUSP 325 MG/10.15 ML UDC PO PRN (09:33)
--- NOTE | 2021-07-16 09:51 | Critical Care Progress Note ---
Date of Service July 16, 2021 Assessment & Plan (1) ARDS (adult respiratory distress syndrome): (2) Pneumonia due to COVID-19 virus: (3) Elevated troponin I level: (4) Elevated lactic acid level: Plan: Impression: 71-year-old nonvaccinated female admitted with Covid pneumonitis and hypoxemic respiratory failure/ARDS requiring noninvasive positive pressure ventilation. She was admitted 06/26/2021 and failed high flow, CPAP, BiPAP, and prone positioning. She is intubated 07/04/2021. Recommendations: -Neuro: On midazolam and fentanyl. Propofol discontinued because of elevated triglycerides on 07/08/2021 -Cardiovascular: --Episodes of bradycardia --> resolved Likely from sedation Atrial fibrillation with rapid ventricular response -Responded well to metoprolol start metoprolol 25 twice daily -Pulmonary: -- VDRF with acute hypoxic respiratory failure Likely secondary to multilobar COVID-19 pneumonia Continue with lung protective ventilation High PEEP, low tidal volume to keep Plateau < 30 with permissive hypercapnea if need be. Monitor ABGs Continue with ventilatory support Keep RASS -1 COVID-19 PCR positive Continue with DEXA ARDS protocol which is started on 07/06/2021 Plan percutaneous tracheostomy at the present time when safe - ID: -- Covid pneumonia Continue dexamethasone for total of 10 days Baricitinib discontinued as she is now intubated. Sputum and blood from 07/05/2021 negative to date Completed the course of cefepime 07/12/2021 --Gram-positive cocci in chains On blood culture 07/13/2021 Central line as well as A-line removed 07/13/2021 Rocephin started 07/14/2021 -Transitioned to vancomycin 07/15 Repeat blood cultures 07/16/2021 --GI: Continue tube feeds -Plan n.p.o. after midnight until trach completed -Renal: Electrolyte replacement protocol. No acute issues --Acute DVT bilateral lower extremity On therapeutic Lovenox monitor H&H - Endocrine: Continue with ICU hypoglycemia protocol --Prophylaxis VTE: Therapeutic Lovenox GI: Protonix Lines: Right arm PICC 07/13/2021, positive Rios, left radial A-line discontinued 07/14/2021, right IJ DC 07/13/2021 Diet: Tube feeds Patient's Daughter Jordyn Gallagher [phone] Updated family. Continue to plan for tracheostomy. Admission and Anticipated Discharge Date Admission Date: June 26, 2021 Supervising Physician Co-Signing Physician Notes I have personally spent 45 minutes of critical care time in the direct management of this patient. This is a life/limb threatening event. This includes time spent evaluating patient, direct bedside care, chart review, placing orders, interpretation of diagnostic studies, discussion with consultants, patient, and/or family members regarding treatment decisions, as well as other required patient management activities. This time is exclusive of all separately billable procedures, and teaching time and separate from and in addition to any other critical care service time. Subjective deferred trachelotomy today due to high oxygen requirements Review of Systems Review of Systems: Unable to obtain secondary to endotracheal tube Physical Exam Physical Exam: General: Sedated, supine position nontoxic. Skin: Warm, dry, Head: Atraumatic Ears, nose, mouth and throat: airway obscured by endotracheal tube Cardiovascular: Normal peripheral perfusion Respiratory: Ventilator settings reviewed Gastrointestinal: Non distended Musculoskeletal: No deformity Results & Data Results & Data ([facility]) Vital Signs (Past 12 Hours) Vital Signs Temp Pulse Resp BP Pulse Ox 07/16/21 08:41 138 H 07/16/21 07:18 151 H 121/62 07/16/21 07:14 98 H 26 H 89 L 07/16/21 06:08 37.5 C 77 22 99/64 L 89 L 07/16/21 05:12 37.5 C 78 22 92/63 L 94 07/16/21 04:21 37.6 C H 74 22 95/64 L 93 07/16/21 03:46 94 H 26 H 92 07/16/21 03:00 37.8 C H 94 H 22 82/62 L 92 07/16/21 02:00 37.9 C H 100 H 22 105/66 89 L 07/16/21 01:26 37.9 C H 94 H 22 115/72 90 07/16/21 00:19 37.9 C H 91 H 22 102/68 91 07/15/21 23:23 104 H 27 H 90 07/15/21 23:14 37.8 C H 86 22 96/64 L 91 07/15/21 22:48 37.8 C H 87 22 93/66 L 93 Coding Level of Care Code Critical Care 1st 30-74 mins Diagnoses ARDS (adult respiratory distress syndrome) J80 Pneumonia due to COVID-19 virus U07.1; J12.82 Elevated troponin I level R77.8 Elevated lactic acid level R79.89
[2021-07-16] MEDS ORDERED: METOPROLOL TARTRATE 25 MG TAB PO ONE (11:00)
--- NOTE | 2021-07-16 12:00 | Hospitalist Progress Note ---
Date of Service July 16, 2021 Assessment & Plan (1) Acute hypoxemic respiratory failure due to COVID-19: Plan: SEVERE. Upon admission she required BIPAP due to severe hypoxia & increased work of breathing. Remained on BIPAP 14/7 continuously for several days following admission, then transitioned to HFNC. Remained on max settings including 100% FiO2 thereafter. She had intermittently used BIPAP at HS as well. Dx with DVTs in the week prior to admission, has presumed PEs; was too ill here to safely obtain CTA chest. Heparin drip started and now on therapeutic Lovenox Despite supportive care she developed significant respiratory fatigue from 8+ days of BIPAP + HFNC. Intubated AM of 07/04/21. placed on pressure support mode x 2 days on 07/11 and 07/12, but not since then due to increased FiO2 requirement-FiO2 requirement now back up to 100% on 07/15 Chest x-ray still with diffuse opacities on 07/14 and 07/15 Continues with fevers-central line and A-line removed on 07/13, now growing probable Enterococcus on blood cultures from 07/13-change ceftriaxone to vancomycin on 07/15 on Versed, Fentanyl boluses only prn but is awake and following commands off of neuromuscular blockade ICU managing her Cont dexamethasone, increased to 20mg daily on 07/07 for 5 days of 20mg (07/12) and 5 days of 10mg starting 07/12 Received baricitinib 4mg daily for 8 days -- discontinued upon intubation. s/p Zithromax 5-day course Continue daily IV Lasix to keep lungs dry Was never a Remdesivir candidate. Appreciate critical care assistance hold on tracheostomy today as not safe continue to discuss with family, patient not doing well, will try to re-address goals of care (2) Pneumonia due to COVID-19 virus: Plan: severe COVID pneumonia with resulting ARDS With persistent fevers as above Completed a 7-day course of cefepime on 07/12 -Started ceftriaxone on 07/14 but now switched to vancomycin for probable Enterococcus on blood cultures Follow chest x-ray -Follow blood cultures ventilator day 13 today Follow chest x-ray (3) ARDS (adult respiratory distress syndrome): Plan: 2nd to COVID-19 pneumonia ongoing see above not safe for tracheostomy today (4) Septicemia: Plan: With persistent fevers for many days despite being on cefepime Now blood cultures positive from 07/13 for probable Enterococcus Right IJ central venous catheter and arterial line removed on 07/13 Completed course of cefepime x1 week on 07/12 -Tool Clerk started ceftriaxone on 07/14-we will now discontinue for final ID -Follow blood cultures for final ID -Start vancomycin on 07/15 Recommend repeating blood cultures on 07/16 -Of note, does have a total knee replacement in place, had PICC line placed on 07/13 -May need repeat limited echocardiogram to assess for valvular vegetation (5) Elevated troponin I level: Plan: Likely myocardial demand ischemia in setting of severe acute hypoxic resp failure / COVID-19 pneumonia If she has PEs this, too, can lead to rise in troponin EF 55-60% with no wall motion abnormalities Continue to hold Atenolol due to previous hypotension (6) Acid reflux disease: Plan: cont IV PPI (7) Hypertension: Plan: had some hypotension 2nd to sedation and critical illness. now off pressors, now off propofol Continue to hold home atenolol and Dyazide (8) Abnormal LFTs: Plan: transaminitis likely 2nd to COVID illness ast/alt remain elevated albeit mild trend (9) Deep vein thrombosis of bilateral lower extremities: Plan: b/l dopplers + for DVTs PEs presumed Heparin drip initially -- now on therapeutic lovenox (10) Candidiasis of mouth and esophagus: Plan: had been on nystatin prior to intubation (11) DVT prophylaxis: Plan: therapeutic lovenox BID for DVT Plan: appreciate ICU/pulmonary assistance Dispo-continued stay in ICU, prognosis guarded, family wants everything done at this point including tracheostomy will continue to speak with them about goals of care Admission and Anticipated Discharge Date Admission Date: June 26, 2021 Subjective patient remains intubated evaluated for tracheostomy by Dr. Womack today, not safe, will evaluate again tomorrow reviewed chart and labs Review of Systems Review of Systems: Unobtainable due to endotracheal tube Physical Exam Physical Exam: General: well developed, obese female, intubated and mechanically ventilated Neck: supple, trachea midline, normal thyroid Lungs: diminished sounds bilaterally, mechanically ventilated Heart: bradycardic, S1 and S2, no murmur, peripheral pulses normal, capillary refill normal, no edema Abdomen: soft, NT, ND, + BS, no hepatomegaly, normal to percussion Extremities: normal in appearance, no cyanosis, no petechiae Neuro: sedated, no focal motor deficits, CN II-XII intact Skin: warm, dry, no rash, normal turgor Psych: sedated Results & Data Results & Data ([facility]) Vital Signs (Past 12 Hours) Vital Signs Temp Pulse Resp BP Pulse Ox 07/16/21 11:08 90 28 H 92 07/16/21 08:41 138 H 07/16/21 07:18 151 H 121/62 07/16/21 07:14 98 H 26 H 89 L 07/16/21 06:08 37.5 C 77 22 99/64 L 89 L 07/16/21 05:12 37.5 C 78 22 92/63 L 94 07/16/21 04:21 37.6 C H 74 22 95/64 L 93 07/16/21 03:46 94 H 26 H 92 07/16/21 03:00 37.8 C H 94 H 22 82/62 L 92 07/16/21 02:00 37.9 C H 100 H 22 105/66 89 L 07/16/21 01:26 37.9 C H 94 H 22 115/72 90 07/16/21 00:19 37.9 C H 91 H 22 102/68 91 Laboratory Results Laboratory Results - last 24 hr 07/15/21 07/15/21 07/16/21 18:07 23:27 04:24 WBC 13.95 H RBC 3.83 L Hgb 11.1 L Hct 34.8 L MCV 90.9 MCH 29.0 MCHC 31.9 L RDW Std Deviation 51.2 H RDW Coeff of Dayanna 15.8 H Plt Count 147 MPV 11.5 H Immature Gran % (Auto) 3.5 Neut % (Auto) 80.9 Lymph % (Auto) 8.0 Foster % (Auto) 5.2 Eos % (Auto) 2.0 Baso % (Auto) 0.4 Neut # (Auto) 11.29 H Lymph # (Auto) 1.12 L Foster # (Auto) 0.72 H Eos # (Auto) 0.28 Baso # (Auto) 0.05 Immature Gran # (Auto) 0.49 H Polychromasia 1+ Sample Site POC pH POC pCO2 POC pO2 POC HCO3 POC Total CO2 POC Base Excess POC ABG O2 Sat Hema Test O2 Delivery Device POC O2 Rate Minute Ventilation Tidal Volume PEEP Sodium Potassium Chloride Carbon Dioxide Anion Gap BUN Creatinine Est Cr Clr Drug Dosing Est GFR ( Amer) Est GFR (Non-Af Amer) BUN/Creatinine Ratio Glucose POC Glucose 180 H 135 H Calcium Phosphorus Magnesium 07/16/21 07/16/21 07/16/21 04:24 04:35 05:00 WBC RBC Hgb Hct MCV MCH MCHC RDW Std Deviation RDW Coeff of Dayanna Plt Count MPV Immature Gran % (Auto) Neut % (Auto) Lymph % (Auto) Foster % (Auto) Eos % (Auto) Baso % (Auto) Neut # (Auto) Lymph # (Auto) Foster # (Auto) Eos # (Auto) Baso # (Auto) Immature Gran # (Auto) Polychromasia Sample Site R Radial POC pH 7.44 POC pCO2 54 H POC pO2 73 L POC HCO3 37 H POC Total CO2 38 H POC Base Excess 12.0 H POC ABG O2 Sat 95.0 Hema Test Pass O2 Delivery Device Ventilator POC O2 Rate 22 Minute Ventilation 8.3 Tidal Volume 380 PEEP 10 Sodium 140 Potassium 3.3 L Chloride 102 Carbon Dioxide 34 H Anion Gap 4.0 BUN 35 H Creatinine 0.48 L Est Cr Clr Drug Dosing 116.1 Est GFR ( Amer) 114.4 Est GFR (Non-Af Amer) 98.7 BUN/Creatinine Ratio 73.1 H Glucose 113 H POC Glucose 112 H Calcium 8.7 Phosphorus 3.2 Magnesium 2.5 H Medications Administered Current Inpatient Medications Acetaminophen (Acetaminophen Susp 325 Mg/10.15 Ml Udc) 975 mg PO Q8H PRN PRN Reason: Fever Stop: 08/14/21 16:44 Last Admin: 07/16/21 09:33 Dose: 975 mg Documented by: Dextrose (Dextrose 50% 50 Ml Syringe) 25 - 50 ml IV UD PRN; Protocol PRN Reason: Hypoglycemia Protocol Stop: 08/07/21 21:38 Docusate Sodium (Docusate Sodium Syrup 100 Mg/10 Ml Udc) 50 mg PO BID [facility] Stop: 08/11/21 20:59 Last Admin: 07/16/21 08:02 Dose: 50 mg Documented by: Enoxaparin Sodium (Enoxaparin 100 Mg/1ml Syr) 90 mg SQ Q12 [place] Stop: 08/04/21 10:59 Last Admin: 07/16/21 08:03 Dose: 90 mg Documented by: Fentanyl Citrate (Fentanyl Bolus From Bag) 50 mcg IV Q60M PRN PRN Reason: Pain or Agitation Stop: 07/18/21 13:31 Last Admin: 07/10/21 02:09 Dose: 50 mcg Documented by: Furosemide (Furosemide 40 Mg/4 Ml Vial) 40 mg IV DAILY [place] Stop: 08/12/21 08:59 Last Admin: 07/16/21 08:03 Dose: 40 mg Documented by: Glucagon (Glucagon For Inj 1 Mg Vial) 1 mg SQ UD PRN; Protocol PRN Reason: Hypoglycemia Protocol Stop: 08/07/21 21:38 Glucose (Glucose 10 Tabs/Tube) 4 - 8 tabs PO UD PRN; Protocol PRN Reason: Hypoglycemia Protocol Stop: 08/07/21 21:38 Glucose (Glucose 40% Gel 15 Gm Tube) 15 - 30 gm PO UD PRN; Protocol PRN Reason: Hypoglycemia Protocol Stop: 08/07/21 21:38 Heparin Sodium (Beef Lung) (Heparin 10 Unit/Ml 5 Ml Flush) 5 ml FLUSH PRN PRN PRN Reason: Flush Stop: 08/12/21 18:12 Fentanyl Citrate (Fentanyl Citrate) 2,500 mcg in 250 mls @ 17.5 mls/hr IV .[id number] [facility]; Protocol Stop: 07/22/21 04:59 Last Admin: 07/16/21 05:17 Dose: 175 mcg/hr, 17.5 mls/hr Documented by: Midazolam HCl (Versed) 125 mg in 250 mls @ 8 mls/hr IV .[id number] [facility]; Protocol Stop: 08/07/21 13:29 Last Admin: 07/15/21 22:09 Dose: 4 mg/hr, 8 mls/hr Documented by: Vancomycin HCl 1,250 mg/ (Sodium Chloride) 275 mls @ 200 mls/hr IV Q12H [facility] Stop: 07/30/21 06:59 Last Infusion: 07/16/21 09:28 Dose: Infused Documented by: Pantoprazole Sodium 40 mg/ (Syringe) 10 mls @ 5 mls/min IV DAILY@1100 [facility] Stop: 08/15/21 10:59 Insulin Aspart (Insulin Aspart Per Unit) 0 units SC Q6 [facility] Stop: 08/10/21 11:59 Last Admin: 12/28/21 05:16 Dose: Not Given Documented by: Metoprolol Tartrate (Metoprolol Tartrate 25 Mg Tab) 25 mg PO BID [facility] Stop: 08/15/21 20:59 Midazolam HCl (Midazolam Bolus From Bag) 2 mg IV Q60M PRN PRN Reason: Sedation Stop: 08/07/21 13:26 Last Admin: 07/09/21 04:21 Dose: 2 mg Documented by: Miscellaneous (Carbohydrates For Hypoglycemia ) 15 - 30 gm PO UD PRN PRN Reason: Hypoglycemia Protocol Stop: 08/07/21 21:38 Miscellaneous (Peptamen Intense Vhp--Stop Order) 1 ea N/A DAILY@0000 [facility] Stop: 08/16/21 00:00 Miscellaneous Information (Vancomycin Consult Active) 1 ea N/A UD PRN PRN Reason: Consult Stop: 08/14/21 18:22 Multivitamins/Minerals (Multi Vit W/Minerals Liquid 15 Ml Udp) 15 ml NG QAM [facility] Stop: 08/12/21 08:59 Last Admin: 07/16/21 08:04 Dose: 15 ml Documented by: Nutritional Formula (Peptamen Intense Vhp 1.0 Jhonny 1,000 Ml Bag) 1,000 ml OG CONT [facility]; Protocol Stop: 07/17/21 00:00 Last Admin: 07/14/21 17:48 Dose: 1,000 ml Documented by: Nutritional Formula (Peptamen Intense Vhp 1.0 Jhonny 1,000 Ml Bag) 1,200 ml OG DAILY@0800 [facility]; Protocol Stop: 08/16/21 07:59 Ondansetron HCl (Ondansetron Inj 2 Mg/Ml 2 Ml Vial) 4 mg IV Q6H PRN PRN Reason: Nausea Stop: 07/26/21 20:32 Sennosides (Sennosides 8.8 Mg/5 Ml Udc) 8.8 mg PO BID [facility] Stop: 08/11/21 20:59 Last Admin: 07/16/21 08:04 Dose: 8.8 mg Documented by: Sterile Water (Tube Feeding Water Flush) 30 ml GT Q4H [facility] Stop: 08/06/21 14:44 Last Admin: 07/16/21 00:19 Dose: Not Given Documented by: PG Care Time/CCT Total # of Minutes Spent Total Time Spent with Patient: Total time spent is greater than 50% in coordination of care (as documented) at patient's floor/unit and/or counseling patient: Coding Level of Care Code 78684 Subseq Hosp Care Lvl 2 Diagnoses Acute hypoxemic respiratory failure due to COVID-19 U07.1; J96.01 Pneumonia due to COVID-19 virus U07.1; J12.82 ARDS (adult respiratory distress syndrome) J80 Septicemia A41.9 Elevated troponin I level R77.8 Acid reflux disease K21.9 Hypertension I10 Abnormal LFTs R79.89 Deep vein thrombosis of bilateral lower extremities I82.403 Candidiasis of mouth and esophagus B37.81; B37.0 DVT prophylaxis Z29.9
[2021-07-16] MEDS: PEPTAMEN INTENSE VHP 1.0 CAL 1,000 ML BAG OG SCH (15:42)
--- NOTE | 2021-07-16 17:51 | Electrocardiogram Report ---
Test Reason : Blood Pressure : / mmHG Vent. Rate : 133 BPM Atrial Rate : 129 BPM P-R Int : 000 ms QRS Dur : 082 ms QT Int : 306 ms P-R-T Axes : 000 -22 047 degrees QTc Int : 455 ms Poor data quality, interpretation may be adversely affected Atrial fibrillation with rapid ventricular response Abnormal ECG When compared with ECG of 26-JUN-2021 18:12, Atrial fibrillation has replaced Sinus rhythm Vent. rate has increased BY 64 BPM Nonspecific T wave abnormality, improved in Lateral leads Confirmed by Man Arevalo ([id number]) on 07/16/2021 5:51:16 PM Referred By: REFERRED SELF Confirmed By:Jared Arevalo
[2021-07-16] MEDS: METOPROLOL TARTRATE 25 MG TAB PO SCH (19:32)
[2021-07-16] MEDS ORDERED: PANTOprazole 40 MG in SYRINGE 0 ML IV SCH (21:00)
[2021-07-17] MEDS ORDERED: [UNRECOGNIZED DRUG - REMARK] SCH
[2021-07-17] MEDS: MIDAZOLAM HCL 125 MG/250 ML BAG IV SCH ×3 (00:15→21:28)
[2021-07-17] MEDS: INSULIN ASPART PER UNIT SC SCH ×4 (01:52→18:09)
[2021-07-17] MEDS: TUBE FEEDING WATER FLUSH GT SCH ×6 (03:15→23:04)
[2021-07-17 04:48] LABS: Hematocrit (blood only) 34.2 % (37-47); Hemoglobin 10.5 g/dL (12.0-16.0); Mean Corpuscular Hemoglobin 28.1 pg (25-34); Mean Corpuscular Hgb Conc 30.7 g/dL (32-36); Mean Corpuscular Volume 91.4 fL (80-100); Platelet Count 144 K/uL (130-400); RDW Coefficient of Variation 15.8 % (11.5-14.5); RDW Standard Deviation 52.2 fL (36.4-46.3); Red Blood Count 3.74 M/uL (4.2-5.4); White Blood Count 14.81 K/uL (4.8-10.8)
[2021-07-17 04:57] LABS: iSTAT Art Bld Gas pCO2 Correct 58 mmHg (35-46); iSTAT Art Bld Gas pH Corrected 7.403 (7.35-7.45); iSTAT Arterial Blood Gas HCO3 36 meg/L (19-24); iSTAT Arterial Blood Gas pCO2 56 mmHg (35-46); iSTAT Arterial Blood Gas pH 7.41 (7.35-7.45); iSTAT Arterial Blood Gas pO2 96 mmHg (80-95); iSTAT Arterial Blood Gas pO2 C 100; iSTAT Carbon Dioxide 38 mmol/L (24-31); iSTAT FiO2 100 %; iSTAT Hematocrit 29 % (37-47); iSTAT Hemoglobin 9.9 g/dl (12.0-16.0); iSTAT Potassium 3.7 mmol/L (3.3-5.0); iSTAT Site R Radial; iSTAT Sodium 143 mmol/L (135-144)
[2021-07-17 05:08] LABS: ALC (manual) 1.16 K/uL (1.2-3.4); ANC (manual) 12.88 K/uL (1.4-6.5); Lymphocytes # (manual) 1.16 K/uL (1.2-3.4); Lymphocytes % (manual) 7.8 %; Metamyelocytes # (manual) 0.39 K/uL (0-0); Metamyelocytes % (manual) 2.6 %; Myelocytes # (manual) 0.39 K/uL (0-0); Myelocytes % (manual) 2.6 %; Neutrophils # (manual) 12.88 K/uL (1.4-6.5); Polychromasia 1+
[2021-07-17 05:23] LABS: BUN Creatinine Ratio 64.5 (10-20); Calcium 8.7 mg/dl (8.5-10.1); Creatinine Clr Calc Pharmacy 109.2 ml/min; Est GFR (African American) 112.1 ml/min; Est GFR (Non-African American) 96.7 ml/min; Magnesium 2.2 mg/dl (1.8-2.4); Potassium 3.7 mmol/L (3.5-5.1)
[2021-07-17 05:24] LABS: Phosphorus 3.4 mg/dl (2.5-4.9)
[2021-07-17] MEDS: fentaNYL citrate 2,500 MCG/250 ML BAG IV SCH ×2 (06:17→17:49)
[2021-07-17] MEDS ORDERED: PEPTAMEN INTENSE VHP 1.0 CAL 1,000 ML BAG OG SCH (08:00)
[2021-07-17] MEDS: VANCOMYCIN HCL 1,250 MG in SODIUM CHLORIDE 0.9% 250 ML IV SCH ×2 (08:05→21:01)
--- NOTE | 2021-07-17 08:21 | Critical Care Progress Note ---
Date of Service July 17, 2021 Assessment & Plan (1) ARDS (adult respiratory distress syndrome): (2) Pneumonia due to COVID-19 virus: (3) Elevated troponin I level: (4) Elevated lactic acid level: Plan: Impression: 71-year-old nonvaccinated female admitted with Covid pneumonitis and hypoxemic respiratory failure/ARDS requiring noninvasive positive pressure ventilation. She was admitted 06/26/2021 and failed high flow, CPAP, BiPAP, and prone positioning. She is intubated 07/04/2021. Recommendations: -Neuro: On midazolam and fentanyl. Propofol discontinued because of elevated triglycerides on 07/08/2021 -Cardiovascular: --Episodes of bradycardia --> resolved Likely from sedation Atrial fibrillation with rapid ventricular response -Responded well to metoprolol -Metoprolol 25 twice daily -Currently normal sinus rhythm -Pulmonary: -- VDRF with acute hypoxic respiratory failure Likely secondary to multilobar COVID-19 pneumonia -Intubation day 14 --Severe acute respiratory distress syndrome -PF ratio less than 100 Continue with lung protective ventilation High PEEP, low tidal volume to keep Plateau < 30 with permissive hypercapnea if need be. Monitor ABGs Continue with ventilatory support Keep RASS -1 COVID-19 PCR positive Continue with DEXA ARDS protocol which is started on 07/06/2021 Plan percutaneous tracheostomy at the present time when safe - ID: -- Covid pneumonia Continue dexamethasone for total of 10 days Baricitinib discontinued as she is now intubated. Sputum and blood from 07/05/2021 negative to date Completed the course of cefepime 07/12/2021 --Gram-positive cocci in chains On blood culture 07/13/2021 Central line as well as A-line removed 07/13/2021 Rocephin started 07/14/2021 -Transitioned to vancomycin 07/15 -Vancomycin day 3 Repeat blood cultures 07/16/2021: No growth to date --GI: Continue tube feeds -Plan n.p.o. after midnight until trach completed -Renal: Electrolyte replacement protocol. No acute issues --Acute DVT bilateral lower extremity On therapeutic Lovenox monitor H&H - Endocrine: Continue with ICU hypoglycemia protocol --Prophylaxis VTE: Therapeutic Lovenox GI: Protonix Lines: Right arm PICC 07/13/2021, positive Rios, left radial A-line discontinued 07/14/2021, right IJ DC 07/13/2021 Diet: Tube feeds Patient's Daughter Jordyn Gallagher [phone] Admission and Anticipated Discharge Date Admission Date: June 26, 2021 Supervising Physician Co-Signing Physician Notes I have personally spent 45 minutes of critical care time in the direct management of this patient. This is a life/limb threatening event. This includes time spent evaluating patient, direct bedside care, chart review, placing orders, interpretation of diagnostic studies, discussion with consultants, patient, and/or family members regarding treatment decisions, as well as other required patient management activities. This time is exclusive of all separately billable procedures, and teaching time and separate from and in addition to any other critical care service time. Subjective Will attempt tracheostomy today Review of Systems Review of Systems: Unable to obtain secondary to endotracheal tube Physical Exam Physical Exam: General: Sedated, supine position nontoxic. Skin: Warm, dry, Head: Atraumatic Ears, nose, mouth and throat: airway obscured by endotracheal tube Cardiovascular: Normal peripheral perfusion Respiratory: Ventilator settings reviewed Gastrointestinal: Non distended Musculoskeletal: No deformity Results & Data Results & Data ([facility]) Vital Signs (Past 12 Hours) Vital Signs Temp Pulse Resp BP Pulse Ox 07/17/21 07:40 94 H 07/17/21 06:00 37.8 C H 82 26 H 103/59 L 93 07/17/21 05:00 37.7 C H 86 26 H 105/61 91 07/17/21 04:00 37.7 C H 73 22 98/68 L 95 07/17/21 03:00 37.7 C H 80 22 151/71 H 91 07/17/21 02:00 37.7 C H 82 21 112/61 91 07/17/21 01:00 37.7 C H 84 24 116/65 89 L 07/17/21 00:00 37.8 C H 74 23 99/60 L 94 07/16/21 23:00 37.8 C H 70 23 95/59 L 94 07/16/21 22:50 73 24 92 07/16/21 22:00 37.8 C H 73 23 107/64 93 07/16/21 21:00 37.7 C H 82 22 91 Laboratory Results 07/17/21 07/17/21 07/17/21 Range/Units 05:24 04:25 04:25 WBC 14.81 H (4.8-10.8) K/uL RBC 3.74 L (4.2-5.4) M/uL Hgb 10.5 L (12.0-16.0) g/dL POC Hgb (12.0-16.0) g/dl Hct 34.2 L (37-47) % POC Hct (37-47) % MCV 91.4 (80-100) fL MCH 28.1 (25-34) pg MCHC 30.7 L (32-36) g/dL RDW Std Deviation 52.2 H (36.4-46.3) fL RDW Coeff of Dayanna 15.8 H (11.5-14.5) % Plt Count 144 (130-400) K/uL MPV 11.0 H (7.4-10.4) fL Neutrophils % (Manual) 87.0 % Lymphocytes % (Manual) 7.8 % Metamyelocytes % (Man) 2.6 % Myelocytes % (Man) 2.6 % Neutrophils # (Manual) 12.88 H (1.4-6.5) K/uL Total Absolute Neuts 12.88 H (1.4-6.5) K/uL Lymphocytes # (Manual) 1.16 L (1.2-3.4) K/uL Total Abs Lymphocytes 1.16 L (1.2-3.4) K/uL Metamyelocytes # (Man) 0.39 H (0-0) K/uL Myelocytes # (Manual) 0.39 H (0-0) K/uL Polychromasia 1+ Sample Site POC pH (7.35-7.45) POC pCO2 (35-46) mmHg POC pO2 (80-95) mmHg POC HCO3 (19-24) christiano/L POC Total CO2 (24-31) mmol/L POC Base Excess (-9-1.8) christiano/L ABG pH (Temp Correct) (7.35-7.45) ABG pCO2 (Temp Corrct (35-46) mmHg POC ABG pO2 at Pt Temp POC ABG O2 Sat (90-95) % Hema Test O2 Delivery Device POC O2 Rate Minute Ventilation POC FiO2 % Tidal Volume PEEP POC Sodium (135-144) mmol/L Sodium 142 (136-145) mmol/L POC Potassium (3.3-5.0) mmol/L Potassium 3.7 (3.5-5.1) mmol/L Chloride 105 (98-107) mmol/L Carbon Dioxide 34 H (21-32) mmol/L Anion Gap 3.0 (3-11) BUN 33 H (7-18) mg/dl Creatinine 0.51 L (0.6-1.2) mg/dl Est Cr Clr Drug Dosing 109.2 ml/min Est GFR ( Amer) 112.1 ml/min Est GFR (Non-Af Amer) 96.7 ml/min BUN/Creatinine Ratio 64.5 H (10-20) Glucose 114 H (70-99) mg/dl POC Glucose 113 H (70-99) mg/dl Calcium 8.7 (8.5-10.1) mg/dl Phosphorus 3.4 (2.5-4.9) mg/dl Magnesium 2.2 (1.8-2.4) mg/dl 07/17/21 07/17/21 07/16/21 Range/Units 04:07 00:21 17:59 WBC (4.8-10.8) K/uL RBC (4.2-5.4) M/uL Hgb (12.0-16.0) g/dL POC Hgb 9.9 L (12.0-16.0) g/dl Hct (37-47) % POC Hct 29 L (37-47) % MCV (80-100) fL MCH (25-34) pg MCHC (32-36) g/dL RDW Std Deviation (36.4-46.3) fL RDW Coeff of Dayanna (11.5-14.5) % Plt Count (130-400) K/uL MPV (7.4-10.4) fL Neutrophils % (Manual) % Lymphocytes % (Manual) % Metamyelocytes % (Man) % Myelocytes % (Man) % Neutrophils # (Manual) (1.4-6.5) K/uL Total Absolute Neuts (1.4-6.5) K/uL Lymphocytes # (Manual) (1.2-3.4) K/uL Total Abs Lymphocytes (1.2-3.4) K/uL Metamyelocytes # (Man) (0-0) K/uL Myelocytes # (Manual) (0-0) K/uL Polychromasia Sample Site R Radial POC pH 7.41 (7.35-7.45) POC pCO2 56 H (35-46) mmHg POC pO2 96 H (80-95) mmHg POC HCO3 36 H (19-24) christiano/L POC Total CO2 38 H (24-31) mmol/L POC Base Excess 11.0 H (-9-1.8) christiano/L ABG pH (Temp Correct) 7.403 (7.35-7.45) ABG pCO2 (Temp Corrct 58 H (35-46) mmHg POC ABG pO2 at Pt Temp 100 POC ABG O2 Sat 97.0 H (90-95) % Hema Test NA O2 Delivery Device Ventilator POC O2 Rate 22 Minute Ventilation 8.9 POC FiO2 100 % Tidal Volume 380 PEEP 10 POC Sodium 143 (135-144) mmol/L Sodium (136-145) mmol/L POC Potassium 3.7 (3.3-5.0) mmol/L Potassium (3.5-5.1) mmol/L Chloride (98-107) mmol/L Carbon Dioxide (21-32) mmol/L Anion Gap (3-11) BUN (7-18) mg/dl Creatinine (0.6-1.2) mg/dl Est Cr Clr Drug Dosing ml/min Est GFR ( Amer) ml/min Est GFR (Non-Af Amer) ml/min BUN/Creatinine Ratio (10-20) Glucose (70-99) mg/dl POC Glucose 119 H 154 H (70-99) mg/dl Calcium (8.5-10.1) mg/dl Phosphorus (2.5-4.9) mg/dl Magnesium (1.8-2.4) mg/dl 07/16/21 Range/Units 12:43 WBC (4.8-10.8) K/uL RBC (4.2-5.4) M/uL Hgb (12.0-16.0) g/dL POC Hgb (12.0-16.0) g/dl Hct (37-47) % POC Hct (37-47) % MCV (80-100) fL MCH (25-34) pg MCHC (32-36) g/dL RDW Std Deviation (36.4-46.3) fL RDW Coeff of Dayanna (11.5-14.5) % Plt Count (130-400) K/uL MPV (7.4-10.4) fL Neutrophils % (Manual) % Lymphocytes % (Manual) % Metamyelocytes % (Man) % Myelocytes % (Man) % Neutrophils # (Manual) (1.4-6.5) K/uL Total Absolute Neuts (1.4-6.5) K/uL Lymphocytes # (Manual) (1.2-3.4) K/uL Total Abs Lymphocytes (1.2-3.4) K/uL Metamyelocytes # (Man) (0-0) K/uL Myelocytes # (Manual) (0-0) K/uL Polychromasia Sample Site POC pH (7.35-7.45) POC pCO2 (35-46) mmHg POC pO2 (80-95) mmHg POC HCO3 (19-24) christiano/L POC Total CO2 (24-31) mmol/L POC Base Excess (-9-1.8) christiano/L ABG pH (Temp Correct) (7.35-7.45) ABG pCO2 (Temp Corrct (35-46) mmHg POC ABG pO2 at Pt Temp POC ABG O2 Sat (90-95) % Hema Test O2 Delivery Device POC O2 Rate Minute Ventilation POC FiO2 % Tidal Volume PEEP POC Sodium (135-144) mmol/L Sodium (136-145) mmol/L POC Potassium (3.3-5.0) mmol/L Potassium (3.5-5.1) mmol/L Chloride (98-107) mmol/L Carbon Dioxide (21-32) mmol/L Anion Gap (3-11) BUN (7-18) mg/dl Creatinine (0.6-1.2) mg/dl Est Cr Clr Drug Dosing ml/min Est GFR ( Amer) ml/min Est GFR (Non-Af Amer) ml/min BUN/Creatinine Ratio (10-20) Glucose (70-99) mg/dl POC Glucose 185 H (70-99) mg/dl Calcium (8.5-10.1) mg/dl Phosphorus (2.5-4.9) mg/dl Magnesium (1.8-2.4) mg/dl Coding Level of Care Code Critical Care 1st 30-74 mins Diagnoses ARDS (adult respiratory distress syndrome) J80 Pneumonia due to COVID-19 virus U07.1; J12.82 Elevated troponin I level R77.8 Elevated lactic acid level R79.89
--- NOTE | 2021-07-17 08:45 | XRay Report ---
XR chest 1V portable HISTORY: Respiratory failure. Follow-up. COMPARISON: Chest 07/08/2021. FINDINGS: Endotracheal tube and nasogastric tube remain in good position. There are low lung volumes. Right PICC terminates at the distal SVC. This remains unchanged. No pneumothorax. No pleural effusio ns. Patchy bilateral airspace opacities are again noted. This has progressed on the right. IMPRESSION: 1. Satisfactory support line placement. 2. Slight progression of the right base airspace opacities. ACT 112: Negative or not required by law. Electronically signed by: Francisco Baires M.D. 07/17/2021 8:44 AM
[2021-07-17] MEDS: METOPROLOL TARTRATE 25 MG TAB PO SCH ×2 (09:04→20:18)
[2021-07-17] MEDS: FUROSEMIDE 40 MG/4 ML VIAL IV SCH (09:05)
[2021-07-17] MEDS: ENOXAPARIN 100 MG/1ML SYR SQ SCH ×2 (09:05→20:17)
[2021-07-17] MEDS: DOCUSATE SODIUM SYRUP 100 MG/10 ML UDC PO SCH (09:05)
[2021-07-17] MEDS: MULTI VIT W/MINERALS LIQUID 15 ML UDP NG SCH (09:05)
[2021-07-17] MEDS: SENNOSIDES 8.8 MG/5 ML UDC PO SCH ×2 (09:05→20:19)
[2021-07-17] MEDS ORDERED: VECURONIUM BROMIDE 10 MG VIAL IV STA (09:40)
[2021-07-17] MEDS ORDERED: POTASSIUM CHLORIDE CRTAB 20 MEQ TABCR PO SCH (09:45)
[2021-07-17] MEDS ORDERED: LIDOCAINE 2% MPF LOCAL 5 ML VIAL INFIL ONE (10:00)
--- NOTE | 2021-07-17 10:57 | Procedure Note ---
Procedure Note Date of Service July 17, 2021 Note BRONCHOSCOPY through ETT for bronchoscopy guided percutaneous tracheostomy placment Procedure: Flexible Bronchoscopy Attending: Dr. Womack Party Chief: Pablo Murillo Anesthetic/Sedation: Lidocaine, fentanyl, versed infusions Indication: Bronchoscope guided percutaneous tracheostomy [x]Consent was obtained via family by Dr. Linton, signed and placed on the chart prior to procedure. Indication, risks, and benefits were explained at length by Dr. Womack. A time-out was completed verifying correct patient, procedure, site, positioning, and implant(s) or special equipment if applicable. Procedure: Dislodgment of ETT did occur with first attempt with immediate reintubation x1 attempt with DL by Dr. Womack. Bronchoscope was advanced down ETT, arie visualized. The bronchoscope was then withdrawn with the ETT to the vocal chords until transillumination visualized by Dr. Womack. Seeker needle was then placed through anterior neck by Dr. Womack, visualized in good position with bronchoscope. The guidewire was advanced and visualized going downward towards the arie. Serial dilations were completed by Dr. Womack and cuffed Tracheostomy with inner cannula was then placed into the trachea, direct visualization with bronchoscope through the tracheostomy was confirmed above the arie. The scope was removed intact and ETT was removed. Coding
[2021-07-17] MEDS: PANTOprazole 40 MG in SYRINGE 0 ML IV SCH (11:41)
[2021-07-17] MEDS: POTASSIUM CHLORIDE 20 MEQ/15 ML UDC PO SCH ×2 (12:05→20:20)
[2021-07-17] MEDS: ACETAMINOPHEN SUSP 325 MG/10.15 ML UDC PO PRN (12:05)
--- NOTE | 2021-07-17 12:29 | XRay Report ---
KUB CLINICAL HISTORY: confirm Core Safe Placement COMPARISON STUDY: KUB July 04, 2021. FINDINGS: Incidental note is made of cholecystectomy clips. Visualized bowel gas pattern is normal. T he feeding tube is coiled within the stomach. Tip projects over the body of the stomach. Airspace opa cities are noted within visualized portions of the lungs. IMPRESSION: Feeding tube coiled within the stomach. Tip projects over the body of the stomach. ACT 112: Negative or not required by law. Electronically signed by: Juan Tolentino M.D. 07/17/2021 12:28 PM
--- NOTE | 2021-07-17 15:22 | Hospitalist Progress Note ---
Date of Service July 17, 2021 Assessment & Plan (1) Acute hypoxemic respiratory failure due to COVID-19: Plan: SEVERE. Upon admission she required BIPAP due to severe hypoxia & increased work of breathing. Remained on BIPAP 14/7 continuously for several days following admission, then transitioned to HFNC. Remained on max settings including 100% FiO2 thereafter. She had intermittently used BIPAP at HS as well. Dx with DVTs in the week prior to admission, has presumed PEs; was too ill here to safely obtain CTA chest. Heparin drip started and now on therapeutic Lovenox Despite supportive care she developed significant respiratory fatigue from 8+ days of BIPAP + HFNC. Intubated AM of 07/04/21. placed on pressure support mode x 2 days on 07/11 and 07/12, but not since then due to increased FiO2 requirement-FiO2 requirement now back up to 100% on 07/15 Chest x-ray still with diffuse opacities on 07/14 and 07/15 Continues with fevers-central line and A-line removed on 07/13, now growing probable Enterococcus on blood cultures from 07/13-change ceftriaxone to vancomycin on 07/15 still with fever today on Versed, Fentanyl boluses off of neuromuscular blockade Cont dexamethasone, increased to 20mg daily on 07/07 for 5 days of 20mg (07/12) and 5 days of 10mg starting 07/12 Received baricitinib 4mg daily for 8 days -- discontinued upon intubation. s/p Zithromax 5-day course Continue daily IV Lasix to keep lungs dry Was never a Remdesivir candidate. Appreciate critical care assistance tracheostomy performed 07/17/[address] Womack she is up to PEEP of 14 and FiO2 80% (2) Pneumonia due to COVID-19 virus: Plan: severe COVID pneumonia with resulting ARDS With persistent fevers as above Completed a 7-day course of cefepime on 07/12 -Started ceftriaxone on 07/14 but now switched to vancomycin for probable Enterococcus on blood cultures Follow chest x-ray ventilator day 14 today (3) ARDS (adult respiratory distress syndrome): Plan: 2nd to COVID-19 pneumonia ongoing see above tracheostomy done today, 07/17 (4) Septicemia: Plan: With persistent fevers for many days despite being on cefepime Now blood cultures positive from 07/13 for probable Enterococcus Right IJ central venous catheter and arterial line removed on 07/13 Completed course of cefepime x1 week on 07/12 -Varitypist started ceftriaxone on 07/14- changed to Vancomycin 07/15 -Of note, 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 now off pressors, now off propofol Continue to hold home atenolol and Dyazide (8) Abnormal LFTs: Plan: transaminitis likely 2nd to COVID illness ast/alt remain elevated albeit mild trend (9) Deep vein thrombosis of bilateral lower extremities: Plan: b/l dopplers + for DVTs PEs presumed Heparin drip initially -- now on therapeutic lovenox (10) Candidiasis of mouth and esophagus: Plan: had been on nystatin prior to intubation (11) DVT prophylaxis: Plan: therapeutic lovenox BID for DVT Plan: appreciate ICU/pulmonary assistance Dispo-continued stay in ICU, prognosis guarded, family wants everything done at this point including tracheostomy Admission and Anticipated Discharge Date Admission Date: June 26, 2021 Subjective patient underwent bronchoscopy assisted percutaneous tracheostomy today by Dr. Womack, no complications she is spiking fevers PEEP is 14, FiO2 is 80% still on Versed and Fentanyl WBC is 14k, Cr and electrolytes stable Review of Systems Review of Systems: Unobtainable due to cognitive status Physical Exam Physical Exam: General: well developed, obese female, tracheostomy and mechanically ventilated Neck: tracheostomy Lungs: diminished sounds bilaterally, mechanically ventilated via tracheostomy Heart: tachycardic, S1 and S2, no murmur, peripheral pulses normal, capillary refill normal, no edema Abdomen: soft, NT, ND, + BS, no hepatomegaly, normal to percussion Extremities: normal in appearance, no cyanosis, no petechiae Neuro: sedated, no focal motor deficits, CN II-XII intact Skin: warm, dry, no rash, normal turgor Psych: sedated Results & Data Results & Data ([place]) Vital Signs (Past 12 Hours) Vital Signs Temp Pulse Resp BP Pulse Ox 07/17/21 13:05 38.3 C H 103 H 25 H 119/81 95 07/17/21 13:00 38.3 C H 85 19 106/65 97 07/17/21 12:55 38.3 C H 94 H 22 92/56 L 96 07/17/21 12:50 38.3 C H 107 H 27 H 124/69 91 07/17/21 12:45 38.3 C H 106 H 26 H 121/71 90 07/17/21 12:40 38.3 C H 106 H 24 112/68 94 07/17/21 12:35 38.3 C H 110 H 30 H 124/80 88 L 07/17/21 12:30 38.3 C H 112 H 28 H 136/85 88 L 07/17/21 12:25 38.3 C H 93 H 20 105/64 94 07/17/21 12:20 38.3 C H 97 H 20 110/64 92 07/17/21 12:15 38.3 C H 102 H 25 H 100/72 92 07/17/21 12:10 38.3 C H 21 111/71 89 L 07/17/21 12:06 38.3 C H 27 H 118/81 89 L 07/17/21 12:00 38.3 C H 89 20 113/65 94 07/17/21 11:55 38.4 C H 91 H 22 100/64 93 07/17/21 11:50 38.4 C H 108 H 0 L 136/82 91 07/17/21 11:45 38.4 C H 83 24 107/63 94 07/17/21 11:40 38.4 C H 82 22 106/62 94 07/17/21 11:35 38.3 C H 84 22 99/59 L 93 07/17/21 11:30 38.3 C H 92 H 21 105/62 91 07/17/21 11:25 38.3 C H 110 H 11 L 128/68 85 L 07/17/21 11:20 38.2 C H 100 H 20 107/72 90 07/17/21 11:15 38.2 C H 88 23 96/61 L 93 07/17/21 11:10 38.1 C H 94 H 29 H 115/67 92 07/17/21 11:05 38.1 C H 105 H 25 H 107/72 92 07/17/21 07:57 80 22 94 07/17/21 07:40 94 H 07/17/21 06:00 37.8 C H 82 26 H 103/59 L 93 07/17/21 05:00 37.7 C H 86 26 H 105/61 91 07/17/21 04:00 37.7 C H 73 22 98/68 L 95 Laboratory Results Laboratory Results - last 24 hr 07/16/21 07/17/21 07/17/21 17:59 00:21 04:07 WBC RBC Hgb POC Hgb 9.9 L Hct POC Hct 29 L MCV MCH MCHC RDW Std Deviation RDW Coeff of Dayanna Plt Count MPV Neutrophils % (Manual) Lymphocytes % (Manual) Metamyelocytes % (Man) Myelocytes % (Man) Neutrophils # (Manual) Total Absolute Neuts Lymphocytes # (Manual) Total Abs Lymphocytes Metamyelocytes # (Man) Myelocytes # (Manual) Polychromasia Sample Site R Radial POC pH 7.41 POC pCO2 56 H POC pO2 96 H POC HCO3 36 H POC Total CO2 38 H POC Base Excess 11.0 H ABG pH (Temp Correct) 7.403 ABG pCO2 (Temp Corrct 58 H POC ABG pO2 at Pt Temp 100 POC ABG O2 Sat 97.0 H Hema Test NA O2 Delivery Device Ventilator POC O2 Rate 22 Minute Ventilation 8.9 POC FiO2 100 Tidal Volume 380 PEEP 10 POC Sodium 143 Sodium POC Potassium 3.7 Potassium Chloride Carbon Dioxide Anion Gap BUN Creatinine Est Cr Clr Drug Dosing Est GFR ( Amer) Est GFR (Non-Af Amer) BUN/Creatinine Ratio Glucose POC Glucose 154 H 119 H Calcium Phosphorus Magnesium 07/17/21 07/17/21 07/17/21 04:25 04:25 05:24 WBC 14.81 H RBC 3.74 L Hgb 10.5 L POC Hgb Hct 34.2 L POC Hct MCV 91.4 MCH 28.1 MCHC 30.7 L RDW Std Deviation 52.2 H RDW Coeff of Dayanna 15.8 H Plt Count 144 MPV 11.0 H Neutrophils % (Manual) 87.0 Lymphocytes % (Manual) 7.8 Metamyelocytes % (Man) 2.6 Myelocytes % (Man) 2.6 Neutrophils # (Manual) 12.88 H Total Absolute Neuts 12.88 H Lymphocytes # (Manual) 1.16 L Total Abs Lymphocytes 1.16 L Metamyelocytes # (Man) 0.39 H Myelocytes # (Manual) 0.39 H Polychromasia 1+ Sample Site POC pH POC pCO2 POC pO2 POC HCO3 POC Total CO2 POC Base Excess ABG pH (Temp Correct) ABG pCO2 (Temp Corrct POC ABG pO2 at Pt Temp POC ABG O2 Sat Hema Test O2 Delivery Device POC O2 Rate Minute Ventilation POC FiO2 Tidal Volume PEEP POC Sodium Sodium 142 POC Potassium Potassium 3.7 Chloride 105 Carbon Dioxide 34 H Anion Gap 3.0 BUN 33 H Creatinine 0.51 L Est Cr Clr Drug Dosing 109.2 Est GFR ( Amer) 112.1 Est GFR (Non-Af Amer) 96.7 BUN/Creatinine Ratio 64.5 H Glucose 114 H POC Glucose 113 H Calcium 8.7 Phosphorus 3.4 Magnesium 2.2 07/17/21 11:50 WBC RBC Hgb POC Hgb Hct POC Hct MCV MCH MCHC RDW Std Deviation RDW Coeff of Dayanna Plt Count MPV Neutrophils % (Manual) Lymphocytes % (Manual) Metamyelocytes % (Man) Myelocytes % (Man) Neutrophils # (Manual) Total Absolute Neuts Lymphocytes # (Manual) Total Abs Lymphocytes Metamyelocytes # (Man) Myelocytes # (Manual) Polychromasia Sample Site POC pH POC pCO2 POC pO2 POC HCO3 POC Total CO2 POC Base Excess ABG pH (Temp Correct) ABG pCO2 (Temp Corrct POC ABG pO2 at Pt Temp POC ABG O2 Sat Hema Test O2 Delivery Device POC O2 Rate Minute Ventilation POC FiO2 Tidal Volume PEEP POC Sodium Sodium POC Potassium Potassium Chloride Carbon Dioxide Anion Gap BUN Creatinine Est Cr Clr Drug Dosing Est GFR ( Amer) Est GFR (Non-Af Amer) BUN/Creatinine Ratio Glucose POC Glucose 153 H Calcium Phosphorus Magnesium Medications Administered Current Inpatient Medications Acetaminophen (Acetaminophen Susp 325 Mg/10.15 Ml Udc) 975 mg PO Q8H PRN PRN Reason: Fever Stop: 08/14/21 16:44 Last Admin: 07/17/21 12:05 Dose: 975 mg Documented by: Dextrose (Dextrose 50% 50 Ml Syringe) 25 - 50 ml IV UD PRN; Protocol PRN Reason: Hypoglycemia Protocol Stop: 08/07/21 21:38 Enoxaparin Sodium (Enoxaparin 100 Mg/1ml Syr) 90 mg SQ Q12 [place] Stop: 08/04/21 10:59 Last Admin: 07/17/21 09:05 Dose: 90 mg Documented by: Fentanyl Citrate (Fentanyl Bolus From Bag) 50 mcg IV Q60M PRN PRN Reason: Pain or Agitation Stop: 07/18/21 13:31 Last Admin: 07/10/21 02:09 Dose: 50 mcg Documented by: Furosemide (Furosemide 40 Mg/4 Ml Vial) 40 mg IV DAILY [facility] Stop: 08/12/21 08:59 Last Admin: 07/17/21 09:05 Dose: 40 mg Documented by: Glucagon (Glucagon For Inj 1 Mg Vial) 1 mg SQ UD PRN; Protocol PRN Reason: Hypoglycemia Protocol Stop: 08/07/21 21:38 Glucose (Glucose 10 Tabs/Tube) 4 - 8 tabs PO UD PRN; Protocol PRN Reason: Hypoglycemia Protocol Stop: 08/07/21 21:38 Glucose (Glucose 40% Gel 15 Gm Tube) 15 - 30 gm PO UD PRN; Protocol PRN Reason: Hypoglycemia Protocol Stop: 08/07/21 21:38 Heparin Sodium (Beef Lung) (Heparin 10 Unit/Ml 5 Ml Flush) 5 ml FLUSH PRN PRN PRN Reason: Flush Stop: 08/12/21 18:12 Fentanyl Citrate (Fentanyl Citrate) 2,500 mcg in 250 mls @ 20 mls/hr IV .[id number] [facility]; Protocol Stop: 07/22/21 04:59 Last Admin: 07/17/21 06:17 Dose: 200 mcg/hr, 20 mls/hr Documented by: Midazolam HCl (Versed) 125 mg in 250 mls @ 10 mls/hr IV .Q25H [facility]; Protocol Stop: 08/07/21 13:29 Last Admin: 07/17/21 08:56 Dose: Not Given Documented by: Vancomycin HCl 1,250 mg/ (Sodium Chloride) 275 mls @ 200 mls/hr IV Q12H [facility] Stop: 07/30/21 06:59 Last Infusion: 07/17/21 12:58 Dose: Infused Documented by: Pantoprazole Sodium 40 mg/ (Syringe) 10 mls @ 5 mls/min IV DAILY@1100 [facility] Stop: 07/17/21 23:59 Last Admin: 07/17/21 11:41 Dose: 5 mls/min Documented by: Insulin Aspart (Insulin Aspart Per Unit) 0 units SC Q6 [facility] Stop: 08/10/21 11:59 Last Admin: 07/17/21 12:05 Dose: Not Given Documented by: Lansoprazole (Lansoprazole 30 Mg Soltab) 30 mg NG DAILY [facility] Stop: 08/17/21 08:59 Metoprolol Tartrate (Metoprolol Tartrate 25 Mg Tab) 25 mg PO BID [facility] Stop: 08/15/21 20:59 Last Admin: 07/17/21 09:04 Dose: 25 mg Documented by: Midazolam HCl (Midazolam Bolus From Bag) 2 mg IV Q60M PRN PRN Reason: Sedation Stop: 08/07/21 13:26 Last Admin: 07/09/21 04:21 Dose: 2 mg Documented by: Miscellaneous (Carbohydrates For Hypoglycemia ) 15 - 30 gm PO UD PRN PRN Reason: Hypoglycemia Protocol Stop: 08/07/21 21:38 Miscellaneous Information (Vancomycin Consult Active) 1 ea N/A UD PRN PRN Reason: Consult Stop: 08/14/21 18:22 Multivitamins/Minerals (Multi Vit W/Minerals Liquid 15 Ml Udp) 15 ml NG QAM [facility] Stop: 08/12/21 08:59 Last Admin: 07/17/21 09:05 Dose: 15 ml Documented by: Nutritional Formula (Peptamen Intense Vhp 1.0 Jhonny 1,000 Ml Bag) 1,000 ml OG UD [facility]; Protocol Stop: 08/16/21 13:29 Ondansetron HCl (Ondansetron Inj 2 Mg/Ml 2 Ml Vial) 4 mg IV Q6H PRN PRN Reason: Nausea Stop: 07/26/21 20:32 Potassium Chloride (Potassium Chloride 20 Meq/15 Ml Udc) 40 meq PO BID [facility] Stop: 07/17/21 23:59 Last Admin: 07/17/21 12:05 Dose: 40 meq Documented by: Sennosides (Sennosides 8.8 Mg/5 Ml Udc) 8.8 mg PO BID [facility] Stop: 08/11/21 20:59 Last Admin: 07/17/21 09:05 Dose: 8.8 mg Documented by: Sterile Water (Tube Feeding Water Flush) 30 ml GT Q4H [place] Stop: 08/06/21 14:44 Last Admin: 07/17/21 11:41 Dose: Not Given Documented by: PG Care Time/CCT Total # of Minutes Spent Total Time Spent with Patient: Total time spent is greater than 50% in coordination of care (as documented) at patient's floor/unit and/or counseling patient: Coding Level of Care Code 09995 Subseq Hosp Care Lvl 2 Diagnoses Acute hypoxemic respiratory failure due to COVID-19 U07.1; J96.01 Pneumonia due to COVID-19 virus U07.1; J12.82 ARDS (adult respiratory distress syndrome) J80 Septicemia A41.9 Elevated troponin I level R77.8 Acid reflux disease K21.9 Hypertension I10 Abnormal LFTs R79.89 Deep vein thrombosis of bilateral lower extremities I82.403 Candidiasis of mouth and esophagus B37.81; B37.0 DVT prophylaxis Z29.9
[2021-07-17] MEDS ORDERED: VANCOMYCIN TROUGH ONE (18:30)
[2021-07-17] MEDS: MIDAZOLAM BOLUS FROM BAG IV PRN ×2 (19:54→23:08)
[2021-07-17] MEDS: VANCOMYCIN HCL 1,500 MG in SODIUM CHLORIDE 0.9% 500 ML IV SCH (20:19)
--- NOTE | 2021-07-17 20:51 | Pharmacy Report ---
Pharmacy Vanc AUC Short Note - Date of Service July 17, 2021 - Assessment & Plan Assessment 71 year old F admitted 06/26 for ARDS and COVID19 pneumonia, receiving IV Cefepime 07/05-07/12, and IV Ceftriaxone 07/14-07/15 for treatment of fevers. Central line and A line removed on 07/13, now with probable enterococcus growing in 1/2 blood cultures. Day #3 of Vancomycin. Remains febrile. Plan Vancomycin * AUC/JC is the preferred PK/PD target for vancomycin * AUC guided dosing is effective and associated with decreased risk of nephrotoxicity compared to traditional trough targets * Trough level of 11.8 mcg/mL is predicted to achieve the goal AUC/JC but is at the lower end of normal. Given patient's critical illness, electing to increase dose. * Change to 1500 mg IV every 12 hours * Trough level ordered for 07/19/21 prior to the 0800 dose Pharmacy will continue to follow and will adjust dose/frequency as necessary. Thank you.
[2021-07-18] MEDS: fentaNYL citrate 2,500 MCG/250 ML BAG IV SCH ×3 (01:36→17:35)
[2021-07-18] MEDS: INSULIN ASPART PER UNIT SC SCH ×4 (01:36→18:27)
[2021-07-18] MEDS: TUBE FEEDING WATER FLUSH GT SCH ×5 (01:58→18:33)
[2021-07-18 03:51] LABS: iSTAT Allen Test Pass; iSTAT Arterial Blood Gas HCO3 31 meg/L (19-24); iSTAT Arterial Blood Gas pCO2 50 mmHg (35-46); iSTAT Arterial Blood Gas pO2 69 mmHg (80-95); iSTAT Carbon Dioxide 32 mmol/L (24-31); iSTAT Site L Brachial
[2021-07-18] MEDS: MIDAZOLAM BOLUS FROM BAG IV PRN (03:56)
[2021-07-18 06:32] LABS: BUN Creatinine Ratio 54.7 (10-20); Calcium 9.2 mg/dl (8.5-10.1); Creatinine Clr Calc Pharmacy 73.3 ml/min; Est GFR (African American) 91.5 ml/min; Est GFR (Non-African American) 78.9 ml/min; Magnesium 2.6 mg/dl (1.8-2.4); Phosphorus 4.6 mg/dl (2.5-4.9); Potassium 4.3 mmol/L (3.5-5.1)
[2021-07-18 06:40] LABS: Hematocrit (blood only) 33.6 % (37-47); Hemoglobin 10.5 g/dL (12.0-16.0); Mean Corpuscular Hemoglobin 29.1 pg (25-34); Mean Corpuscular Hgb Conc 31.3 g/dL (32-36); Mean Corpuscular Volume 93.1 fL (80-100); Mean Platelet Volume 10.3 fL (7.4-10.4); Platelet Count 265 K/uL (130-400); RDW Coefficient of Variation 12.9 % (11.5-14.5); RDW Standard Deviation 44.3 fL (36.4-46.3); Red Blood Count 3.61 M/uL (4.2-5.4); White Blood Count 17.54 K/uL (4.8-10.8)
[2021-07-18 07:08] LABS: Basophils # (auto) 0.01 K/uL (0-0.2); Basophils % (auto) 0.1 %; Eosinophils # (auto) 0.03 K/uL (0-0.5); Eosinophils % (auto) 0.2 %; Immature Granulocytes # (auto) 0.17 K/uL (0.00-0.02); Lymphocytes # (auto) 1.87 K/uL (1.2-3.4); Lymphocytes % (auto) 10.7 %; Monocytes # (auto) 2.56 K/uL (0.11-0.59); Monocytes % (auto) 14.6 %; Neutrophils % (auto) 73.4 %
--- NOTE | 2021-07-18 08:01 | XRay Report ---
XR chest 1V portable CLINICAL HISTORY: Follow-up airspace opacities. Status post tracheostomy. COMPARISON STUDY: 07/17/2021 TECHNIQUE: 1 view of the chest FINDINGS: Single frontal view of the chest demonstrates the cardiomediastinal silhouette to be within normal li mits. Compared to previous examination, endotracheal tube has been replaced by tracheostomy tube whic h appears in anatomic position. The tip of the PICC line is noted to be within the right atrium. Feed ing tube is curled within the upper body of the stomach. There has been interval improvement in right basilar airspace opacities. However, there has been int erval development of new left base airspace opacities. There is also haziness at the left lung base s uspicious for left pleural effusion. There is no evidence for vascular congestion. There is no acute osseous pathology. IMPRESSION: 1. Status post tracheostomy. 2. Tip of right PICC line in right atrium. 3. Interval improvement in right basilar airspace opacities with development of left basilar airspace opacities and possible left pleural effusion. ACT 112: Negative or not required by law. Electronically signed by: Marlon Rae M.D. 07/18/2021 8:00 AM
--- NOTE | 2021-07-18 08:37 | Critical Care Progress Note ---
Date of Service July 18, 2021 Assessment & Plan (1) ARDS (adult respiratory distress syndrome): (2) Pneumonia due to COVID-19 virus: (3) Elevated troponin I level: (4) Elevated lactic acid level: Plan: Impression: 71-year-old nonvaccinated female admitted with Covid pneumonitis and hypoxemic respiratory failure/ARDS requiring noninvasive positive pressure ventilation. She was admitted 06/26/2021 and failed high flow, CPAP, BiPAP, and prone positioning. She is intubated 07/04/2021. Recommendations: -Neuro: Transition to bolus midazolam -Discontinue fentanyl transition to oral oxycodone taper -Propofol discontinued because of elevated triglycerides on 07/08/2021 -Cardiovascular: --Episodes of bradycardia --> resolved Likely from sedation Atrial fibrillation with rapid ventricular response -Responded well to metoprolol -Metoprolol 25 twice daily -Currently normal sinus rhythm -Pulmonary: -- VDRF with acute hypoxic respiratory failure Likely secondary to multilobar COVID-19 pneumonia -Tracheostomy performed 07/17 postop day 1 --Severe acute respiratory distress syndrome: Mild decrease in PEEP requirements last 24 hours -PF ratio less than 100 Continue with lung protective ventilation High PEEP, low tidal volume to keep Plateau < 30 with permissive hypercapnea if need be. Monitor ABGs Continue with ventilatory support COVID-19 PCR positive Completed DEXA ARDS protocol which is started on 07/06/2021 - ID: -- Covid pneumonia Finished dexamethasone for total of 10 days Baricitinib discontinued Sputum and blood from 07/05/2021 negative to date Completed the course of cefepime 07/12/2021 --Gram-positive cocci in chains On blood culture 07/13/2021 Central line as well as A-line removed 07/13/2021 Rocephin started 07/14/2021 -Transitioned to vancomycin 07/15: Only 1 culture positive question line infection versus contaminant -Vancomycin day 4 Repeat blood cultures 07/16/2021: No growth to date Febrile illness: Elevated white count on vancomycin has known DVTs which could be driving fever --GI: Continue tube feeds -Peptamen at goal -Renal: Electrolyte replacement protocol. No acute issues --Acute DVT bilateral lower extremity On therapeutic Lovenox monitor H&H - Endocrine: Continue with ICU hypoglycemia protocol MSK DTI of sacrum -Wound care following Pressure injury of upper lip --Prophylaxis VTE: Therapeutic Lovenox GI: Protonix Lines: Right arm PICC 07/13/2021, positive Rios, left radial A-line discontinued 07/14/2021, right IJ DC 07/13/2021 Patient's Daughter Jordyn Gallagher [phone] Participated in family discussion and surgical waiting room today. Admission and Anticipated Discharge Date Admission Date: June 26, 2021 Supervising Physician Co-Signing Physician Notes I have personally spent 65 minutes of critical care time in the direct management of this patient. This is a life/limb threatening event. This includes time spent evaluating patient, direct bedside care, chart review, placing orders, interpretation of diagnostic studies, discussion with consultants, patient, and/or family members regarding treatment decisions, as well as other required patient management activities. This time is exclusive of all separately billable procedures, and teaching time and separate from and in addition to any other critical care service time. Subjective Patient disconnected herself from the ventilator and desaturated replaced soft wrist restraints Review of Systems Review of Systems: Unable to obtain secondary to tracheostomy tube Physical Exam Physical Exam: General: Arouses and follows simple commands, supine position nontoxic. Skin: Warm, dry, Head: Atraumatic Ears, nose, mouth and throat: airway obscured by endotracheal tube Cardiovascular: Normal peripheral perfusion Respiratory: Ventilator settings reviewed Gastrointestinal: Non distended Musculoskeletal: No deformity Skin: Sacral DTI as well as tissue injury to upper lip Results & Data Results & Data ([facility]) Vital Signs (Past 12 Hours) Vital Signs Temp Pulse Resp BP Pulse Ox 07/18/21 08:30 95 H 25 H 93 07/18/21 06:00 38.3 C H 96 H 23 101/55 L 95 07/18/21 05:00 38.5 C H 97 H 30 H 101/62 96 07/18/21 04:00 38.5 C H 111 H 28 H 128/70 89 L 07/18/21 03:35 22 07/18/21 03:00 38.4 C H 96 H 20 112/65 95 07/18/21 02:32 99 H 26 H 95 07/18/21 02:05 38.2 C H 84 30 H 93 07/18/21 01:00 38.2 C H 79 26 H 105/60 94 07/18/21 00:21 63 07/18/21 00:00 38.2 C H 83 34 H 95/64 L 94 07/17/21 23:32 85 27 H 93 07/17/21 23:00 38.2 C H 99 H 34 H 136/79 90 07/17/21 22:00 38.1 C H 91 H 22 113/62 94 07/17/21 21:00 38.0 C H 109 H 62 H 95 07/17/21 20:49 120 H 35 H 92 Laboratory Results 07/18/21 07/18/21 07/18/21 Range/Units 12:12 05:23 05:23 WBC 17.54 H (4.8-10.8) K/uL RBC 3.61 L (4.2-5.4) M/uL Hgb 10.5 L (12.0-16.0) g/dL Hct 33.6 L (37-47) % MCV 93.1 (80-100) fL MCH 29.1 (25-34) pg MCHC 31.3 L (32-36) g/dL RDW Std Deviation 44.3 (36.4-46.3) fL RDW Coeff of Dayanna 12.9 (11.5-14.5) % Plt Count 265 D (130-400) K/uL MPV 10.3 (7.4-10.4) fL Immature Gran % (Auto) 1.0 % Neut % (Auto) 73.4 % Lymph % (Auto) 10.7 % [place] % (Auto) 14.6 % Eos % (Auto) 0.2 % Baso % (Auto) 0.1 % Neut # (Auto) 12.90 H (1.4-6.5) K/uL Lymph # (Auto) 1.87 (1.2-3.4) K/uL [place] # (Auto) 2.56 H (0.11-0.59) K/uL Eos # (Auto) 0.03 (0-0.5) K/uL Baso # (Auto) 0.01 (0-0.2) K/uL Immature Gran # (Auto) 0.17 H (0.00-0.02) K/uL Sample Site POC pH (7.35-7.45) POC pCO2 (35-46) mmHg POC pO2 (80-95) mmHg POC HCO3 (19-24) christiano/L POC Total CO2 (24-31) mmol/L POC Base Excess (-9-1.8) christiano/L POC ABG O2 Sat (90-95) % Hema Test O2 Delivery Device POC O2 Rate Tidal Volume PEEP Sodium 139 (136-145) mmol/L Potassium 4.3 D (3.5-5.1) mmol/L Chloride 101 (98-107) mmol/L Carbon Dioxide 34 H (21-32) mmol/L Anion Gap 4.0 (3-11) BUN 42 H (7-18) mg/dl Creatinine 0.76 (0.6-1.2) mg/dl Est Cr Clr Drug Dosing 73.3 ml/min Est GFR ( Amer) 91.5 ml/min Est GFR (Non-Af Amer) 78.9 ml/min BUN/Creatinine Ratio 54.7 H (10-20) Glucose 154 H (70-99) mg/dl POC Glucose 155 H (70-99) mg/dl Calcium 9.2 (8.5-10.1) mg/dl Phosphorus 4.6 D (2.5-4.9) mg/dl Magnesium 2.6 H (1.8-2.4) mg/dl Vancomycin Trough (See Comment) mcg/ml 07/18/21 07/17/21 07/17/21 Range/Units 03:37 23:02 18:18 WBC (4.8-10.8) K/uL RBC (4.2-5.4) M/uL Hgb (12.0-16.0) g/dL Hct (37-47) % MCV (80-100) fL MCH (25-34) pg MCHC (32-36) g/dL RDW Std Deviation (36.4-46.3) fL RDW Coeff of Dayanna (11.5-14.5) % Plt Count (130-400) K/uL MPV (7.4-10.4) fL Immature Gran % (Auto) % Neut % (Auto) % Lymph % (Auto) % [place] % (Auto) % Eos % (Auto) % Baso % (Auto) % Neut # (Auto) (1.4-6.5) K/uL Lymph # (Auto) (1.2-3.4) K/uL [place] # (Auto) (0.11-0.59) K/uL Eos # (Auto) (0-0.5) K/uL Baso # (Auto) (0-0.2) K/uL Immature Gran # (Auto) (0.00-0.02) K/uL Sample Site L Brachial POC pH 7.40 (7.35-7.45) POC pCO2 50 H (35-46) mmHg POC pO2 69 L (80-95) mmHg POC HCO3 31 H (19-24) christiano/L POC Total CO2 32 H (24-31) mmol/L POC Base Excess 6.0 H (-9-1.8) christiano/L POC ABG O2 Sat 93.0 (90-95) % Hema Test Pass O2 Delivery Device Ventilator POC O2 Rate 22 Tidal Volume 380 PEEP 14 Sodium (136-145) mmol/L Potassium (3.5-5.1) mmol/L Chloride (98-107) mmol/L Carbon Dioxide (21-32) mmol/L Anion Gap (3-11) BUN (7-18) mg/dl Creatinine (0.6-1.2) mg/dl Est Cr Clr Drug Dosing ml/min Est GFR ( Amer) ml/min Est GFR (Non-Af Amer) ml/min BUN/Creatinine Ratio (10-20) Glucose (70-99) mg/dl POC Glucose 159 H (70-99) mg/dl Calcium (8.5-10.1) mg/dl Phosphorus (2.5-4.9) mg/dl Magnesium (1.8-2.4) mg/dl Vancomycin Trough 11.8 (See Comment) mcg/ml 07/17/21 Range/Units 17:57 WBC (4.8-10.8) K/uL RBC (4.2-5.4) M/uL Hgb (12.0-16.0) g/dL Hct (37-47) % MCV (80-100) fL MCH (25-34) pg MCHC (32-36) g/dL RDW Std Deviation (36.4-46.3) fL RDW Coeff of Dayanna (11.5-14.5) % Plt Count (130-400) K/uL MPV (7.4-10.4) fL Immature Gran % (Auto) % Neut % (Auto) % Lymph % (Auto) % [place] % (Auto) % Eos % (Auto) % Baso % (Auto) % Neut # (Auto) (1.4-6.5) K/uL Lymph # (Auto) (1.2-3.4) K/uL [place] # (Auto) (0.11-0.59) K/uL Eos # (Auto) (0-0.5) K/uL Baso # (Auto) (0-0.2) K/uL Immature Gran # (Auto) (0.00-0.02) K/uL Sample Site POC pH (7.35-7.45) POC pCO2 (35-46) mmHg POC pO2 (80-95) mmHg POC HCO3 (19-24) christiano/L POC Total CO2 (24-31) mmol/L POC Base Excess (-9-1.8) christiano/L POC ABG O2 Sat (90-95) % Hema Test O2 Delivery Device POC O2 Rate Tidal Volume PEEP Sodium (136-145) mmol/L Potassium (3.5-5.1) mmol/L Chloride (98-107) mmol/L Carbon Dioxide (21-32) mmol/L Anion Gap (3-11) BUN (7-18) mg/dl Creatinine (0.6-1.2) mg/dl Est Cr Clr Drug Dosing ml/min Est GFR ( Amer) ml/min Est GFR (Non-Af Amer) ml/min BUN/Creatinine Ratio (10-20) Glucose (70-99) mg/dl POC Glucose 132 H (70-99) mg/dl Calcium (8.5-10.1) mg/dl Phosphorus (2.5-4.9) mg/dl Magnesium (1.8-2.4) mg/dl Vancomycin Trough (See Comment) mcg/ml Coding Level of Care Code Critical Care 1st 30-74 mins Diagnoses ARDS (adult respiratory distress syndrome) J80 Pneumonia due to COVID-19 virus U07.1; J12.82 Elevated troponin I level R77.8 Elevated lactic acid level R79.89
[2021-07-18] MEDS: VANCOMYCIN HCL 1,500 MG in SODIUM CHLORIDE 0.9% 500 ML IV SCH ×2 (09:20→20:20)
[2021-07-18] MEDS: SENNOSIDES 8.8 MG/5 ML UDC PO SCH ×2 (09:20→20:24)
[2021-07-18] MEDS: ENOXAPARIN 100 MG/1ML SYR SQ SCH ×2 (09:21→20:23)
[2021-07-18] MEDS: MULTI VIT W/MINERALS LIQUID 15 ML UDP NG SCH (09:21)
[2021-07-18] MEDS: METOPROLOL TARTRATE 25 MG TAB PO SCH ×2 (09:21→20:24)
[2021-07-18] MEDS: FUROSEMIDE 40 MG/4 ML VIAL IV SCH (09:21)
[2021-07-18] MEDS: LANSOPRAZOLE 30 MG SOLTAB NG SCH (09:21)
[2021-07-18] MEDS: oxyCODONE HCL IR 5 MG TAB (IMMEDIATE RELEASE) PO SCH ×2 (12:13→18:33)
[2021-07-18] MEDS: ACETAMINOPHEN SUSP 325 MG/10.15 ML UDC PO PRN ×2 (12:56→20:24)
[2021-07-18] MEDS: PEPTAMEN INTENSE VHP 1.0 CAL 1,000 ML BAG OG SCH (13:04)
[2021-07-18] MEDS: MIDAZOLAM HCL 1 MG/ML 2ML VIAL IV PRN ×4 (13:50→20:45)
[2021-07-18] MEDS: MIDAZOLAM HCL 125 MG/250 ML BAG IV SCH (17:35)
--- NOTE | 2021-07-18 18:00 | Hospitalist Progress Note ---
Date of Service July 18, 2021 Assessment & Plan (1) Acute hypoxemic respiratory failure due to COVID-19: Plan: SEVERE. Upon admission she required BIPAP due to severe hypoxia & increased work of breathing. Remained on BIPAP 14/7 continuously for several days following admission, then transitioned to HFNC. Remained on max settings including 100% FiO2 thereafter. She had intermittently used BIPAP at HS as well. Dx with DVTs in the week prior to admission, has presumed PEs; was too ill here to safely obtain CTA chest. Heparin drip started and now on therapeutic Lovenox Despite supportive care she developed significant respiratory fatigue from 8+ days of BIPAP + HFNC. Intubated AM of 07/04/21. placed on pressure support mode x 2 days on 07/11 and 07/12, but not since then due to increased FiO2 requirement-FiO2 requirement now back up to 100% on 07/15 Chest x-ray still with diffuse opacities on 07/14 and 07/15 Continues with fevers-central line and A-line removed on 07/13, now growing probable Enterococcus on blood cultures from 07/13-change ceftriaxone to vancomycin on 07/15 still with fever today on Versed, Fentanyl boluses off of neuromuscular blockade Cont dexamethasone, increased to 20mg daily on 07/07 for 5 days of 20mg (07/12) and 5 days of 10mg starting 07/12 Received baricitinib 4mg daily for 8 days -- discontinued upon intubation. s/p Zithromax 5-day course Continue daily IV Lasix to keep lungs dry Was never a Remdesivir candidate. Appreciate critical care assistance tracheostomy performed 07/17/[address] Womack she remains on PEEP of 14 and FiO2 80% today lightening sedation, she is following commands (2) Pneumonia due to COVID-19 virus: Plan: severe COVID pneumonia with resulting ARDS With persistent fevers as above Completed a 7-day course of cefepime on 07/12 -Started ceftriaxone on 07/14 but now switched to vancomycin for probable Enterococcus on blood cultures Follow chest x-ray ventilator day 15 today (3) ARDS (adult respiratory distress syndrome): Plan: 2nd to COVID-19 pneumonia ongoing see above tracheostomy done, 07/17 (4) Septicemia: Plan: With persistent fevers for many days despite being on cefepime Now blood cultures positive from 07/13 for probable Enterococcus Right IJ central venous catheter and arterial line removed on 07/13 Completed course of cefepime x1 week on 07/12 -[facility] started ceftriaxone on 07/14- changed to Vancomycin 07/15 -Of note, does have a total knee replacement in place, had PICC line placed on 07/13 (5) Elevated troponin I level: Plan: Likely myocardial demand ischemia in setting of severe acute hypoxic resp failure / COVID-19 pneumonia If she has PEs this, too, can lead to rise in troponin EF 55-60% with no wall motion abnormalities (6) Acid reflux disease: Plan: cont IV PPI (7) Hypertension: Plan: had some hypotension 2nd to sedation and critical illness. now off pressors, now off propofol (8) Abnormal LFTs: Plan: transaminitis likely 2nd to COVID illness resolved (9) Deep vein thrombosis of bilateral lower extremities: Plan: b/l dopplers + for DVTs PEs presumed Heparin drip initially -- now on therapeutic lovenox (10) Candidiasis of mouth and esophagus: Plan: had been on nystatin prior to intubation (11) DVT prophylaxis: Plan: therapeutic lovenox BID for DVT Plan: appreciate ICU/pulmonary assistance Dispo-continued stay in ICU, work to wake up patient, decrease ventilator requirements Admission and Anticipated Discharge Date Admission Date: June 26, 2021 Subjective patient more awake, following commands, smiling appropriately still spiking fevers on PEEP 14 and FiO2 80% Dr. Womack and I updated family today in waiting room answered their questions about ECMO and lung transplant, discussed that she is not a candidate best hope is that she continues to wake up and respond and understand what is going on unsure that she will ever get off ventilator support on tracheostomy will need to move towards LTACH but needs to be doing better before that can happen family was then allowed to visit patient at the bedside, patient was responsive Review of Systems Review of Systems: Unobtainable due to reduced consciousness (appears uncomfortable at times, but smiles and responds, follows commands) Physical Exam Physical Exam: General: well developed, elderly female, tracheostomy and mechanically ventilated Neck: tracheostomy Lungs: diminished sounds bilaterally, mechanically ventilated via tracheostomy Heart: tachycardic, S1 and S2, no murmur, peripheral pulses normal, capillary refill normal, no edema Abdomen: soft, NT, ND, + BS, no hepatomegaly, normal to percussion Extremities: normal in appearance, no cyanosis, no petechiae Neuro: waking up, no focal motor deficits, CN II-XII intact Skin: warm, dry, no rash, normal turgor Psych: waking up, following simple commands Results & Data Results & Data ([facility]) Vital Signs (Past 12 Hours) Vital Signs Temp Pulse Resp BP Pulse Ox 07/18/21 15:21 34 H 07/18/21 12:00 38.4 C H 101 H 21 112/62 97 07/18/21 11:25 28 H 07/18/21 11:00 38.0 C H 84 21 123/75 95 07/18/21 10:00 37.9 C H 85 25 H 106/56 L 95 07/18/21 09:00 38.0 C H 86 25 H 96 07/18/21 08:30 95 H 25 H 93 07/18/21 08:00 38.0 C H 94 H 21 118/67 93 07/18/21 07:00 38.2 C H 89 23 109/56 L 96 07/18/21 06:00 38.3 C H 96 H 23 101/55 L 95 Laboratory Results Laboratory Results - last 24 hr 07/17/21 07/17/21 07/17/21 17:57 18:18 23:02 WBC RBC Hgb Hct MCV MCH MCHC RDW Std Deviation RDW Coeff of Dayanna Plt Count MPV Immature Gran % (Auto) Neut % (Auto) Lymph % (Auto) [place] % (Auto) Eos % (Auto) Baso % (Auto) Neut # (Auto) Lymph # (Auto) [place] # (Auto) Eos # (Auto) Baso # (Auto) Immature Gran # (Auto) Sample Site POC pH POC pCO2 POC pO2 POC HCO3 POC Total CO2 POC Base Excess POC ABG O2 Sat Hema Test O2 Delivery Device POC O2 Rate Tidal Volume PEEP Sodium Potassium Chloride Carbon Dioxide Anion Gap BUN Creatinine Est Cr Clr Drug Dosing Est GFR ( Amer) Est GFR (Non-Af Amer) BUN/Creatinine Ratio Glucose POC Glucose 132 H 159 H Calcium Phosphorus Magnesium Vancomycin Trough 11.8 07/18/21 07/18/21 07/18/21 03:37 05:23 05:23 WBC 17.54 H RBC 3.61 L Hgb 10.5 L Hct 33.6 L MCV 93.1 MCH 29.1 MCHC 31.3 L RDW Std Deviation 44.3 RDW Coeff of Dayanna 12.9 Plt Count 265 D MPV 10.3 Immature Gran % (Auto) 1.0 Neut % (Auto) 73.4 Lymph % (Auto) 10.7 [place] % (Auto) 14.6 Eos % (Auto) 0.2 Baso % (Auto) 0.1 Neut # (Auto) 12.90 H Lymph # (Auto) 1.87 [place] # (Auto) 2.56 H Eos # (Auto) 0.03 Baso # (Auto) 0.01 Immature Gran # (Auto) 0.17 H Sample Site L Brachial POC pH 7.40 POC pCO2 50 H POC pO2 69 L POC HCO3 31 H POC Total CO2 32 H POC Base Excess 6.0 H POC ABG O2 Sat 93.0 Hema Test Pass O2 Delivery Device Ventilator POC O2 Rate 22 Tidal Volume 380 PEEP 14 Sodium 139 Potassium 4.3 D Chloride 101 Carbon Dioxide 34 H Anion Gap 4.0 BUN 42 H Creatinine 0.76 Est Cr Clr Drug Dosing 73.3 Est GFR ( Amer) 91.5 Est GFR (Non-Af Amer) 78.9 BUN/Creatinine Ratio 54.7 H Glucose 154 H POC Glucose Calcium 9.2 Phosphorus 4.6 D Magnesium 2.6 H Vancomycin Trough 07/18/21 07/18/21 12:12 17:50 WBC RBC Hgb Hct MCV MCH MCHC RDW Std Deviation RDW Coeff of Dayanna Plt Count MPV Immature Gran % (Auto) Neut % (Auto) Lymph % (Auto) [place] % (Auto) Eos % (Auto) Baso % (Auto) Neut # (Auto) Lymph # (Auto) [place] # (Auto) Eos # (Auto) Baso # (Auto) Immature Gran # (Auto) Sample Site POC pH POC pCO2 POC pO2 POC HCO3 POC Total CO2 POC Base Excess POC ABG O2 Sat Hema Test O2 Delivery Device POC O2 Rate Tidal Volume PEEP Sodium Potassium Chloride Carbon Dioxide Anion Gap BUN Creatinine Est Cr Clr Drug Dosing Est GFR ( Amer) Est GFR (Non-Af Amer) BUN/Creatinine Ratio Glucose POC Glucose 155 H 153 H Calcium Phosphorus Magnesium Vancomycin Trough Medications Administered Current Inpatient Medications Acetaminophen (Acetaminophen Susp 325 Mg/10.15 Ml Udc) 975 mg PO Q8H PRN PRN Reason: Fever Stop: 08/14/21 16:44 Last Admin: 07/18/21 12:56 Dose: 975 mg Documented by: Dextrose (Dextrose 50% 50 Ml Syringe) 25 - 50 ml IV UD PRN; Protocol PRN Reason: Hypoglycemia Protocol Stop: 08/07/21 21:38 Enoxaparin Sodium (Enoxaparin 100 Mg/1ml Syr) 90 mg SQ Q12 [place] Stop: 08/04/21 10:59 Last Admin: 07/18/21 09:21 Dose: 90 mg Documented by: Furosemide (Furosemide 40 Mg/4 Ml Vial) 40 mg IV DAILY [place] Stop: 08/12/21 08:59 Last Admin: 07/18/21 09:21 Dose: 40 mg Documented by: Glucagon (Glucagon For Inj 1 Mg Vial) 1 mg SQ UD PRN; Protocol PRN Reason: Hypoglycemia Protocol Stop: 08/07/21 21:38 Glucose (Glucose 10 Tabs/Tube) 4 - 8 tabs PO UD PRN; Protocol PRN Reason: Hypoglycemia Protocol Stop: 08/07/21 21:38 Glucose (Glucose 40% Gel 15 Gm Tube) 15 - 30 gm PO UD PRN; Protocol PRN Reason: Hypoglycemia Protocol Stop: 08/07/21 21:38 Heparin Sodium (Beef Lung) (Heparin 10 Unit/Ml 5 Ml Flush) 5 ml FLUSH PRN PRN PRN Reason: Flush Stop: 08/12/21 18:12 Vancomycin HCl 1,500 mg/ (Sodium Chloride) 530 mls @ 200 mls/hr IV Q12H [facility]; Protocol Stop: 07/23/21 19:59 Last Infusion: 07/18/21 12:55 Dose: Infused Documented by: Insulin Aspart (Insulin Aspart Per Unit) 0 units SC Q6 [place] Stop: 08/10/21 11:59 Last Admin: 07/18/21 12:15 Dose: 1 units Documented by: Lansoprazole (Lansoprazole 30 Mg Soltab) 30 mg NG DAILY [facility] Stop: 08/17/21 08:59 Last Admin: 07/18/21 09:21 Dose: 30 mg Documented by: Metoprolol Tartrate (Metoprolol Tartrate 25 Mg Tab) 25 mg PO BID [facility] Stop: 08/15/21 20:59 Last Admin: 07/18/21 09:21 Dose: 25 mg Documented by: Midazolam HCl (Midazolam Hcl 1 Mg/Ml 2ml Vial) 2 mg IV Q2H PRN PRN Reason: RASS -1 Stop: 08/17/21 11:05 Last Admin: 07/18/21 17:13 Dose: 2 mg Documented by: Miscellaneous (Carbohydrates For Hypoglycemia ) 15 - 30 gm PO UD PRN PRN Reason: Hypoglycemia Protocol Stop: 08/07/21 21:38 Miscellaneous Information (Vancomycin Consult Active) 1 ea N/A UD PRN PRN Reason: Consult Stop: 08/14/21 18:22 Multivitamins/Minerals (Multi Vit W/Minerals Liquid 15 Ml Udp) 15 ml NG QAM [facility] Stop: 08/12/21 08:59 Last Admin: 07/18/21 09:21 Dose: 15 ml Documented by: Nutritional Formula (Peptamen Intense Vhp 1.0 Jhonny 1,000 Ml Bag) 1,000 ml OG UD [facility]; Protocol Stop: 08/16/21 13:29 Last Admin: 07/18/21 13:04 Dose: 1,000 ml Documented by: Ondansetron HCl (Ondansetron Inj 2 Mg/Ml 2 Ml Vial) 4 mg IV Q6H PRN PRN Reason: Nausea Stop: 07/26/21 20:32 Oxycodone HCl (Oxycodone Hcl Ir 5 Mg Tab (Immediate Release)) 15 mg PO Q6H [facility]; Taper Stop: 07/27/21 11:59 Last Admin: 07/18/21 12:13 Dose: 15 mg Documented by: Sennosides (Sennosides 8.8 Mg/5 Ml Udc) 8.8 mg PO BID [facility] Stop: 08/11/21 20:59 Last Admin: 07/18/21 09:20 Dose: 8.8 mg Documented by: Sterile Water (Tube Feeding Water Flush) 30 ml GT Q4H [facility] Stop: 08/06/21 14:44 Last Admin: 07/18/21 15:42 Dose: 30 ml Documented by: PG Care Time/CCT Total # of Minutes Spent Total Time Spent: 34 Total Time Spent with Patient: Total time spent is greater than 50% in coordination of care (as documented) at patient's floor/unit and/or counseling patient: 20 minutes spent with family with meeting and taking them to visit patient 14 minutes spent on chart review, discussing with Dr. Womack, documentation Coding Level of Care Code 41293 Subseq Hosp Care Lvl 3 (25 - SIGNIFICANT, SEPARATELY IDENTIFIABLE ) Diagnoses Acute hypoxemic respiratory failure due to COVID-19 U07.1; J96.01 Pneumonia due to COVID-19 virus U07.1; J12.82 ARDS (adult respiratory distress syndrome) J80 Septicemia A41.9 Elevated troponin I level R77.8 Acid reflux disease K21.9 Hypertension I10 Abnormal LFTs R79.89 Deep vein thrombosis of bilateral lower extremities I82.403 Candidiasis of mouth and esophagus B37.81; B37.0 DVT prophylaxis Z29.9
[2021-07-19] MEDS: oxyCODONE HCL IR 5 MG TAB (IMMEDIATE RELEASE) PO SCH ×4 (00:03→17:42)
[2021-07-19] MEDS: TUBE FEEDING WATER FLUSH GT SCH ×6 (00:13→17:43)
[2021-07-19] MEDS: INSULIN ASPART PER UNIT SC SCH ×5 (00:13→21:02)
[2021-07-19] MEDS: MIDAZOLAM HCL 1 MG/ML 2ML VIAL IV PRN ×4 (02:08→22:44)
[2021-07-19] MEDS ORDERED: MIDAZOLAM HCL 1 MG/ML 2ML VIAL IV STA (03:07)
[2021-07-19] MEDS ORDERED: fentaNYL citrate 100 MCG/2 ML VIAL IV STA ×4 (03:37→14:32)
[2021-07-19] MEDS ORDERED: fentaNYL citrate 100 MCG/2 ML VIAL ONE (03:38)
[2021-07-19] MEDS ORDERED: HYDROmorphone INJ 0.5 MG/0.5 ML SYR IV STA (04:47)
[2021-07-19] MEDS ORDERED: STAT IV Infusion **Titration per Protocol STA ×2 (04:48→06:46)
[2021-07-19] MEDS ORDERED: HYDROmorphone INJ 0.5 MG/0.5 ML SYR ONE (04:49)
[2021-07-19] MEDS ORDERED: DEXMEDETOMIDINE HCL 200 MCG in SODIUM CHLORIDE 0.9% 48 ML IV SCH (05:00)
[2021-07-19] MEDS: ACETAMINOPHEN SUSP 325 MG/10.15 ML UDC PO PRN ×2 (05:12→14:59)
[2021-07-19 05:39] LABS: Hematocrit (blood only) 34.7 % (37-47); Hemoglobin 10.7 g/dL (12.0-16.0); Mean Corpuscular Hemoglobin 28.5 pg (25-34); Mean Corpuscular Hgb Conc 30.8 g/dL (32-36); Mean Corpuscular Volume 92.3 fL (80-100); Mean Platelet Volume 11.3 fL (7.4-10.4); Nucleated RBC # (auto) 0.08 K/uL (0-0); Nucleated RBC % (auto) 0.3 %; Platelet Count 201 K/uL (130-400); RDW Coefficient of Variation 16.3 % (11.5-14.5); RDW Standard Deviation 53.9 fL (36.4-46.3); Red Blood Count 3.76 M/uL (4.2-5.4); White Blood Count 24.77 K/uL (4.8-10.8)
[2021-07-19 06:02] LABS: Basophils # (auto) 0.05 K/uL (0-0.2); Basophils % (auto) 0.2 %; Eosinophils # (auto) 0.49 K/uL (0-0.5); Immature Granulocytes # (auto) 0.34 K/uL (0.00-0.02); Immature Granulocytes % (auto) 1.4 %; Lymphocytes # (auto) 0.95 K/uL (1.2-3.4); Lymphocytes % (auto) 3.8 %; Monocytes # (auto) 0.39 K/uL (0.11-0.59); Monocytes % (auto) 1.6 %; Neutrophils # (auto) 22.55 K/uL (1.4-6.5); Polychromasia 1+; Rouleaux 1+
[2021-07-19 06:07] LABS: BUN Creatinine Ratio 49.4 (10-20); Calcium 8.9 mg/dl (8.5-10.1); Creatinine Clr Calc Pharmacy 94.4 ml/min; Est GFR (African American) 106.9 ml/min; Est GFR (Non-African American) 92.2 ml/min; Magnesium 2.1 mg/dl (1.8-2.4); Potassium 3.8 mmol/L (3.5-5.1)
[2021-07-19 06:15] LABS: Phosphorus 2.7 mg/dl (2.5-4.9)
[2021-07-19] MEDS ORDERED: POTASSIUM CHLORIDE 20 MEQ/15 ML UDC PO STA (06:18)
[2021-07-19] MEDS ORDERED: NOREPINEPHRINE/D5W 8 MG/508 ML IV ONE (06:48)
[2021-07-19] MEDS ORDERED: VANCOMYCIN TROUGH ONE (07:30)
--- NOTE | 2021-07-19 07:30 | XRay Report ---
XR chest 1V portable CLINICAL HISTORY: Resp failure. COMPARISON STUDY: 07/18/2021 TECHNIQUE: 1 view of the chest FINDINGS: Single frontal view of the chest demonstrates the cardiomediastinal silhouette to be within normal li mits. Tubes and catheters appear unchanged. Compared to previous study, bilateral interstitial and al veolar opacities are again seen and essentially unchanged. There is again suspicion of small left ple ural effusion. There is no evidence for vascular congestion. There is no acute osseous pathology. IMPRESSION: Compared to the previous examination, there is no significant interval change with bilate ral interstitial and alveolar opacities again seen along with suspicion of small left pleural effusio n. ACT 112: Negative or not required by law. Electronically signed by: Marlon Rae M.D. 07/19/2021 7:29 AM
[2021-07-19 07:37] LABS: iSTAT Allen Test Pass; iSTAT Art Bld Gas pCO2 Correct 50 mmHg (35-46); iSTAT Art Bld Gas pH Corrected 7.369 (7.35-7.45); iSTAT Arterial Blood Gas HCO3 28 meg/L (19-24); iSTAT Arterial Blood Gas pCO2 44 mmHg (35-46); iSTAT Arterial Blood Gas pH 7.41 (7.35-7.45); iSTAT Arterial Blood Gas pO2 54 mmHg (80-95); iSTAT Arterial Blood Gas pO2 C 67; iSTAT Carbon Dioxide 29 mmol/L (24-31); iSTAT Hematocrit 29 % (37-47); iSTAT Hemoglobin 9.9 g/dl (12.0-16.0); iSTAT Potassium 4.5 mmol/L (3.3-5.0); iSTAT Site L Radial; iSTAT Sodium 141 mmol/L (135-144)
[2021-07-19] MEDS: DEXMEDETOMIDINE HCL 400 MCG in 0.9 % SODIUM CHLORIDE 96 ML IV SCH ×4 (07:39→22:58)
[2021-07-19] MEDS: NOREPINEPHRINE/D5W 8 MG/508 ML BAG IV SCH (08:06)
[2021-07-19] MEDS: METOPROLOL TARTRATE 25 MG TAB PO SCH (08:43)
[2021-07-19] MEDS: MULTI VIT W/MINERALS LIQUID 15 ML UDP NG SCH (08:43)
[2021-07-19] MEDS: FUROSEMIDE 40 MG/4 ML VIAL IV SCH (08:43)
[2021-07-19] MEDS: LANSOPRAZOLE 30 MG SOLTAB NG SCH (08:44)
[2021-07-19] MEDS: SENNOSIDES 8.8 MG/5 ML UDC PO SCH ×2 (08:44→21:04)
[2021-07-19] MEDS: ENOXAPARIN 100 MG/1ML SYR SQ SCH ×2 (08:44→21:04)
[2021-07-19] MEDS ORDERED: MEROPENEM CONSULT ACTIVE PRN (09:50)
[2021-07-19] MEDS ORDERED: DOCUSATE SODIUM 100 MG CAP PO SCH (10:00)
--- NOTE | 2021-07-19 10:00 | Critical Care Progress Note ---
Date of Service July 19, 2021 Assessment & Plan (1) ARDS (adult respiratory distress syndrome): (2) Pneumonia due to COVID-19 virus: (3) Elevated troponin I level: (4) Elevated lactic acid level: Plan: Impression: 71-year-old nonvaccinated female admitted with Covid pneumonitis and hypoxemic respiratory failure/ARDS requiring noninvasive positive pressure ventilation. She was admitted 06/26/2021 and failed high flow, CPAP, BiPAP, and prone positioning. She is intubated 07/04/2021. Recommendations: -Neuro: Transition to bolus midazolam -Discontinue fentanyl transition to oral oxycodone taper -Propofol discontinued because of elevated triglycerides on 07/08/2021 -Discontinue Precedex -Cardiovascular: --Episodes of bradycardia --> resolved Likely from sedation Atrial fibrillation with rapid ventricular response -Responded well to metoprolol -Metoprolol 25 twice daily -Holding secondary to hypotension -Currently normal sinus rhythm Hypotension: -Levophed via PICC line -Pulmonary: -- VDRF with acute hypoxic respiratory failure Likely secondary to multilobar COVID-19 pneumonia -Tracheostomy performed 07/17 postop day 2 --Severe acute respiratory distress syndrome: Mild decrease in PEEP requirements last 24 hours -PF ratio less than 100 Continue with lung protective ventilation High PEEP, low tidal volume to keep Plateau < 30 with permissive hypercapnea if need be. Monitor ABGs Continue with ventilatory support COVID-19 PCR positive Completed DEXA ARDS protocol which is started on 07/06/2021 - ID: -- Covid pneumonia Finished dexamethasone for total of 10 days Baricitinib discontinued Sputum and blood from 07/05/2021 negative to date Completed the course of cefepime 07/12/2021 --Gram-positive cocci in chains On blood culture 07/13/2021 Central line as well as A-line removed 07/13/2021 Rocephin started 07/14/2021 -Transitioned to vancomycin 07/15: Only 1 culture positive question line infection versus contaminant -Vancomycin day 4 Repeat blood cultures 07/16/2021: No growth to date Second repeat blood cultures obtained Febrile illness: Elevated white count on vancomycin has known DVTs which could be driving fever -Check LFTs in a.m. 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 No acute issues --Acute DVT bilateral lower extremity On therapeutic Lovenox monitor H&H - Endocrine: Continue with ICU hypoglycemia protocol MSK DTI of sacrum -Wound care following Pressure injury of upper lip --Prophylaxis VTE: Therapeutic Lovenox GI: Protonix Lines: Right arm PICC 07/13/2021, positive Rios, left radial A-line discontinued 07/14/2021, right IJ DC 07/13/2021 Patient's Daughter Jordyn Gallagher [phone] Per social work insurance will require surgical PEG tube for long-term acute care Admission and Anticipated Discharge Date Admission Date: June 26, 2021 Supervising Physician Co-Signing Physician Notes I have personally spent 40 minutes of critical care time in the direct management of this patient. This is a life/limb threatening event. This includes time spent evaluating patient, direct bedside care, chart review, placing orders, interpretation of diagnostic studies, discussion with consultants, patient, and/or family members regarding treatment decisions, as well as other required patient management activities. This time is exclusive of all separately billable procedures, and teaching time and separate from and in addition to any other critical care service time. Subjective Increased fevers overnight and requiring vasoactive medication for low blood pressure, started on Precedex overnight Review of Systems Review of Systems: Unable to obtain secondary to tracheostomy tube Physical Exam Physical Exam: General: Arouses and follows simple commands, supine position nontoxic. Skin: Warm, dry, Head: Atraumatic Ears, nose, mouth and throat: airway patent Cardiovascular: Normal peripheral perfusion Respiratory: Ventilator settings reviewed Gastrointestinal: Non distended Musculoskeletal: No deformity Skin: Sacral DTI as well as tissue injury to upper lip Results & Data Results & Data ([facility]) Vital Signs (Past 12 Hours) Vital Signs Temp Pulse Resp BP Pulse Ox 07/19/21 07:15 112 H 34 H 90 07/19/21 06:21 40.2 C H 100 H 30 H 80/47 L 92 07/19/21 06:14 40.2 C H 101 H 30 H 75/47 L 91 07/19/21 06:07 40.2 C H 99 H 29 H 73/39 L 91 07/19/21 06:03 40.2 C H 100 H 28 H 78/40 L 91 07/19/21 06:00 40.1 C H 101 H 29 H 91 07/19/21 05:42 40.1 C H 116 H 29 H 90/44 L 90 07/19/21 05:00 39.8 C H 136 H 43 H 133/66 87 L 07/19/21 04:40 145 H 43 H 82 L 07/19/21 04:00 39.3 C H 111 H 33 H 116/72 93 07/19/21 03:01 38.4 C H 125 H 30 H 151/88 H 87 L 07/19/21 03:00 38.4 C H 121 H 26 H 87 L 07/19/21 02:00 38.0 C H 104 H 33 H 138/75 86 L 07/19/21 01:01 37.8 C H 95 H 27 H 126/71 96 07/19/21 01:00 37.8 C H 95 H 22 96 07/19/21 00:10 37.9 C H 107 H 36 H 96/82 L 95 07/19/21 00:00 37.9 C H 91 H 26 H 125/108 H 95 07/18/21 23:01 38.1 C H 104 H 34 H 107/70 95 07/18/21 23:00 38.1 C H 104 H 30 H 95 07/18/21 22:31 107 H 31 H 96 07/18/21 22:00 38.5 C H 100 H 32 H 121/70 97 Laboratory Results 07/19/21 07/19/21 07/19/21 Range/Units 07:56 07:21 06:00 WBC (4.8-10.8) K/uL RBC (4.2-5.4) M/uL Hgb (12.0-16.0) g/dL POC Hgb 9.9 L (12.0-16.0) g/dl Hct (37-47) % POC Hct 29 L (37-47) % MCV (80-100) fL MCH (25-34) pg MCHC (32-36) g/dL RDW Std Deviation (36.4-46.3) fL RDW Coeff of Dayanna (11.5-14.5) % Plt Count (130-400) K/uL MPV (7.4-10.4) fL Immature Gran % (Auto) % Neut % (Auto) % Lymph % (Auto) % Hamblen % (Auto) % Eos % (Auto) % Baso % (Auto) % Neut # (Auto) (1.4-6.5) K/uL Lymph # (Auto) (1.2-3.4) K/uL Hamblen # (Auto) (0.11-0.59) K/uL Eos # (Auto) (0-0.5) K/uL Baso # (Auto) (0-0.2) K/uL Immature Gran # (Auto) (0.00-0.02) K/uL Absolute Nucleated RBC (0-0) K/uL Nucleated RBC % (auto) % Polychromasia Rouleaux Sample Site L Radial POC pH 7.41 (7.35-7.45) POC pCO2 44 (35-46) mmHg POC pO2 54 L (80-95) mmHg POC HCO3 28 H (19-24) christiano/L POC Total CO2 29 (24-31) mmol/L POC Base Excess 3.0 H (-9-1.8) christiano/L ABG pH (Temp Correct) 7.369 (7.35-7.45) ABG pCO2 (Temp Corrct 50 H (35-46) mmHg POC ABG pO2 at Pt Temp 67 POC ABG O2 Sat 88.0 L (90-95) % Hema Test Pass O2 Delivery Device Ventilator POC O2 Rate 22 Tidal Volume 380 PEEP 14 POC Sodium 141 (135-144) mmol/L Sodium (136-145) mmol/L POC Potassium 4.5 (3.3-5.0) mmol/L Potassium (3.5-5.1) mmol/L Chloride (98-107) mmol/L Carbon Dioxide (21-32) mmol/L Anion Gap (3-11) BUN (7-18) mg/dl Creatinine (0.6-1.2) mg/dl Est Cr Clr Drug Dosing ml/min Est GFR ( Amer) ml/min Est GFR (Non-Af Amer) ml/min BUN/Creatinine Ratio (10-20) Glucose (70-99) mg/dl POC Glucose 223 H (70-99) mg/dl Calcium (8.5-10.1) mg/dl Phosphorus (2.5-4.9) mg/dl Magnesium (1.8-2.4) mg/dl Vancomycin Trough 14.7 (See Comment) mcg/ml 07/19/21 07/19/21 07/19/21 Range/Units 05:17 05:17 00:07 WBC 24.77 H (4.8-10.8) K/uL RBC 3.76 L (4.2-5.4) M/uL Hgb 10.7 L (12.0-16.0) g/dL POC Hgb (12.0-16.0) g/dl Hct 34.7 L (37-47) % POC Hct (37-47) % MCV 92.3 (80-100) fL MCH 28.5 (25-34) pg MCHC 30.8 L (32-36) g/dL RDW Std Deviation 53.9 H (36.4-46.3) fL RDW Coeff of Dayanna 16.3 H (11.5-14.5) % Plt Count 201 (130-400) K/uL MPV 11.3 H (7.4-10.4) fL Immature Gran % (Auto) 1.4 % Neut % (Auto) 91.0 % Lymph % (Auto) 3.8 % Hamblen % (Auto) 1.6 % Eos % (Auto) 2.0 % Baso % (Auto) 0.2 % Neut # (Auto) 22.55 H (1.4-6.5) K/uL Lymph # (Auto) 0.95 L (1.2-3.4) K/uL Hamblen # (Auto) 0.39 (0.11-0.59) K/uL Eos # (Auto) 0.49 (0-0.5) K/uL Baso # (Auto) 0.05 (0-0.2) K/uL Immature Gran # (Auto) 0.34 H (0.00-0.02) K/uL Absolute Nucleated RBC 0.08 H (0-0) K/uL Nucleated RBC % (auto) 0.3 % Polychromasia 1+ Rouleaux 1+ Sample Site POC pH (7.35-7.45) POC pCO2 (35-46) mmHg POC pO2 (80-95) mmHg POC HCO3 (19-24) christiano/L POC Total CO2 (24-31) mmol/L POC Base Excess (-9-1.8) christiano/L ABG pH (Temp Correct) (7.35-7.45) ABG pCO2 (Temp Corrct (35-46) mmHg POC ABG pO2 at Pt Temp POC ABG O2 Sat (90-95) % Hema Test O2 Delivery Device POC O2 Rate Tidal Volume PEEP POC Sodium (135-144) mmol/L Sodium 140 (136-145) mmol/L POC Potassium (3.3-5.0) mmol/L Potassium 3.8 (3.5-5.1) mmol/L Chloride 105 (98-107) mmol/L Carbon Dioxide 30 (21-32) mmol/L Anion Gap 5.0 (3-11) BUN 29 H (7-18) mg/dl Creatinine 0.59 L (0.6-1.2) mg/dl Est Cr Clr Drug Dosing 94.4 ml/min Est GFR ( Amer) 106.9 ml/min Est GFR (Non-Af Amer) 92.2 ml/min BUN/Creatinine Ratio 49.4 H (10-20) Glucose 184 H (70-99) mg/dl POC Glucose 147 H (70-99) mg/dl Calcium 8.9 (8.5-10.1) mg/dl Phosphorus 2.7 D (2.5-4.9) mg/dl Magnesium 2.1 (1.8-2.4) mg/dl Vancomycin Trough (See Comment) mcg/ml 07/18/21 07/18/21 Range/Units 17:50 12:12 WBC (4.8-10.8) K/uL RBC (4.2-5.4) M/uL Hgb (12.0-16.0) g/dL POC Hgb (12.0-16.0) g/dl Hct (37-47) % POC Hct (37-47) % MCV (80-100) fL MCH (25-34) pg MCHC (32-36) g/dL RDW Std Deviation (36.4-46.3) fL RDW Coeff of Dayanna (11.5-14.5) % Plt Count (130-400) K/uL MPV (7.4-10.4) fL Immature Gran % (Auto) % Neut % (Auto) % Lymph % (Auto) % Hamblen % (Auto) % Eos % (Auto) % Baso % (Auto) % Neut # (Auto) (1.4-6.5) K/uL Lymph # (Auto) (1.2-3.4) K/uL Hamblen # (Auto) (0.11-0.59) K/uL Eos # (Auto) (0-0.5) K/uL Baso # (Auto) (0-0.2) K/uL Immature Gran # (Auto) (0.00-0.02) K/uL Absolute Nucleated RBC (0-0) K/uL Nucleated RBC % (auto) % Polychromasia [facility] Sample Site POC pH (7.35-7.45) POC pCO2 (35-46) mmHg POC pO2 (80-95) mmHg POC HCO3 (19-24) christiano/L POC Total CO2 (24-31) mmol/L POC Base Excess (-9-1.8) christiano/L ABG pH (Temp Correct) (7.35-7.45) ABG pCO2 (Temp Corrct (35-46) mmHg POC ABG pO2 at Pt Temp POC ABG O2 Sat (90-95) % Hema Test O2 Delivery Device POC O2 Rate Tidal Volume PEEP POC Sodium (135-144) mmol/L Sodium (136-145) mmol/L POC Potassium (3.3-5.0) mmol/L Potassium (3.5-5.1) mmol/L Chloride (98-107) mmol/L Carbon Dioxide (21-32) mmol/L Anion Gap (3-11) BUN (7-18) mg/dl Creatinine (0.6-1.2) mg/dl Est Cr Clr Drug Dosing ml/min Est GFR ( Amer) ml/min Est GFR (Non-Af Amer) ml/min BUN/Creatinine Ratio (10-20) Glucose (70-99) mg/dl POC Glucose 153 H 155 H (70-99) mg/dl Calcium (8.5-10.1) mg/dl Phosphorus (2.5-4.9) mg/dl Magnesium (1.8-2.4) mg/dl Vancomycin Trough (See Comment) mcg/ml Coding Level of Care Code Critical Care 1st 30-74 mins Diagnoses ARDS (adult respiratory distress syndrome) J80 Pneumonia due to COVID-19 virus U07.1; J12.82 Elevated troponin I level R77.8 Elevated lactic acid level R79.89
[2021-07-19] MEDS ORDERED: METHYLNALTREXONE BROMIDE 12 MG/0.6 ML VIAL SQ SCH (11:00)
[2021-07-19 11:29] LABS: Albumin Level 2.3 gm/dl (3.4-5.0); Bilirubin Direct 0.2 mg/dl (0-0.2); Bilirubin,Total 0.6 mg/dl (0.2-1); Total Protein 6.9 gm/dl (6.4-8.2)
[2021-07-19] MEDS: MEROPENEM 500 MG in SYRINGE 0 ML IV SCH ×3 (11:45→21:06)
[2021-07-19] MEDS: VANCOMYCIN HCL 1,500 MG in SODIUM CHLORIDE 0.9% 500 ML IV SCH ×2 (11:45→21:07)
[2021-07-19] MEDS: DOCUSATE SODIUM SYRUP 100 MG/10 ML UDC PO SCH ×2 (11:45→21:04)
[2021-07-19] MEDS: LACTULOSE SYRUP 20 GM/30 ML UDC PO SCH (12:06)
--- NOTE | 2021-07-19 12:49 | XRay Report ---
XR KUB/Abdomen 1 view CLINICAL HISTORY: Evaluate feeding tube placement. COMPARISON STUDY: 07/17/2021 TECHNIQUE: Single view of the abdomen. FINDINGS: The bowel gas pattern is within normal limits without evidence for dilatation or obstruction. The tip of the feeding tube is within the mid body of the stomach. There is no evidence for organomegaly or gross intra-abdominal mass. No abnormal calcifications are seen along the course of the urinary tract s bilaterally. No acute osseous pathology. IMPRESSION: 1.No acute intra-abdominal abnormality. Tip of the feeding tube is within the mid body of the stomach . ACT 112: Negative or not required by law. Electronically signed by: Marlon Rae M.D. 07/19/2021 12:47 PM
--- NOTE | 2021-07-19 12:49 | Pharmacy Report ---
Pharmacy Abx Dose Short Note - Date of Service July 19, 2021 - Assessment & Plan Assessment * 71 year old F admitted 06/26 for ARDS and COVID19 pneumonia, receiving IV Cefepime 07/05-07/12, and IV Ceftriaxone 07/14-07/15 for treatment of fevers. Central line and A line removed on 07/13, now with enterococcus faecalis growing in 1/2 blood cultures from 07/13. Repeat BLCXs from 07/16 and 07/19 drawn with no reported growth to date. Patient w/ increasing fever curve, elevated WBC. Meropenem being added for possible urinary/pulm sources with further workup pending. * Day #5 of Vancomycin; Day # 1 Meropenem Plan Vancomycin * AUC/JC is the preferred PK/PD target for vancomycin * AUC guided dosing is effective and associated with decreased risk of nephrotoxicity compared to traditional trough targets * Trough level of 14.7 mcg/mL is predicted to achieve the goal AUC/JC 400-600 with a 10% predicted risk of nephrotoxicity. * Continue 1500 mg IV every 12 hours * Will likely repeat level in ~2 days if therapy to continue Meropenem * eCrCl > 50cc/hr, 500mg IV Q 6 hrs appropriate for possible VAP vs CAUTI Pharmacy will continue to follow and will adjust dose/frequency as necessary. Thank you.
--- NOTE | 2021-07-19 14:37 | Hospitalist Progress Note ---
Date of Service July 19, 2021 Assessment & Plan (1) Acute hypoxemic respiratory failure due to COVID-19: Plan: SEVERE. Upon admission she required BIPAP due to severe hypoxia & increased work of breathing. Remained on BIPAP 14/7 continuously for several days following admission, then transitioned to HFNC. Remained on max settings including 100% FiO2 thereafter. She had intermittently used BIPAP at HS as well. Dx with DVTs in the week prior to admission, has presumed PEs; was too ill here to safely obtain CTA chest. Heparin drip started and now on therapeutic Lovenox Despite supportive care she developed significant respiratory fatigue from 8+ days of BIPAP + HFNC. Intubated AM of 07/04/21. placed on pressure support mode x 2 days on 07/11 and 07/12, but not since then due to increased FiO2 requirement-FiO2 requirement now back up to 100% on 07/15 Chest x-ray still with diffuse opacities on 07/14 and 07/15 Continues with fevers-central line and A-line removed on 07/13, now growing probable Enterococcus on blood cultures from 07/13-change ceftriaxone to vancomycin on 07/15 completed dexamethasone, increased to 20mg daily on 07/07 for 5 days of 20mg (07/12) and 5 days of 10mg starting 07/12 Received baricitinib 4mg daily for 8 days -- discontinued upon intubation. s/p Zithromax 5-day course Continue daily IV Lasix to keep lungs dry Was never a Remdesivir candidate. Appreciate critical care assistance tracheostomy performed 07/17/[address] Womack she remains on PEEP of 14 and FiO2 100% today lightening sedation, she is following commands however lungs are not showing signs of improvement, unsure if she will ever come off ventilatory support will need PEG for LTACH placement (2) Septic shock: Plan: fevers, leukocytosis, hypotensive today continue Levophed repeat blood cultures, fungal cultures, tracheal aspirate done add Meropenem empirically and continue Vancomycin makes prognosis worse (3) Pneumonia due to COVID-19 virus: Plan: severe COVID pneumonia with resulting ARDS completed full course of dexamethasone lungs are not improving, PEEP 14 and FiO2 100% ventilator day 16 today (4) ARDS (adult respiratory distress syndrome): Plan: 2nd to COVID-19 pneumonia ongoing see above tracheostomy done, 12/29 (5) Septicemia: Plan: With persistent fevers for many days despite being on cefepime Now blood cultures positive from 07/13 for probable Enterococcus Right IJ central venous catheter and arterial line removed on 07/13 Completed course of cefepime x1 week on 07/12 -Brazer Resistance started ceftriaxone on 07/14- changed to Vancomycin 07/15 add Meropenem today -Of note, 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 now off pressors, now off propofol (9) Abnormal LFTs: Plan: transaminitis likely 2nd to COVID illness resolved (10) Deep vein thrombosis of bilateral lower extremities: Plan: b/l dopplers + for DVTs PEs presumed Heparin drip initially -- now on therapeutic lovenox DVT could be driving fevers? (11) Candidiasis of mouth and esophagus: Plan: had been on nystatin prior to intubation (12) DVT prophylaxis: Plan: therapeutic lovenox BID for DVT Plan: appreciate ICU/pulmonary assistance Dispo-continued stay in ICU, work to wake up patient, decrease ventilator requ irements, treat septic shock Admission and Anticipated Discharge Date Admission Date: June 26, 2021 Subjective patient spiking fevers to 40 degrees, hypotensive today, started on Levophed ICU got blood cultures, fungal cultures, tracheal aspirate culture start on Meropenem WBC trending up Review of Systems Review of Systems: Unobtainable due to cognitive status Physical Exam Physical Exam: General: well developed, elderly female, tracheostomy and mechanically ventilated Neck: tracheostomy Lungs: diminished sounds bilaterally, mechanically ventilated via tracheostomy Heart: tachycardic, S1 and S2, no murmur, peripheral pulses normal, capillary refill normal, no edema Abdomen: soft, NT, ND, + BS, no hepatomegaly, normal to percussion Extremities: normal in appearance, no cyanosis, no petechiae Neuro: waking up, no focal motor deficits, CN II-XII intact Skin: warm, dry, no rash, normal turgor Psych: waking up, following simple commands Results & Data Results & Data ([facility]) Vital Signs (Past 12 Hours) Vital Signs Temp Pulse Resp BP Pulse Ox 07/19/21 11:20 102 H 40 H 90 07/19/21 07:15 112 H 34 H 90 07/19/21 06:21 40.2 C H 100 H 30 H 80/47 L 92 07/19/21 06:14 40.2 C H 101 H 30 H 75/47 L 91 07/19/21 06:07 40.2 C H 99 H 29 H 73/39 L 91 07/19/21 06:03 40.2 C H 100 H 28 H 78/40 L 91 07/19/21 06:00 40.1 C H 101 H 29 H 91 07/19/21 05:42 40.1 C H 116 H 29 H 90/44 L 90 07/19/21 05:00 39.8 C H 136 H 43 H 133/66 87 L 07/19/21 04:40 145 H 43 H 82 L 07/19/21 04:00 39.3 C H 111 H 33 H 116/72 93 07/19/21 03:01 38.4 C H 125 H 30 H 151/88 H 87 L 07/19/21 03:00 38.4 C H 121 H 26 H 87 L Laboratory Results Laboratory Results - last 24 hr 07/18/21 07/19/21 07/19/21 17:50 00:07 05:17 WBC RBC Hgb POC Hgb Hct POC Hct MCV MCH MCHC RDW Std Deviation RDW Coeff of Dayanna Plt Count MPV Immature Gran % (Auto) Neut % (Auto) Lymph % (Auto) Garza % (Auto) Eos % (Auto) Baso % (Auto) Neut # (Auto) Lymph # (Auto) Garza # (Auto) Eos # (Auto) Baso # (Auto) Immature Gran # (Auto) Absolute Nucleated RBC Nucleated RBC % (auto) Polychromasia Angela Sample Site POC pH POC pCO2 POC pO2 POC HCO3 POC Total CO2 POC Base Excess ABG pH (Temp Correct) ABG pCO2 (Temp Corrct POC ABG pO2 at Pt Temp POC ABG O2 Sat Hema Test O2 Delivery Device POC O2 Rate Tidal Volume PEEP POC Sodium Sodium 140 POC Potassium Potassium 3.8 Chloride 105 Carbon Dioxide 30 Anion Gap 5.0 BUN 29 H Creatinine 0.59 L Est Cr Clr Drug Dosing 94.4 Est GFR ( Amer) 106.9 Est GFR (Non-Af Amer) 92.2 BUN/Creatinine Ratio 49.4 H Glucose 184 H POC Glucose 153 H 147 H Calcium 8.9 Phosphorus 2.7 D Magnesium 2.1 Total Bilirubin Direct Bilirubin AST ALT Alkaline Phosphatase Total Protein Albumin Vancomycin Trough 07/19/21 07/19/21 07/19/21 05:17 05:17 06:00 WBC 24.77 H RBC 3.76 L Hgb 10.7 L POC Hgb Hct 34.7 L POC Hct MCV 92.3 MCH 28.5 MCHC 30.8 L RDW Std Deviation 53.9 H RDW Coeff of Dayanna 16.3 H Plt Count 201 MPV 11.3 H Immature Gran % (Auto) 1.4 Neut % (Auto) 91.0 Lymph % (Auto) 3.8 Garza % (Auto) 1.6 Eos % (Auto) 2.0 Baso % (Auto) 0.2 Neut # (Auto) 22.55 H Lymph # (Auto) 0.95 L Garza # (Auto) 0.39 Eos # (Auto) 0.49 Baso # (Auto) 0.05 Immature Gran # (Auto) 0.34 H Absolute Nucleated RBC 0.08 H Nucleated RBC % (auto) 0.3 Polychromasia 1+ Rouleaux 1+ Sample Site POC pH POC pCO2 POC pO2 POC HCO3 POC Total CO2 POC Base Excess ABG pH (Temp Correct) ABG pCO2 (Temp Corrct POC ABG pO2 at Pt Temp POC ABG O2 Sat Hema Test O2 Delivery Device POC O2 Rate Tidal Volume PEEP POC Sodium Sodium POC Potassium Potassium Chloride Carbon Dioxide Anion Gap BUN Creatinine Est Cr Clr Drug Dosing Est GFR ( Amer) Est GFR (Non-Af Amer) BUN/Creatinine Ratio Glucose POC Glucose 223 H Calcium Phosphorus Magnesium Total Bilirubin 0.6 Direct Bilirubin 0.2 AST 66 H ALT 202 H Alkaline Phosphatase 97 Total Protein 6.9 Albumin 2.3 L Vancomycin Trough 07/19/21 07/19/21 07/19/21 07:21 07:56 12:41 WBC RBC Hgb POC Hgb 9.9 L Hct POC Hct 29 L MCV MCH MCHC RDW Std Deviation RDW Coeff of Dayanna Plt Count MPV Immature Gran % (Auto) Neut % (Auto) Lymph % (Auto) Garza % (Auto) Eos % (Auto) Baso % (Auto) Neut # (Auto) Lymph # (Auto) Garza # (Auto) Eos # (Auto) Baso # (Auto) Immature Gran # (Auto) Absolute Nucleated RBC Nucleated RBC % (auto) Polychromasia Rouleaux Sample Site L Radial POC pH 7.41 POC pCO2 44 POC pO2 54 L POC HCO3 28 H POC Total CO2 29 POC Base Excess 3.0 H ABG pH (Temp Correct) 7.369 ABG pCO2 (Temp Corrct 50 H POC ABG pO2 at Pt Temp 67 POC ABG O2 Sat 88.0 L Hema Test Pass O2 Delivery Device Ventilator POC O2 Rate 22 Tidal Volume 380 PEEP 14 POC Sodium 141 Sodium POC Potassium 4.5 Potassium Chloride Carbon Dioxide Anion Gap BUN Creatinine Est Cr Clr Drug Dosing Est GFR ( Amer) Est GFR (Non-Af Amer) BUN/Creatinine Ratio Glucose POC Glucose 203 H Calcium Phosphorus Magnesium Total Bilirubin Direct Bilirubin AST ALT Alkaline Phosphatase Total Protein Albumin Vancomycin Trough 14.7 Medications Administered Current Inpatient Medications Acetaminophen (Acetaminophen Susp 325 Mg/10.15 Ml Udc) 975 mg PO Q8H PRN PRN Reason: Fever Stop: 08/14/21 16:44 Last Admin: 07/19/21 05:12 Dose: 975 mg Documented by: Dextrose (Dextrose 50% 50 Ml Syringe) 25 - 50 ml IV UD PRN; Protocol PRN Reason: Hypoglycemia Protocol Stop: 08/07/21 21:38 Docusate Sodium (Docusate Sodium Syrup 100 Mg/10 Ml Udc) 100 mg PO BID [place] Stop: 08/18/21 10:59 Last Admin: 07/19/21 11:45 Dose: 100 mg Documented by: Enoxaparin Sodium (Enoxaparin 100 Mg/1ml Syr) 90 mg SQ Q12 [place] Stop: 08/04/21 10:59 Last Admin: 07/19/21 08:44 Dose: 90 mg Documented by: Furosemide (Furosemide 40 Mg/4 Ml Vial) 40 mg IV DAILY [place] Stop: 08/12/21 08:59 Last Admin: 07/19/21 08:43 Dose: Not Given Documented by: Glucagon (Glucagon For Inj 1 Mg Vial) 1 mg SQ UD PRN; Protocol PRN Reason: Hypoglycemia Protocol Stop: 08/07/21 21:38 Glucose (Glucose 10 Tabs/Tube) 4 - 8 tabs PO UD PRN; Protocol PRN Reason: Hypoglycemia Protocol Stop: 08/07/21 21:38 Glucose (Glucose 40% Gel 15 Gm Tube) 15 - 30 gm PO UD PRN; Protocol PRN Reason: Hypoglycemia Protocol Stop: 08/07/21 21:38 Heparin Sodium (Beef Lung) (Heparin 10 Unit/Ml 5 Ml Flush) 5 ml FLUSH PRN PRN PRN Reason: Flush Stop: 08/12/21 18:12 Vancomycin HCl 1,500 mg/ (Sodium Chloride) 530 mls @ 200 mls/hr IV Q12H [place]; Protocol Stop: 07/23/21 19:59 Last Admin: 07/19/21 11:45 Dose: 200 mls/hr Documented by: Dexmedetomidine HCl 400 mcg/ (Sodium Chloride) 100 mls @ 23.1 mls/hr IV .Q4H20M [place]; Protocol Stop: 07/23/21 06:14 Last Admin: 07/19/21 13:46 Dose: 1 mcg/kg/hr, 23.1 mls/hr Documented by: Norepinephrine Bitartrate (Levophed/D5w) 8 mg in 508 mls @ 17.602 mls/hr IV .Q24H [place]; Protocol Stop: 08/18/21 06:59 Last Admin: 07/19/21 08:06 Dose: 0.05 mcg/kg/min, 17.6 mls/hr Documented by: Meropenem 500 mg/ Syringe 10 mls @ 2 mls/min IV Q6H [place] Stop: 07/26/21 09:59 Last Admin: 07/19/21 11:45 Dose: 2 mls/min Documented by: Insulin Aspart (Insulin Aspart Per Unit) 0 units SC Q4 [place] Stop: 08/10/21 11:59 Last Admin: 07/19/21 13:46 Dose: 4 units Documented by: Lactulose (Lactulose Syrup 20 Gm/30 Ml Udc) 20 gm PO DAILY [place] Stop: 08/18/21 09:59 Last Admin: 07/19/21 12:06 Dose: 20 gm Documented by: Lansoprazole (Lansoprazole 30 Mg Soltab) 30 mg NG DAILY [place] Stop: 08/17/21 08:59 Last Admin: 07/19/21 08:44 Dose: 30 mg Documented by: Methylnaltrexone [place] (Methylnaltrexone [place] 12 Mg/0.6 Ml Vial) 12 mg SQ Q2D [facility] Stop: 07/21/21 11:01 Last Admin: 07/19/21 11:46 Dose: 12 mg Documented by: Metoprolol Tartrate (Metoprolol Tartrate 25 Mg Tab) 25 mg PO BID [facility] Stop: 08/15/21 20:59 Last Admin: 07/19/21 08:43 Dose: Not Given Documented by: Midazolam HCl (Midazolam Hcl 1 Mg/Ml 2ml Vial) 2 mg IV Q2H PRN PRN Reason: RASS -1 Stop: 08/17/21 11:05 Last Admin: 07/19/21 04:37 Dose: 2 mg Documented by: Miscellaneous (Carbohydrates For Hypoglycemia ) 15 - 30 gm PO UD PRN PRN Reason: Hypoglycemia Protocol Stop: 08/07/21 21:38 Miscellaneous (Icu Electrolyte Replacement Protocol) 1 ea N/A BID@18 [facility]; Protocol Stop: 07/26/21 17:59 Miscellaneous Information (Vancomycin Consult Active) 1 ea N/A UD PRN PRN Reason: Consult Stop: 08/14/21 18:22 Miscellaneous Information (Meropenem Consult Active) 1 ea N/A UD PRN PRN Reason: Consult Stop: 08/18/21 09:49 Multivitamins/Minerals (Multi Vit W/Minerals Liquid 15 Ml Udp) 15 ml NG QAM [facility] Stop: 08/12/21 08:59 Last Admin: 07/19/21 08:43 Dose: 15 ml Documented by: Nutritional Formula (Peptamen Intense Vhp 1.0 Jhonny 1,000 Ml Bag) 1,000 ml OG UD [facility]; Protocol Stop: 08/16/21 13:29 Last Admin: 07/18/21 13:04 Dose: 1,000 ml Documented by: Ondansetron HCl (Ondansetron Inj 2 Mg/Ml 2 Ml Vial) 4 mg IV Q6H PRN PRN Reason: Nausea Stop: 07/26/21 20:32 Oxycodone HCl (Oxycodone Hcl Ir 5 Mg Tab (Immediate Release)) 15 mg PO Q6H [facility]; Taper Stop: 07/27/21 11:59 Last Admin: 07/19/21 13:57 Dose: 15 mg Documented by: Sennosides (Sennosides 8.8 Mg/5 Ml Udc) 8.8 mg PO BID [facility] Stop: 08/11/21 20:59 Last Admin: 07/19/21 08:44 Dose: 8.8 mg Documented by: Sterile Water (Tube Feeding Water Flush) 30 ml GT Q4H [facility] Stop: 08/06/21 14:44 Last Admin: 07/19/21 13:46 Dose: 30 ml Documented by: PG Care Time/CCT Total # of Minutes Spent Total Time Spent with Patient: Total time spent is greater than 50% in coordination of care (as documented) at patient's floor/unit and/or counseling patient: Coding Level of Care Code 41586 Subseq Hosp Care Lvl 3 Diagnoses Acute hypoxemic respiratory failure due to COVID-19 U07.1; J96.01 Pneumonia due to COVID-19 virus U07.1; J12.82 ARDS (adult respiratory distress syndrome) J80 Septicemia A41.9 Elevated troponin I level R77.8 Acid reflux disease K21.9 Hypertension I10 Abnormal LFTs R79.89 Deep vein thrombosis of bilateral lower extremities I82.403 Candidiasis of mouth and esophagus B37.81; B37.0 DVT prophylaxis Z29.9 Septic shock A41.9; R65.21
[2021-07-19 16:22] LABS: Appearance Urine Cloudy (Clear); Bacteria Urine Automated Negative (Negative); Bilirubin Urine Negative (Negative); Blood Urine Negative (Negative); Color Urine Dark Yellow; Epithelial Cell Urine Auto >30 /lpf (0-5); Glucose Urine UA Negative (Negative); Ketones Urine Trace (Negative); Leukocyte Esterase Urine Negative (Negative); Nitrite Urine Negative (Negative); Protein Urine 1+ (Negative); RBC Urine Automated 0-4 /hpf (0-4); Specific Gravity Urine 1.029 (1.000-1.030); Urobilinogen Urine Negative (Negative); pH Urine 5.5 (4.5-7.5)
[2021-07-19] MEDS: ICU ELECTROLYTE REPLACEMENT PROTOCOL SCH (17:42)
[2021-07-20] MEDS: oxyCODONE HCL IR 5 MG TAB (IMMEDIATE RELEASE) PO SCH ×4 (00:28→17:50)
[2021-07-20] MEDS: TUBE FEEDING WATER FLUSH GT SCH ×6 (00:29→17:51)
[2021-07-20] MEDS: INSULIN ASPART PER UNIT SC SCH ×6 (00:36→19:41)
[2021-07-20] MEDS: MIDAZOLAM HCL 1 MG/ML 2ML VIAL IV PRN ×5 (00:41→19:10)
[2021-07-20] MEDS: NOREPINEPHRINE/D5W 8 MG/508 ML BAG IV SCH ×2 (01:43→17:50)
[2021-07-20] MEDS: DEXMEDETOMIDINE HCL 400 MCG in 0.9 % SODIUM CHLORIDE 96 ML IV SCH ×9 (01:54→21:34)
[2021-07-20] MEDS: MEROPENEM 500 MG in SYRINGE 0 ML IV SCH ×4 (04:03→21:04)
[2021-07-20] MEDS ORDERED: fentaNYL citrate 100 MCG/2 ML VIAL ONE (04:28)
[2021-07-20] MEDS ORDERED: fentaNYL citrate 100 MCG/2 ML VIAL IV STA (04:43)
[2021-07-20] MEDS ORDERED: MIDAZOLAM HCL 1 MG/ML 2ML VIAL IV STA (04:43)
[2021-07-20] MEDS ORDERED: VECURONIUM BROMIDE 10 MG VIAL IV ONE ×2 (04:49→10:07)
[2021-07-20] MEDS ORDERED: VECURONIUM BROMIDE 10 MG VIAL IV STA (04:56)
[2021-07-20 05:10] LABS: Basophils # (auto) 0.02 K/uL (0-0.2); Basophils % (auto) 0.1 %; Eosinophils # (auto) 0.21 K/uL (0-0.5); Eosinophils % (auto) 1.4 %; Hematocrit (blood only) 32.3 % (37-47); Hemoglobin 9.8 g/dL (12.0-16.0); Immature Granulocytes % (auto) 0.6 %; Lymphocytes # (auto) 1.07 K/uL (1.2-3.4); Lymphocytes % (auto) 6.9 %; Mean Corpuscular Hgb Conc 30.3 g/dL (32-36); Mean Corpuscular Volume 92.3 fL (80-100); Mean Platelet Volume 10.8 fL (7.4-10.4); Monocytes % (auto) 2.6 %; Neutrophils # (auto) 13.72 K/uL (1.4-6.5); Neutrophils % (auto) 88.4 %; Nucleated RBC # (auto) 0.06 K/uL (0-0); Nucleated RBC % (auto) 0.4 %; Platelet Count 216 K/uL (130-400); RDW Coefficient of Variation 16.4 % (11.5-14.5); RDW Standard Deviation 54.2 fL (36.4-46.3); White Blood Count 15.52 K/uL (4.8-10.8)
[2021-07-20 05:38] LABS: Albumin Level 1.9 gm/dl (3.4-5.0); BUN Creatinine Ratio 60.5 (10-20); Bilirubin Direct 0.2 mg/dl (0-0.2); Calcium 8.7 mg/dl (8.5-10.1); Creatinine Clr Calc Pharmacy 126.6 ml/min; Est GFR (African American) 117.7 ml/min; Est GFR (Non-African American) 101.6 ml/min; Magnesium 2.1 mg/dl (1.8-2.4)
[2021-07-20 05:52] LABS: iSTAT Allen Test Pass; iSTAT Art Bld Gas pCO2 Correct 73 mmHg (35-46); iSTAT Art Bld Gas pH Corrected 7.268 (7.35-7.45); iSTAT Arterial Blood Gas HCO3 32 meg/L (19-24); iSTAT Arterial Blood Gas pCO2 67 mmHg (35-46); iSTAT Arterial Blood Gas pO2 71 mmHg (80-95); iSTAT Arterial Blood Gas pO2 C 81; iSTAT Carbon Dioxide 34 mmol/L (24-31); iSTAT FiO2 45 %; iSTAT Hematocrit 38 % (37-47); iSTAT Hemoglobin 12.9 g/dl (12.0-16.0); iSTAT Potassium 4.1 mmol/L (3.3-5.0); iSTAT Site R Radial; iSTAT Sodium 141 mmol/L (135-144)
[2021-07-20 05:55] LABS: Bilirubin,Total 0.6 mg/dl (0.2-1); Phosphorus 1.9 mg/dl (2.5-4.9); Total Protein 6.4 gm/dl (6.4-8.2)
[2021-07-20] MEDS ORDERED: SODIUM PHOSPHATE 3 MMOL/1 ML INFUSION IV STA (06:38)
[2021-07-20] MEDS ORDERED: SODIUM PHOSPHATE 21 MMOL in SODIUM CHLORIDE 0.9% 500 ML IV ONE (07:15)
--- NOTE | 2021-07-20 07:38 | XRay Report ---
XR chest 1V portable HISTORY: 71 years-old Female Resp failure acute respiratory failure COMPARISON: Chest radiograph 07/19/2021 TECHNIQUE: Portable AP view of the chest FINDINGS: Cardiac silhouette is enlarged. A feeding tube projects over the distal gastric body. There is modera te gaseous distention of the stomach. Tracheostomy cannula overlies the midline at the level of the c lavicular heads. A right-sided PICC is noted with distal tip projected over the right atrium. There i s no pneumothorax or large pleural effusion. Bilateral mixed interstitial and alveolar opacities are redemonstrated, slightly progressed within the right lung. Bones appear grossly intact. IMPRESSION: 1. Lines and tubes as above. 2. Mixed interstitial and alveolar opacities are redemonstrated, slightly progressed within the right lung. ACT 112: Negative or not required by law. The above report was generated using voice recognition software. It may contain grammatical, syntax o r spelling errors. Electronically signed by: Renard Bull M.D. 07/20/2021 7:36 AM
[2021-07-20] MEDS: SENNOSIDES 8.8 MG/5 ML UDC PO SCH ×2 (07:57→19:48)
[2021-07-20] MEDS: LANSOPRAZOLE 30 MG SOLTAB NG SCH (07:57)
[2021-07-20] MEDS: ENOXAPARIN 100 MG/1ML SYR SQ SCH ×2 (07:57→19:47)
[2021-07-20] MEDS: DOCUSATE SODIUM SYRUP 100 MG/10 ML UDC PO SCH ×2 (07:57→19:46)
[2021-07-20] MEDS: MULTI VIT W/MINERALS LIQUID 15 ML UDP NG SCH (07:58)
[2021-07-20] MEDS: LACTULOSE SYRUP 20 GM/30 ML UDC PO SCH (07:58)
[2021-07-20] MEDS: ICU ELECTROLYTE REPLACEMENT PROTOCOL SCH ×2 (09:17→17:51)
--- NOTE | 2021-07-20 09:47 | Critical Care Progress Note ---
Date of Service July 20, 2021 Assessment & Plan (1) ARDS (adult respiratory distress syndrome): (2) Pneumonia due to COVID-19 virus: (3) Elevated troponin I level: (4) Elevated lactic acid level: Plan: Impression: 71-year-old nonvaccinated female admitted with Covid pneumonitis and hypoxemic respiratory failure/ARDS requiring noninvasive positive pressure ventilation. She was admitted 06/26/2021 and failed high flow, CPAP, BiPAP, and prone positioning. She is intubated 07/04/2021. Recommendations: -Neuro: Bolus midazolam -Discontinue fentanyl transition to oral oxycodone taper -Propofol discontinued because of elevated triglycerides on 07/08/2021 -Discontinue Precedex -Cardiovascular: --Episodes of bradycardia --> resolved Atrial fibrillation with rapid ventricular response -Responded well to metoprolol -Metoprolol 25 twice daily -Holding secondary to hypotension -Currently normal sinus rhythm Hypotension: -Levophed via PICC line -Pulmonary: -- VDRF with acute hypoxic respiratory failure Likely secondary to multilobar COVID-19 pneumonia -Tracheostomy performed 07/17 postop day 3 --Severe acute respiratory distress syndrome -PF ratio less than 100 Continue with lung protective ventilation High PEEP, low tidal volume to keep Plateau < 30 with permissive hypercapnea if need be. Monitor ABGs Continue with ventilatory support COVID-19 PCR positive Completed DEXA ARDS protocol which is started on 07/06/2021 - ID: -- Covid pneumonia Finished dexamethasone for total of 10 days Baricitinib discontinued Sputum and blood from 07/05/2021 negative to date Completed the course of cefepime 07/12/2021 --Gram-positive cocci in chains --Febrile illness On blood culture 07/13/2021 Central line as well as A-line removed 07/13/2021 Rocephin started 07/14/2021 -Transitioned to vancomycin 07/15: Only 1 culture positive question line infection versus contaminant -Vancomycin day 11/23 Repeat blood cultures 07/16/2021: No growth to date Second repeat blood cultures 07/19: No growth to date Urinalysis 07/19 unremarkable Gram-negative bacilli in sputum -Meropenem day 2 of 7 Sepsis with hypotension -Unclear of source will empirically treat with vancomycin for possible Enterococcus bacteremia (blood cultures remain negative) -Lipase in a.m. -holding caspofungin at this time --GI: Continue tube feeds -Peptamen at goal Constipation last bowel movement 07/17 -Lactulose 30 mL x 1 Transaminitis -Attempt to get CAT scan of chest abdomen pelvis to rule out abscess Renal: Electrolyte replacement protocol. No acute issues --Acute DVT bilateral lower extremity On therapeutic Lovenox monitor H&H - Endocrine: Continue with ICU hypoglycemia protocol MSK DTI of sacrum -Wound care following Pressure injury of upper lip --Prophylaxis VTE: Therapeutic Lovenox GI: Protonix Lines: Right arm PICC 07/13/2021, positive Rios, left radial A-line discontinued 07/14/2021, right IJ DC 07/13/2021 Patient's Daughter Jordyn Gallagher [phone] Per social work insurance will require surgical PEG tube for long-term acute care Admission and Anticipated Discharge Date Admission Date: June 26, 2021 Supervising Physician Co-Signing Physician Notes I have personally spent 45 minutes of critical care time in the direct man agement of this patient. This is a life/limb threatening event. This includes time spent evaluating patient, direct bedside care, chart review, placing orders, interpretation of diagnostic studies, discussion with consultants, patient, and/or family members regarding treatment decisions, as well as other required patient management activities. This time is exclusive of all separately billable procedures, and teaching time and separate from and in addition to any other critical care service time. Subjective No overnight events Review of Systems Review of Systems: Unable to obtain secondary to tracheostomy tube Physical Exam Physical Exam: General: Arouses and follows simple commands, supine position nontoxic. Skin: Warm, dry, Head: Atraumatic Ears, nose, mouth and throat: airway patent Tracheostomy tube present in neck Cardiovascular: Normal peripheral perfusion Respiratory: Ventilator settings reviewed Gastrointestinal: Non distended Musculoskeletal: No deformity Skin: tissue injury to upper lip Results & Data Results & Data ([facility]) Vital Signs (Past 12 Hours) Vital Signs Temp Pulse Pulse Resp BP BP Pulse Ox 07/20/21 08:45 92 H 38 H 98 07/20/21 08:00 89 07/20/21 07:00 40.3 C H 90 36 H 92/57 L 88 L 07/20/21 06:22 40.1 C H 07/20/21 05:00 40.1 C H 89 22 124/63 92 07/20/21 04:33 40.0 C H 89 29 H 109/43 L 86 L 07/20/21 04:10 100 H 22 91 07/20/21 04:00 39.9 C H 90 42 H 114/61 90 07/20/21 03:42 39.9 C H 86 43 H 97/51 L 89 L 07/20/21 03:31 88 42 H 106/49 L 89 L 07/20/21 03:02 39.8 C H 86 42 H 111/61 89 L 07/20/21 03:00 39.8 C H 85 40 H 89 L 07/20/21 02:00 39.7 C H 84 35 H 110/58 L 89 L 07/20/21 01:30 39.7 C H 85 36 H 104/54 L 89 L 07/20/21 01:01 39.6 C H 83 38 H 94/53 L 89 L 07/20/21 01:00 39.6 C H 82 39 H 88 L 07/20/21 00:30 39.4 C H 82 38 H 113/49 L 90 07/20/21 00:11 65 33 H 99 07/20/21 00:00 39.3 C H 83 40 H 108/48 L 91 07/19/21 23:30 39.2 C H 81 36 H 112/62 91 07/19/21 23:00 39.1 C H 83 36 H 97/52 L 89 L 07/19/21 22:30 39.0 C H 102 H 41 H 130/70 81 L 07/19/21 22:00 39.0 C H 81 35 H 111/65 93 Laboratory Results 07/20/21 07/20/21 07/20/21 Range/Units 05:36 04:34 04:34 WBC 15.52 H (4.8-10.8) K/uL RBC 3.50 L (4.2-5.4) M/uL Hgb 9.8 L (12.0-16.0) g/dL POC Hgb 12.9 (12.0-16.0) g/dl Hct 32.3 L (37-47) % POC Hct 38 (37-47) % MCV 92.3 (80-100) fL MCH 28.0 (25-34) pg MCHC 30.3 L (32-36) g/dL RDW Std Deviation 54.2 H (36.4-46.3) fL RDW Coeff of Dayanna 16.4 H (11.5-14.5) % Plt Count 216 (130-400) K/uL MPV 10.8 H (7.4-10.4) fL Immature Gran % (Auto) 0.6 % Neut % (Auto) 88.4 % Lymph % (Auto) 6.9 % [place] % (Auto) 2.6 % Eos % (Auto) 1.4 % Baso % (Auto) 0.1 % Neut # (Auto) 13.72 H (1.4-6.5) K/uL Lymph # (Auto) 1.07 L (1.2-3.4) K/uL [place] # (Auto) 0.40 (0.11-0.59) K/uL Eos # (Auto) 0.21 (0-0.5) K/uL Baso # (Auto) 0.02 (0-0.2) K/uL Immature Gran # (Auto) 0.10 H (0.00-0.02) K/uL Absolute Nucleated RBC 0.06 H (0-0) K/uL Nucleated RBC % (auto) 0.4 % Sample Site R Radial POC pH 7.30 L (7.35-7.45) POC pCO2 67 H (35-46) mmHg POC pO2 71 L (80-95) mmHg POC HCO3 32 H (19-24) christiano/L POC Total CO2 34 H (24-31) mmol/L POC Base Excess 6.0 H (-9-1.8) christiano/L ABG pH (Temp Correct) 7.268 L (7.35-7.45) ABG pCO2 (Temp Corrct 73 H (35-46) mmHg POC ABG pO2 at Pt Temp 81 POC ABG O2 Sat 91.0 (90-95) % Hema Test Pass O2 Delivery Device Ventilator POC O2 Rate 26 Minute Ventilation 9.6 POC FiO2 45 % Tidal Volume 370 PEEP 10 POC Sodium 141 (135-144) mmol/L Sodium 141 (136-145) mmol/L POC Potassium 4.1 (3.3-5.0) mmol/L Potassium 4.0 (3.5-5.1) mmol/L Chloride 108 H (98-107) mmol/L Carbon Dioxide 30 (21-32) mmol/L Anion Gap 3.0 (3-11) BUN 26 H (7-18) mg/dl Creatinine 0.44 L (0.6-1.2) mg/dl Est Cr Clr Drug Dosing 126.6 ml/min Est GFR ( Amer) 117.7 ml/min Est GFR (Non-Af Amer) 101.6 ml/min BUN/Creatinine Ratio 60.5 H (10-20) Glucose 169 H (70-99) mg/dl POC Glucose (70-99) mg/dl Calcium 8.7 (8.5-10.1) mg/dl Phosphorus 1.9 L (2.5-4.9) mg/dl Magnesium 2.1 (1.8-2.4) mg/dl Total Bilirubin 0.6 (0.2-1) mg/dl Direct Bilirubin 0.2 (0-0.2) mg/dl AST 41 H (15-37) U/L ALT 134 H (12-78) Alkaline Phosphatase 79 (45-117) U/L Total Protein 6.4 (6.4-8.2) gm/dl Albumin 1.9 L (3.4-5.0) gm/dl Urine Color Urine Appearance (Clear) Urine pH (4.5-7.5) Ur Specific [place] (1.000-1.030) Urine Protein (Negative) Urine Glucose (UA) (Negative) Urine Ketones (Negative) Urine Blood (Negative) Urine Nitrite (Negative) Urine Bilirubin (Negative) Urine Urobilinogen (Negative) Ur Leukocyte Esterase (Negative) Urine WBC (Auto) (0-5) /hpf Urine RBC (Auto) (0-4) /hpf U Hyaline Cast (Auto) (0-5) /lpf U Epithel Cells (Auto) (0-5) /lpf Urine Bacteria (Auto) (Negative) Granular Casts (0) /lpf Urine Yeast 07/20/21 07/19/21 07/19/21 Range/Units 04:09 23:57 20:11 WBC (4.8-10.8) K/uL RBC (4.2-5.4) M/uL Hgb (12.0-16.0) g/dL POC Hgb (12.0-16.0) g/dl Hct (37-47) % POC Hct (37-47) % MCV (80-100) fL MCH (25-34) pg MCHC (32-36) g/dL RDW Std Deviation (36.4-46.3) fL RDW Coeff of Dayanna (11.5-14.5) % Plt Count (130-400) K/uL MPV (7.4-10.4) fL Immature Gran % (Auto) % Neut % (Auto) % Lymph % (Auto) % [place] % (Auto) % Eos % (Auto) % Baso % (Auto) % Neut # (Auto) (1.4-6.5) K/uL Lymph # (Auto) (1.2-3.4) K/uL [place] # (Auto) (0.11-0.59) K/uL Eos # (Auto) (0-0.5) K/uL Baso # (Auto) (0-0.2) K/uL Immature Gran # (Auto) (0.00-0.02) K/uL Absolute Nucleated RBC (0-0) K/uL Nucleated RBC % (auto) % Sample Site POC pH (7.35-7.45) POC pCO2 (35-46) mmHg POC pO2 (80-95) mmHg POC HCO3 (19-24) christiano/L POC Total CO2 (24-31) mmol/L POC Base Excess (-9-1.8) christiano/L ABG pH (Temp Correct) (7.35-7.45) ABG pCO2 (Temp Corrct (35-46) mmHg POC ABG pO2 at Pt Temp POC ABG O2 Sat (90-95) % Hema Test O2 Delivery Device POC O2 Rate Minute Ventilation POC FiO2 % Tidal Volume PEEP POC Sodium (135-144) mmol/L Sodium (136-145) mmol/L POC Potassium (3.3-5.0) mmol/L Potassium (3.5-5.1) mmol/L Chloride (98-107) mmol/L Carbon Dioxide (21-32) mmol/L Anion Gap (3-11) BUN (7-18) mg/dl Creatinine (0.6-1.2) mg/dl Est Cr Clr Drug Dosing ml/min Est GFR ( Amer) ml/min Est GFR (Non-Af Amer) ml/min BUN/Creatinine Ratio (10-20) Glucose (70-99) mg/dl POC Glucose 183 H 135 H 143 H (70-99) mg/dl Calcium (8.5-10.1) mg/dl Phosphorus (2.5-4.9) mg/dl Magnesium (1.8-2.4) mg/dl Total Bilirubin (0.2-1) mg/dl Direct Bilirubin (0-0.2) mg/dl AST (15-37) U/L ALT (12-78) Alkaline Phosphatase (45-117) U/L Total Protein (6.4-8.2) gm/dl Albumin (3.4-5.0) gm/dl Urine Color Urine Appearance (Clear) Urine pH (4.5-7.5) Ur Specific [place] (1.000-1.030) Urine Protein (Negative) Urine Glucose (UA) (Negative) Urine Ketones (Negative) Urine Blood (Negative) Urine Nitrite (Negative) Urine Bilirubin (Negative) Urine Urobilinogen (Negative) Ur Leukocyte Esterase (Negative) Urine WBC (Auto) (0-5) /hpf Urine RBC (Auto) (0-4) /hpf U Hyaline Cast (Auto) (0-5) /lpf U Epithel Cells (Auto) (0-5) /lpf Urine Bacteria (Auto) (Negative) Granular Casts (0) /lpf Urine Yeast 07/19/21 07/19/21 07/19/21 Range/Units 15:45 12:41 05:17 WBC (4.8-10.8) K/uL RBC (4.2-5.4) M/uL Hgb (12.0-16.0) g/dL POC Hgb (12.0-16.0) g/dl Hct (37-47) % POC Hct (37-47) % MCV (80-100) fL MCH (25-34) pg MCHC (32-36) g/dL RDW Std Deviation (36.4-46.3) fL RDW Coeff of Dayanna (11.5-14.5) % Plt Count (130-400) K/uL MPV (7.4-10.4) fL Immature Gran % (Auto) % Neut % (Auto) % Lymph % (Auto) % [place] % (Auto) % Eos % (Auto) % Baso % (Auto) % Neut # (Auto) (1.4-6.5) K/uL Lymph # (Auto) (1.2-3.4) K/uL [place] # (Auto) (0.11-0.59) K/uL Eos # (Auto) (0-0.5) K/uL Baso # (Auto) (0-0.2) K/uL Immature Gran # (Auto) (0.00-0.02) K/uL Absolute Nucleated RBC (0-0) K/uL Nucleated RBC % (auto) % Sample Site POC pH (7.35-7.45) POC pCO2 (35-46) mmHg POC pO2 (80-95) mmHg POC HCO3 (19-24) christiano/L POC Total CO2 (24-31) mmol/L POC Base Excess (-9-1.8) christiano/L ABG pH (Temp Correct) (7.35-7.45) ABG pCO2 (Temp Corrct (35-46) mmHg POC ABG pO2 at Pt Temp POC ABG O2 Sat (90-95) % Hema Test O2 Delivery Device POC O2 Rate Minute Ventilation POC FiO2 % Tidal Volume PEEP POC Sodium (135-144) mmol/L Sodium (136-145) mmol/L POC Potassium (3.3-5.0) mmol/L Potassium (3.5-5.1) mmol/L Chloride (98-107) mmol/L Carbon Dioxide (21-32) mmol/L Anion Gap (3-11) BUN (7-18) mg/dl Creatinine (0.6-1.2) mg/dl Est Cr Clr Drug Dosing ml/min Est GFR ( Amer) ml/min Est GFR (Non-Af Amer) ml/min BUN/Creatinine Ratio (10-20) Glucose (70-99) mg/dl POC Glucose 203 H (70-99) mg/dl Calcium (8.5-10.1) mg/dl Phosphorus (2.5-4.9) mg/dl Magnesium (1.8-2.4) mg/dl Total Bilirubin 0.6 (0.2-1) mg/dl Direct Bilirubin 0.2 (0-0.2) mg/dl AST 66 H (15-37) U/L ALT 202 H (12-78) Alkaline Phosphatase 97 (45-117) U/L Total Protein 6.9 (6.4-8.2) gm/dl Albumin 2.3 L (3.4-5.0) gm/dl Urine Color Dark Yellow Urine Appearance Cloudy A (Clear) Urine pH 5.5 (4.5-7.5) Ur Specific [place] 1.029 (1.000-1.030) Urine Protein 1+ H (Negative) Urine Glucose (UA) Negative (Negative) Urine Ketones Trace H (Negative) Urine Blood Negative (Negative) Urine Nitrite Negative (Negative) Urine Bilirubin Negative (Negative) Urine Urobilinogen Negative (Negative) Ur Leukocyte Esterase Negative (Negative) Urine WBC (Auto) 1-5 (0-5) /hpf Urine RBC (Auto) 0-4 (0-4) /hpf U Hyaline Cast (Auto) 5-10 H (0-5) /lpf U Epithel Cells (Auto) >30 H (0-5) /lpf Urine Bacteria (Auto) Negative (Negative) Granular Casts 1-5 H (0) /lpf Urine Yeast Not Reportable Coding Level of Care Code Critical Care 1st 30-74 mins Diagnoses ARDS (adult respiratory distress syndrome) J80 Pneumonia due to COVID-19 virus U07.1; J12.82 Elevated troponin I level R77.8 Elevated lactic acid level R79.89
[2021-07-20] MEDS ORDERED: LACTULOSE SYRUP 30 GM/45 ML UDP PO STA (09:55)
[2021-07-20] MEDS ORDERED: OPTIRAY 320 100ml IV ONE (10:50)
--- NOTE | 2021-07-20 11:16 | CT Scan Report ---
CHEST CT WITH CONTRAST; CT ABDOMEN AND PELVIS WITH IV CONTRAST ONLY CT DOSE: 2184.58 mGy.cm HISTORY: Acute fever with pneumonia, elevated LFTs and abdominal pain fever hypoxia TECHNIQUE: Multiaxial CT images of the chest, abdomen and pelvis were performed following the IV admi nistration of 94 cc of Optiray. A dose lowering technique was utilized adhering to the principles o f ALARA. COMPARISON: Chest radiograph of same day FINDINGS: CT CHEST: Study is degraded by respiratory motion artifact. A tracheostomy cannula appears to be in satisfactor y positioning. The heart is upper limits of normal in size. Unremarkable thoracic aorta. The pulmonar y arteries are suboptimally evaluated. No central pulmonary emboli identified. No thyroid nodule iden tified. Prominent and mildly enlarged mediastinal and hilar lymph nodes measure up to approximately 1 1 mm, likely reactive. Trace right pleural effusion. There is no pneumothorax. Mild pneumomediastinum , most pronounced within the anterior mediastinum on image 103 of series 4 for example. Bilateral dinora undglass densities with mid to lower lung predominant consolidation. Unremarkable soft tissues. There is no acute fracture. Degenerative changes of the shoulders and spine. CT ABDOMEN AND PELVIS: No pneumatosis or pneumoperitoneum. The spleen, pancreas and adrenal glands are unremarkable. Hepatic steatosis with hepatomegaly. Patent portal vein. Punctate nonobstructing calculus of the superior po le left kidney. There are a few nonobstructing calculi of the right kidney measuring up to 3-4 mm. Th ere is a mild cortical scarring with parenchymal thinning of the right kidney. No ureteral calculi or hydronephrosis. A Rios catheter is noted within a decompressed urinary bladder. Fibroid uterus. No adnexal mass lesion. Atheromatous process of the aorta without aneurysm. Unremarkable IVC. No adenopa thy. Enteric tube terminates within the gastric fundus. There is no bowel obstruction or bowel wall thicke denis. A catheter is noted within the rectum. Trace perirectal edema/dependent ascites. Colonic divert iculosis without acute diverticulitis. Mild to moderate fecal retention. Scattered small bowel air-fl uid levels likely physiologic. No bowel obstruction. Additional injection sites of the anterior abdom en subcutaneous tissues. The previously noted mass of the left gluteus viktor is no longer present. There is asymmetric enlargement and heterogeneity of the left obturator internus. Small left hip join t effusion is likely reactive. There is mild osteoarthritis of the hips. Degenerative changes of the spine and pelvis. IMPRESSION: 1. Extensive intermixed groundglass and consolidative opacities are redemonstrated suggestive of obie l pneumonia. 2. Small amount of pneumomediastinum. 3. No bowel obstruction or bowel wall thickening. 4. Asymmetric enlargement with heterogeneity of the left obturator internus is suggestive of an acute intramuscular hematoma. 5. Hepatomegaly with hepatic steatosis. 6. Additional incidental findings as above include colonic diverticulosis and nonobstructing bilatera l nephrolithiasis. ACT 112: Negative or not required by law. Electronically signed by: Renard Bull M.D. 07/20/2021 11:15 AM
[2021-07-20] MEDS: VANCOMYCIN HCL 1,500 MG in SODIUM CHLORIDE 0.9% 500 ML IV SCH ×2 (13:29→21:04)
--- NOTE | 2021-07-20 16:15 | Hospitalist Progress Note ---
Date of Service July 20, 2021 Assessment & Plan (1) Acute hypoxemic respiratory failure due to COVID-19: Plan: SEVERE. Upon admission she required BIPAP due to severe hypoxia & increased work of breathing. Remained on BIPAP 14/7 continuously for several days following admission, then transitioned to HFNC. Remained on max settings including 100% FiO2 thereafter. She had intermittently used BIPAP at HS as well. Dx with DVTs in the week prior to admission, has presumed PEs; was too ill here to safely obtain CTA chest. Heparin drip started and now on therapeutic Lovenox Despite supportive care she developed significant respiratory fatigue from 8+ days of BIPAP + HFNC. Intubated AM of 07/04/21. placed on pressure support mode x 2 days on 07/11 and 07/12, but not since then due to increased FiO2 requirement-FiO2 requirement now back up to 100% on 07/15 Chest x-ray still with diffuse opacities on 07/14 and 07/15 Continues with fevers-central line and A-line removed on 07/13, now growing probable Enterococcus on blood cultures from 07/13-change ceftriaxone to vancomycin on 07/15 completed dexamethasone, increased to 20mg daily on 07/07 for 5 days of 20mg (07/12) and 5 days of 10mg starting 07/12 Received baricitinib 4mg daily for 8 days -- discontinued upon intubation. s/p Zithromax 5-day course Continue daily IV Lasix to keep lungs dry Was never a Remdesivir candidate. Appreciate critical care assistance tracheostomy performed 07/17/[address] Womack she remains on PEEP of 14 and FiO2 100% lightening sedation, she is following commands however lungs are not showing signs of improvement, unsure if she will ever come off ventilatory support will need PEG for LTACH placement CO2 going up today, gram neg bacilli growing from tracheal aspirate (2) Septic shock: Plan: fevers, leukocytosis, hypotensive starting 07/19/21 continue Levophed, going down on dose slightly today repeat blood cultures, fungal cultures, tracheal aspirate -- gram neg bacilli from tracheal aspirate continue Meropenem and continue Vancomycin makes prognosis worse (3) Pneumonia due to COVID-19 virus: Plan: severe COVID pneumonia with resulting ARDS completed full course of dexamethasone lungs are not improving, PEEP 14 and FiO2 100% ventilator day 17 today (4) ARDS (adult respiratory distress syndrome): Plan: 2nd to COVID-19 pneumonia ongoing see above tracheostomy done, 07/17 (5) Septicemia: Plan: With persistent fevers for many days despite being on cefepime Now blood cultures positive from 07/13 for probable Enterococcus Right IJ central venous catheter and arterial line removed on 07/13 Completed course of cefepime x1 week on 07/12 -Sedimentationist started ceftriaxone on 07/14- changed to Vancomycin 07/15 add Meropenem 07/19 for fever, septic shock repeat blood cultures show no growth, tracheal aspirate with GN bacilli (6) Acid reflux disease: Plan: cont IV PPI (7) Hypertension: Plan: BP medications on hold, on Levophed (8) Abnormal LFTs: Plan: transaminitis likely 2nd to COVID illness resolved (9) Deep vein thrombosis of bilateral lower extremities: Plan: b/l dopplers + for DVTs PEs presumed Heparin drip initially -- now on therapeutic lovenox (10) DVT prophylaxis: Plan: therapeutic lovenox BID for DVT Plan: appreciate ICU/pulmonary assistance Dispo-continued stay in ICU, work to wake up patient, decrease ventilator requirements, treat septic shock will reach out to family for visit tomorrow, discuss goals of care Admission and Anticipated Discharge Date Admission Date: June 26, 2021 Subjective still spiking fevers, still needing Levophed gram negative bacilli growing on tracheal aspirate blood cultures negative, fungal cultures negative ABG: CO 2 going up to 67 despite breathing 30+ times per minute, likely having issues ventilating now family planning on visiting today only with Versed boluses, on Oxycodone, off Fentanyl Review of Systems Review of Systems: Unobtainable due to cognitive status Physical Exam Physical Exam: General: well developed, elderly female, tracheostomy and mechanically ventilated Neck: tracheostomy Lungs: diminished sounds bilaterally, mechanically ventilated via tracheostomy Heart: tachycardic, S1 and S2, no murmur, peripheral pulses normal, capillary refill normal, no edema Abdomen: soft, NT, ND, + BS, no hepatomegaly, normal to percussion Extremities: normal in appearance, no cyanosis, no petechiae Neuro: waking up, no focal motor deficits, CN II-XII intact Skin: warm, dry, no rash, normal turgor Psych: waking up, following simple commands Results & Data Results & Data ([facility]) Vital Signs (Past 12 Hours) Vital Signs Temp Pulse Pulse Resp BP BP Pulse Ox 07/20/21 14:20 83 31 H 99 07/20/21 12:30 39.5 C H 87 99/49 L 99 07/20/21 12:00 90 99/56 L 100 07/20/21 11:30 90 99/54 L 100 07/20/21 11:00 92 H 97/50 L 97 07/20/21 10:59 39.8 C H 94 H 103/54 L 98 07/20/21 10:57 92 H 07/20/21 10:15 93 H 37 H 96 07/20/21 10:00 94 H 39 H 98/49 L 96 07/20/21 09:30 94 H 38 H 97/56 L 96 07/20/21 09:00 92 H 40 H 99/56 L 95 07/20/21 08:45 92 H 38 H 98 07/20/21 08:30 92 H 39 H 106/52 L 97 07/20/21 08:00 90 38 H 103/57 L 96 07/20/21 07:30 89 37 H 92/54 L 92 07/20/21 07:16 93 H 33 H 92/57 L 88 L 07/20/21 07:00 40.3 C H 89 90 38 H 96/53 L 92/57 L 92 07/20/21 06:22 40.1 C H 07/20/21 05:00 40.1 C H 89 22 124/63 92 07/20/21 04:33 40.0 C H 89 29 H 109/43 L 86 L Laboratory Results Laboratory Results - last 24 hr 07/19/21 07/19/21 07/19/21 15:45 20:11 23:57 WBC RBC Hgb POC Hgb Hct POC Hct MCV MCH MCHC RDW Std Deviation RDW Coeff of Dayanna Plt Count MPV Immature Gran % (Auto) Neut % (Auto) Lymph % (Auto) [place] % (Auto) Eos % (Auto) Baso % (Auto) Neut # (Auto) Lymph # (Auto) [place] # (Auto) Eos # (Auto) Baso # (Auto) Immature Gran # (Auto) Absolute Nucleated RBC Nucleated RBC % (auto) Sample Site POC pH POC pCO2 POC pO2 POC HCO3 POC Total CO2 POC Base Excess ABG pH (Temp Correct) ABG pCO2 (Temp Corrct POC ABG pO2 at Pt Temp POC ABG O2 Sat Hema Test O2 Delivery Device POC O2 Rate Minute Ventilation POC FiO2 Tidal Volume PEEP POC Sodium Sodium POC Potassium Potassium Chloride Carbon Dioxide Anion Gap BUN Creatinine Est Cr Clr Drug Dosing Est GFR ( Amer) Est GFR (Non-Af Amer) BUN/Creatinine Ratio Glucose POC Glucose 143 H 135 H Calcium Phosphorus Magnesium Total Bilirubin Direct Bilirubin AST ALT Alkaline Phosphatase Total Protein Albumin Urine Color Dark Yellow Urine Appearance Cloudy A Urine pH 5.5 Ur Specific [place] 1.029 Urine Protein 1+ H Urine Glucose (UA) Negative Urine Ketones Trace H Urine Blood Negative Urine Nitrite Negative Urine Bilirubin Negative Urine Urobilinogen Negative Ur Leukocyte Esterase Negative Urine WBC (Auto) 1-5 Urine RBC (Auto) 0-4 U Hyaline Cast (Auto) 5-10 H U Epithel Cells (Auto) >30 H Urine Bacteria (Auto) Negative Granular Casts 1-5 H Urine Yeast Not Reportable 07/20/21 07/20/21 07/20/21 04:09 04:34 04:34 WBC 15.52 H RBC 3.50 L Hgb 9.8 L POC Hgb Hct 32.3 L POC Hct MCV 92.3 MCH 28.0 MCHC 30.3 L RDW Std Deviation 54.2 H RDW Coeff of Dayanna 16.4 H Plt Count 216 MPV 10.8 H Immature Gran % (Auto) 0.6 Neut % (Auto) 88.4 Lymph % (Auto) 6.9 [place] % (Auto) 2.6 Eos % (Auto) 1.4 Baso % (Auto) 0.1 Neut # (Auto) 13.72 H Lymph # (Auto) 1.07 L [place] # (Auto) 0.40 Eos # (Auto) 0.21 Baso # (Auto) 0.02 Immature Gran # (Auto) 0.10 H Absolute Nucleated RBC 0.06 H Nucleated RBC % (auto) 0.4 Sample Site POC pH POC pCO2 POC pO2 POC HCO3 POC Total CO2 POC Base Excess ABG pH (Temp Correct) ABG pCO2 (Temp Corrct POC ABG pO2 at Pt Temp POC ABG O2 Sat Hema Test O2 Delivery Device POC O2 Rate Minute Ventilation POC FiO2 Tidal Volume PEEP POC Sodium Sodium 141 POC Potassium Potassium 4.0 Chloride 108 H Carbon Dioxide 30 Anion Gap 3.0 BUN 26 H Creatinine 0.44 L Est Cr Clr Drug Dosing 126.6 Est GFR ( Amer) 117.7 Est GFR (Non-Af Amer) 101.6 BUN/Creatinine Ratio 60.5 H Glucose 169 H POC Glucose 183 H Calcium 8.7 Phosphorus 1.9 L Magnesium 2.1 Total Bilirubin 0.6 Direct Bilirubin 0.2 AST 41 H ALT 134 H Alkaline Phosphatase 79 Total Protein 6.4 Albumin 1.9 L Urine Color Urine Appearance Urine pH Ur Specific [place] Urine Protein Urine Glucose (UA) Urine Ketones Urine Blood Urine Nitrite Urine Bilirubin Urine Urobilinogen Ur Leukocyte Esterase Urine WBC (Auto) Urine RBC (Auto) U Hyaline Cast (Auto) U Epithel Cells (Auto) Urine Bacteria (Auto) Granular Casts Urine Yeast 07/20/21 07/20/21 07/20/21 05:36 11:24 15:34 WBC RBC Hgb POC Hgb 12.9 Hct POC Hct 38 MCV MCH MCHC RDW Std Deviation RDW Coeff of Dayanna Plt Count MPV Immature Gran % (Auto) Neut % (Auto) Lymph % (Auto) [place] % (Auto) Eos % (Auto) Baso % (Auto) Neut # (Auto) Lymph # (Auto) [place] # (Auto) Eos # (Auto) Baso # (Auto) Immature Gran # (Auto) Absolute Nucleated RBC Nucleated RBC % (auto) Sample Site R Radial POC pH 7.30 L POC pCO2 67 H POC pO2 71 L POC HCO3 32 H POC Total CO2 34 H POC Base Excess 6.0 H ABG pH (Temp Correct) 7.268 L ABG pCO2 (Temp Corrct 73 H POC ABG pO2 at Pt Temp 81 POC ABG O2 Sat 91.0 Hema Test Pass O2 Delivery Device Ventilator POC O2 Rate 26 Minute Ventilation 9.6 POC FiO2 45 Tidal Volume 370 PEEP 10 POC Sodium 141 Sodium POC Potassium 4.1 Potassium Chloride Carbon Dioxide Anion Gap BUN Creatinine Est Cr Clr Drug Dosing Est GFR ( Amer) Est GFR (Non-Af Amer) BUN/Creatinine Ratio Glucose POC Glucose 194 H 183 H Calcium Phosphorus Magnesium Total Bilirubin Direct Bilirubin AST ALT Alkaline Phosphatase Total Protein Albumin Urine Color Urine Appearance Urine pH Ur Specific [place] Urine Protein Urine Glucose (UA) Urine Ketones Urine Blood Urine Nitrite Urine Bilirubin Urine Urobilinogen Ur Leukocyte Esterase Urine WBC (Auto) Urine RBC (Auto) U Hyaline Cast (Auto) U Epithel Cells (Auto) Urine Bacteria (Auto) Granular Casts Urine Yeast Medications Administered Current Inpatient Medications Acetaminophen (Acetaminophen Susp 325 Mg/10.15 Ml Udc) 975 mg PO Q8H PRN PRN Reason: Fever Stop: 08/14/21 16:44 Last Admin: 07/19/21 14:59 Dose: 975 mg Documented by: Dextrose (Dextrose 50% 50 Ml Syringe) 25 - 50 ml IV UD PRN; Protocol PRN Reason: Hypoglycemia Protocol Stop: 08/07/21 21:38 Docusate Sodium (Docusate Sodium Syrup 100 Mg/10 Ml Udc) 100 mg PO BID [place] Stop: 08/18/21 10:59 Last Admin: 07/20/21 07:57 Dose: 100 mg Documented by: Enoxaparin Sodium (Enoxaparin 100 Mg/1ml Syr) 90 mg SQ Q12 [place] Stop: 08/04/21 10:59 Last Admin: 07/20/21 07:57 Dose: 90 mg Documented by: Furosemide (Furosemide 40 Mg/4 Ml Vial) 40 mg IV DAILY [place] Stop: 08/12/21 08:59 Last Admin: 07/19/21 08:43 Dose: Not Given Documented by: Glucagon (Glucagon For Inj 1 Mg Vial) 1 mg SQ UD PRN; Protocol PRN Reason: Hypoglycemia Protocol Stop: 08/07/21 21:38 Glucose (Glucose 10 Tabs/Tube) 4 - 8 tabs PO UD PRN; Protocol PRN Reason: Hypoglycemia Protocol Stop: 08/07/21 21:38 Glucose (Glucose 40% Gel 15 Gm Tube) 15 - 30 gm PO UD PRN; Protocol PRN Reason: Hypoglycemia Protocol Stop: 08/07/21 21:38 Heparin Sodium (Beef Lung) (Heparin 10 Unit/Ml 5 Ml Flush) 5 ml FLUSH PRN PRN PRN Reason: Flush Stop: 08/12/21 18:12 Vancomycin HCl 1,500 mg/ (Sodium Chloride) 530 mls @ 200 mls/hr IV Q12H [place]; Pr otocol Stop: 07/23/21 19:59 Last Admin: 07/20/21 13:29 Dose: 200 mls/hr Documented by: Dexmedetomidine HCl 400 mcg/ (Sodium Chloride) 100 mls @ 34.65 mls/hr IV .Q2H54M [place]; Protocol Stop: 07/23/21 06:14 Last Admin: 07/20/21 15:50 Dose: 1.5 mcg/kg/hr, 34.7 mls/hr Documented by: Norepinephrine Bitartrate (Levophed/D5w) 8 mg in 508 mls @ 17.602 mls/hr IV .Q24H [facility]; Protocol Stop: 08/18/21 06:59 Last Admin: 07/20/21 01:43 Dose: 0.05 mcg/kg/min, 17.6 mls/hr Documented by: Meropenem 500 mg/ Syringe 10 mls @ 2 mls/min IV Q6H [facility] Stop: 07/26/21 09:59 Last Admin: 07/20/21 15:52 Dose: 2 mls/min Documented by: Insulin Aspart (Insulin Aspart Per Unit) 0 units SC Q4 [facility] Stop: 08/10/21 11:59 Last Admin: 07/20/21 15:49 Dose: 4 units Documented by: Lactulose (Lactulose Syrup 20 Gm/30 Ml Udc) 20 gm PO DAILY [facility] Stop: 08/18/21 09:59 Last Admin: 07/20/21 07:58 Dose: 20 gm Documented by: Lansoprazole (Lansoprazole 30 Mg Soltab) 30 mg NG DAILY [facility] Stop: 08/17/21 08:59 Last Admin: 07/20/21 07:57 Dose: 30 mg Documented by: Methylnaltrexone [place] (Methylnaltrexone [place] 12 Mg/0.6 Ml Vial) 12 mg SQ Q2D [facility] Stop: 07/21/21 11:01 Last Admin: 07/19/21 11:46 Dose: 12 mg Documented by: Metoprolol Tartrate (Metoprolol Tartrate 25 Mg Tab) 25 mg PO BID [facility] Stop: 08/15/21 20:59 Last Admin: 07/19/21 08:43 Dose: Not Given Documented by: Midazolam HCl (Midazolam Hcl 1 Mg/Ml 2ml Vial) 2 mg IV Q2H PRN PRN Reason: RASS -1 Stop: 08/17/21 11:05 Last Admin: 07/20/21 10:26 Dose: 2 mg Documented by: Miscellaneous (Carbohydrates For Hypoglycemia ) 15 - 30 gm PO UD PRN PRN Reason: Hypoglycemia Protocol Stop: 08/07/21 21:38 Miscellaneous (Icu Electrolyte Replacement Protocol) 1 ea N/A BID@06,18 [facility]; Protocol Stop: 07/26/21 17:59 Last Admin: 07/20/21 09:17 Dose: Not Given Documented by: Miscellaneous Information (Vancomycin Consult Active) 1 ea N/A UD PRN PRN Reason: Consult Stop: 08/14/21 18:22 Miscellaneous Information (Meropenem Consult Active) 1 ea N/A UD PRN PRN Reason: Consult Stop: 08/18/21 09:49 Multivitamins/Minerals (Multi Vit W/Minerals Liquid 15 Ml Udp) 15 ml NG QAM [facility] Stop: 08/12/21 08:59 Last Admin: 07/20/21 07:58 Dose: 15 ml Documented by: Nutritional Formula (Peptamen Intense Vhp 1.0 Jhonny 1,000 Ml Bag) 1,000 ml OG UD [facility]; Protocol Stop: 08/16/21 13:29 Last Admin: 07/18/21 13:04 Dose: 1,000 ml Documented by: Ondansetron HCl (Ondansetron Inj 2 Mg/Ml 2 Ml Vial) 4 mg IV Q6H PRN PRN Reason: Nausea Stop: 07/26/21 20:32 Oxycodone HCl (Oxycodone Hcl Ir 5 Mg Tab (Immediate Release)) 15 mg PO Q6H [facility]; Taper Stop: 07/27/21 11:59 Last Admin: 07/20/21 11:32 Dose: 15 mg Documented by: Sennosides (Sennosides 8.8 Mg/5 Ml Udc) 8.8 mg PO BID [facility] Stop: 08/11/21 20:59 Last Admin: 07/20/21 07:57 Dose: 8.8 mg Documented by: Sterile Water (Tube Feeding Water Flush) 30 ml GT Q4H [facility] Stop: 08/06/21 14:44 Last Admin: 07/20/21 15:50 Dose: 30 ml Documented by: PG Care Time/CCT Total # of Minutes Spent Total Time Spent with Patient: Total time spent is greater than 50% in coordination of care (as documented) at patient's floor/unit and/or counseling patient: Coding Level of Care Code 75461 Subseq Hosp Care Lvl 2 Diagnoses Acute hypoxemic respiratory failure due to COVID-19 U07.1; J96.01 Septic shock A41.9; R65.21 Pneumonia due to COVID-19 virus U07.1; J12.82 ARDS (adult respiratory distress syndrome) J80 Septicemia A41.9 Acid reflux disease K21.9 Hypertension I10 Abnormal LFTs R79.89 Deep vein thrombosis of bilateral lower extremities I82.403 DVT prophylaxis Z29.9
[2021-07-20] MEDS: PEPTAMEN INTENSE VHP 1.0 CAL 1,000 ML BAG OG SCH (17:54)
[2021-07-20] MEDS: ACETAMINOPHEN SUSP 325 MG/10.15 ML UDC PO PRN (20:58)
[2021-07-21] MEDS: oxyCODONE HCL IR 5 MG TAB (IMMEDIATE RELEASE) PO SCH ×5 (00:01→23:58)
[2021-07-21] MEDS: INSULIN ASPART PER UNIT SC SCH ×6 (00:03→19:54)
[2021-07-21] MEDS: DEXMEDETOMIDINE HCL 400 MCG in 0.9 % SODIUM CHLORIDE 96 ML IV SCH ×8 (01:05→22:13)
[2021-07-21] MEDS: TUBE FEEDING WATER FLUSH GT SCH ×5 (03:27→17:12)
[2021-07-21] MEDS: MEROPENEM 500 MG in SYRINGE 0 ML IV SCH ×4 (03:32→22:08)
[2021-07-21 03:46] LABS: iSTAT Allen Test Pass; iSTAT Art Bld Gas pCO2 Correct 48 mmHg (35-46); iSTAT Arterial Blood Gas HCO3 30 meg/L (19-24); iSTAT Arterial Blood Gas pCO2 46 mmHg (35-46); iSTAT Arterial Blood Gas pH 7.43 (7.35-7.45); iSTAT Arterial Blood Gas pO2 53 mmHg (80-95); iSTAT Arterial Blood Gas pO2 C 57; iSTAT Carbon Dioxide 32 mmol/L (24-31); iSTAT FiO2 75 %; iSTAT Hematocrit 24 % (37-47); iSTAT Hemoglobin 8.2 g/dl (12.0-16.0); iSTAT Potassium 3.1 mmol/L (3.3-5.0); iSTAT Site L Radial; iSTAT Sodium 144 mmol/L (135-144)
[2021-07-21] MEDS: MIDAZOLAM HCL 1 MG/ML 2ML VIAL IV PRN ×4 (03:46→23:24)
[2021-07-21 04:47] LABS: Basophils # (auto) 0.03 K/uL (0-0.2); Basophils % (auto) 0.3 %; Eosinophils # (auto) 0.61 K/uL (0-0.5); Eosinophils % (auto) 5.2 %; Hematocrit (blood only) 29.7 % (37-47); Hemoglobin 8.9 g/dL (12.0-16.0); Immature Granulocytes # (auto) 0.08 K/uL (0.00-0.02); Immature Granulocytes % (auto) 0.7 %; Lymphocytes # (auto) 1.18 K/uL (1.2-3.4); Lymphocytes % (auto) 10.1 %; Mean Corpuscular Hemoglobin 27.6 pg (25-34); Mean Corpuscular Volume 92.2 fL (80-100); Mean Platelet Volume 10.6 fL (7.4-10.4); Monocytes # (auto) 0.31 K/uL (0.11-0.59); Monocytes % (auto) 2.7 %; Neutrophils # (auto) 9.47 K/uL (1.4-6.5); Nucleated RBC # (auto) 0.05 K/uL (0-0); Nucleated RBC % (auto) 0.5 %; Platelet Count 211 K/uL (130-400); RDW Coefficient of Variation 16.3 % (11.5-14.5); RDW Standard Deviation 54.6 fL (36.4-46.3); Red Blood Count 3.22 M/uL (4.2-5.4); White Blood Count 11.68 K/uL (4.8-10.8)
[2021-07-21 05:12] LABS: BUN Creatinine Ratio 63.3 (10-20); Calcium 8.4 mg/dl (8.5-10.1); Creatinine Clr Calc Pharmacy 150.6 ml/min; Est GFR (African American) 124.6 ml/min; Est GFR (Non-African American) 107.5 ml/min; Magnesium 2.4 mg/dl (1.8-2.4); Potassium 3.3 mmol/L (3.5-5.1)
[2021-07-21] MEDS ORDERED: METOPROLOL TARTRATE 1 MG/ML VIAL IV STA (05:30)
[2021-07-21] MEDS ORDERED: METOPROLOL TARTRATE 1 MG/ML VIAL IV ONE (05:33)
[2021-07-21] MEDS ORDERED: 0.2 MICRON FILTER SET 1 EA IV ONE (05:36)
[2021-07-21] MEDS ORDERED: AMIODARONE / D5W 150 MG/100 ML BAG IV STA (05:36)
[2021-07-21] MEDS ORDERED: STAT IV Infusion **Titration per Protocol STA (05:36)
[2021-07-21] MEDS ORDERED: AMIODARONE IV BOLUS & DRIP IV STA (05:36)
[2021-07-21] MEDS ORDERED: AMIODARONE 150MG / 100ML D5W IV ONE (05:38)
[2021-07-21] MEDS ORDERED: AMIODARONE 360MG / 200ML D5W IV ONE (05:39)
[2021-07-21] MEDS ORDERED: SODIUM PHOSPHATE 3 MMOL/1 ML INFUSION IV STA (05:52)
[2021-07-21] MEDS ORDERED: AMIODARONE / D5W 360 MG/200 ML BAG IV ONE (06:00)
[2021-07-21] MEDS: POTASSIUM CHLORIDE 20 MEQ/15 ML UDC NG SCH ×2 (06:40→10:22)
[2021-07-21] MEDS: ICU ELECTROLYTE REPLACEMENT PROTOCOL SCH ×2 (06:44→18:18)
[2021-07-21] MEDS ORDERED: SODIUM PHOSPHATE 15 MMOL in SODIUM CHLORIDE 0.9% 250 ML IV ONE (06:45)
--- NOTE | 2021-07-21 08:05 | XRay Report ---
SINGLE VIEW CHEST CLINICAL HISTORY: Covid pneumonia. Respiratory failure. FINDINGS: An AP, portable, upright chest radiograph is compared to chest x-ray and chest CT dated 07/20. The examination is degraded by portable technique and patient rotation. A tracheostomy, an ent al tube, and a right PICC line are unchanged in position. The heart is top normal for projection. M ultifocal airspace consolidation has not appreciably changed as compared to yesterday. No large pleur al effusion or pneumothorax is seen. The skeletal structures are osteopenic. The bony thorax is gross ly intact. Cholecystectomy clips are noted in the right upper quadrant. IMPRESSION: 1. Stable lines and tubes. 2. Multifocal airspace consolidation has not appreciably changed as compared to yesterday. ACT 112: Negative or not required by law. Electronically signed by: Al Perez M.D. 07/21/2021 8:03 AM
[2021-07-21] MEDS: ENOXAPARIN 100 MG/1ML SYR SQ SCH ×2 (08:18→19:49)
[2021-07-21] MEDS: MULTI VIT W/MINERALS LIQUID 15 ML UDP NG SCH (08:18)
[2021-07-21] MEDS: LANSOPRAZOLE 30 MG SOLTAB NG SCH (08:18)
--- NOTE | 2021-07-21 08:21 | Critical Care Progress Note ---
Date of Service July 21, 2021 Assessment & Plan (1) ARDS (adult respiratory distress syndrome): (2) Pneumonia due to COVID-19 virus: (3) Elevated troponin I level: (4) Elevated lactic acid level: Plan: Impression: 71-year-old nonvaccinated female admitted with Covid pneumonitis and hypoxemic respiratory failure/ARDS requiring noninvasive positive pressure ventilation. She was admitted 06/26/2021 and failed high flow, CPAP, BiPAP, and prone positioning. She is intubated 07/04/2021. Recommendations: -Neuro: Bolus midazolam: Extend interval to every 4 hours as needed -Discontinue fentanyl transition to oral oxycodone taper -Propofol discontinued because of elevated triglycerides on 07/08/2021 -Discontinue Precedex -Cardiovascular: --Episodes of bradycardia --> resolved Atrial fibrillation with rapid ventricular response -Finish amiodarone bolus and load then discontinue -Metoprolol 25 twice daily -Holding secondary to hypotension -Currently normal sinus rhythm Hypotension: -Levophed via PICC line -Add midodrine 5 mg TID attempt to wean Levophed -Pulmonary: -- VDRF with acute hypoxic respiratory failure Likely secondary to multilobar COVID-19 pneumonia -Tracheostomy performed 07/17 postop day 4 --Severe acute respiratory distress syndrome -PF ratio less than 100 for several days -I am not seeing significant improvement in oxygenation COVID-19 PCR positive Completed DEXA ARDS protocol which is started on 07/06/2021 Pneumomediastinum -Close observation, no evidence of mediastinitis - ID: -- Covid pneumonia Finished dexamethasone for total of 10 days Baricitinib discontinued Sputum and blood from 07/05/2021 negative to date Completed the course of cefepime 07/12/2021 Continued febrile illness Sepsis with hypotension -holding caspofungin at this time -Fungal blood culture: 07/19: No growth to date --Gram-positive cocci in chains: Enterococcus faecalis On blood culture 07/13/2021 Central line as well as A-line removed 07/13/2021 Rocephin started 07/14/2021 -Transitioned to vancomycin 07/15: Only 1 culture positive question line infection versus contaminant -Vancomycin day 6 -Low threshold to extend given continued fevers Repeat blood cultures 07/16/2021: No growth to date Second repeat blood cultures 07/19: No growth to date Urinalysis 07/19 unremarkable Gram-negative bacilli in sputum 07/19: Pseudomonas -Meropenem day [address] scan of thorax abdomen pelvis largely unremarkable for significant infectious etiology --GI: Continue tube feeds -Peptamen at goal last bowel movement 07/19 Transaminitis Mild elevation in lipase -CT scan does not demonstrate radiographic findings concerning for pancreatitis Renal: Electrolyte replacement protocol. --Mild hypokalemia -20 Mehnaz use potassium chloride x3 today --Acute DVT bilateral lower extremity On therapeutic Lovenox monitor H&H - Endocrine: Continue with ICU hypoglycemia protocol MSK DTI of sacrum -Wound care following Pressure injury of upper lip Possible left obturator intramuscular hematoma on CT scan 07/20 --Prophylaxis VTE: Therapeutic Lovenox GI: Protonix Lines: Right arm PICC 07/13/2021, positive Rios, left radial A-line discontinued 07/14/2021, right IJ DC 07/13/2021 Patient's Daughter Jordyn Gallagher [phone] Per social work insurance will require surgical PEG tube for long-term acute care -We will consider when more stabilized and looking at possible discharge, transition to long-term nursing care Admission and Anticipated Discharge Date Admission Date: June 26, 2021 Supervising Physician Co-Signing Physician Notes I have personally spent 45 minutes of critical care time in the direct management of this patient. This is a life/limb threatening event. This includes time spent evaluating patient, direct bedside care, chart review, placing orders, interpretation of diagnostic studies, discussion with consultants, patient, and/or family members regarding treatment decisions, as well as other required patient management activities. This time is exclusive of all separately billable procedures, and teaching time and separate from and in addition to any other critical care service time. Subjective Overnight patient experienced atrial fibrillation with rapid ventricular response started on amiodarone Review of Systems Review of Systems: Unable to obtain secondary to tracheostomy tube Physical Exam Physical Exam: General: Arouses and follows simple commands, supine position nontoxic. Skin: Warm, dry, Head: Atraumatic Ears, nose, mouth and throat: airway patent Tracheostomy tube present in neck Cardiovascular: Normal peripheral perfusion Respiratory: Ventilator settings reviewed -FiO2 decreased to 80% Gastrointestinal: Non distended Musculoskeletal: No deformity Skin: tissue injury to upper lip Results & Data Results & Data ([facility]) Vital Signs (Past 12 Hours) Vital Signs Temp Pulse Resp BP Pulse Ox 07/21/21 07:50 141 H 40 H 90 07/21/21 06:31 108 H 43 H 104/58 L 83 L 07/21/21 06:00 82 43 H 93/57 L 88 L 07/21/21 05:59 90 41 H 89/56 L 88 L 07/21/21 05:50 86 35 H 82/49 L 91 07/21/21 05:37 146 H 39 H 99/51 L 98 07/21/21 05:30 169 H 43 H 114/64 96 07/21/21 05:28 38.8 C H 171 H 39 H 99/64 L 97 07/21/21 05:20 165 H 44 H 93/74 L 85 L 07/21/21 05:00 124 H 37 H 116/53 L 86 L 07/21/21 04:30 38.1 C H 89 40 H 107/63 92 07/21/21 04:00 94 H 30 H 92 07/21/21 03:30 77 35 H 104/58 L 85 L 07/21/21 03:00 74 29 H 99/54 L 92 07/21/21 02:34 76 32 H 90 07/21/21 02:30 72 25 H 100/62 93 07/21/21 02:00 76 31 H 103/54 L 88 L 07/21/21 01:30 74 29 H 101/54 L 94 07/21/21 01:00 73 26 H 110/58 L 92 07/21/21 00:00 73 105/59 L 92 07/20/21 23:30 74 125/65 92 07/20/21 23:05 77 34 H 90 07/20/21 23:00 38.3 C H 81 118/64 89 L 07/20/21 22:30 76 111/59 L 89 L 07/20/21 22:00 78 115/63 92 07/20/21 21:30 78 119/61 90 07/20/21 21:00 38.6 C H 78 117/59 L 91 07/20/21 20:30 79 120/65 90 Critical Care Results & Data Vital Signs (Past 12 Hours) Vital Signs Temp Pulse Resp BP Pulse Ox 07/21/21 07:50 141 H 40 H 90 07/21/21 06:31 108 H 43 H 104/58 L 83 L 07/21/21 06:00 82 43 H 93/57 L 88 L 07/21/21 05:59 90 41 H 89/56 L 88 L 07/21/21 05:50 86 35 H 82/49 L 91 07/21/21 05:37 146 H 39 H 99/51 L 98 07/21/21 05:30 169 H 43 H 114/64 96 07/21/21 05:28 38.8 C H 171 H 39 H 99/64 L 97 07/21/21 05:20 165 H 44 H 93/74 L 85 L 07/21/21 05:00 124 H 37 H 116/53 L 86 L 07/21/21 04:30 38.1 C H 89 40 H 107/63 92 07/21/21 04:00 94 H 30 H 92 07/21/21 03:30 77 35 H 104/58 L 85 L 07/21/21 03:00 74 29 H 99/54 L 92 07/21/21 02:34 76 32 H 90 07/21/21 02:30 72 25 H 100/62 93 07/21/21 02:00 76 31 H 103/54 L 88 L 07/21/21 01:30 74 29 H 101/54 L 94 07/21/21 01:00 73 26 H 110/58 L 92 07/21/21 00:00 73 105/59 L 92 07/20/21 23:30 74 125/65 92 07/20/21 23:05 77 34 H 90 07/20/21 23:00 38.3 C H 81 118/64 89 L 07/20/21 22:30 76 111/59 L 89 L 07/20/21 22:00 78 115/63 92 07/20/21 21:30 78 119/61 90 07/20/21 21:00 38.6 C H 78 117/59 L 91 07/20/21 20:30 79 120/65 90 Lab & Micro Results (Past 24 Hours) RBC 3.22 M/uL (4.2-5.4) L 07/21/21 WBC 11.68 K/uL (4.8-10.8) H 07/21/21 Hgb 8.9 g/dL (12.0-16.0) L 07/21/21 Hct 29.7 % (37-47) L 07/21/21 MCV 92.2 fL (80-100) 07/21/21 MCH 27.6 pg (25-34) 07/21/21 MCHC 30.0 g/dL (32-36) L 07/21/21 RDW Standard Deviation 54.6 fL (36.4-46.3) H 07/21/21 RDW Coefficient of Variation 16.3 % (11.5-14.5) H 07/21/21 Plt Count 211 K/uL (130-400) 07/21/21 MPV 10.6 fL (7.4-10.4) H 07/21/21 Nucleated Red Blood Cells % (auto) 0.5 % 07/21/21 Nucleated RBC Absolute Count (auto) 0.05 K/uL (0-0) H 07/21/21 Neutrophils (%) (Auto) 81.0 % 07/21/21 Lymphocytes (%) (Auto) 10.1 % 07/21/21 Monocytes # (Auto) 0.31 K/uL (0.11-0.59) 07/21/21 Eosinophils # (Auto) 0.61 K/uL (0-0.5) H 07/21/21 Immature Granulocyte % (Auto) 0.7 % 07/21/21 Neutrophils # (Auto) 9.47 K/uL (1.4-6.5) H 07/21/21 Lymphocytes # (Auto) 1.18 K/uL (1.2-3.4) L 07/21/21 Monocytes # (Auto) 0.31 K/uL (0.11-0.59) 07/21/21 Eosinophils # (Auto) 0.61 K/uL (0-0.5) H 07/21/21 Basophils # (Auto) 0.03 K/uL (0-0.2) 07/21/21 Immature Granulocyte # (Auto) 0.08 K/uL (0.00-0.02) H 07/21/21 Na 143 mmol/L (136-145) 07/21/21 K 3.3 mmol/L (3.5-5.1) L 07/21/21 Cl 111 mmol/L (98-107) H 07/21/21 CO2 30 mmol/L (21-32) 07/21/21 Anion Gap 2.0 (3-11) L 07/21/21 BUN 24 mg/dl (7-18) H 07/21/21 Creatinine 0.37 mg/dl (0.6-1.2) L 07/21/21 Estimated GFR ( Amer) 124.6 ml/min 07/21/21 Estimated GFR (Non-Af Amer) 107.5 ml/min 07/21/21 BUN/Creatinine Ratio 63.3 (10-20) H 07/21/21 Glu 166 mg/dl (70-99) H 07/21/21 Ca 8.4 mg/dl (8.5-10.1) L 07/21/21 Phosphorus Level 2.0 mg/dl (2.5-4.9) L 07/21/21 Mg 2.4 mg/dl (1.8-2.4) 07/21/21 04:29 07/21/21 Calcium Level 8.4 mg/dl (8.5-10.1) L 07/21/21 04:29 07/21/21 Hema Test Pass 07/21/21 03:31 07/21/21 Microbiology 07/19/21 11:48 Gram Stain - Final Sputum,Trach Sputum Culture - Preliminary Pseudomonas aeruginosa 07/19/21 10:15 Fungal Smear - Final Blood Fungal Culture - Preliminary No yeast or fungus isolated - Report 1, Additional Report to Follow. 07/19/21 07:56 Aerobic Blood Culture - Preliminary Blood No growth in Aerobic bottle after 24 hours. Anaerobic Blood Culture - Preliminary No growth in Anaerobic bottle after 24 hours. 07/19/21 08:09 Aerobic Blood Culture - Preliminary Blood No growth in Aerobic bottle after 24 hours. Anaerobic Blood Culture - Preliminary No growth in Anaerobic bottle after 24 hours. Diagnostic Findings (Past 24 Hours) Chest CT 07/20/21 10:[address] WITH CONTRAST; CT ABDOMEN AND PELVIS WITH IV CONTRAST ONLY CT DOSE: 2184.58 mGy.cm HISTORY: Acute fever with pneumonia, elevated LFTs and abdominal pain fever hypoxia TECHNIQUE: Multiaxial CT images of the chest, abdomen and pelvis were performed following the IV administration of 94 cc of Optiray. A dose lowering technique was utilized adhering to the principles of ALARA. COMPARISON: Chest radiograph of same day FINDINGS: CT CHEST: Study is degraded by respiratory motion artifact. A tracheostomy cannula appears to be in satisfactory positioning. The heart is upper limits of normal in size. Unremarkable thoracic aorta. The pulmonary arteries are suboptimally evaluated. No central pulmonary emboli identified. No thyroid nodule identified. Prominent and mildly enlarged mediastinal and hilar lymph nodes measure up to approximately 11 mm, likely reactive. Trace right pleural effusion. There is no pneumothorax. Mild pneumomediastinum, most pronounced within the anterior mediastinum on image 103 of series 4 for example. Bilateral groundglass densities with mid to lower lung predominant consolidation. Unremarkable soft tissues. There is no acute fracture. Degenerative changes of the shoulders and spine. CT ABDOMEN AND PELVIS: No pneumatosis or pneumoperitoneum. The spleen, pancreas and adrenal glands are unremarkable. Hepatic steatosis with hepatomegaly. Patent portal vein. Punctate nonobstructing calculus of the superior pole left kidney. There are a few nonobstructing calculi of the right kidney measuring up to 3-4 mm. There is a mild cortical scarring with parenchymal thinning of the right kidney. No ureteral calculi or hydronephrosis. A Rios catheter is noted within a deco mpressed urinary bladder. Fibroid uterus. No adnexal mass lesion. Atheromatous process of the aorta without aneurysm. Unremarkable IVC. No adenopathy. Enteric tube terminates within the gastric fundus. There is no bowel obstruction or bowel wall thickening. A catheter is noted within the rectum. Trace perirectal edema/dependent ascites. Colonic diverticulosis without acute diverticulitis. Mild to moderate fecal retention. Scattered small bowel air- fluid levels likely physiologic. No bowel obstruction. Additional injection sites of the anterior abdomen subcutaneous tissues. The previously noted mass of the left gluteus viktor is no longer present. There is asymmetric enlargement and heterogeneity of the left obturator internus. Small left hip joint effusion is likely reactive. There is mild osteoarthritis of the hips. Degenerative changes of the spine and pelvis. IMPRESSION: 1. Extensive intermixed groundglass and consolidative opacities are redemonstrated suggestive of viral pneumonia. 2. Small amount of pneumomediastinum. 3. No bowel obstruction or bowel wall thickening. 4. Asymmetric enlargement with heterogeneity of the left obturator internus is suggestive of an acute intramuscular hematoma. 5. Hepatomegaly with hepatic steatosis. 6. Additional incidental findings as above include colonic diverticulosis and nonobstructing bilateral nephrolithiasis. ACT 112: Negative or not required by law. Electronically signed by: Renard Bull M.D. 07/20/2021 11:15 AM Abdomen/Pelvis CT 07/20/21 10:[address] WITH CONTRAST; CT ABDOMEN AND PELVIS WITH IV CONTRAST ONLY CT DOSE: 2184.58 mGy.cm HISTORY: Acute fever with pneumonia, elevated LFTs and abdominal pain fever hypoxia TECHNIQUE: Multiaxial CT images of the chest, abdomen and pelvis were performed following the IV administration of 94 cc of Optiray. A dose lowering technique was utilized adhering to the principles of ALARA. COMPARISON: Chest radiograph of same day FINDINGS: CT CHEST: Study is degraded by respiratory motion artifact. A tracheostomy cannula appears to be in satisfactory positioning. The heart is upper limits of normal in size. Unremarkable thoracic aorta. The pulmonary arteries are suboptimally evaluated. No central pulmonary emboli identified. No thyroid nodule identified. Prominent and mildly enlarged mediastinal and hilar lymph nodes measure up to approximately 11 mm, likely reactive. Trace right pleural effusion. There is no pneumothorax. Mild pneumomediastinum, most pronounced within the anterior mediastinum on image 103 of series 4 for example. Bilateral groundglass densities with mid to lower lung predominant consolidation. Unremarkable soft tissues. There is no acute fracture. Degenerative changes of the shoulders and spine. CT ABDOMEN AND PELVIS: No pneumatosis or pneumoperitoneum. The spleen, pancreas and adrenal glands are unremarkable. Hepatic steatosis with hepatomegaly. Patent portal vein. Punctate nonobstructing calculus of the superior pole left kidney. There are a few nonobstructing calculi of the right kidney measuring up to 3-4 mm. There is a mild cortical scarring with parenchymal thinning of the right kidney. No ureteral calculi or hydronephrosis. A Rios catheter is noted within a decompressed urinary bladder. Fibroid uterus. No adnexal mass lesion. Atheromatous process of the aorta without aneurysm. Unremarkable IVC. No adenopathy. Enteric tube terminates within the gastric fundus. There is no bowel obstruction or bowel wall thickening. A catheter is noted within the rectum. Trace perirectal edema/dependent ascites. Colonic diverticulosis without acute diver ticulitis. Mild to moderate fecal retention. Scattered small bowel air-fluid levels likely physiologic. No bowel obstruction. Additional injection sites of the anterior abdomen subcutaneous tissues. The previously noted mass of the left gluteus viktor is no longer present. There is asymmetric enlargement and heterogeneity of the left obturator internus. Small left hip joint effusion is likely reactive. There is mild osteoarthritis of the hips. Degenerative changes of the spine and pelvis. IMPRESSION: 1. Extensive intermixed groundglass and consolidative opacities are redemonstrated suggestive of viral pneumonia. 2. Small amount of pneumomediastinum. 3. No bowel obstruction or bowel wall thickening. 4. Asymmetric enlargement with heterogeneity of the left obturator internus is suggestive of an acute intramuscular hematoma. 5. Hepatomegaly with hepatic steatosis. 6. Additional incidental findings as above include colonic diverticulosis and nonobstructing bilateral nephrolithiasis. ACT 112: Negative or not required by law. Electronically signed by: Renard Bull M.D. 07/20/2021 11:15 AM Chest X-Ray 07/21/21 07:00 SINGLE VIEW CHEST CLINICAL HISTORY: Covid pneumonia. Respiratory failure. FINDINGS: An AP, portable, upright chest radiograph is compared to chest x-ray and chest CT dated 07/20/2021. The examination is degraded by portable technique and patient rotation. A tracheostomy, an enteric tube, and a right PICC line are unchanged in position. The heart is top normal for projection. Multifocal airspace consolidation has not appreciably changed as compared to yesterday. No large pleural effusion or pneumothorax is seen. The skeletal structures are osteopenic. The bony thorax is grossly intact. Cholecystectomy clips are noted in the right upper quadrant. IMPRESSION: 1. Stable lines and tubes. 2. Multifocal airspace consolidation has not appreciably changed as compared to yesterday. ACT 112: Negative or not required by law. Electronically signed by: Junior Perez M.D. 07/21/2021 8:03 AM I & O Totals 24 Hours 07/20/21 07/21/21 07/22/21 06:59 06:59 06:59 Intake Total 3574.237 / 3574.237 5073.912 / 5073.912 380.34 / 380.34 Output Total 1550 / 1550 1455 / 1455 Balance 2023.237 / 2023.237 3618.912 / 3618.912 380.34 / 380.34 Cumulative 06/26/21 17:38 thru 07/21/21 07:17 Intake Total 11671.969 Output Total 11206 Balance 1792.969 RT Ventilator Mngmt (Last Documented) Ventilator Ordered Settings Ventilator Support Mode PRVC 07/21/21 07:50 Respiratory Rate 40 07/21/21 07:50 Ventilator Tidal Volume 380 07/21/21 07:50 Setting Minute Ventilation 20 07/21/21 07:50 Ventilator Positive Pressure 4 07/12/21 16:00 Support Setting Positive End Expiratory 14 07/21/21 07:50 Pressure Fraction of Inspired Oxygen 80 07/21/21 07:50 Machine Comment pt went into a fib, fio2 07/21/21 05:43 increased to 100% by RN Ventilator - PT Measurements Respiratory Rate 40 Exhaled Tidal Volume 465 Minute Ventilation 20 Peak Inspiratory Airway 26 Pressure Plateau Pressure 18 Respiratory Cycle Inspiratory: 1:3.1 Expiratory Ratio Inspiratory Phase Time 0.80 End-Tidal CO2 34 Static Lung Compliance 116.25 Dynamic Lung Compliance 38.75 Normal Static Lung Compliance 48.00 Patient Measurements Comment exp filter changed, as well as etco2 cord changed at this time and now works. Coding Level of Care Code Critical Care 1st 30-74 mins Diagnoses ARDS (adult respiratory distress syndrome) J80 Pneumonia due to COVID-19 virus U07.1; J12.82 Elevated troponin I level R77.8 Elevated lactic acid level R79.89
[2021-07-21] MEDS ORDERED: VANCOMYCIN TROUGH ONE (09:30)
[2021-07-21] MEDS: SENNOSIDES 8.8 MG/5 ML UDC PO SCH ×2 (10:12→19:51)
[2021-07-21] MEDS: POTASSIUM CHLORIDE PWD 20 MEQ PACK PO SCH ×3 (10:13→19:50)
[2021-07-21] MEDS: AMIODARONE / D5W 360 MG/200 ML BAG IV SCH ×2 (12:00→23:12)
[2021-07-21] MEDS: VANCOMYCIN HCL 1,500 MG in SODIUM CHLORIDE 0.9% 500 ML IV SCH (12:00)
[2021-07-21] MEDS ORDERED: VANCOMYCIN HCL 1,750 MG in SODIUM CHLORIDE 0.9% 500 ML IV SCH (12:00)
--- NOTE | 2021-07-21 12:05 | Pharmacy Report ---
Pharmacy Vanc AUC Short Note - Date of Service July 21, 2021 - Assessment & Plan Assessment 71 year old F receiving vancomycin for treatment of enterococcal bacteremia. Pertinent microbiologic data includes: blood culture culture growing enterococcus from 07/13/21. Day # 01/23 of antimicrobial therapy. Plan Vancomycin * AUC/JC is the preferred PK/PD target for vancomycin * AUC guided dosing is effective and associated with decreased risk of nephrotoxicity compared to traditional trough targets * Trough level of 12.1 mcg/mL is predicted to achieve target AUC/JC of 400-600 mg/L.hr and may be associated with a 8 % risk of nephrotoxicity. * Change to 1750 mg IV every 12 hours to aim closer to an AUC/JC of 500 mg/L.hr with 9% risk of nephrotoxicity * vancomycin to d/c after today per Dr Womack [facility] will continue to follow and will adjust dose/frequency as necessary. Thank you.
[2021-07-21] MEDS: NOREPINEPHRINE/D5W 8 MG/508 ML BAG IV SCH (13:10)
[2021-07-21] MEDS: MIDODRINE HCL 2.5 MG TAB PO SCH ×2 (13:17→16:39)
[2021-07-21] MEDS: DOCUSATE SODIUM SYRUP 100 MG/10 ML UDC PO SCH ×2 (15:04→19:47)
[2021-07-21] MEDS: LACTULOSE SYRUP 20 GM/30 ML UDC PO SCH (15:04)
[2021-07-21] MEDS: PEPTAMEN INTENSE VHP 1.0 CAL 1,000 ML BAG OG SCH (20:14)
--- NOTE | 2021-07-21 21:05 | Hospitalist Progress Note ---
Date of Service July 21, 2021 Assessment & Plan (1) Acute hypoxemic respiratory failure due to COVID-19: Plan: SEVERE. Upon admission she required BIPAP due to severe hypoxia & increased work of breathing. Remained on BIPAP 14/7 continuously for several days following admission, then transitioned to HFNC. Remained on max settings including 100% FiO2 thereafter. She had intermittently used BIPAP at HS as well. Dx with DVTs in the week prior to admission, has presumed PEs; was too ill here to safely obtain CTA chest. Heparin drip started and now on therapeutic Lovenox Despite supportive care she developed significant respiratory fatigue from 8+ days of BIPAP + HFNC. Intubated AM of 07/04/21. placed on pressure support mode x 2 days on 07/11 and 07/12, but not since then due to increased FiO2 requirement-FiO2 requirement now back up to 100% on 07/15 Chest x-ray still with diffuse opacities on 07/14 and 07/15 Continues with fevers-central line and A-line removed on 07/13, now growing probable Enterococcus on blood cultures from 07/13-change ceftriaxone to vancomycin on 07/15 completed dexamethasone, increased to 20mg daily on 07/07 for 5 days of 20mg (07/12) and 5 days of 10mg starting 07/12 Received baricitinib 4mg daily for 8 days -- discontinued upon intubation. s/p Zithromax 5-day course Continue Lasix 40mg IV daily to keep lungs dry Was never a Remdesivir candidate. Appreciate critical care assistance tracheostomy performed 07/17/[address] Womack she remains on PEEP of 12 and FiO2 75% lightening sedation, she is following commands on Versed bolus q4 PRN and oxycodone off of Fentanyl, Propofol, Precedex however lungs are not showing significant signs of improvement, unsure if she will ever come off ventilatory support AF ratio < 100 for a long time will need PEG for LTACH placement, eventually, not ready yet (2) Septic shock: Plan: fevers, leukocytosis, hypotensive starting 07/19/21 continue Levophed, going down on dose slightly today ICU added Midodrine 5mg TID to decrease need for Levophed repeat blood cultures, fungal cultures, tracheal aspirate -- Pseudomonas from tracheal aspirate continue Meropenem and continue Vancomycin (3) Pneumonia due to COVID-19 virus: Plan: severe COVID pneumonia with resulting ARDS completed full course of dexamethasone lungs are not improving, PEEP 12 and FiO2 75% ventilator day 18 today AF ratio of < 100 daughters visited at the bedside, continue aggressive treatment, full code (4) ARDS (adult respiratory distress syndrome): Plan: 2nd to COVID-19 pneumonia ongoing see above tracheostomy done, 07/17 (5) Atrial fibrillation: Plan: over night 07/20/21 treated with Amiodarone, converted to sinus continue Amiodarone drip (6) Septicemia: Plan: blood cultures were positive from 07/13 for probable Enterococcus Right IJ central venous catheter and arterial line removed on 07/13 now has PICC line changed to Vancomycin 07/15 added Meropenem 07/19 for fever, septic shock - this is treating Pseudomonas in sputum of note, repeat blood and fungal cultures show no growth from 07/19/21 (7) Pneumomediastinum: Plan: seen on CT from 07/20/21 continue to monitor, it is small no signs of medistinitis (8) Acid reflux disease: Plan: cont IV PPI (9) Hypertension: Plan: BP medications on hold, on Levophed (10) Abnormal LFTs: Plan: transaminitis likely 2nd to COVID illness resolved (11) Deep vein thrombosis of bilateral lower extremities: Plan: b/l dopplers + for DVTs PEs presumed Heparin drip initially -- now on therapeutic lovenox (12) DVT prophylaxis: Plan: Lovenox Plan: appreciate ICU/pulmonary assistance Dispo-continued stay in ICU, not much improvement in AF ratio, still requiring a lot of ventilatory support had a family meeting with Dr Womack and three daughters on 07/18/21 discussed severity of illness and not much improvement discussed that she is unlikely to come off ventilatory support, likely will require LTACH and SNF if she survives [facility]ci they continue to want full code and aggressive measures would recommend palliative care consult once service is up and running again Admission and Anticipated Discharge Date Admission Date: June 26, 2021 Subjective patient went into afib, treated with Amio bolus/drip sputum culture + Pseudomonas, on Meropenem continues to have AF ratio of < 100 for several days daughters visited today, continue to want everything done, full code reviewed labs appreciate management by Dr. Womack Review of Systems Review of Systems: Unobtainable due to endotracheal tube (tracheostomy tube) Physical Exam Physical Exam: General: well developed, elderly female, tracheostomy and mechanically ventilated, very frail Neck: tracheostomy Lungs: diminished sounds bilaterally, mechanically ventilated via tracheostomy Heart: regular S1 and S2, no murmur, peripheral pulses normal, capillary refill normal, no edema Abdomen: soft, NT, ND, + BS, no hepatomegaly, normal to percussion Extremities: normal in appearance, no cyanosis, no petechiae, profound weakness Neuro: waking up, no focal motor deficits, CN II-XII intact Skin: pressure ulcer of sacrum, lip Psych: waking up, following simple commands Results & Data Results & Data ([facility]) Vital Signs (Past 12 Hours) Vital Signs Temp Pulse Resp BP Pulse Ox 07/21/21 19:51 74 37 H 91 07/21/21 18:31 65 25 H 107/58 L 93 07/21/21 18:01 63 27 H 109/48 L 94 07/21/21 18:00 64 28 H 94 07/21/21 17:47 36.9 C 64 27 H 98/57 L 93 07/21/21 17:00 65 33 H 91 07/21/21 16:31 79 44 H 109/68 89 L 07/21/21 16:00 37.5 C 79 38 H 102/61 88 L 07/21/21 15:31 74 41 H 111/50 L 100 07/21/21 15:21 99 H 33 H 92 07/21/21 15:00 73 32 H 124/77 88 L 07/21/21 14:30 72 37 H 121/77 93 07/21/21 14:00 37.6 C H 72 34 H 126/61 95 07/21/21 13:31 74 35 H 123/66 94 07/21/21 13:00 80 36 H 121/76 94 07/21/21 12:30 75 30 H 113/65 95 07/21/21 12:14 83 32 H 108/57 L 100 07/21/21 12:00 87 40 H 100 07/21/21 11:30 86 43 H 108/47 L 94 07/21/21 11:00 92 H 38 H 123/52 L 91 07/21/21 10:32 99 H 39 H 93 07/21/21 10:31 95 H 33 H 107/59 L 91 07/21/21 10:00 93 H 35 H 92 07/21/21 09:31 97 H 35 H 104/53 L 94 07/21/21 09:01 95 H 29 H 100/53 L 91 07/21/21 09:00 97 H 34 H 91 Laboratory Results Laboratory Results - last 24 hr 07/21/21 07/21/21 07/21/21 00:00 03:31 03:34 WBC RBC Hgb POC Hgb 8.2 L Hct POC Hct 24 L MCV MCH MCHC RDW Std Deviation RDW Coeff of Dayanna Plt Count MPV Immature Gran % (Auto) Neut % (Auto) Lymph % (Auto) [place] % (Auto) Eos % (Auto) Baso % (Auto) Neut # (Auto) Lymph # (Auto) [place] # (Auto) Eos # (Auto) Baso # (Auto) Immature Gran # (Auto) Absolute Nucleated RBC Nucleated RBC % (auto) Sample Site L Radial POC pH 7.43 POC pCO2 46 POC pO2 53 L POC HCO3 30 H POC Total CO2 32 H POC Base Excess 6.0 H ABG pH (Temp Correct) 7.410 ABG pCO2 (Temp Corrct 48 H POC ABG pO2 at Pt Temp 57 POC ABG O2 Sat 87.0 L Hema Test Pass O2 Delivery Device Ventilator POC O2 Rate 22 POC FiO2 75 Tidal Volume 380 PEEP 12 POC Sodium 144 Sodium POC Potassium 3.1 L Potassium Chloride Carbon Dioxide Anion Gap BUN Creatinine Est Cr Clr Drug Dosing Est GFR ( Amer) Est GFR (Non-Af Amer) BUN/Creatinine Ratio Glucose POC Glucose 191 H 169 H Calcium Phosphorus Magnesium Lipase Vancomycin Trough 07/21/21 07/21/21 07/21/21 04:29 04:29 07:51 WBC 11.68 H RBC 3.22 L Hgb 8.9 L POC Hgb Hct 29.7 L POC Hct MCV 92.2 MCH 27.6 MCHC 30.0 L RDW Std Deviation 54.6 H RDW Coeff of Dayanna 16.3 H Plt Count 211 MPV 10.6 H Immature Gran % (Auto) 0.7 Neut % (Auto) 81.0 Lymph % (Auto) 10.1 [place] % (Auto) 2.7 Eos % (Auto) 5.2 Baso % (Auto) 0.3 Neut # (Auto) 9.47 H Lymph # (Auto) 1.18 L [place] # (Auto) 0.31 Eos # (Auto) 0.61 H Baso # (Auto) 0.03 Immature Gran # (Auto) 0.08 H Absolute Nucleated RBC 0.05 H Nucleated RBC % (auto) 0.5 Sample Site POC pH POC pCO2 POC pO2 POC HCO3 POC Total CO2 POC Base Excess ABG pH (Temp Correct) ABG pCO2 (Temp Corrct POC ABG pO2 at Pt Temp POC ABG O2 Sat Hema Test O2 Delivery Device POC O2 Rate POC FiO2 Tidal Volume PEEP POC Sodium Sodium 143 POC Potassium Potassium 3.3 L D Chloride 111 H Carbon Dioxide 30 Anion Gap 2.0 L BUN 24 H Creatinine 0.37 L Est Cr Clr Drug Dosing 150.6 Est GFR ( Amer) 124.6 Est GFR (Non-Af Amer) 107.5 BUN/Creatinine Ratio 63.3 H Glucose 166 H POC Glucose 198 H Calcium 8.4 L Phosphorus 2.0 L Magnesium 2.4 Lipase 498 H Vancomycin Trough 07/21/21 07/21/21 07/21/21 09:39 12:18 16:27 WBC RBC Hgb POC Hgb Hct POC Hct MCV MCH MCHC RDW Std Deviation RDW Coeff of Dayanna Plt Count MPV Immature Gran % (Auto) Neut % (Auto) Lymph % (Auto) [place] % (Auto) Eos % (Auto) Baso % (Auto) Neut # (Auto) Lymph # (Auto) [place] # (Auto) Eos # (Auto) Baso # (Auto) Immature Gran # (Auto) Absolute Nucleated RBC Nucleated RBC % (auto) Sample Site POC pH POC pCO2 POC pO2 POC HCO3 POC Total CO2 POC Base Excess ABG pH (Temp Correct) ABG pCO2 (Temp Corrct POC ABG pO2 at Pt Temp POC ABG O2 Sat Hema Test O2 Delivery Device POC O2 Rate POC FiO2 Tidal Volume PEEP POC Sodium Sodium POC Potassium Potassium Chloride Carbon Dioxide Anion Gap BUN Creatinine Est Cr Clr Drug Dosing Est GFR ( Amer) Est GFR (Non-Af Amer) BUN/Creatinine Ratio Glucose POC Glucose 198 H 179 H Calcium Phosphorus Magnesium Lipase Vancomycin Trough 12.1 07/21/21 19:38 WBC RBC Hgb POC Hgb Hct POC Hct MCV MCH MCHC RDW Std Deviation RDW Coeff of Dayanna Plt Count MPV Immature Gran % (Auto) Neut % (Auto) Lymph % (Auto) [place] % (Auto) Eos % (Auto) Baso % (Auto) Neut # (Auto) Lymph # (Auto) [place] # (Auto) Eos # (Auto) Baso # (Auto) Immature Gran # (Auto) Absolute Nucleated RBC Nucleated RBC % (auto) Sample Site POC pH POC pCO2 POC pO2 POC HCO3 POC Total CO2 POC Base Excess ABG pH (Temp Correct) ABG pCO2 (Temp Corrct POC ABG pO2 at Pt Temp POC ABG O2 Sat Hema Test O2 Delivery Device POC O2 Rate POC FiO2 Tidal Volume PEEP POC Sodium Sodium POC Potassium Potassium Chloride Carbon Dioxide Anion Gap BUN Creatinine Est Cr Clr Drug Dosing Est GFR ( Amer) Est GFR (Non-Af Amer) BUN/Creatinine Ratio Glucose POC Glucose 164 H Calcium Phosphorus Magnesium Lipase Vancomycin Trough Diagnostic Findings CT abdomen/pelvis and chest IMPRESSION: 1. Extensive intermixed groundglass and consolidative opacities are redemons trated suggestive of viral pneumonia. 2. Small amount of pneumomediastinum. 3. No bowel obstruction or bowel wall thickening. 4. Asymmetric enlargement with heterogeneity of the left obturator internus is suggestive of an acute intramuscular hematoma. 5. Hepatomegaly with hepatic steatosis. 6. Additional incidental findings as above include colonic diverticulosis and nonobstructing bilateral nephrolithiasis. Medications Administered Current Inpatient Medications Acetaminophen (Acetaminophen Susp 325 Mg/10.15 Ml Udc) 975 mg PO Q8H PRN PRN Reason: Fever Stop: 08/14/21 16:44 Last Admin: 07/20/21 20:58 Dose: 975 mg Documented by: Dextrose (Dextrose 50% 50 Ml Syringe) 25 - 50 ml IV UD PRN; Protocol PRN Reason: Hypoglycemia Protocol Stop: 08/07/21 21:38 Docusate Sodium (Docusate Sodium Syrup 100 Mg/10 Ml Udc) 100 mg PO BID [place] Stop: 08/18/21 10:59 Last Admin: 07/21/21 19:47 Dose: Not Given Documented by: Enoxaparin Sodium (Enoxaparin 100 Mg/1ml Syr) 90 mg SQ Q12 [place] Stop: 08/04/21 10:59 Last Admin: 07/21/21 19:49 Dose: 90 mg Documented by: Furosemide (Furosemide 40 Mg/4 Ml Vial) 40 mg IV DAILY [place] Stop: 08/12/21 08:59 Last Admin: 12/31/21 08:43 Dose: Not Given Documented by: Glucagon (Glucagon For Inj 1 Mg Vial) 1 mg SQ UD PRN; Protocol PRN Reason: Hypoglycemia Protocol Stop: 08/07/21 21:38 Glucose (Glucose 10 Tabs/Tube) 4 - 8 tabs PO UD PRN; Protocol PRN Reason: Hypoglycemia Protocol Stop: 08/07/21 21:38 Glucose (Glucose 40% Gel 15 Gm Tube) 15 - 30 gm PO UD PRN; Protocol PRN Reason: Hypoglycemia Protocol Stop: 08/07/21 21:38 Heparin Sodium (Beef Lung) (Heparin 10 Unit/Ml 5 Ml Flush) 5 ml FLUSH PRN PRN PRN Reason: Flush Stop: 08/12/21 18:12 Dexmedetomidine HCl 400 mcg/ (Sodium Chloride) 100 mls @ 34.65 mls/hr IV .Q2H54M [place]; Protocol Stop: 07/23/21 06:14 Last Admin: 07/21/21 19:26 Dose: 1.5 mcg/kg/hr, 34.7 mls/hr Documented by: Norepinephrine Bitartrate (Levophed/D5w) 8 mg in 508 mls @ 28.164 mls/hr IV .Q18H3M [place]; Protocol Stop: 08/18/21 06:59 Last Titration: 07/21/21 14:00 Dose: 0.08 mcg/kg/min, 28.2 mls/hr Documented by: Meropenem 500 mg/ Syringe 10 mls @ 2 mls/min IV Q6H [place] Stop: 07/26/21 09:59 Last Admin: 07/21/21 16:39 Dose: 2 mls/min Documented by: Amiodarone HCl/Dextrose (Nexterone / D5w) 360 mg in 200 mls @ 16.667 mls/hr IV .Q12H [place] Stop: 08/20/21 11:59 Last Admin: 07/21/21 12:00 Dose: 0.5 mg/min, 16.7 mls/hr Documented by: Vancomycin HCl 1,750 mg/ (Sodium Chloride) 535 mls @ 200 mls/hr IV Q12 [place]; Protocol Stop: 07/22/21 11:41 Insulin Aspart (Insulin Aspart Per Unit) 0 units SC Q4 [place] Stop: 08/10/21 11:59 Last Admin: 07/21/21 19:54 Dose: 3 units Documented by: Lactulose (Lactulose Syrup 20 Gm/30 Ml Udc) 20 gm PO DAILY [facility] Stop: 08/18/21 09:59 Last Admin: 07/21/21 15:04 Dose: Not Given Documented by: Lansoprazole (Lansoprazole 30 Mg Soltab) 30 mg NG DAILY [facility] Stop: 08/17/21 08:59 Last Admin: 07/21/21 08:18 Dose: 30 mg Documented by: Metoprolol Tartrate (Metoprolol Tartrate 25 Mg Tab) 25 mg PO BID [facility] Stop: 08/15/21 20:59 Last Admin: 07/19/21 08:43 Dose: Not Given Documented by: Midazolam HCl (Midazolam Hcl 1 Mg/Ml 2ml Vial) 2 mg IV Q4H PRN PRN Reason: RASS -1 Stop: 08/17/21 11:05 Last Admin: 07/21/21 11:18 Dose: 2 mg Documented by: Midodrine (Midodrine Hcl 2.5 Mg Tab) 5 mg PO TID@0800,1200,1700 [facility] Stop: 08/20/21 11:59 Last Admin: 07/21/21 16:39 Dose: 5 mg Documented by: Miscellaneous (Carbohydrates For Hypoglycemia ) 15 - 30 gm PO UD PRN PRN Reason: Hypoglycemia Protocol Stop: 08/07/21 21:38 Miscellaneous (Icu Electrolyte Replacement Protocol) 1 ea N/A BID@06,18 [facility]; Protocol Stop: 07/26/21 17:59 Last Admin: 07/21/21 18:18 Dose: Not Given Documented by: Miscellaneous Information (Vancomycin Consult Active) 1 ea N/A UD PRN PRN Reason: Consult Stop: 07/21/21 23:59 Miscellaneous Information (Meropenem Consult Active) 1 ea N/A UD PRN PRN Reason: Consult Stop: 08/18/21 09:49 Multivitamins/Minerals (Multi Vit W/Minerals Liquid 15 Ml Udp) 15 ml NG QAM [facility] Stop: 08/12/21 08:59 Last Admin: 07/21/21 08:18 Dose: 15 ml Documented by: Nutritional Formula (Peptamen Intense Vhp 1.0 Jhonny 1,000 Ml Bag) 1,000 ml OG UD [facility]; Protocol Stop: 08/16/21 13:29 Last Admin: 07/21/21 20:14 Dose: 1,000 ml Documented by: Ondansetron HCl (Ondansetron Inj 2 Mg/Ml 2 Ml Vial) 4 mg IV Q6H PRN PRN Reason: Nausea Stop: 07/26/21 20:32 Oxycodone HCl (Oxycodone Hcl Ir 5 Mg Tab (Immediate Release)) 10 mg PO Q6H [place]; Taper Stop: 07/27/21 11:59 Last Admin: 07/21/21 17:11 Dose: 10 mg Documented by: Potassium Chloride (Potassium Chloride Pwd 20 Meq Pack) 20 meq PO TID [place] Stop: 07/21/21 21:01 Last Admin: 07/21/21 19:50 Dose: 20 meq Documented by: Sennosides (Sennosides 8.8 Mg/5 Ml Udc) 8.8 mg PO BID [facility] Stop: 08/11/21 20:59 Last Admin: 07/21/21 19:51 Dose: Not Given Documented by: Sterile Water (Tube Feeding Water Flush) 30 ml GT Q4H [facility] Stop: 08/06/21 14:44 Last Admin: 07/21/21 17:12 Dose: 30 ml Documented by: d PG Care Time/CCT Total # of Minutes Spent Total Time Spent with Patient: Total time spent is greater than 50% in coordination of care (as documented) at patient's floor/unit and/or counseling patient: Coding Level of Care Code 31458 Subseq Hosp Care Lvl 3 Diagnoses Acute hypoxemic respiratory failure due to COVID-19 U07.1; J96.01 Septic shock A41.9; R65.21 Pneumonia due to COVID-19 virus U07.1; J12.82 ARDS (adult respiratory distress syndrome) J80 Septicemia A41.9 Acid reflux disease K21.9 Hypertension I10 Abnormal LFTs R79.89 Deep vein thrombosis of bilateral lower extremities I82.403 DVT prophylaxis Z29.9 Atrial fibrillation I48.91 Pneumomediastinum J98.2
[2021-07-22] MEDS: INSULIN ASPART PER UNIT SC SCH ×6 (00:03→20:04)
[2021-07-22] MEDS: TUBE FEEDING WATER FLUSH GT SCH ×6 (00:06→18:24)
[2021-07-22] MEDS: DEXMEDETOMIDINE HCL 400 MCG in 0.9 % SODIUM CHLORIDE 96 ML IV SCH ×5 (01:12→10:41)
[2021-07-22] MEDS: MEROPENEM 500 MG in SYRINGE 0 ML IV SCH ×4 (04:06→22:52)
[2021-07-22] MEDS: MIDAZOLAM HCL 1 MG/ML 2ML VIAL IV PRN ×2 (04:48→09:16)
[2021-07-22] MEDS: NOREPINEPHRINE/D5W 8 MG/508 ML BAG IV SCH ×3 (04:51→19:48)
[2021-07-22 04:59] LABS: Hematocrit (blood only) 29.6 % (37-47); Hemoglobin 9.1 g/dL (12.0-16.0); Mean Corpuscular Hemoglobin 28.2 pg (25-34); Mean Corpuscular Hgb Conc 30.7 g/dL (32-36); Mean Corpuscular Volume 91.6 fL (80-100); Mean Platelet Volume 11.3 fL (7.4-10.4); Nucleated RBC % (auto) 0.5 %; Platelet Count 249 K/uL (130-400); RDW Coefficient of Variation 16.5 % (11.5-14.5); RDW Standard Deviation 54.1 fL (36.4-46.3); Red Blood Count 3.23 M/uL (4.2-5.4); White Blood Count 18.42 K/uL (4.8-10.8)
[2021-07-22] MEDS: oxyCODONE HCL IR 5 MG TAB (IMMEDIATE RELEASE) PO SCH ×3 (05:04→17:02)
[2021-07-22 05:31] LABS: ALC (manual) 0.17 K/uL (1.2-3.4); ANC (manual) 17.15 K/uL (1.4-6.5); Albumin Level 1.6 gm/dl (3.4-5.0); BUN Creatinine Ratio 55.1 (10-20); Calcium 8.3 mg/dl (8.5-10.1); Creatinine Clr Calc Pharmacy 168.8 ml/min; Eosinophils # (manual) 0.31 K/uL (0-0.5); Eosinophils % (manual) 1.7 %; Est GFR (African American) 129.4 ml/min; Est GFR (Non-African American) 111.6 ml/min; Lymphocytes # (manual) 0.17 K/uL (1.2-3.4); Lymphocytes % (manual) 0.9 %; Monocytes # (manual) 0.48 K/uL (0.11-0.59); Monocytes % (manual) 2.6 %; Myelocytes # (manual) 0.31 K/uL (0-0); Myelocytes % (manual) 1.7 %; Neutrophils # (manual) 17.15 K/uL (1.4-6.5); Neutrophils % (manual) 93.1 %; Polychromasia 1+; Potassium 4.3 mmol/L (3.5-5.1)
[2021-07-22 05:39] LABS: Bilirubin Direct 0.1 mg/dl (0-0.2); Bilirubin,Total 0.3 mg/dl (0.2-1)
[2021-07-22 05:45] LABS: iSTAT Art Bld Gas pCO2 Correct 50 mmHg (35-46); iSTAT Art Bld Gas pH Corrected 7.372 (7.35-7.45); iSTAT Arterial Blood Gas HCO3 29 meg/L (19-24); iSTAT Arterial Blood Gas pCO2 50 mmHg (35-46); iSTAT Arterial Blood Gas pH 7.37 (7.35-7.45); iSTAT Arterial Blood Gas pO2 74 mmHg (80-95); iSTAT Arterial Blood Gas pO2 C 74; iSTAT Carbon Dioxide 31 mmol/L (24-31); iSTAT Hematocrit 25 % (37-47); iSTAT Hemoglobin 8.5 g/dl (12.0-16.0); iSTAT Potassium 4.2 mmol/L (3.3-5.0); iSTAT Site R Radial; iSTAT Sodium 140 mmol/L (135-144)
[2021-07-22] MEDS ORDERED: SODIUM PHOSPHATE 3 MMOL/1 ML INFUSION IV STA (06:18)
[2021-07-22] MEDS: ICU ELECTROLYTE REPLACEMENT PROTOCOL SCH ×2 (06:24→16:57)
[2021-07-22] MEDS ORDERED: SODIUM PHOSPHATE 15 MMOL in SODIUM CHLORIDE 0.9% 250 ML IV ONE (07:30)
--- NOTE | 2021-07-22 07:42 | Electrocardiogram Report ---
Test Reason : Blood Pressure : / mmHG Vent. Rate : 161 BPM Atrial Rate : 113 BPM P-R Int : 000 ms QRS Dur : 070 ms QT Int : 296 ms P-R-T Axes : 000 -21 164 degrees QTc Int : 484 ms Atrial fibrillation with rapid ventricular response Nonspecific ST and T wave abnormality Abnormal ECG When compared with ECG of 16-JUL-2021 07:20, Nonspecific T wave abnormality now evident in Anterior leads Confirmed by Griffin Chaparro ([id number]) on 07/22/2021 7:41:51 AM Referred By: REFERRED SELF Confirmed By:Griffin Chaparro
--- NOTE | 2021-07-22 09:03 | XRay Report ---
XR chest 1V portable HISTORY: 71 years-old Female Resp failure acute respiratory failure COMPARISON: Chest radiograph 07/21/2020 TECHNIQUE: Portable AP view of the chest FINDINGS: A tracheostomy cannula overlies the midline terminating superior to the clavicular heads. A right-maya ed PICC distal tip projects over the right atrium. A feeding tube is present with distal tip projecte d superiorly within the gastric body. There is moderate gaseous distention of the stomach. Cardiomega ly. No pneumothorax or large pleural effusion. Extensive mixed interstitial and alveolar opacities ar e redemonstrated and appear generally stable. Degenerative changes of the shoulders and spine. IMPRESSION: 1. Lines and tubes as above. 2. Mixed interstitial and alveolar opacities appear stable from prior. 3. No pneumothorax. ACT 112: Negative or not required by law. The above report was generated using voice recognition software. It may contain grammatical, syntax o r spelling errors. Electronically signed by: Renard Bull M.D. 07/22/2021 9:02 AM
[2021-07-22] MEDS: MIDODRINE HCL 2.5 MG TAB PO SCH ×3 (09:06→17:03)
[2021-07-22] MEDS: DOCUSATE SODIUM SYRUP 100 MG/10 ML UDC PO SCH ×2 (09:07→19:57)
[2021-07-22] MEDS: ENOXAPARIN 100 MG/1ML SYR SQ SCH ×2 (09:07→19:57)
[2021-07-22] MEDS: FUROSEMIDE 40 MG/4 ML VIAL IV SCH (09:08)
[2021-07-22] MEDS: LANSOPRAZOLE 30 MG SOLTAB NG SCH (09:08)
[2021-07-22] MEDS: LACTULOSE SYRUP 20 GM/30 ML UDC PO SCH (09:08)
[2021-07-22] MEDS: SENNOSIDES 8.8 MG/5 ML UDC PO SCH ×2 (09:09→19:59)
[2021-07-22] MEDS: MULTI VIT W/MINERALS LIQUID 15 ML UDP NG SCH (09:09)
[2021-07-22] MEDS: clonazePAM 1 MG TAB PO SCH ×2 (11:57→19:57)
[2021-07-22] MEDS: AMIODARONE 200 MG TAB PO SCH ×2 (11:57→19:54)
[2021-07-22] MEDS: AMIODARONE / D5W 360 MG/200 ML BAG IV SCH ×2 (12:37→22:57)
[2021-07-22] MEDS ORDERED: STAT IV Infusion **Titration per Protocol STA (12:51)
[2021-07-22] MEDS ORDERED: PROPOFOL BOLUS FROM BAG IV PRN (12:51)
--- NOTE | 2021-07-22 12:51 | Critical Care Progress Note ---
Date of Service July 22, 2021 Assessment & Plan (1) ARDS (adult respiratory distress syndrome): (2) Pneumonia due to COVID-19 virus: (3) Elevated troponin I level: (4) Elevated lactic acid level: Plan: Impression: 71-year-old nonvaccinated female admitted with Covid pneumonitis and hypoxemic respiratory failure/ARDS requiring noninvasive positive pressure ventilation. She was admitted 06/26/2021 and failed high flow, CPAP, BiPAP, and prone positioning. She is intubated 07/04/2021. Recommendations: -Neuro: Ativan as needed On oxycodone DC Precedex 07/22/2021 -Cardiovascular: --A. fib with RVR On amiodarone drip P.o. amiodarone started 07/22/2021 --Hypotension Combination of sepsis Midodrine started 07/21/2021 Vasopressors to keep MAP rater than 65 --Episodes of bradycardia --> resolved -Pulmonary: -- VDRF with acute hypoxic respiratory failure --> s/p trach 07/17/2021 Likely secondary to multilobar COVID-19 pneumonia Continue with lung protective ventilation High PEEP, low tidal volume to keep Plateau < 30 with permissive hypercapnea if need be. Monitor ABGs Continue with ventilatory support COVID-19 PCR positive Procalcitonin 0.17 CRP 18--> 12.9 S/p DEXA ARDS protocol which is started on 07/06/2021 - ID: -- Covid pneumonia Continue dexamethasone for total of 10 days Baricitinib discontinued as she is now intubated. Sputum and blood from 07/05/2021 negative to date Completed the course of cefepime 07/12/2021 --Enterococcus faecalis bacteremia On blood culture 07/13/2021 --> repeat blood culture 07/16/2021 negative Central line as well as A-line removed 07/13/2021 On vancomycin --Pseudomonas in the sputum Resistant to penicillin and cephalosporin Continue with meropenem for total of 7 days We will not give fluoroquinolones given the prolonged QTC --GI: Continue tube feeds -Renal: Electrolyte replacement protocol - Heme-onc: --Acute DVT bilateral lower extremity On therapeutic Lovenox monitor H&H - Endocrine: Continue with ICU hypoglycemia protocol -Musculoskeletal: --DTI of sacrum -Wound care following Pressure injury of upper lip Possible left obturator intramuscular hematoma on CT scan 1/1 Continue to monitor H&H --Prophylaxis VTE: Therapeutic Lovenox GI: Protonix Lines: Right arm PICC 07/13/2021, positive Rios Diet: Tube feeds Plan: In/out: +2.9 L, urine output 1100 mL T-max 38.9 Lasix 40 mg on a daily basis has been resumed. Patient does have DTI of the sacrum. Wound consult has been placed Start amiodarone 200 mg twice daily p.o for 7 days followed by 200 mg on a daily basis We will try to stop the amiodarone drip. Patient has been ventilating in the high 30s to low 40s. Etiology of it could be pain which the patient denies. Underlying hypoxia is a possibility Patient is already therapeutically anticoagulated. Possible withdrawal from benzodiazepines is also one of the possibilities. I will start the patient on clonazepam 1 mg twice daily. If there is no improvement in patient's respiratory status I might have to restart propofol. I will DC the Precedex at it was at max dose and patient was not having any significant benefit from it. Patient's Daughter Jordyn Gallagher [phone] I have personally spent 39 minutes of critical care time in the direct managem ent of this patient. This is a life/limb threatening event. This includes time spent evaluating pat ient, direct bedside care, chart review, placing orders, interpretation of diagnostic studies, discussion with consultants, patient, and family members, as well as other required patient management activities. This time is exclusive of all separately billable procedures, and teaching time and separate from and in addition to any other critical care service time. Please note the above document was generated using voice recognition software. It may contain grammatical, syntax or spelling errors. Admission and Anticipated Discharge Date Admission Date: June 26, 2021 Subjective Patient seen and examined at bedside. Patient was breathing in the high 30s to low 40s at the time of examination She denied any headache, no chest pain, no belly pain. She denied any pain at all. She is following commands. She was on Precedex 1.5, Levophed 0.06 as well as amiodarone at the time of examination. Review of Systems Review of Systems: All systems reviewed & are unremarkable except as noted in Subjective Physical Exam Physical Exam: Constitutional: No acute distress HEENT: PERRLA, Positive trach Respiratory system:Decreased air entry bilaterally, no wheeze, no cough, positive crackles bilaterally CVS: S1-S2 positive, no murmurs or gallops Abdomen: Soft, nontender, nondistended, positive bowel sounds x4 Extremities: +2 pulses bilaterally radialis/ dorsalis pedis, no cyanosis,+1 bilateral lower extremity Neuro:Breathing over the vent, following commands Psych: Unable to assess G/U: Positive Rios Skin: no rashes, warm and dry Lymphatic: no cervical or axillary lymphadenopathy Results & Data Results & Data ([facility]) Vital Signs (Past 12 Hours) Vital Signs Temp Pulse Resp BP Pulse Ox 07/22/21 11:01 88/74 L 07/22/21 11:00 83 37 H 95 07/22/21 10:52 82 40 H 94 07/22/21 10:33 83 38 H 88/62 L 92 07/22/21 10:31 83 41 H 67/40 L 92 07/22/21 10:30 82 42 H 93 07/22/21 10:00 114 H 42 H 105/61 88 L 07/22/21 09:56 115 H 39 H 110/75 07/22/21 09:30 123 H 35 H 130/80 88 L 07/22/21 09:01 121 H 39 H 140/75 89 L 07/22/21 09:00 122 H 39 H 88 L 07/22/21 08:37 103 H 40 H 89 L 07/22/21 08:30 117 H 39 H 149/77 H 90 07/22/21 08:00 37.4 C 93 H 41 H 133/63 88 L 07/22/21 07:30 97 H 33 H 117/75 90 07/22/21 07:02 102 H 35 H 115/71 92 07/22/21 07:00 92 H 40 H 91 07/22/21 06:00 80 36 H 93 07/22/21 05:32 70 31 H 103/58 L 97 07/22/21 05:02 37.1 C 74 36 H 129/54 L 90 07/22/21 05:00 80 36 H 89 L 07/22/21 04:31 87 35 H 130/59 L 91 07/22/21 04:10 38 H 07/22/21 04:00 37.2 C 81 40 H 94 07/22/21 03:31 84 37 H 122/61 94 07/22/21 03:01 86 31 H 127/64 92 07/22/21 03:00 82 27 H 92 07/22/21 02:01 126/60 07/22/21 02:00 80 40 H 92 07/22/21 01:31 77 36 H 99/62 L 92 07/22/21 01:00 85 42 H 129/70 91 07/22/21 04:16 07/22/21 04:16 Coding Level of Care Code Critical Care 1st 30-74 mins Diagnoses ARDS (adult respiratory distress syndrome) J80 Pneumonia due to COVID-19 virus U07.1; J12.82 Elevated troponin I level R77.8 Elevated lactic acid level R79.89 Time Spent (min) 39
[2021-07-22] MEDS: propofoL 1,000 MG/100 ML VIAL IV SCH ×3 (13:15→23:23)
--- NOTE | 2021-07-22 17:38 | Hospitalist Progress Note ---
Date of Service July 22, 2021 Assessment & Plan (1) Acute hypoxemic respiratory failure due to COVID-19: Plan: SEVERE. Upon admission she required BIPAP due to severe hypoxia & increased work of breathing. Remained on BIPAP 14/7 continuously for several days following admission, then transitioned to HFNC. Remained on max settings including 100% FiO2 thereafter. She had intermittently used BIPAP at HS as well. Dx with DVTs in the week prior to admission, has presumed PEs; was too ill here to safely obtain CTA chest. Heparin drip started and now on therapeutic Lovenox Despite supportive care she developed significant respiratory fatigue from 8+ days of BIPAP + HFNC. Intubated AM of 07/04/21. placed on pressure support mode x 2 days on 07/11 and 07/12, but not since then due to increased FiO2 requirement-FiO2 requirement now back up to 100% on 07/15 Chest x-ray still with diffuse opacities on 07/14 and 07/15 Continues with fevers-central line and A-line removed on 07/13, now growing probable Enterococcus on blood cultures from 07/13-change ceftriaxone to vancomycin on 07/15 completed dexamethasone, increased to 20mg daily on 07/07 for 5 days of 20mg (07/12) and 5 days of 10mg starting 07/12 now completed Received baricitinib 4mg daily for 8 days -- discontinued upon intubation. s/p Zithromax 5-day course Continue Lasix 40mg IV daily to keep lungs dry Was never a Remdesivir candidate. Appreciate critical care assistance tracheostomy performed 07/17/[address] Womack she remains on PEEP of 12 and FiO2 75% lightening sedation, she is following commands however had some tachypnea with low tidal volumes on 07/22/2021 on Versed bolus q4 PRN and oxycodone off of Fentanyl, Propofol, Precedex however lungs are not showing significant signs of improvement, unsure if she will ever come off ventilatory support AF ratio < 100 for a long time will need PEG for LTACH placement, eventually, not ready yet (2) Septic shock: Plan: fevers, leukocytosis, hypotensive starting 07/19/21 continue Levophed, going down on dose slightly today ICU added Midodrine 5mg TID to decrease need for Levophed repeat blood cultures, fungal cultures, tracheal aspirate -- Pseudomonas from tracheal aspirate continue Meropenem and continue Vancomycin (3) Pneumonia due to COVID-19 virus: Plan: severe COVID pneumonia with resulting ARDS completed full course of dexamethasone lungs are not improving, PEEP 12 and FiO2 75% ventilator day 18 today AF ratio of < 100 daughters visited at the bedside, continue aggressive treatment, full code (4) ARDS (adult respiratory distress syndrome): Plan: 2nd to COVID-19 pneumonia ongoing see above tracheostomy done, 07/17 (5) Atrial fibrillation: Plan: over night 07/20/21 treated with Amiodarone, converted to sinus continue Amiodarone drip attempt to stop drip and convert to enteral amiodarone resulted with a poorly timed bout of A. fib RVR reverted back to the enteral drip (6) Septicemia: Plan: blood cultures were positive from 07/13 for probable Enterococcus Right IJ central venous catheter and arterial line removed on 07/13 now has PICC line changed to Vancomycin 07/15 added Meropenem 07/19 for fever, septic shock - this is treating Pseudomonas in sputum of note, repeat blood and fungal cultures show no growth from 07/19/21 (7) Pneumomediastinum: Plan: seen on CT from 07/20/21 continue to monitor, it is small no signs of medistinitis (8) Acid reflux disease: Plan: cont IV PPI (9) Hypertension: Plan: BP medications on hold, on Levophed/ midodrine (10) Abnormal LFTs: Plan: transaminitis likely 2nd to COVID illness resolved (11) Deep vein thrombosis of bilateral lower extremities: Plan: b/l dopplers + for DVTs PEs presumed Heparin drip initially -- now on therapeutic lovenox (12) DVT prophylaxis: Plan: Lovenox Plan: appreciate ICU/pulmonary assistance Dispo-continued stay in ICU, not much improvement in AF ratio, still requiring a lot of ventilatory support had a family meeting with Dr Womack and three daughters on 07/18/21 discussed severity of illness and not much improvement discussed that she is unlikely to come off ventilatory support, likely will require LTACH and SNF if she survives 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 Head exam is normocephalic atraumatic Neck is with tracheostomy in place Lungs are coarse bilaterally in all lung muñoz, tachypnea Cardiac exam, Rhythm is regular.. No murmurs, rubs or gallops. Abdominal exam reveals normal bowel sounds, soft Neurologic exam can move her head to voice but does not meaningfully follow commands Skin is without bruises or rashes Psychologically is without concerns for anxiety or depression.. Results & Data Results & Data ([facility]) Vital Signs (Past 12 Hours) Vital Signs Temp Pulse Resp BP Pulse Ox 07/22/21 16:30 97.9 F 93 H 36 H 108/66 91 07/22/21 16:00 97.7 F 92 H 27 H 88/57 L 97 07/22/21 15:30 97.7 F 95 H 32 H 109/61 96 07/22/21 15:18 97.7 F 98 H 39 H 109/63 93 07/22/21 15:00 97.7 F 94 H 22 77 L 07/22/21 14:46 97.7 F 84 33 H 90/52 L 95 07/22/21 14:43 83 36 H 91 07/22/21 14:30 97.7 F 84 29 H 80/53 L 94 07/22/21 14:00 97.7 F 85 35 H 82/58 L 96 07/22/21 13:00 97.2 F L 99 H 45 H 88/60 L 95 07/22/21 12:30 97.3 F L 128 H 39 H 96/71 L 91 07/22/21 12:01 123 H 33 H 130/75 95 07/22/21 12:00 125 H 40 H 95 07/22/21 11:31 127 H 36 H 155/78 H 90 07/22/21 11:02 83 40 H 95 07/22/21 11:01 88/74 L 07/22/21 11:00 83 37 H 95 07/22/21 10:52 82 40 H 94 07/22/21 10:33 83 38 H 88/62 L 92 07/22/21 10:31 83 41 H 67/40 L 92 07/22/21 10:30 82 42 H 93 07/22/21 10:00 114 H 42 H 105/61 88 L 07/22/21 09:56 115 H 39 H 110/75 07/22/21 09:30 123 H 35 H 130/80 88 L 07/22/21 09:01 121 H 39 H 140/75 89 L 07/22/21 09:00 122 H 39 H 88 L 07/22/21 08:37 103 H 40 H 89 L 07/22/21 08:30 117 H 39 H 149/77 H 90 07/22/21 08:00 99.3 F 93 H 41 H 133/63 88 L 07/22/21 07:30 97 H 33 H 117/75 90 07/22/21 07:02 102 H 35 H 115/71 92 07/22/21 07:00 92 H 40 H 91 07/22/21 06:00 80 36 H 93 PG Care Time/CCT Total # of Minutes Spent Total Time Spent with Patient: Total time spent is greater than 50% in coordination of care (as documented) at patient's floor/unit and/or counseling patient: Coding Level of Care Code 40304 Subseq Hosp Care Lvl 2 Diagnoses Acute hypoxemic respiratory failure due to COVID-19 U07.1; J96.01 Septic shock A41.9; R65.21 Pneumonia due to COVID-19 virus U07.1; J12.82 ARDS (adult respiratory distress syndrome) J80 Atrial fibrillation I48.91 Septicemia A41.9 Pneumomediastinum J98.2 Acid reflux disease K21.9 Hypertension I10 Abnormal LFTs R79.89 Deep vein thrombosis of bilateral lower extremities I82.403 DVT prophylaxis Z29.9
[2021-07-22] MEDS ORDERED: INSULIN ASPART PER UNIT SC SCH (21:00)
[2021-07-23] MEDS: oxyCODONE HCL IR 5 MG TAB (IMMEDIATE RELEASE) PO SCH ×5 (00:30→23:59)
[2021-07-23] MEDS: INSULIN ASPART PER UNIT SC SCH ×6 (00:34→19:54)
[2021-07-23] MEDS: propofoL 1,000 MG/100 ML VIAL IV SCH ×3 (04:02→08:59)
[2021-07-23] MEDS: MEROPENEM 500 MG in SYRINGE 0 ML IV SCH ×4 (04:24→21:34)
[2021-07-23] MEDS ORDERED: STAT IV Infusion **Titration per Protocol STA ×2 (04:55→14:39)
[2021-07-23] MEDS: NOREPINEPHRINE/D5W 8 MG/508 ML BAG IV SCH ×4 (04:59→16:23)
[2021-07-23] MEDS: TUBE FEEDING WATER FLUSH GT SCH ×7 (05:01→23:59)
[2021-07-23 05:13] LABS: iSTAT Art Bld Gas pCO2 Correct 85 mmHg (35-46); iSTAT Art Bld Gas pH Corrected 7.184 (7.35-7.45); iSTAT Arterial Blood Gas HCO3 32 meg/L (19-24); iSTAT Arterial Blood Gas pCO2 80 mmHg (35-46); iSTAT Arterial Blood Gas pO2 53 mmHg (80-95); iSTAT Arterial Blood Gas pO2 C 58; iSTAT Carbon Dioxide 34 mmol/L (24-31); iSTAT FiO2 70 %; iSTAT Hematocrit 27 % (37-47); iSTAT Hemoglobin 9.2 g/dl (12.0-16.0); iSTAT Potassium 4.8 mmol/L (3.3-5.0); iSTAT Site L Brachial; iSTAT Sodium 133 mmol/L (135-144)
[2021-07-23] MEDS: VASOPRESSIN 20 UNITS in 0.9 % SODIUM CHLORIDE 100 ML IV SCH ×3 (05:14→21:15)
[2021-07-23] MEDS: ACETAMINOPHEN SUSP 325 MG/10.15 ML UDC PO PRN ×2 (06:36→16:17)
--- NOTE | 2021-07-23 07:54 | XRay Report ---
SINGLE VIEW CHEST CLINICAL HISTORY: Covid pneumonia. Respiratory failure. FINDINGS: An AP, portable, upright chest radiograph is compared to chest x-ray and chest CT dated 07/22. The examination is degraded by portable technique and patient rotation. A tracheostomy, an ent al tube, and a right PICC line are unchanged in position. The heart is top normal for projection. M ultifocal airspace consolidation has not appreciably changed as compared to yesterday. No large pleur al effusion or pneumothorax is seen. The skeletal structures are osteopenic. The bony thorax is gross ly intact. Cholecystectomy clips are noted in the right upper quadrant. IMPRESSION: 1. Stable lines and tubes. 2. Multifocal airspace consolidation has not appreciably changed as compared to yesterday. ACT 112: Negative or not required by law. Electronically signed by: Al Perez M.D. 07/23/2021 7:52 AM
[2021-07-23 08:51] LABS: Hemoglobin 8.5 g/dL (12.0-16.0); Mean Corpuscular Hemoglobin 27.9 pg (25-34); Mean Corpuscular Hgb Conc 29.3 g/dL (32-36); Mean Corpuscular Volume 95.1 fL (80-100); Mean Platelet Volume 11.3 fL (7.4-10.4); Nucleated RBC # (auto) 1.67 K/uL (0-0); Nucleated RBC % (auto) 6.2 %; Platelet Count 364 K/uL (130-400); RDW Standard Deviation 57.7 fL (36.4-46.3); Red Blood Count 3.05 M/uL (4.2-5.4); White Blood Count 27.08 K/uL (4.8-10.8)
[2021-07-23 08:52] LABS: BUN Creatinine Ratio 34.2 (10-20); Calcium 8.6 mg/dl (8.5-10.1); Creatinine Clr Calc Pharmacy 63.3 ml/min; Est GFR (African American) 76.6 ml/min; Est GFR (Non-African American) 66.1 ml/min; Magnesium 2.5 mg/dl (1.8-2.4); Phosphorus 4.9 mg/dl (2.5-4.9); Potassium 4.8 mmol/L (3.5-5.1)
[2021-07-23 08:53] LABS: ALC (manual) 1.16 K/uL (1.2-3.4); ANC (manual) 25.67 K/uL (1.4-6.5); Lymphocytes # (manual) 1.16 K/uL (1.2-3.4); Lymphocytes % (manual) 4.3 %; Monocytes # (manual) 0.24 K/uL (0.11-0.59); Monocytes % (manual) 0.9 %; Neutrophils # (manual) 25.67 K/uL (1.4-6.5); Neutrophils % (manual) 94.8 %; Polychromasia 1+
[2021-07-23] MEDS: ICU ELECTROLYTE REPLACEMENT PROTOCOL SCH ×2 (09:09→16:15)
[2021-07-23] MEDS: AMIODARONE 200 MG TAB PO SCH ×2 (09:11→21:13)
[2021-07-23] MEDS: clonazePAM 1 MG TAB PO SCH ×2 (09:11→21:13)
[2021-07-23] MEDS: MIDODRINE HCL 2.5 MG TAB PO SCH ×3 (09:12→16:13)
[2021-07-23] MEDS: DOCUSATE SODIUM SYRUP 100 MG/10 ML UDC PO SCH (09:12)
[2021-07-23] MEDS: LACTULOSE SYRUP 20 GM/30 ML UDC PO SCH (09:12)
[2021-07-23] MEDS: SENNOSIDES 8.8 MG/5 ML UDC PO SCH (09:12)
[2021-07-23] MEDS: ENOXAPARIN 100 MG/1ML SYR SQ SCH (09:13)
[2021-07-23] MEDS: LANSOPRAZOLE 30 MG SOLTAB NG SCH (09:13)
[2021-07-23] MEDS: FUROSEMIDE 40 MG/4 ML VIAL IV SCH (09:13)
[2021-07-23] MEDS: MULTI VIT W/MINERALS LIQUID 15 ML UDP NG SCH (09:14)
[2021-07-23] MEDS ORDERED: SODIUM CHLORIDE 0.9% 1000ML 1,000 ML IV SCH (10:15)
[2021-07-23] MEDS ORDERED: PANTOprazole 40 MG in SYRINGE 0 ML IV ONE (10:15)
[2021-07-23] MEDS ORDERED: LORazepam 2 MG/4 ML VIAL ONE (10:16)
[2021-07-23] MEDS ORDERED: LORazepam 2 MG/4 ML VIAL IV STA (10:26)
[2021-07-23] MEDS: MIDAZOLAM HCL 1 MG/ML 2ML VIAL IV PRN (10:46)
[2021-07-23] MEDS: AMIODARONE / D5W 360 MG/200 ML BAG IV SCH ×2 (10:47→21:11)
[2021-07-23] MEDS ORDERED: AMIODARONE 150MG / 100ML D5W IV ONE (10:56)
[2021-07-23] MEDS ORDERED: SODIUM CHLORIDE 0.9% 1000ML 1,000 ML IV ONE (11:19)
--- NOTE | 2021-07-23 14:12 | Critical Care Progress Note ---
Date of Service July 23, 2021 Assessment & Plan (1) ARDS (adult respiratory distress syndrome): (2) Pneumonia due to COVID-19 virus: (3) Elevated troponin I level: (4) Elevated lactic acid level: Plan: Impression: 71-year-old nonvaccinated female admitted with Covid pneumonitis and hypoxemic respiratory failure/ARDS requiring noninvasive positive pressure ventilation. She was admitted 06/26/2021 and failed high flow, CPAP, BiPAP, and prone positioning. She is intubated 07/04/2021. Recommendations: -Neuro: Ativan as needed On oxycodone DC Precedex 07/22/2021 -Cardiovascular: --A. fib with RVR On amiodarone drip P.o. amiodarone started 07/22/2021 --Shock Combination of sepsis Midodrine started 07/21/2021 Vasopressors to keep MAP rater than 65 --Episodes of bradycardia --> resolved -Pulmonary: -- VDRF with acute hypoxic respiratory failure --> s/p trach 07/17/2021 Likely secondary to multilobar COVID-19 pneumonia Continue with ventilatory support COVID-19 PCR positive Procalcitonin 0.17 CRP 18--> 12.9 S/p DEXA ARDS protocol which is started on 07/06/2021 - ID: -- Covid pneumonia Continue dexamethasone for total of 10 days Baricitinib discontinued as she is now intubated. Sputum and blood from 07/05/2021 negative to date Completed the course of cefepime 07/12/2021 --Enterococcus faecalis bacteremia On blood culture 07/13/2021 --> repeat blood culture 07/16/2021 negative Central line as well as A-line removed 07/13/2021 S/p vancomycin --Pseudomonas in the sputum Resistant to penicillin and cephalosporin Continue with meropenem for total of 7 days We will not give fluoroquinolones given the prolonged QTC --GI: Continue tube feeds -Renal: Electrolyte replacement protocol - Heme-onc: --Acute DVT bilateral lower extremity On therapeutic Lovenox monitor H&H - Endocrine: Continue with ICU hypoglycemia protocol -Musculoskeletal: --DTI of sacrum -Wound care following Pressure injury of upper lip Possible left obturator intramuscular hematoma on CT scan 07/20 Continue to monitor H&H --Prophylaxis VTE: Therapeutic Lovenox GI: Protonix Lines: Right arm PICC 07/13/2021, positive Rios Diet: Tube feeds Plan: In/out: In/out +1.6 L, urine output 1.2 L ABG 7.20/80/53 100% FiO2 PEEP of 14 Patient is having significant space ventilation patient is breathing in the 40s with her PCO2 is still high I will go down on the PEEP to 10 and increase the tidal volume instead. DC propofol as it is not helping with respiratory rate. Continue with Tylenol for fever. Patient is also having black-colored stools. I will hold the Lovenox. Continue with Protonix to twice daily Follow-up C. difficile. Patient again went into A. fib with RVR while on amiodarone drip. 150 mg of bolus was given again Overall prognosis of the patient is guarded. Goals of care needs to be addressed. Junior Aguirre was able to speak with patient's daughter able to come in for meeting tomorrow. Patient's Daughter Jordyn Gallagher [phone] I have personally spent 40 minutes of critical care time in the direct management of this patient. This is a life/limb threatening event. This includes time spent evaluating patient, direct bedside care, chart review, placing orders, interpretation of diagnostic studies, discussion with consultants, patient, and family members, as well as other required patient management activities. This time is exclusive of all separately billable procedures, and teaching time and separate from and in addition to any other critical care service time. Please note the above document was generated using voice recognition software. It may contain grammatical, syntax or spelling errors. Admission and Anticipated Discharge Date Admission Date: June 26, 2021 Subjective Patient seen and examined at bedside. Patient was breathing in the high 30s. She was on 15 propofol at the time of examination She is spiking fever. She was somnolent but answered few questions. She has been requiring more vasopressor support now She was on 0.15 Levophed and 0.04 of vasopressin her map is still in the low 60s Review of Systems Review of Systems: Unobtainable due to reduced consciousness Physical Exam Physical Exam: Constitutional: No acute distress HEENT: PERRLA, Positive trach Respiratory system:Decreased air entry bilaterally, no wheeze, no cough, positive crackles bilaterally CVS: S1-S2 positive, no murmurs or gallops Abdomen: Soft, nontender, nondistended, positive bowel sounds x4 Extremities: +2 pulses bilaterally radialis/ dorsalis pedis, no cyanosis,+1 bilateral lower extremity Neuro:Breathing over the vent Psych: Unable to assess G/U: Positive Rios Skin: no rashes, warm and dry Lymphatic: no cervical or axillary lymphadenopathy Results & Data Results & Data ([facility]) Vital Signs (Past 12 Hours) Vital Signs Temp Pulse Resp BP Pulse Ox 07/23/21 12:05 104 H 44 H 104/55 L 90 07/23/21 12:00 37.4 C 104 H 40 H 97/58 L 91 07/23/21 11:55 103 H 41 H 88/59 L 89 L 07/23/21 11:50 103 H 41 H 99/61 L 91 07/23/21 11:45 102 H 40 H 92/58 L 91 07/23/21 11:40 102 H 33 H 104/54 L 89 L 07/23/21 11:35 101 H 39 H 83/58 L 90 07/23/21 11:30 101 H 39 H 92/67 L 90 07/23/21 11:25 102 H 31 H 106/66 89 L 07/23/21 11:23 122 H 39 H 90 07/23/21 11:20 121 H 37 H 79/61 L 91 07/23/21 11:15 105 H 39 H 78/59 L 91 07/23/21 11:12 118 H 40 H 75/59 L 92 07/23/21 11:10 129 H 32 H 84/48 L 91 07/23/21 11:05 121 H 44 H 85/56 L 91 07/23/21 11:00 37.5 C 131 H 40 H 87/64 L 89 L 07/23/21 10:55 146 H 33 H 71/57 L 91 07/23/21 10:50 134 H 39 H 77/52 L 91 07/23/21 10:45 127 H 41 H 77/53 L 91 07/23/21 10:44 132 H 40 H 80/53 L 91 07/23/21 10:40 147 H 28 H 75/46 L 91 07/23/21 10:35 119 H 34 H 73/52 L 90 07/23/21 10:33 132 H 37 H 85/53 L 91 07/23/21 10:30 37.5 C 124 H 35 H 83/51 L 90 07/23/21 10:21 145 H 40 H 85/70 L 88 L 07/23/21 10:00 113 H 38 H 140/72 88 L 07/23/21 09:30 97 H 40 H 113/75 91 07/23/21 09:00 105 H 38 H 129/67 93 07/23/21 08:30 112 H 36 H 114/69 94 07/23/21 08:01 38.3 C H 117 H 46 H 118/91 93 07/23/21 08:00 38.3 C H 111 H 42 H 92 07/23/21 07:43 120 H 36 H 92 07/23/21 07:30 38.4 C H 120 H 31 H 97/70 L 90 07/23/21 07:00 38.5 C H 110 H 34 H 94/56 L 90 07/23/21 06:30 38.4 C H 110 H 29 H 86/54 L 90 07/23/21 06:00 38.3 C H 115 H 40 H 124/62 86 L 07/23/21 05:30 38.2 C H 114 H 39 H 114/67 89 L 07/23/21 05:15 38.2 C H 115 H 39 H 129/68 95 07/23/21 05:04 38.3 C H 109 H 36 H 81/53 L 97 07/23/21 05:03 38.3 C H 110 H 23 80/50 L 98 07/23/21 05:00 38.3 C H 109 H 38 H 79/48 L 97 07/23/21 04:50 117 H 38 H 94 07/23/21 04:30 38.3 C H 112 H 36 H 82/48 L 99 07/23/21 04:06 38.4 C H 111 H 6 L 93/56 L 86 L 07/23/21 04:00 38.4 C H 110 H 41 H 76/50 L 86 L 07/23/21 03:30 38.3 C H 114 H 38 H 87/54 L 87 L 07/23/21 03:00 38.3 C H 114 H 44 H 81/50 L 86 L 07/23/21 02:30 38.2 C H 115 H 37 H 90/57 L 87 L Laboratory Results 07/23/21 07:08 07/23/21 07:08 Coding Level of Care Code Critical Care 1st 30-74 mins Diagnoses ARDS (adult respiratory distress syndrome) J80 Pneumonia due to COVID-19 virus U07.1; J12.82 Elevated troponin I level R77.8 Elevated lactic acid level R79.89 Time Spent (min) 40
[2021-07-23] MEDS ORDERED: INSULIN PROTOCOL GOAL RANGE ONE (14:39)
[2021-07-23] MEDS ORDERED: INSULIN REGULAR 250 UNITS in SODIUM CHLORIDE 0.9% 247.5 ML IV SCH (15:00)
--- NOTE | 2021-07-23 16:06 | Hospitalist Progress Note ---
Date of Service July 23, 2021 Assessment & Plan (1) Acute hypoxemic respiratory failure due to COVID-19: Plan: SEVERE. seemingly not improving and maybe declining somewhat, started on meropenem by ICU Upon admission she required BIPAP due to severe hypoxia & increased work of breathing. Remained on BIPAP 14/7 continuously for several days following admission, then transitioned to HFNC. and intermittently used BIPAP at HS requiring 100% oxygen Dx with DVTs in the week prior to admission, has presumed PEs; was too ill here to safely obtain CTA chest. Heparin drip started and now on therapeutic Lovenox Despite supportive care she developed significant respiratory fatigue from 8+ days of BIPAP + HFNC. Intubated AM of 07/04/21. tracheostomy performed 07/17/[address] Womack she remains on PEEP of 12 and FiO2 75% lightening sedation, she is following commands however had some tachypnea with low tidal volumes on 07/22/2021 Continued with fevers-central line and A-line removed on 07/13, growing probable Enterococcus on blood cultures from 07/13-changed ceftriaxone to vancomycin on 07/15. Meropenem started 07/23/21 completed dexamethasone, increased to 20mg daily on 07/07 for 5 days of 20mg (07/12) and 5 days of 10mg starting 07/12 now completed Received baricitinib 4mg daily for 8 days -- discontinued upon intubation. s/p Zithromax 5-day course Continue Lasix 40mg IV daily to keep lungs dry Was never a Remdesivir candidate. Appreciate critical care assistance will need PEG for LTACH placement, eventually, not ready yet (2) Septic shock: Plan: fevers, leukocytosis, hypotensive starting 07/19/21 continue Levophed, ICU added Midodrine 5mg TID to decrease need for Levophed repeat blood cultures, fungal cultures, tracheal aspirate -- Pseudomonas from tracheal aspirate continue Meropenem (3) Pneumonia due to COVID-19 virus: Plan: severe COVID pneumonia with resulting ARDS completed full course of dexamethasone lungs are not improving, PEEP 12 and FiO2 75% ventilator dependent AF ratio of < 100 family visit arranged for 07/24/21 (4) ARDS (adult respiratory distress syndrome): Plan: 2nd to COVID-19 pneumonia ongoing see above tracheostomy done, 07/17 (5) Atrial fibrillation: Plan: over night 1/1/22, now intermittent treated with Amiodarone, converted to sinus continue Amiodarone drip attempt to stop drip and attempt convert to enteral amiodarone resulted with a poorly timed bout of A. fib RVR reverted back to the enteral drip (6) Septicemia: Plan: blood cultures were positive from 07/13 for probable Enterococcus, tracheal aspirate 07/19/21 pseudomonas Right IJ central venous catheter and arterial line removed on 07/13 now has PICC line added Meropenem 07/19 for fever, septic shock - this is treating Pseudomonas in sputum of note, repeat blood and fungal cultures show no growth from 07/19/21 (7) Pneumomediastinum: Plan: seen on CT from 07/20/21 continue to monitor, it is small no signs of medistinitis (8) Acid reflux disease: Plan: cont IV PPI (9) Hypertension: Plan: BP medications on hold, on Levophed/ midodrine (10) Abnormal LFTs: Plan: transaminitis likely 2nd to COVID illness resolved (11) Deep vein thrombosis of bilateral lower extremities: Plan: b/l dopplers + for DVTs PEs presumed Heparin drip initially -- now on therapeutic lovenox (12) DVT prophylaxis: Plan: Lovenox Plan: appreciate ICU/pulmonary assistance Admission and Anticipated Discharge Date Admission Date: June 26, 2021 Subjective Patient seen and examined at bedside. She remains febrile, tachypneic, requiring pressors and having intermittent afib rvr, she is able to make eye contact but not have meaningful interaction Review of Systems Review of Systems: Unobtainable due to cognitive status Physical Exam Physical Exam: The patient appeared mild to moderate respiratory distress Vital signs as documented. Head exam is normocephalic atraumatic Neck is with tracheostomy in place Lungs are coarse bilaterally in all lung muñoz, tachypnea Cardiac exam, Rhythm is tachycardic No murmurs, rubs or gallops. Abdominal exam reveals normal bowel sounds, soft Neurologic exam can move her head to voice but does not meaningfully follow commands Skin is without bruises or rashes Psychologically is without concerns for anxiety or depression.. Results & Data Results & Data ([facility]) Vital Signs (Past 12 Hours) Vital Signs Temp Pulse Resp BP Pulse Ox 07/23/21 15:30 112 H 40 H 127/55 L 89 L 07/23/21 15:23 101 H 39 H 87 L 07/23/21 15:00 100 H 40 H 98/60 L 87 L 07/23/21 14:30 101 H 39 H 111/62 87 L 07/23/21 14:00 103 H 38 H 116/60 88 L 07/23/21 13:30 100 H 40 H 91/61 L 88 L 07/23/21 13:15 108 H 40 H 100/60 88 L 07/23/21 13:00 101 H 39 H 111/55 L 87 L 07/23/21 12:45 101 H 40 H 106/52 L 87 L 07/23/21 12:31 141 H 35 H 99/56 L 89 L 07/23/21 12:30 101 H 36 H 88 L 07/23/21 12:15 102 H 38 H 103/55 L 89 L 07/23/21 12:05 104 H 44 H 104/55 L 90 07/23/21 12:00 99.3 F 104 H 40 H 97/58 L 91 07/23/21 11:55 103 H 41 H 88/59 L 89 L 07/23/21 11:50 103 H 41 H 99/61 L 91 07/23/21 11:45 102 H 40 H 92/58 L 91 07/23/21 11:40 102 H 33 H 104/54 L 89 L 07/23/21 11:35 101 H 39 H 83/58 L 90 07/23/21 11:30 101 H 39 H 92/67 L 90 07/23/21 11:25 102 H 31 H 106/66 89 L 07/23/21 11:23 122 H 39 H 90 07/23/21 11:20 121 H 37 H 79/61 L 91 07/23/21 11:15 105 H 39 H 78/59 L 91 07/23/21 11:12 118 H 40 H 75/59 L 92 07/23/21 11:10 129 H 32 H 84/48 L 91 07/23/21 11:05 121 H 44 H 85/56 L 91 07/23/21 11:00 99.5 F 131 H 40 H 87/64 L 89 L 07/23/21 10:55 146 H 33 H 71/57 L 91 07/23/21 10:50 134 H 39 H 77/52 L 91 07/23/21 10:45 127 H 41 H 77/53 L 91 07/23/21 10:44 132 H 40 H 80/53 L 91 07/23/21 10:40 147 H 28 H 75/46 L 91 07/23/21 10:35 119 H 34 H 73/52 L 90 07/23/21 10:33 132 H 37 H 85/53 L 91 07/23/21 10:30 99.5 F 124 H 35 H 83/51 L 90 07/23/21 10:21 145 H 40 H 85/70 L 88 L 07/23/21 10:00 113 H 38 H 140/72 88 L 07/23/21 09:30 97 H 40 H 113/75 91 07/23/21 09:00 105 H 38 H 129/67 93 07/23/21 08:30 112 H 36 H 114/69 94 07/23/21 08:01 100.9 F H 117 H 46 H 118/91 93 07/23/21 08:00 100.9 F H 111 H 42 H 92 07/23/21 07:43 120 H 36 H 92 07/23/21 07:30 101.1 F H 120 H 31 H 97/70 L 90 07/23/21 07:00 101.3 F H 110 H 34 H 94/56 L 90 07/23/21 06:30 101.1 F H 110 H 29 H 86/54 L 90 07/23/21 06:00 100.9 F H 115 H 40 H 124/62 86 L 07/23/21 05:30 100.8 F H 114 H 39 H 114/67 89 L 07/23/21 05:15 100.8 F H 115 H 39 H 129/68 95 07/23/21 05:04 100.9 F H 109 H 36 H 81/53 L 97 07/23/21 05:03 100.9 F H 110 H 23 80/50 L 98 07/23/21 05:00 100.9 F H 109 H 38 H 79/48 L 97 07/23/21 04:50 117 H 38 H 94 07/23/21 04:30 100.9 F H 112 H 36 H 82/48 L 99 07/23/21 04:06 101.1 F H 111 H 6 L 93/56 L 86 L PG Care Time/CCT Total # of Minutes Spent Total Time Spent with Patient: Total time spent is greater than 50% in coordination of care (as documented) at patient's floor/unit and/or counseling patient: Coding Level of Care Code 03679 Subseq Hosp Care Lvl 2 Diagnoses Acute hypoxemic respiratory failure due to COVID-19 U07.1; J96.01 Septic shock A41.9; R65.21 Pneumonia due to COVID-19 virus U07.1; J12.82 ARDS (adult respiratory distress syndrome) J80 Atrial fibrillation I48.91 Septicemia A41.9 Pneumomediastinum J98.2 Acid reflux disease K21.9 Hypertension I10 Abnormal LFTs R79.89 Deep vein thrombosis of bilateral lower extremities I82.403 DVT prophylaxis Z29.9
[2021-07-23] MEDS ORDERED: INSULIN ASPART PER UNIT SC SCH (16:30)
[2021-07-23] MEDS: PANTOprazole 40 MG in SYRINGE 0 ML IV SCH (21:14)
[2021-07-24] MEDS: INSULIN ASPART PER UNIT SC SCH ×4 (00:01→10:57)
[2021-07-24 03:35] LABS: iSTAT Art Bld Gas pCO2 Correct 66 mmHg (35-46); iSTAT Art Bld Gas pH Corrected 7.288 (7.35-7.45); iSTAT Arterial Blood Gas HCO3 32 meg/L (19-24); iSTAT Arterial Blood Gas pCO2 67 mmHg (35-46); iSTAT Arterial Blood Gas pH 7.29 (7.35-7.45); iSTAT Arterial Blood Gas pO2 79 mmHg (80-95); iSTAT Arterial Blood Gas pO2 C 78; iSTAT Carbon Dioxide 34 mmol/L (24-31); iSTAT FiO2 100 %; iSTAT Hematocrit 24 % (37-47); iSTAT Hemoglobin 8.2 g/dl (12.0-16.0); iSTAT Potassium 4.3 mmol/L (3.3-5.0); iSTAT Site L Brachial; iSTAT Sodium 133 mmol/L (135-144)
[2021-07-24] MEDS: TUBE FEEDING WATER FLUSH GT SCH ×3 (04:16→08:59)
[2021-07-24] MEDS: MEROPENEM 500 MG in SYRINGE 0 ML IV SCH ×2 (04:17→08:55)
[2021-07-24 05:06] LABS: Hematocrit (blood only) 24.5 % (37-47); Hemoglobin 7.3 g/dL (12.0-16.0); Mean Corpuscular Hemoglobin 27.9 pg (25-34); Mean Corpuscular Hgb Conc 29.8 g/dL (32-36); Mean Corpuscular Volume 93.5 fL (80-100); Mean Platelet Volume 10.6 fL (7.4-10.4); Nucleated RBC % (auto) 10.3 %; Platelet Count 299 K/uL (130-400); RDW Coefficient of Variation 17.2 % (11.5-14.5); RDW Standard Deviation 56.4 fL (36.4-46.3); Red Blood Count 2.62 M/uL (4.2-5.4); White Blood Count 16.52 K/uL (4.8-10.8)
[2021-07-24 05:10] LABS: BUN Creatinine Ratio 56.3 (10-20); Calcium 7.9 mg/dl (8.5-10.1); Creatinine Clr Calc Pharmacy 88.4 ml/min; Est GFR (African American) 104.6 ml/min; Est GFR (Non-African American) 90.2 ml/min; Magnesium 2.4 mg/dl (1.8-2.4)
[2021-07-24] MEDS: VASOPRESSIN 20 UNITS in 0.9 % SODIUM CHLORIDE 100 ML IV SCH (05:15)
[2021-07-24] MEDS: oxyCODONE HCL IR 5 MG TAB (IMMEDIATE RELEASE) PO SCH ×2 (05:20→12:22)
[2021-07-24 05:35] LABS: ALC (manual) 0.28 K/uL (1.2-3.4); ANC (manual) 15.96 K/uL (1.4-6.5); Lymphocytes # (manual) 0.28 K/uL (1.2-3.4); Lymphocytes % (manual) 1.7 %; Monocytes # (manual) 0.28 K/uL (0.11-0.59); Monocytes % (manual) 1.7 %; Neutrophils # (manual) 15.96 K/uL (1.4-6.5); Neutrophils % (manual) 96.6 %; Polychromasia 1+
[2021-07-24] MEDS: ICU ELECTROLYTE REPLACEMENT PROTOCOL SCH (05:51)
--- NOTE | 2021-07-24 08:02 | XRay Report ---
XR chest 1V portable HISTORY: Respiratory failure. Follow-up. COMPARISON: Chest 07/23/2021. FINDINGS: Lines and tubes remain unchanged and appear in good position. No pneumothorax. No pleural e ffusions. The heart remains mildly enlarged. There are low lung volumes. Diffuse patchy bilateral air space opacities persist and likely represent a viral pneumonia. IMPRESSION: 1. No change in the multifocal airspace opacities consistent with a pneumonia. 2. Satisfactory support line placement. ACT 112: Negative or not required by law. Electronically signed by: Francisco Baires M.D. 07/24/2021 8:00 AM
[2021-07-24] MEDS: PANTOprazole 40 MG in SYRINGE 0 ML IV SCH (08:54)
[2021-07-24] MEDS: AMIODARONE 200 MG TAB PO SCH (08:54)
[2021-07-24] MEDS: MULTI VIT W/MINERALS LIQUID 15 ML UDP NG SCH (08:54)
[2021-07-24] MEDS: MIDODRINE HCL 2.5 MG TAB PO SCH ×2 (08:55→12:22)
[2021-07-24] MEDS: clonazePAM 1 MG TAB PO SCH (08:55)
[2021-07-24] MEDS ORDERED: FUROSEMIDE 40 MG/4 ML VIAL IV SCH (09:00)
[2021-07-24] MEDS: AMIODARONE / D5W 360 MG/200 ML BAG IV SCH (10:17)
[2021-07-24] MEDS ORDERED: fentaNYL citrate 100 MCG/2 ML VIAL IV PRN (12:02)
--- NOTE | 2021-07-24 12:44 | Critical Care Progress Note ---
Date of Service July 24, 2021 Assessment & Plan (1) ARDS (adult respiratory distress syndrome): (2) Pneumonia due to COVID-19 virus: (3) Elevated troponin I level: (4) Elevated lactic acid level: Plan: Impression: 71-year-old nonvaccinated female admitted with Covid pneumonitis and hypoxemic respiratory failure/ARDS requiring noninvasive positive pressure ventilation. She was admitted 06/26/2021 and failed high flow, CPAP, BiPAP, and prone positioning. She is intubated 07/04/2021. Recommendations: -Neuro: Ativan as needed On oxycodone DC Precedex 07/22/2021 -Cardiovascular: --A. fib with RVR Off amiodarone drip as of 07/23/2021 P.o. amiodarone started 07/22/2021 --Shock Combination of sepsis Midodrine started 07/21/2021 Vasopressors to keep MAP rater than 65 --Episodes of bradycardia --> resolved -Pulmonary: -- VDRF with acute hypoxic respiratory failure --> s/p trach 07/17/2021 Likely secondary to multilobar COVID-19 pneumonia Continue with ventilatory support COVID-19 PCR positive Procalcitonin 0.17 CRP 18--> 12.9 S/p DEXA ARDS protocol which is started on 07/06/2021 - ID: -- Covid pneumonia Continue dexamethasone for total of 10 days Baricitinib discontinued as she is now intubated. Sputum and blood from 07/05/2021 negative to date Completed the course of cefepime 07/12/2021 --Enterococcus faecalis bacteremia On blood culture 07/13/2021 --> repeat blood culture 07/16/2021 negative Central line as well as A-line removed 07/13/2021 S/p vancomycin --Pseudomonas in the sputum Resistant to penicillin and cephalosporin Continue with meropenem for total of 7 days We will not give fluoroquinolones given the prolonged QTC --GI: Continue tube feeds -Renal: Electrolyte replacement protocol - Heme-onc: --Acute blood loss anemia Likely possible GI bleed given the tarry stools Fecal occult blood positive Monitor H&H, transfuse if hemoglobin less than 7 --Acute DVT bilateral lower extremity On therapeutic Lovenox monitor H&H - Endocrine: Continue with ICU hypoglycemia protocol -Musculoskeletal: --DTI of sacrum -Wound care following Pressure injury of upper lip Possible left obturator intramuscular hematoma on CT scan 07/20 Continue to monitor H&H --Prophylaxis VTE: Therapeutic Lovenox on hold GI: Protonix Lines: Right arm PICC 07/13/2021, positive Rios Diet: Tube feeds Plan: In/out: In/out +2 L, urine output 1700 mL Overall patient is not doing well when it comes to her oxygenation. She has been saturating in the low 80s even though being 100% Overall prognosis guarded Patient's family did have a meeting later last evening and decided her to be DNR. Today there was another meeting with the family members and Junior Aguirre to decide the goals of care. Family decided to go towards comfort measures. Patient's Daughter Jordyn Gallagher [phone] I have personally spent 35 minutes of critical care time in the direct management of this patient. This is a life/limb threatening event. This includes time spent evaluating patient, direct bedside care, chart review, placing orders, interpretation of diagnostic studies, discussion with consultants, patient, and family members, as well as other required patient management activities. This time is exclusive of all separately billable procedures, and teaching time and separate from and in addition to any other critical care service time. Please note the above document was generated using voice recognition software. It may contain grammatical, syntax or spelling errors. Admission and Anticipated Discharge Date Admission Date: June 26, 2021 Subjective Patient seen and examined at bedside. No acute distress She was not on any sedation at the time of examination She was 100% FiO2 PEEP of 10 she was saturating in the low to mid 80s Respiratory rate had gone down to the high 20s. She responded no to headache but was very difficult to get any other information Has been spiking low-grade fever Was on Levophed 0.08, vasopressin 0.04. Vasopressin was turned off Review of Systems Review of Systems: Unobtainable due to endotracheal tube Physical Exam Physical Exam: Constitutional: No acute distress HEENT: PERRLA, Positive trach Respiratory system:Decreased air entry bilaterally, no wheeze, no cough, positive crackles bilaterally CVS: S1-S2 positive, no murmurs or gallops Abdomen: Soft, nontender, nondistended, positive bowel sounds x4 Extremities: +2 pulses bilaterally radialis/ dorsalis pedis, no cyanosis,+1 bilateral lower extremity Neuro:Breathing over the vent Psych: Unable to assess G/U: Positive Rios Skin: no rashes, warm and dry Lymphatic: no cervical or axillary lymphadenopathy Results & Data Results & Data ([facility]) Vital Signs (Past 12 Hours) Vital Signs Temp Pulse Resp BP Pulse Ox 07/24/21 11:56 37.2 C 07/24/21 11:37 94 H 29 H 92 07/24/21 11:30 88 31 H 91/53 L 88 L 07/24/21 11:00 98 H 34 H 92/56 L 07/24/21 10:30 98 H 25 H 96/53 L 81 L 07/24/21 10:00 37.0 C 89 26 H 91/47 L 82 L 07/24/21 09:30 98 H 26 H 121/54 L 88 L 07/24/21 09:13 108 H 26 H 91/56 L 85 L 07/24/21 09:09 90 25 H 115/58 L 87 L 07/24/21 09:00 91 H 26 H 132/50 L 84 L 07/24/21 08:30 86 36 H 108/58 L 87 L 07/24/21 08:08 87 27 H 89 L 07/24/21 08:00 37.4 C 88 27 H 118/54 L 88 L 07/24/21 07:41 84 07/24/21 07:31 91 H 25 H 95/53 L 89 L 07/24/21 07:00 89 26 H 112/60 89 L 07/24/21 06:30 89 26 H 94/52 L 89 L 07/24/21 06:01 91 H 23 98/50 L 89 L 07/24/21 06:00 37 C 91 H 25 H 88 L 07/24/21 05:30 92 H 28 H 117/70 90 07/24/21 05:00 89 26 H 108/65 89 L 07/24/21 04:30 85 29 H 121/62 85 L 07/24/21 04:00 36.9 C 103 H 25 H 97/68 L 89 L 07/24/21 03:30 105 H 27 H 108/52 L 94 07/24/21 03:05 100 H 36 H 90 07/24/21 03:00 111 H 27 H 104/68 96 07/24/21 02:30 99 H 26 H 92/59 L 98 07/24/21 02:01 88 26 H 92/48 L 97 07/24/21 02:00 88 26 H 96 07/24/21 01:30 91 H 26 H 116/57 L 94 07/24/21 01:00 97 H 27 H 94/66 L 94 Laboratory Results 07/24/21 04:31 07/24/21 04:31 Coding Level of Care Code Critical Care 1st 30-74 mins Diagnoses ARDS (adult respiratory distress syndrome) J80 Pneumonia due to COVID-19 virus U07.1; J12.82 Elevated troponin I level R77.8 Elevated lactic acid level R79.89 Time Spent (min) 35
--- NOTE | 2021-07-24 13:04 | Discharge Summary ---
Date of Service July 24, 2021 Admission HPI Per Admitting Provider The patient is a 71-year-old female with a past medical history including hypertension, GERD and left lower extremity muscle mass, who presents to the emergency department symptoms as noted above. Her daughter, who is in the ED with her, reports that the patient has become more confused as the day progressed. Significant laboratories: WBC 10.32, hemoglobin 16.8, hematocrit 49.0, creatinine 1.32, glucose 143, AST 197, ALT 82, albumin 2.9, troponin 0.438, lactate 5.4. Patient is COVID-19 positive in the ED tonight. Oxygenation is 63% on room air, which initially improved on 15 L nonrebreather, was done required heated high flow, and finally to BiPAP 14/7 and 100%. Principal Diagnosis adult respiratory distress syndrome pneumonia covid 19 infection Discharge Exam Pt was pronounced at 1230 on 07/24/2021 Discharge Data Allergies Allergy/AdvReac Type Severity Reaction Status Date / Time Bactrim Allergy Intermediate RASH, AND Verified 04/28/17 05:55 THROAT CLOSES Penicillins Allergy Intermediate Hives Verified 06/30/21 07:18 sulfamethoxazole Allergy Intermediate RASH, AND Verified 06/26/21 19:22 THROAT CLOSES trimethoprim Allergy Intermediate RASH, AND Verified 06/26/21 19:22 THROAT CLOSES Consultations 06/26/21 19:08 ED Decision to Admit Stat 06/27/21 08:58 Consult Manager Enrollment Routine 07/04/21 13:16 Consult Manager Enrollment Routine Ordered Studies 06/29/21 18:41 US venous doppler LE BI Urgent 07/04/21 13:27 US point of care ultrasound Stat 07/20/21 10:06 CT chest diagnostic w con Routine 07/20/21 10:08 CT abd pelvis IV con only Routine Hospital Course (1) : Pt pronounced 07/24/2021 at 1230 the remainder of the note is from earlier in the hospital stay (2) Acute hypoxemic respiratory failure due to COVID-19: SEVERE. declining daily prior to , pt was placed on comfort measures prior to Upon admission she required BIPAP due to severe hypoxia & increased work of breathing. Remained on BIPAP 14/7 continuously for several days following admission, then transitioned to HFNC. and intermittently used BIPAP at requiring 100% oxygen Dx with DVTs in the week prior to admission, has presumed PEs; was too ill here to safely obtain CTA chest. Heparin drip started and now on therapeutic Lovenox Despite supportive care she developed significant respiratory fatigue from 8+ days of BIPAP + HFNC. Intubated AM of 07/04/21. tracheostomy performed 07/17/[address] Womack completed dexamethasone, increased to 20mg daily on 07/07 for 5 days of 20mg (07/12) and 5 days of 10mg starting 07/12 now completed Received baricitinib 4mg daily for 8 days -- discontinued upon intubation. s/p Zithromax 5-day course Was never a Remdesivir candidate. Appreciate critical care assistance (3) Septic shock: fevers, leukocytosis, hypotensive starting 07/19/21 continued Levophed, ICU added Midodrine 5mg TID to try decrease need for Levophed repeated blood cultures, fungal cultures, tracheal aspirate -- Pseudomonas from tracheal aspirate placed Meropenem (4) Pneumonia due to COVID-19 virus: severe COVID pneumonia with resulting ARDS completed full course of dexamethasone lungs are not improving, PEEP 12 and FiO2 75% ventilator dependent AF ratio of < 100 family visit arranged for 07/24/21, made comfort care and pt passed peacefully at 1230 (5) ARDS (adult respiratory distress syndrome): 2nd to COVID-19 pneumonia ongoing see above tracheostomy done, 07/17 (6) Atrial fibrillation: over night 07/20/21, intermittent treated with Amiodarone (7) Septicemia: blood cultures were positive from 07/13 for probable Enterococcus, tracheal aspirate 07/19/21 pseudomonas Right IJ central venous catheter and arterial line removed on 07/13 now has PICC line added Meropenem 07/19 for fever, septic shock - this is targeting Pseudomonas in sputum of note, repeat blood and fungal cultures show no growth from 07/19/21 (8) Pneumomediastinum: seen on CT from 07/20/21 continue to monitor, it is small no signs of medistinitis (9) Acid reflux disease: cont IV PPI (10) Hypertension: BP medications on hold, on Levophed/ midodrine (11) Abnormal LFTs: transaminitis likely 2nd to COVID illness resolved (12) Deep vein thrombosis of bilateral lower extremities: b/l dopplers + for DVTs PEs presumed therapeutic lovenox appreciate ICU/pulmonary assistance Total Time Total Time Spent Total Time Spent (In Minutes): It took greater than 30 minutes to complete this discharge process Discharge Plan Discharge Items Patient Disposition: Other Date/Time: 07/24/21 12:30 Coding Level of Care Code D/C DAY MANAGEMENT >30 MINS Diagnoses Acute hypoxemic respiratory failure due to COVID-19 U07.1; J96.01 Septic shock A41.9; R65.21 Pneumonia due to COVID-19 virus U07.1; J12.82 ARDS (adult respiratory distress syndrome) J80 Atrial fibrillation I48.91 Septicemia A41.9 Pneumomediastinum J98.2 Acid reflux disease K21.9 Hypertension I10 Abnormal LFTs R79.89 Deep vein thrombosis of bilateral lower extremities I82.403 R99
[2021-07-29] MEDS ORDERED: AMIODARONE 200 MG TAB PO SCH (09:00)
== END 2021-07-24 14:56 | disposition expired | DRG 4 ==
LOC: ED 17:38 → SUATTDRO 20:02 → EDINP 20:02 → 2S 06-28 03:09 → 2E 07-04 11:03 → 1E 07-11 12:13